=== PATIENT | female | born 1955 | race Hispanic/Latino ===

== ENCOUNTER → 2017-02-21 | Outpatient (CLI) | payer BC ==
--- NOTE | 2017-02-21 13:02 | Diagnostic Imaging Report ---
PROCEDURE:US GUIDED PARACENTESIS COMPARISON:None. INDICATIONS:Ascites FINDINGS: After informed consent was obtained, focused abdominal ultrasound identified a safe entry route into the free ascitic fluid in the right upper quadrant of the abdomen. The overlying skin was prepped and draped in sterile fashion. Lidocaine 1% was used for local anesthesia. Under ultrasound guidance, a centesis needle was advanced into the ascitic fluid, the needle was removed and the catheter attached to vacuum bottle. 6500 cc of straw-colored fluid were aspirated. The catheter was removed. There was <1 cc blood loss and no complications. Samples were sent to the laboratory for analysis. CONCLUSION: Uncomplicated ultrasound-guided paracentesis with removal of 6500 cc. Dictated by: Tristen Guzman M.D. on 02/21/2017 at 13:10 Electronically approved by: Tristen Guzman M.D. on 02/21/2017 at 13:10
[2017-02-21 13:46] LABS: BODY FLUID TYPE ASCITIES
[2017-02-21 13:47] LABS: BODY FLUID APPEARANCE SL.CLOUDY; BODY FLUID COLOR YELLOW
[2017-02-21 14:02] LABS: LYMPHOCYTES,BODY FLUID 73 %; MONO/MACROPHG,BODY FLUID 8 %; NEUTROPHILS,BODY FLUID 10 %; OTHER CELLS,BODY FLUID 9 %
[2017-02-21 15:42] LABS: RBC,BODY FLUID 97 cells/uL; WBC,BODY FLUID 54 cells/uL
== END ==
LOC: US 10:09
PROVIDERS: ATTEND Internal Medicine Gastroenterology
DX: R18.8 Other ascites (principal)
CPT/HCPCS: 36415; 49083; 82040; 82150; 82945; 83615; 83690; 83986; 84157; 84478; 87070; 87102; 87205; 87206; 88112; 88305; 89051; C1729

== ENCOUNTER → 2017-04-14 | Outpatient (CLI) | payer BC ==
[~2017-04-14] MED LIST: ALBUMIN HUMAN 200 ML IV ONE; SODIUM CHLORIDE 0.9% 250ML 250 ML ONE
[2017-04-14 08:24] LABS: INR 1.45; PROTHROMBIN TIME 16.6 seconds (11.9-14.5)
[2017-04-14 08:25] LABS: PARTIAL THROMBOPLASTIN TIME 36.2 seconds (23.8-35.5)
[2017-04-14 11:07] LABS: BODY FLUID APPEARANCE SL.CLOUDY; BODY FLUID COLOR YELLOW; BODY FLUID TYPE ABDOMINAL
[2017-04-14 11:51] LABS: RBC,BODY FLUID 34 cells/uL; WBC,BODY FLUID 67 cells/uL
--- NOTE | 2017-04-14 12:42 | Diagnostic Imaging Report ---
PROCEDURE:US GUIDED PARACENTESIS COMPARISON:None. INDICATIONS:Ascites FINDINGS: After informed consent was obtained, focused abdominal ultrasound identified a safe entry route into the free ascitic fluid in the right upper quadrant of the abdomen. The overlying skin was prepped and draped in sterile fashion. Lidocaine 1% was used for local anesthesia. Under ultrasound guidance, a 5 Hungarian [employer] needle was advanced into the ascitic fluid, the needle was removed and the catheter attached to vacuum bottle. Approximately 9,900 cc of ascitic fluid were aspirated. The catheter was removed. There was <1cc blood loss and no complications. The patient was administered albumin during and at the completion of the procedure. Samples were sent to the laboratory for analysis. CONCLUSION: Uncomplicated ultrasound-guided paracentesis with removal of 9,900 cc. Sandeep Beard D.O. Dictated by: Sandeep Beard D.O. on 04/14/2017 at 12:52 Electronically approved by: Sandeep Beard D.O. on 04/14/2017 at 12:52
[2017-04-14 17:12] LABS: LYMPHOCYTES,BODY FLUID 68 %; MONO/MACROPHG,BODY FLUID 9 %; NEUTROPHILS,BODY FLUID 23 %
== END ==
LOC: US 07:00
PROVIDERS: ATTEND Internal Medicine Gastroenterology
DX: R18.8 Other ascites (principal)
CPT/HCPCS: 36415; 49083; 82040; 82150; 82945; 83615; 83690; 83986; 84157; 84478; 85049; 85610; 85730; 86255; 87070; 87116; 87205; 87206; 88112; 88305; 89051; J7050

== ENCOUNTER → 2017-05-26 | Outpatient (CLI) | payer BC ==
[~2017-05-26] MED LIST changes: -SODIUM CHLORIDE 0.9% 250ML 250 ML ONE
[2017-05-26 13:19] LABS: INR 1.31; PROTHROMBIN TIME 15.3 seconds (11.9-14.5)
[2017-05-26 13:20] LABS: PARTIAL THROMBOPLASTIN TIME 30.7 seconds (23.8-35.5)
[2017-05-26 14:45] LABS: BODY FLUID APPEARANCE CLOUDY; BODY FLUID COLOR YELLOW; BODY FLUID TYPE PERITONEAL
--- NOTE | 2017-05-26 14:54 | Diagnostic Imaging Report ---
PROCEDURE:US GUIDED PARACENTESIS COMPARISON:None. INDICATIONS:Ascites FINDINGS: After informed consent was obtained, focused abdominal ultrasound identified a safe entry route into the free ascitic fluid in the right lower quadrant of the abdomen. The overlying skin was prepped and draped in sterile fashion. Lidocaine 1% was used for local anesthesia. Under ultrasound guidance, a 5 Welsh Yueh needle was advanced into the ascitic fluid, the needle was removed and the catheter attached to vacuum bottle. 9800 cc of straw-colored fluid were aspirated. The catheter was removed. There was minimal blood loss and no complications. Samples were sent to the laboratory for analysis. CONCLUSION: Uncomplicated ultrasound-guided paracentesis with removal of 9800 cc straw-colored fluid. Dictated by: Jerome Arnett M.D. on 05/26/2017 at 14:54 Electronically approved by: Jerome Arnett M.D. on 05/26/2017 at 14:54
[2017-05-26 15:01] LABS: RBC,BODY FLUID 133 cells/uL; WBC,BODY FLUID 48 cells/uL
[2017-05-26 15:22] LABS: LYMPHOCYTES,BODY FLUID 57 %; MONO/MACROPHG,BODY FLUID 24 %; NEUTROPHILS,BODY FLUID 19 %
== END ==
LOC: US 12:35
PROVIDERS: ATTEND Legal Medicine
DX: R18.8 Other ascites (principal)
CPT/HCPCS: 36415; 49083; 85049; 85610; 85730; 87070; 87205; 89051

== ENCOUNTER → 2017-06-12 | Outpatient (CLI) | payer BC ==
[~2017-06-12] MED LIST changes: +SODIUM CHLORIDE 0.9% 500ML 500 ML ONE
[2017-06-12 16:10] LABS: BODY FLUID APPEARANCE SL.CLOUDY; BODY FLUID COLOR YELLOW; BODY FLUID TYPE PERITONEAL
[2017-06-12 16:11] LABS: RBC,BODY FLUID 146 cells/uL; WBC,BODY FLUID 119 cells/uL
[2017-06-12 17:10] LABS: LYMPHOCYTES,BODY FLUID 49 %; MONO/MACROPHG,BODY FLUID 21 %; NEUTROPHILS,BODY FLUID 30 %
--- NOTE | 2017-06-18 09:26 | Diagnostic Imaging Report ---
PROCEDURE:US GUIDED PARACENTESIS COMPARISON:Paracentesis 05/26/2017. INDICATIONS:paracentesis for ascites FINDINGS: After informed consent was obtained, focused abdominal ultrasound identified a safe entry route into the free ascitic fluid in the right lower quadrant of the abdomen. The overlying skin was prepped and draped in sterile fashion. Lidocaine 1% was used for local anesthesia. Under ultrasound guidance, a centesis needle was advanced into the ascitic fluid, the needle was removed and the catheter attached to vacuum bottle. 10,150 cc of ascitic fluid were aspirated. The catheter was removed. There was <1 cc blood loss and no complications. Samples were sent to the laboratory for analysis. CONCLUSION: Uncomplicated ultrasound-guided paracentesis with removal of 10,150 cc. Dictated by: Tristen Guzman M.D. on 06/18/2017 at 9:27 Electronically approved by: Tristen Guzman M.D. on 06/18/2017 at 9:27
== END ==
LOC: US 12:42
PROVIDERS: ATTEND Legal Medicine
DX: R18.8 Other ascites (principal)
CPT/HCPCS: 36415; 49083; 87070; 87205; 89051; C1729; J7040

== ENCOUNTER → 2017-06-26 | Outpatient (CLI) | payer BC ==
[~2017-06-26] MED LIST changes: +SODIUM CHLORIDE 0.9% 250ML 250 ML ONE; -SODIUM CHLORIDE 0.9% 500ML 500 ML ONE
[2017-06-26 15:57] LABS: BODY FLUID COLOR YELLOW; BODY FLUID TYPE PERITONEAL
[2017-06-26 15:58] LABS: BODY FLUID APPEARANCE CLOUDY
[2017-06-26 16:00] LABS: RBC,BODY FLUID 26 cells/uL; WBC,BODY FLUID 26 cells/uL
[2017-06-26 16:23] LABS: LYMPHOCYTES,BODY FLUID 69 %; MONO/MACROPHG,BODY FLUID 22 %; NEUTROPHILS,BODY FLUID 9 %
--- NOTE | 2017-06-30 07:07 | Diagnostic Imaging Report ---
Date and Time: 06/26/2017 Procedure: Ultrasound-guided paracentesis pierce and shave press operator: Dr. Arnett Pre-operative diagnosis: Ascites Post-operative diagnosis: Ascites Conscious Sedation: None The patient's heart rate and pulse oximetry were continuously monitored by the interventional radiology nurse. Blood pressure was monitored at 5 minute intervals. Additional Medications: Lidocaine 1% for local anesthesia Fluoroscopy time: 0 Dose-area Product: 0 mGycm2. Frontal Air Kerma: 0 Contrast used: 0 Estimated blood loss: 20 cc Specimens: 11,200 cc ascitic fluid Implants: None Blood products administered: None Condition at completion of procedure: Stable Disposition: Discharged home DISCUSSION: Informed consent was obtained and documented in the medical record after discussion of risks and benefits. Patient was placed in the supine position on the sonographic table. Preliminary sonographic evaluation confirmed large volume ascites. A suitable percutaneous approach in the right mid abdomen was identified. The overlying skin was prepped and draped in the standard sterile fashion. 1% lidocaine was infiltrated into the skin and subcutaneous tissues for local anesthesia. Then under continuous sonographic guidance, a 5 [place] Yueh needle catheter was advanced into the peritoneal cavity. The catheter was advanced off the needle and connected to vacuum bottle with subsequent evacuation of 11,200 cc straw-colored fluid. The catheter was removed and a sterile dressing was applied. The patient tolerated the procedure well without immediate complication. Specimen was submitted for laboratory analysis as requested by the referring clinical team. FINDINGS: Large volume ascites IMPRESSION: Successful ultrasound-guided paracentesis with removal of 11,200 cc straw-colored fluid. Signed by: Dr. Jerome Arnett M.D. on 06/30/2017 7:04 AM
== END ==
LOC: US 12:18
PROVIDERS: ATTEND Internal Medicine Gastroenterology
DX: R18.8 Other ascites (principal)
CPT/HCPCS: 36415; 49083; 87070; 87205; 88112; 88305; 89051; C1729; J7050

== ENCOUNTER → 2017-07-11 | Outpatient (CLI) | payer BC ==
[~2017-07-11] MED LIST changes: +SODIUM CHLORIDE 0.9% 250ML 0 ML ONE; -SODIUM CHLORIDE 0.9% 250ML 250 ML ONE
[2017-07-11 09:43] LABS: BASOPHILS % 0.7 % (0.0-1.0); EOSINOPHILS # (AUTO) 0.2 (0.0-0.4); EOSINOPHILS % 2.5 % (0.0-6.0); HEMATOCRIT 32.8 % (34.2-44.1); HEMOGLOBIN 10.8 g/dL (12.0-16.0); LYMPHOCYTES % 16.6 % (18.0-39.1); MEAN CORPUSCULAR HEMOGLOBIN 31.7 pg (28-32); MEAN CORPUSCULAR HGB CONC 32.9 g/dL (31-35); MEAN CORPUSCULAR VOLUME 96.2 fL (81-99); MONOCYTES # (AUTO) 0.3 (0.2-0.8); MONOCYTES % 5.8 % (4.4-11.3); NEUTROPHILS # (AUTO) 4.4 (2.1-6.9); NEUTROPHILS % 74.1 % (38.7-80.0); PLATELET COUNT 335 x10e3/uL (140-360); RED BLOOD COUNT 3.41 x10e6/uL (3.6-5.1); RED CELL DISTRIBUTION WIDTH 14.1 % (11.7-14.4)
[2017-07-11 09:49] LABS: INR 1.16; PROTHROMBIN TIME 13.9 seconds (11.9-14.5)
[2017-07-11 09:50] LABS: PARTIAL THROMBOPLASTIN TIME 32.7 seconds (23.8-35.5)
[2017-07-11 13:17] LABS: BODY FLUID TYPE PERITONEAL
[2017-07-11 13:18] LABS: BODY FLUID APPEARANCE CLOUDY; BODY FLUID COLOR YELLOW; RBC,BODY FLUID 45 cells/uL; WBC,BODY FLUID 123 cells/uL
[2017-07-11 13:49] LABS: LYMPHOCYTES,BODY FLUID 67 %; MONO/MACROPHG,BODY FLUID 12 %; OTHER CELLS,BODY FLUID 15 %
[2017-07-11 13:59] LABS: NEUTROPHILS,BODY FLUID 6 %
--- NOTE | 2017-07-11 15:39 | Diagnostic Imaging Report ---
PROCEDURE:US GUIDED PARACENTESIS COMPARISON:Paracentesis 06/30/2017. INDICATIONS:Ascites FINDINGS:Informed consent was obtained and documented in the medical record after discussion of risks and benefits. The patient placed in the supine position on the sonographic table. Focused sonographic evaluation confirmed the large volume ascites. A suitable percutaneous approach of the right upper quadrant was identified. The overlying skin was prepped and draped in the usual sterile fashion. 1% lidocaine was infused into the subcutaneous tissues for local anesthesia. Under direct sonographic guidance, the 18 gauge needle was advanced into the peritoneal cavity. The catheter was attached to close vacuum suction drainage. 10.4 L were aspirated. Upon completion of the fluid evacuation, the needle was removed. No hematoma was visualized upon the completion of the examination. A sterile dressing was applied. The patient tolerated the procedure well. There were no immediate complications. The patient was transferred in stable unchanged condition to the postprocedure area for further monitoring. CONCLUSION:Successful ultrasound-guided paracentesis. Dictated by: Tristen Guzman M.D. on 07/11/2017 at 15:40 Electronically approved by: Tristen Guzman M.D. on 07/11/2017 at 15:40
== END ==
LOC: US 08:48
PROVIDERS: ATTEND Legal Medicine
DX: R18.8 Other ascites (principal)
CPT/HCPCS: 36415; 49083; 85025; 85610; 85730; 87070; 87205; 89051; J7050

== ENCOUNTER → 2017-07-25 | Outpatient (CLI) | payer BC ==
[~2017-07-25] MED LIST changes: +ALBUMIN 25% 12.5GM 200 ML IV ONE; -ALBUMIN HUMAN 200 ML IV ONE
--- NOTE | 2017-07-25 11:52 | Diagnostic Imaging Report ---
Ultrasound-guided paracentesis 07/25/2017 Pre-Procedure Diagnosis: Ascites Post-procedure Diagnosis:Ascites Utility Teller: Melanie Grewal Batch And Furnace Operator: None Sedation: None. 1% lidocaine local anesthesia. Estimate blood loss: <5 mL Blood administered: None Complications: None Implants/Grafts: None Specimen: 1200 mL ascites Procedure: Informed consent was obtained and the patient placed supine in the ultrasound suite. A time out was performed, followed by four-quadrant preliminary ultrasound of the abdomen. The right upper quadrant was prepped and draped in standard sterile fashion. Using real-time ultrasound guidance a 7-[place] one-step centesis needle was advanced into the peritoneal cavity. An image was stored in the electronic medical record. 7700 mL serous fluid was aspirated. At the end of the procedure the catheter was removed and a sterile dressing applied. The patient tolerated the procedure well. No complications. Findings: Large volume ascites. Impression: Successful ultrasound-guided paracentesis with removal of 7700 mL of ascites. Samples were submitted for evaluation if requested by the referring clinician. This report was generated with voice-recognition technology. Errors in regeneration operator can occur. Please interpret accordingly and contact a radiologist if there are any questions regarding the report. Signed by: Dr. Juan Manuel Grewal M.D. on 07/25/2017 11:49 AM
[2017-07-25 12:57] LABS: RBC,BODY FLUID 110 cells/uL; WBC,BODY FLUID 90 cells/uL
[2017-07-25 13:46] LABS: LYMPHOCYTES,BODY FLUID 64 %; MONO/MACROPHG,BODY FLUID 17 %; NEUTROPHILS,BODY FLUID 10 %; OTHER CELLS,BODY FLUID 9 %
[2017-07-25 14:06] LABS: BODY FLUID APPEARANCE SL.CLOUDY; BODY FLUID COLOR COLORLESS; BODY FLUID TYPE ASCITIES
== END ==
LOC: US 09:41
PROVIDERS: ATTEND Legal Medicine
DX: R18.8 Other ascites (principal)
CPT/HCPCS: 36415; 49083; 87070; 87205; 89051; J7050

== ENCOUNTER → 2017-08-11 | Outpatient (CLI) | payer BC ==
[~2017-08-11] MED LIST changes: -SODIUM CHLORIDE 0.9% 250ML 0 ML ONE; +SODIUM CHLORIDE 0.9% 250ML 250 ML ONE
--- NOTE | 2017-08-11 15:21 | Diagnostic Imaging Report ---
Ultrasound-guided paracentesis 08/11/2017 Pre-Procedure Diagnosis: Ascites Post-procedure Diagnosis:Ascites Supervisor Coin Machine: Melanie Grewal [facility] Receiving Clerk: None Sedation: None. 1% lidocaine local anesthesia. Estimate blood loss: <5 mL Blood administered: None Complications: None Implants/Grafts: None Specimen: 1200 mL ascites Procedure: Informed consent was obtained and the patient placed supine in the ultrasound suite. A time out was performed, followed by four-quadrant preliminary ultrasound of the abdomen. The right upper quadrant was prepped and draped in standard sterile fashion. Using real-time ultrasound guidance a 7-[place] Islander one-step centesis needle was advanced into the peritoneal cavity. An image was stored in the electronic medical record. 9400 mL serous fluid was aspirated. At the end of the procedure the catheter was removed and a sterile dressing applied. The patient tolerated the procedure well. No complications. Findings: Large volume ascites. Impression: Successful ultrasound-guided paracentesis with removal of 9400 mL of ascites. Samples were submitted for evaluation if requested by the referring clinician. This report was generated with voice-recognition technology. Errors in respiratory therapy technician can occur. Please interpret accordingly and contact a radiologist if there are any questions regarding the report. Signed by: Dr. Juan Manuel Grewal M.D. on 08/11/2017 3:17 PM
[2017-08-11 15:31] LABS: BODY FLUID APPEARANCE SL.CLOUDY; BODY FLUID COLOR YELLOW; BODY FLUID TYPE PERITONEAL
[2017-08-11 15:34] LABS: RBC,BODY FLUID 46 cells/uL; WBC,BODY FLUID 183 cells/uL
[2017-08-11 15:39] LABS: LYMPHOCYTES,BODY FLUID 43 %; MONO/MACROPHG,BODY FLUID 18 %; NEUTROPHILS,BODY FLUID 7 %; OTHER CELLS,BODY FLUID 32 %
== END ==
LOC: US 12:49
PROVIDERS: ATTEND Legal Medicine
DX: R18.8 Other ascites (principal)
CPT/HCPCS: 36415; 49083; 87070; 87205; 89051; J7050

== ENCOUNTER → 2017-08-25 | Outpatient (CLI) | payer BC ==
[~2017-08-25] MED LIST changes: -SODIUM CHLORIDE 0.9% 250ML 250 ML ONE; +SODIUM CHLORIDE 0.9% 500ML 500 ML ONE
[2017-08-25 12:03] LABS: INR 1.2; PARTIAL THROMBOPLASTIN TIME 32.2 seconds (23.8-35.5); PROTHROMBIN TIME 14.3 seconds (11.9-14.5)
--- NOTE | 2017-08-25 13:55 | Diagnostic Imaging Report ---
PROCEDURE:US GUIDED PARACENTESIS COMPARISON:None. INDICATIONS:Ascites FINDINGS:Large volume ascites is present. Informed consent was obtained. Patient was placed on the ultrasound suite table. Time out was performed. The right upper quadrant was prepped and draped in the usual standard fashion. Local anesthesia with 1% Xylocaine was obtained. A 5 Bulgarian sheathed Centeze needle was placed into the right upper quadrant. Approximately 8,100 cc of ascitic fluid was withdrawn. This was sent to the laboratory. Patient received albumin during the procedure. Patient tolerated the procedure well. CONCLUSION:Successful ultrasound-guided large volume paracentesis. Sandeep Beard D.O. Dictated by: Sandeep Beard D.O. on 08/25/2017 at 13:58 Electronically approved by: Sandeep Beard D.O. on 08/25/2017 at 13:58
[2017-08-25 13:58] LABS: BASOPHILS # (AUTO) 0.1 (0.0-0.1); BASOPHILS % 0.9 % (0.0-1.0); EOSINOPHILS # (AUTO) 0.1 (0.0-0.4); EOSINOPHILS % 2.6 % (0.0-6.0); HEMATOCRIT 28.7 % (34.2-44.1); HEMOGLOBIN 9.4 g/dL (12.0-16.0); LYMPHOCYTES # (AUTO) 1.2 (1.0-3.2); LYMPHOCYTES % 22.8 % (18.0-39.1); MEAN CORPUSCULAR HEMOGLOBIN 31.8 pg (28-32); MEAN CORPUSCULAR HGB CONC 32.8 g/dL (31-35); MONOCYTES # (AUTO) 0.5 (0.2-0.8); MONOCYTES % 9.2 % (4.4-11.3); NEUTROPHILS # (AUTO) 3.5 (2.1-6.9); NEUTROPHILS % 64.1 % (38.7-80.0); PLATELET COUNT 327 x10e3/uL (140-360); RED BLOOD COUNT 2.96 x10e6/uL (3.6-5.1); RED CELL DISTRIBUTION WIDTH 14.8 % (11.7-14.4)
[2017-08-25 14:02] LABS: BODY FLUID TYPE PERITONEAL
[2017-08-25 14:03] LABS: BODY FLUID APPEARANCE SL.CLOUDY; BODY FLUID COLOR YELLOW
[2017-08-25 14:08] LABS: RBC,BODY FLUID 866 cells/uL
[2017-08-25 14:09] LABS: WBC,BODY FLUID 68 cells/uL
[2017-08-25 18:16] LABS: LYMPHOCYTES,BODY FLUID 67 %; MONO/MACROPHG,BODY FLUID 12 %; NEUTROPHILS,BODY FLUID 9 %; OTHER CELLS,BODY FLUID 12 %
== END ==
LOC: US 10:39
PROVIDERS: ATTEND Legal Medicine
DX: R18.8 Other ascites (principal)
CPT/HCPCS: 36415; 49083; 85025; 85610; 85730; 87070; 87205; 89051; J7040

== ENCOUNTER → 2017-09-05 | Outpatient (CLI) | payer BC ==
[~2017-09-05] MED LIST changes: -SODIUM CHLORIDE 0.9% 500ML 500 ML ONE
[2017-09-05 10:18] LABS: BODY FLUID COLOR YELLOW; BODY FLUID TYPE ASCITIES
[2017-09-05 10:59] LABS: RBC,BODY FLUID 239 cells/uL; WBC,BODY FLUID 70 cells/uL
--- NOTE | 2017-09-05 12:09 | Diagnostic Imaging Report ---
PROCEDURE:US GUIDED PARACENTESIS COMPARISON:Prior paracentesis dated 08/25/2017 INDICATIONS:Ascites FINDINGS:Moderate amount of free abdominal fluid noted. Informed consent and time out was obtained. Right upper quadrant was prepped and draped in the usual standard fashion. Local anesthesia with 1% Xylocaine was obtained. A 5 [place] Centeze needle was placed into the fluid in the right upper quadrant below the liver. A total of 6,000 cc of fluid was withdrawn (amount specified by the referring physician not to exceed). Patient did receive albumin during the procedure. Fluid was sent to the laboratory for analysis. CONCLUSION:Successful ultrasound guided paracentesis. Sandeep Beard D.O. Dictated by: Sandeep Beard D.O. on 09/05/2017 at 12:14 Electronically approved by: Sandeep Beard D.O. on 09/05/2017 at 12:14
[2017-09-05 12:10] LABS: LYMPHOCYTES,BODY FLUID 73 %; MONO/MACROPHG,BODY FLUID 11 %; OTHER CELLS,BODY FLUID 12 %
[2017-09-05 12:11] LABS: NEUTROPHILS,BODY FLUID 4 %
[2017-09-05 12:29] LABS: BODY FLUID APPEARANCE SL.CLOUDY
== END ==
LOC: US 08:18
PROVIDERS: ATTEND Legal Medicine
DX: R18.8 Other ascites (principal)
CPT/HCPCS: 36415; 49083; 87070; 87205; 89051

== ENCOUNTER → 2017-09-12 | Outpatient (CLI) | payer BC ==
[2017-09-12 14:01] LABS: BODY FLUID APPEARANCE SL.CLOUDY; BODY FLUID COLOR YELLOW; BODY FLUID TYPE PERITONEAL; RBC,BODY FLUID 114 cells/uL; WBC,BODY FLUID 70 cells/uL
--- NOTE | 2017-09-12 14:07 | Diagnostic Imaging Report ---
PROCEDURE:US GUIDED PARACENTESIS COMPARISON:[facility], , [place] GUIDED PARACENTESIS, 09/05/2017, 9:27. INDICATIONS:ASCITES FINDINGS:Moderate amount of free abdominal fluid noted. Informed consent and time out was obtained. Right upper quadrant was prepped and draped in the usual standard fashion. Local anesthesia with 1% Xylocaine was utilized. A 5 Bulgarian Centeze needle was placed into the fluid in the right upper quadrant below the liver. A total of 6,000 cc of fluid was withdrawn (amount specified by the referring physician not to exceed). Patient did receive albumin during the procedure. Fluid was sent to the laboratory for analysis. CONCLUSION: Successful ultrasound guided paracentesis. Sandeep Beard D.O. Dictated by: Sandeep Beard D.O. on 09/12/2017 at 14:12 Electronically approved by: Sandeep Beard D.O. on 09/12/2017 at 14:12
[2017-09-12 15:28] LABS: LYMPHOCYTES,BODY FLUID 65 %; MONO/MACROPHG,BODY FLUID 29 %; NEUTROPHILS,BODY FLUID 6 %
== END ==
LOC: US 11:44
PROVIDERS: ATTEND Legal Medicine
DX: R18.8 Other ascites (principal)
CPT/HCPCS: 36415; 49083; 87070; 87205; 89051; C1729

== ENCOUNTER → 2017-09-19 | Outpatient (CLI) | payer BC ==
[~2017-09-19] MED LIST changes: -ALBUMIN 25% 12.5GM 200 ML IV ONE; +ALBUMIN IV ONE
--- NOTE | 2017-09-19 14:16 | Diagnostic Imaging Report ---
PROCEDURE:US GUIDED PARACENTESIS COMPARISON:Multiple, most recently 09/05/2017 INDICATIONS:ascites FINDINGS: Moderate amount of free abdominal fluid noted on ultrasound. Informed consent and time out was obtained. Right upper quadrant was prepped and draped in the usual standard fashion. Local anesthesia with 1% Xylocaine was obtained. A 5 Mont[place] Centeze needle was placed into the fluid in the right upper quadrant below the liver. A total of 5,000 cc of fluid was withdrawn (amount specified by the referring physician not to exceed). Patient did not receive albumin during the procedure. Fluid was sent to the laboratory for analysis. CONCLUSION: Successful ultrasound-guided paracentesis. Dictated by: Emilio Thibodeaux M.D. on 09/19/2017 at 14:20 Electronically approved by: Emilio Thibodeaux M.D. on 09/19/2017 at 14:20
== END ==
LOC: US 11:34
PROVIDERS: ATTEND Legal Medicine
DX: R18.8 Other ascites (principal)
CPT/HCPCS: 49083

== ENCOUNTER → 2017-09-25 | Outpatient (CLI) | payer BC ==
[2017-09-19 13:39] LABS: BASOPHILS # (AUTO) 0.1 (0.0-0.1); EOSINOPHILS # (AUTO) 0.1 (0.0-0.4); EOSINOPHILS % 1.9 % (0.0-6.0); HEMATOCRIT 28.6 % (34.2-44.1); HEMOGLOBIN 9.2 g/dL (12.0-16.0); LYMPHOCYTES # (AUTO) 0.9 (1.0-3.2); LYMPHOCYTES % 18.1 % (18.0-39.1); MEAN CORPUSCULAR HEMOGLOBIN 30.4 pg (28-32); MEAN CORPUSCULAR HGB CONC 32.2 g/dL (31-35); MEAN CORPUSCULAR VOLUME 94.4 fL (81-99); MONOCYTES # (AUTO) 0.4 (0.2-0.8); MONOCYTES % 8.4 % (4.4-11.3); NEUTROPHILS # (AUTO) 3.6 (2.1-6.9); NEUTROPHILS % 70.2 % (38.7-80.0); PLATELET COUNT 346 x10e3/uL (140-360); RED BLOOD COUNT 3.03 x10e6/uL (3.6-5.1); RED CELL DISTRIBUTION WIDTH 14.3 % (11.7-14.4)
[2017-09-19 13:49] LABS: INR 1.16; PROTHROMBIN TIME 13.9 seconds (11.9-14.5)
[2017-09-19 13:50] LABS: PARTIAL THROMBOPLASTIN TIME 32.3 seconds (23.8-35.5)
[2017-09-19 16:09] LABS: BODY FLUID APPEARANCE TURBID; BODY FLUID COLOR YELLOW; BODY FLUID TYPE PERITONEAL
[2017-09-19 17:46] LABS: RBC,BODY FLUID 1698 cells/uL; WBC,BODY FLUID 15 cells/uL
[2017-09-19 17:54] LABS: LYMPHOCYTES,BODY FLUID 70 %; MONO/MACROPHG,BODY FLUID 21 %; NEUTROPHILS,BODY FLUID 3 %; OTHER CELLS,BODY FLUID 6 %
[~2017-09-25] MED LIST changes: +ALBUMIN 25% 12.5GM 200 ML IV ONE; -ALBUMIN IV ONE
--- NOTE | 2017-09-25 14:43 | Diagnostic Imaging Report ---
PROCEDURE:US GUIDED PARACENTESIS COMPARISON:[facility], , [place] GUIDED PARACENTESIS, 09/19/2017, 12:53. INDICATIONS:ASCITES FINDINGS:The patient's right abdomen was prepped and draped in sterile fashion. After the procedure was explained and informed consent was obtained. Intravenous albumin was given throughout the procedure. Lidocaine 1% was used for local anesthesia. Preprocedure ultrasound images showed marked ascites. Using ultrasound guidance, a safe route obtained to the right peritoneal cavity, and a centesis needle was advanced. Approximately 9600 cc of yellowish fluid were obtained. One bottle was sent to the lab, others were discarded. Patient tolerated the procedure well without immediate complications. CONCLUSION: 1. Successful paracentesis with removal of 9600 cc of ascitic fluid. Etienne Ford M.D. Dictated by: Etienne Ford M.D. on 09/25/2017 at 14:48 Electronically approved by: Etienne Ford M.D. on 09/25/2017 at 14:48
[2017-09-25 14:45] LABS: BODY FLUID APPEARANCE CLOUDY; BODY FLUID COLOR YELLOW; BODY FLUID TYPE PERITONEAL
[2017-09-25 15:07] LABS: RBC,BODY FLUID 476 cells/uL; WBC,BODY FLUID 47 cells/uL
[2017-09-25 16:11] LABS: LYMPHOCYTES,BODY FLUID 68 %; MONO/MACROPHG,BODY FLUID 20 %; NEUTROPHILS,BODY FLUID 12 %
== END ==
LOC: US 11:25
PROVIDERS: ATTEND Legal Medicine
DX: R18.8 Other ascites (principal)
CPT/HCPCS: 36415; 49083; 85025; 85610; 85730; 87070; 87205; 89051

== ENCOUNTER → 2017-10-02 | Outpatient (CLI) | payer BC ==
--- NOTE | 2017-10-02 11:04 | Diagnostic Imaging Report ---
PROCEDURE:US GUIDED DIAGNOSTIC AND THERAPEUTIC PARACENTESIS COMPARISON:None. INDICATIONS:ASCITES FINDINGS: Informed consent was obtained. The patient's right abdomen was prepped and draped in sterile fashion. Intravenous albumin was given throughout the procedure. Lidocaine 1% was used for local anesthesia. Preprocedure ultrasound images showed large volume ascites. Using ultrasound guidance, a 5 Fr catheter was advanced into the right lower aspect of the peritoneal cavity. Approximately 8100 cc of yellowish fluid were obtained. The catheter was removed. Repeat ultrasound demonstrated substantial reduction in ascites. Dermabond and sterile dressing were applied. Samples were sent to the lab. Patient tolerated the procedure well without immediate complications. CONCLUSION: Ultrasound guided diagnostic and therapeutic paracentesis with removal of 8100 cc of serous fluid. Dictated by: VITALIY PIZANO M.D. on 10/02/2017 at 11:09 Electronically approved by: VITALIY PIZANO M.D. on 10/02/2017 at 11:09
[2017-10-02 12:02] LABS: BODY FLUID COLOR YELLOW; BODY FLUID TYPE ASICITIES
[2017-10-02 12:03] LABS: BODY FLUID APPEARANCE SL.CLOUDY; RBC,BODY FLUID 255 cells/uL; WBC,BODY FLUID 111 cells/uL
[2017-10-02 12:26] LABS: LYMPHOCYTES,BODY FLUID 61 %; MONO/MACROPHG,BODY FLUID 20 %; NEUTROPHILS,BODY FLUID 13 %; OTHER CELLS,BODY FLUID 6 %
== END ==
LOC: US 09:04
PROVIDERS: ATTEND Legal Medicine
DX: R18.8 Other ascites (principal)
CPT/HCPCS: 36415; 49083; 87070; 87205; 89051

== ENCOUNTER → 2017-10-09 | Outpatient (CLI) | payer BC ==
[2017-10-09 15:44] LABS: BODY FLUID APPEARANCE SL.CLOUDY; BODY FLUID COLOR YELLOW; BODY FLUID TYPE PERITONEAL
[2017-10-09 15:45] LABS: RBC,BODY FLUID 390 cells/uL; WBC,BODY FLUID 52 cells/uL
--- NOTE | 2017-10-09 15:46 | Diagnostic Imaging Report ---
PROCEDURE:US GUIDED PARACENTESIS COMPARISON:[facility], , US GUIDED PARACENTESIS, 10/02/2017, 9:56. INDICATIONS:Ascites FINDINGS:The patient's right side was prepped and draped in sterile fashion and after the procedure was explained and informed consent was obtained. Xylocaine 1% was used for local anesthesia. Using ultrasonic guidance, a centesis needle was advanced into the right peritoneal cavity. Approximately 7050 cc of clear yellowish colored fluid were drained. The patient tolerated the procedure well and there were no immediate post procedure complications. CONCLUSION:Successful ultrasound-guided paracentesis with removal of 7050 cc of ascitic fluid. Etienne Ford M.D. Dictated by: Etienne Ford M.D. on 10/09/2017 at 15:51 Electronically approved by: Etienne Ford M.D. on 10/09/2017 at 15:51
[2017-10-09 16:35] LABS: EOSINOPHILS,BODY FLUID 1 %; LYMPHOCYTES,BODY FLUID 56 %; MONO/MACROPHG,BODY FLUID 28 %; NEUTROPHILS,BODY FLUID 15 %
== END ==
LOC: US 13:27
PROVIDERS: ATTEND Legal Medicine
DX: R18.8 Other ascites (principal)
CPT/HCPCS: 36415; 49083; 87070; 87205; 89051

== ENCOUNTER → 2017-10-16 | Outpatient (CLI) | payer BC ==
[2017-10-16 13:27] LABS: INR 1.22; PROTHROMBIN TIME 14.5 seconds (11.9-14.5)
[2017-10-16 13:28] LABS: PARTIAL THROMBOPLASTIN TIME 30.8 seconds (23.8-35.5)
--- NOTE | 2017-10-16 14:57 | Diagnostic Imaging Report ---
Exam: Ultrasound-guided paracentesis dated 10/16/2017 Indication: Cirrhosis with ascites. Procedure: Preliminary survey of the abdomen shows large volume ascites. Utilizing ultrasound guidance after local anesthesia was obtained with 1% Xylocaine a 5 [place] Centeze catheter was placed into the ascitic fluid in the right mid abdomen. Approximately 6,600 cc of ascitic fluid was withdrawn and sent to the laboratory for analysis. No immediate complications. Patient did get albumin administration during the procedure. Impression: Successful large volume ultrasound-guided paracentesis. Signed by: Dr. Sandeep Beard DO on 10/16/2017 2:54 PM
[2017-10-16 21:01] LABS: BODY FLUID COLOR STRAW; BODY FLUID TYPE PERITONEAL
[2017-10-16 21:02] LABS: BODY FLUID APPEARANCE SL.CLOUDY
[2017-10-16 21:03] LABS: RBC,BODY FLUID 356 cells/uL; WBC,BODY FLUID 81 cells/uL
[2017-10-16 22:08] LABS: LYMPHOCYTES,BODY FLUID 42 %; MONO/MACROPHG,BODY FLUID 49 %; NEUTROPHILS,BODY FLUID 9 %
== END ==
LOC: US 12:52
PROVIDERS: ATTEND Legal Medicine
DX: R18.8 Other ascites (principal); K74.60 Unspecified cirrhosis of liver
CPT/HCPCS: 36415; 49083; 85049; 85610; 85730; 87070; 87205; 89051

== ENCOUNTER → 2017-10-23 | Outpatient (CLI) | payer BC ==
--- NOTE | 2017-10-23 14:50 | Diagnostic Imaging Report ---
PROCEDURE:US GUIDED PARACENTESIS COMPARISON:[facility], , [place] GUIDED PARACENTESIS, 10/16/2017, 13:35. INDICATIONS:Cirrhosis with ascites FINDINGS:Preliminary survey of the abdomen shows large volume ascites. Utilizing ultrasound guidance after local anesthesia was obtained with 1% Xylocaine a 5 Naur[place] Centeze sheathed needle was placed into the ascitic fluid in the right lateral midabdomen. Approximately 8,400 cc of ascitic fluid was withdrawn and sent to the laboratory for analysis. The patient did get albumin administration during the procedure. CONCLUSION:Successful large volume ultrasound guided paracentesis. Sandeep Beard D.O. Dictated by: Sandeep Beard D.O. on 10/23/2017 at 14:56 Electronically approved by: Sandeep Beard D.O. on 10/23/2017 at 14:56
[2017-10-23 16:21] LABS: BODY FLUID APPEARANCE CLOUDY; BODY FLUID COLOR YELLOW; BODY FLUID TYPE PERITONEAL
[2017-10-23 16:22] LABS: RBC,BODY FLUID 66 cells/uL; WBC,BODY FLUID 12 cells/uL
[2017-10-23 16:55] LABS: BASOPHILS,BODY FLUID 5 %; LYMPHOCYTES,BODY FLUID 49 %; MONO/MACROPHG,BODY FLUID 14 %
[2017-10-23 20:09] LABS: NEUTROPHILS,BODY FLUID 10 %; OTHER CELLS,BODY FLUID 22 %
== END ==
LOC: US 12:56
PROVIDERS: ATTEND Legal Medicine
DX: R18.8 Other ascites (principal); K74.60 Unspecified cirrhosis of liver
CPT/HCPCS: 36415; 49083; 87070; 87205; 88112; 88305; 89051

== ENCOUNTER → 2017-10-30 | Outpatient (CLI) | payer BC ==
[~2017-10-30] MED LIST changes: +LIDOCAINE HCL 1% LOCAL INJ 20 ML VIAL ONE
--- NOTE | 2017-10-30 15:24 | Diagnostic Imaging Report ---
PROCEDURE: Ultrasound-guided paracentesis. INDICATION: Cirrhosis with ascites. COMPARISON: Ultrasound-guided paracentesis 10/16/2017 FINDINGS: Preliminary survey of the abdomen shows large volume ascites. The patient's right abdomen was prepped and draped in sterile fashion and after the procedure was explained and informed consent was obtained. Local anesthesia was obtained with 1% Xylocaine. Using ultrasound guidance, a centesis catheter was placed into the ascitic fluid in the right lateral abdomen. Approximately 6450 cc of ascitic fluid was withdrawn and sent to the laboratory for analysis. No immediate postprocedure complications. Patient did get 50 g albumin administration during the procedure. IMPRESSION: 1. Successful ultrasound-guided paracentesis with removal of 6450 cc Signed by: Dr. Etienne Ford M.D. on 10/30/2017 3:20 PM
[2017-10-30 15:56] LABS: BODY FLUID APPEARANCE CLOUDY; BODY FLUID COLOR YELLOW; BODY FLUID TYPE PERITONEAL
[2017-10-30 16:05] LABS: RBC,BODY FLUID 196 cells/uL; WBC,BODY FLUID 18 cells/uL
[2017-10-30 16:23] LABS: LYMPHOCYTES,BODY FLUID 48 %; MONO/MACROPHG,BODY FLUID 26 %; NEUTROPHILS,BODY FLUID 5 %; OTHER CELLS,BODY FLUID 21 %
== END ==
LOC: RAD 13:41
PROVIDERS: ATTEND Legal Medicine
DX: R18.8 Other ascites (principal)
CPT/HCPCS: 36415; 49083; 87070; 87205; 89051; J2001

== ENCOUNTER → 2017-11-06 | Outpatient (CLI) | payer BC ==
[~2017-11-06] MED LIST changes: -LIDOCAINE HCL 1% LOCAL INJ 20 ML VIAL ONE; +SODIUM CHLORIDE 0.9% 250ML 250 ML ONE
[2017-11-06 15:29] LABS: BODY FLUID APPEARANCE TURBID; BODY FLUID COLOR YELLOW; BODY FLUID TYPE PERITONEAL
--- NOTE | 2017-11-06 15:48 | Diagnostic Imaging Report ---
PROCEDURE:US GUIDED DIAGNOSTIC AND THERAPEUTIC PARACENTESIS COMPARISON:Ultrasound guided paracentesis 10/23/2017 INDICATIONS:CIRRHOSIS, ASCITES FINDINGS: Preliminary survey of the abdomen shows large volume ascites. The patient was prepped and draped in sterile fashion. Utilizing ultrasound guidance after local anesthesia was obtained with 1% Xylocaine, a 5 [place] Centeze sheathed needle was placed into the ascitic fluid in the right lateral midabdomen. Approximately 7,200 cc of serous ascitic fluid was removed and sent to the laboratory for analysis. The catheter was removed and Dermabond was applied. Sterile bandage was placed. The patient received albumin administration during the procedure. CONCLUSION: Ultrasound guided diagnostic and therapeutic paracentesis as above. Dictated by: VITALIY PIZANO M.D. on 11/06/2017 at 15:29 Electronically approved by: VITALIY PIZANO M.D. on 11/06/2017 at 15:29
[2017-11-06 16:55] LABS: RBC,BODY FLUID 279 cells/uL; WBC,BODY FLUID 133 cells/uL
[2017-11-06 17:09] LABS: LYMPHOCYTES,BODY FLUID 49 %; MONO/MACROPHG,BODY FLUID 2 %; NEUTROPHILS,BODY FLUID 15 %; OTHER CELLS,BODY FLUID 34 %
== END ==
LOC: US 13:01
PROVIDERS: ATTEND Legal Medicine
DX: R18.8 Other ascites (principal); K74.60 Unspecified cirrhosis of liver
CPT/HCPCS: 36415; 49083; 87070; 87205; 89051; J7050; 88112

== ENCOUNTER → 2017-11-13 | Outpatient (CLI) | payer BC ==
[~2017-11-13] MED LIST changes: +DIPHENHYDRAMINE HCL 25 MG CAP ONE; -SODIUM CHLORIDE 0.9% 250ML 250 ML ONE
--- NOTE | 2017-11-13 15:51 | Diagnostic Imaging Report ---
Procedure: Ultrasound-guided diagnostic and therapeutic paracentesis lumber piler operator: Krista Boyce MD Pre-operative diagnosis: Ascites Post-operative diagnosis: Ascites Conscious Sedation: The patient's heart rate and pulse oximetry were continuously monitored by the IR nurse. Additional Medications: Lidocaine 1% for local anesthesia Estimated blood loss: Minimal Specimens: 5400 cc of serous ascites Implants: None TECHNIQUE/FINDINGS: Informed consent was obtained from the patient and documented in the medical record. The patient was placed in the supine position. Initial ultrasound demonstrated ascites. The right lower abdomen was prepped and draped in standard sterile fashion. 1% lidocaine was infiltrated into the skin and subcutaneous tissues for local anesthesia. Then under continuous sonographic guidance, a 5 Fr catheter was advanced into the peritoneal space. The catheter was connected to vacuum bottle with subsequent evacuation of 5400 cc of serous fluid. The catheter was removed. Dermabond and sterile dressing was applied. Sample was sent to the lab. The patient tolerated the procedure well. Patient received albumin infusion (4 bottles), intra procedurally. IMPRESSION: Ultrasound-guided paracentesis with removal of 5400 cc of serous fluid. Signed by: Dr. Krista Boyce MD on 11/13/2017 3:48 PM
[2017-11-13 15:52] LABS: INR 1.2; PROTHROMBIN TIME 14.3 seconds (11.9-14.5)
[2017-11-13 15:53] LABS: PARTIAL THROMBOPLASTIN TIME 31.8 seconds (23.8-35.5)
[2017-11-13 17:45] LABS: BODY FLUID APPEARANCE SL.CLOUDY; BODY FLUID COLOR YELLOW; BODY FLUID TYPE PERITONEAL; RBC,BODY FLUID 66 cells/uL; WBC,BODY FLUID 9 cells/uL
[2017-11-13 18:41] LABS: LYMPHOCYTES,BODY FLUID 63 %; MONO/MACROPHG,BODY FLUID 9 %; NEUTROPHILS,BODY FLUID 10 %; OTHER CELLS,BODY FLUID 18 %
== END ==
LOC: US 12:46
PROVIDERS: ATTEND Legal Medicine
DX: R18.8 Other ascites (principal)
CPT/HCPCS: 36415; 49083; 85610; 85730; 87070; 87205; 88112; 88305; 89051

== ENCOUNTER → 2017-11-20 | Outpatient (CLI) | payer BC ==
[2017-11-20 14:27] LABS: BASOPHILS # (AUTO) 0.1 (0.0-0.1); BASOPHILS % 0.9 % (0.0-1.0); EOSINOPHILS # (AUTO) 0.2 (0.0-0.4); EOSINOPHILS % 2.9 % (0.0-6.0); HEMOGLOBIN 8.8 g/dL (12.0-16.0); LYMPHOCYTES # (AUTO) 1.2 (1.0-3.2); LYMPHOCYTES % 18.7 % (18.0-39.1); MEAN CORPUSCULAR HEMOGLOBIN 28.8 pg (28-32); MEAN CORPUSCULAR HGB CONC 31.4 g/dL (31-35); MEAN CORPUSCULAR VOLUME 91.5 fL (81-99); MONOCYTES # (AUTO) 0.5 (0.2-0.8); MONOCYTES % 8.2 % (4.4-11.3); NEUTROPHILS # (AUTO) 4.5 (2.1-6.9); NEUTROPHILS % 68.8 % (38.7-80.0); PLATELET COUNT 395 x10e3/uL (140-360); RED BLOOD COUNT 3.06 x10e6/uL (3.6-5.1); RED CELL DISTRIBUTION WIDTH 15.5 % (11.7-14.4)
--- NOTE | 2017-11-20 15:20 | Diagnostic Imaging Report ---
PROCEDURE: US GUIDED PARACENTESIS Pre-operative diagnosis: Ascites Post-operative diagnosis: Ascites Conscious Sedation: None The patient's heart rate and pulse oximetry were continuously monitored by the IR nurse. Estimated blood loss: Less than 2 cc Specimens: 9600 cc of fluid that was sent to the laboratory. Implants: None TECHNIQUE/FINDINGS: Informed consent was obtained from the patient and documented in the medical record. The patient was placed in the supine position. Initial ultrasound demonstrated ascites. The right upper abdomen was prepped and draped in standard sterile fashion. 1% lidocaine was infiltrated into the skin and subcutaneous tissues for local anesthesia. Then under sonographic guidance, a 5 Fr Centeze sheathed catheter was advanced into the peritoneal space. The catheter was connected to vacuum bottle with subsequent evacuation of 9600 cc of fluid. The catheter was removed. A sterile dressing was applied. Sample was sent to the lab. The patient tolerated the procedure well. Patient received albumin infusion (50 grams), intra procedurally. IMPRESSION: Ultrasound-guided paracentesis with removal of 9600 cc of serous fluid. Sandeep Beard D.O. Dictated by: Sandeep Beard D.O. on 11/20/2017 at 15:27 Electronically approved by: Sandeep Beard D.O. on 11/20/2017 at 15:27
[2017-11-20 18:17] LABS: BODY FLUID APPEARANCE CLOUDY; BODY FLUID COLOR YELLOW; BODY FLUID TYPE PERITONEAL; RBC,BODY FLUID 229 cells/uL; WBC,BODY FLUID 16 cells/uL
[2017-11-20 18:32] LABS: LYMPHOCYTES,BODY FLUID 46 %; MONO/MACROPHG,BODY FLUID 17 %; NEUTROPHILS,BODY FLUID 6 %; OTHER CELLS,BODY FLUID 31 %
== END ==
LOC: US 13:36
PROVIDERS: ATTEND Legal Medicine
DX: R18.8 Other ascites (principal)
CPT/HCPCS: 36415; 49083; 85025; 87070; 87205; 88112; 88305; 89051

== ENCOUNTER → 2017-11-27 | Outpatient (CLI) | payer BC ==
[~2017-11-27] MED LIST changes: -DIPHENHYDRAMINE HCL 25 MG CAP ONE; +SODIUM CHLORIDE 0.9% 250ML 250 ML ONE
[2017-11-27 14:33] LABS: BODY FLUID APPEARANCE TURBID; BODY FLUID COLOR YELLOW; BODY FLUID TYPE PERITONEAL
--- NOTE | 2017-11-27 15:05 | Diagnostic Imaging Report ---
Procedure: Ultrasound-guided diagnostic and therapeutic paracentesis buzzsaw operator helper: Krista Boyce MD Pre-operative diagnosis: Ascites Post-operative diagnosis: Ascites Conscious Sedation: The patient's heart rate and pulse oximetry were continuously monitored by the IR nurse. Additional Medications: Lidocaine 1% for local anesthesia Estimated blood loss: Minimal Specimens: 8200 cc of serous ascites Implants: None TECHNIQUE/FINDINGS: Informed consent was obtained from the patient and documented in the medical record. The patient was placed in the supine position. Initial ultrasound demonstrated ascites. The right lower abdomen was prepped and draped in standard sterile fashion. 1% lidocaine was infiltrated into the skin and subcutaneous tissues for local anesthesia. Then under continuous sonographic guidance, a 7 Fr catheter was advanced into the peritoneal space. The catheter was connected to vacuum bottle with subsequent evacuation of 8200 cc of serous fluid. The catheter was removed. Dermabond and sterile dressing was applied. Sample was sent to the lab. The patient tolerated the procedure well. Patient received albumin infusion (4 bottles), intra procedurally. IMPRESSION: Ultrasound-guided paracentesis with removal of 8200 cc of serous fluid. Signed by: Dr. Krista Boyce MD on 11/27/2017 3:01 PM
[2017-11-27 15:07] LABS: RBC,BODY FLUID 440 cells/uL; WBC,BODY FLUID 110 cells/uL
[2017-11-27 15:46] LABS: LYMPHOCYTES,BODY FLUID 33 %; MONO/MACROPHG,BODY FLUID 59 %; NEUTROPHILS,BODY FLUID 8 %
== END ==
LOC: US 12:54
PROVIDERS: ATTEND Legal Medicine
DX: R18.8 Other ascites (principal)
CPT/HCPCS: 36415; 49083; 87070; 87205; 89051; J7050; 88112; 88305

== ENCOUNTER → 2017-12-04 | Outpatient (CLI) | payer BC ==
[~2017-12-04] MED LIST changes: -SODIUM CHLORIDE 0.9% 250ML 250 ML ONE
--- NOTE | 2017-12-04 15:07 | Diagnostic Imaging Report ---
PROCEDURE:US GUIDED PARACENTESIS COMPARISON:None. INDICATIONS:ASCITES Treater: Jerome Arnett M.D. Blood products administered: None Estimated blood loss: Minimal Implants/grafts: None Specimens: 7350 cc ascites fluid Complications: No immediate Condition at completion: Stable Disposition: Discharged home FINDINGS:Informed consent was obtained and documented in the medical record after discussion of risks and benefits. The patient was placed in the supine position on the sonographic table. The right abdomen was prepped and draped in the standard sterile fashion. After a suitable percutaneous approach to the peritoneal space was identified 1% lidocaine was infiltrated into the skin and subcutaneous tissues for local anesthesia. Then under continuous sonographic guidance a 5 Korean Yueh needle catheter was advanced into the peritoneal space. The needle was removed and the catheter connected to vacuum bottle with subsequent evacuation of 7350 cc cloudy yellow fluid. The catheter was removed and a sterile dressing was applied. Patient tolerated the procedure well without immediate complication. CONCLUSION: Successful ultrasound-guided paracentesis with removal of 7350 cc cloudy yellow fluid. Specimen was submitted for laboratory analysis as requested by the referring clinical team. Dictated by: Jerome Arnett M.D. on 12/04/2017 at 15:15 Electronically approved by: Jerome Arnett M.D. on 12/04/2017 at 15:15
[2017-12-04 15:11] LABS: BODY FLUID APPEARANCE CLOUDY; BODY FLUID COLOR STRAW; BODY FLUID TYPE PERITONEAL
[2017-12-04 17:42] LABS: RBC,BODY FLUID 183 cells/uL; WBC,BODY FLUID 8 cells/uL
[2017-12-04 17:44] LABS: LYMPHOCYTES,BODY FLUID 42 %; MONO/MACROPHG,BODY FLUID 22 %; NEUTROPHILS,BODY FLUID 9 %; OTHER CELLS,BODY FLUID 27 %
== END ==
LOC: US 13:23
PROVIDERS: ATTEND Legal Medicine
DX: R18.8 Other ascites (principal)
CPT/HCPCS: 36415; 49083; 87070; 87205; 88112; 89051; C1729

== ENCOUNTER → 2017-12-18 | Outpatient (CLI) | payer BC ==
[2017-12-18 15:16] LABS: BODY FLUID APPEARANCE TURBID; BODY FLUID COLOR STRAW; BODY FLUID TYPE PERITONEAL
--- NOTE | 2017-12-18 15:29 | Diagnostic Imaging Report ---
Procedure: Ultrasound-guided diagnostic and therapeutic paracentesis compo conveyor operator: Krista Boyce MD Pre-operative diagnosis: Ascites Post-operative diagnosis: Ascites Conscious Sedation: The patient's heart rate and pulse oximetry were continuously monitored by the IR nurse. Additional Medications: Lidocaine 1% for local anesthesia Estimated blood loss: Minimal Specimens: 6,750 cc of dark serous ascites Implants: None TECHNIQUE/FINDINGS: Informed consent was obtained from the patient and documented in the medical record. The patient was placed in the supine position. Initial ultrasound demonstrated ascites. The right lower abdomen was prepped and draped in standard sterile fashion. 1% lidocaine was infiltrated into the skin and subcutaneous tissues for local anesthesia. Then under continuous sonographic guidance, a 7 Fr catheter was advanced into the peritoneal space. The catheter was connected to vacuum bottle with subsequent evacuation of 6,750 cc of dark serous fluid. The catheter was removed. Dermabond and sterile dressing was applied. Sample was sent to the lab. The patient tolerated the procedure well. Patient received albumin infusion (4 bottles), intra procedurally. IMPRESSION: Ultrasound-guided diagnostic and therapeutic paracentesis with removal of 6,750 cc of dark serous fluid. Signed by: Dr. Krista Boyce MD on 12/18/2017 3:25 PM
[2017-12-18 16:55] LABS: RBC,BODY FLUID 585 cells/uL; WBC,BODY FLUID 1 cells/uL
[2017-12-18 17:43] LABS: LYMPHOCYTES,BODY FLUID 20 %; MONO/MACROPHG,BODY FLUID 31 %; NEUTROPHILS,BODY FLUID 18 %; OTHER CELLS,BODY FLUID 31 %
== END ==
LOC: US 13:48
PROVIDERS: ATTEND Legal Medicine
DX: R18.8 Other ascites (principal)
CPT/HCPCS: 36415; 49083; 87070; 87205; 88112; 88305; 89051

== ENCOUNTER → 2017-12-25 | Outpatient (CLI) | payer BC ==
--- NOTE | 2017-12-25 14:35 | Diagnostic Imaging Report ---
Procedure: Ultrasound-guided diagnostic and therapeutic paracentesis handle sander operator: Krista Boyce MD Pre-operative diagnosis: Ascites Post-operative diagnosis: Ascites Conscious Sedation: The patient's heart rate and pulse oximetry were continuously monitored by the IR nurse. Additional Medications: Lidocaine 1% for local anesthesia Estimated blood loss: Minimal Specimens: 8,100 cc of serous fluid Implants: None TECHNIQUE/FINDINGS: Informed consent was obtained from the patient and documented in the medical record. The patient was placed in the supine position. Initial ultrasound demonstrated ascites. The right lower abdomen was prepped and draped in standard sterile fashion. 1% lidocaine was infiltrated into the skin and subcutaneous tissues for local anesthesia. Then under continuous sonographic guidance, a 7 Fr catheter was advanced into the peritoneal space. The catheter was connected to vacuum bottle with subsequent evacuation of 8,100 cc of serous fluid. The catheter was removed. Dermabond and sterile dressing was applied. Sample was sent to the lab. The patient tolerated the procedure well. IMPRESSION: Ultrasound-guided diagnostic and therapeutic paracentesis with removal of 8,100 cc of serous fluid. Signed by: Dr. Krista Boyce MD on 12/25/2017 2:32 PM
[2017-12-25 15:44] LABS: BODY FLUID APPEARANCE CLOUDY; BODY FLUID COLOR YELLOW; BODY FLUID TYPE PERITONEAL
[2017-12-25 15:45] LABS: RBC,BODY FLUID 222 cells/uL; WBC,BODY FLUID 1 cells/uL
[2017-12-25 16:52] LABS: LYMPHOCYTES,BODY FLUID 32 %; MONO/MACROPHG,BODY FLUID 39 %; NEUTROPHILS,BODY FLUID 12 %; OTHER CELLS,BODY FLUID 17 %
== END ==
LOC: US 12:41
PROVIDERS: ATTEND Legal Medicine
DX: R18.8 Other ascites (principal)
CPT/HCPCS: 36415; 49083; 87070; 87205; 89051

== ENCOUNTER → 2018-01-01 | Outpatient (CLI) | payer BC ==
--- NOTE | 2018-01-01 15:05 | Diagnostic Imaging Report ---
Procedure: Ultrasound-guided diagnostic and therapeutic paracentesis mitering machine operator: Krista Boyce MD Pre-operative diagnosis: Ascites Post-operative diagnosis: Ascites Conscious Sedation: The patient's heart rate and pulse oximetry were continuously monitored by the IR nurse. Additional Medications: Lidocaine 1% for local anesthesia Estimated blood loss: Minimal Specimens: 6,000 cc of serous fluid Implants: None TECHNIQUE/FINDINGS: Informed consent was obtained from the patient and documented in the medical record. The patient was placed in the supine position. Initial ultrasound demonstrated ascites. The right lower abdomen was prepped and draped in standard sterile fashion. 1% lidocaine was infiltrated into the skin and subcutaneous tissues for local anesthesia. Then under continuous sonographic guidance, a 7 Fr catheter was advanced into the peritoneal space. The catheter was connected to vacuum bottle with subsequent evacuation of 6,000 cc of serous fluid. The catheter was removed. Dermabond and sterile dressing was applied. Sample was sent to the lab. The patient tolerated the procedure well. IMPRESSION: Ultrasound-guided diagnostic and therapeutic paracentesis with removal of 6,000 cc of serous fluid. Signed by: Dr. Krista Boyce MD on 01/01/2018 3:02 PM
[2018-01-01 15:48] LABS: BODY FLUID TYPE PERITONEAL
[2018-01-01 15:49] LABS: BODY FLUID APPEARANCE CLOUDY; BODY FLUID COLOR YELLOW
[2018-01-01 17:23] LABS: RBC,BODY FLUID 148 cells/uL; WBC,BODY FLUID 11 cells/uL
[2018-01-01 18:21] LABS: LYMPHOCYTES,BODY FLUID 16 %; MONO/MACROPHG,BODY FLUID 45 %; NEUTROPHILS,BODY FLUID 11 %; OTHER CELLS,BODY FLUID 28 %
== END ==
LOC: US 12:59
PROVIDERS: ATTEND Legal Medicine
DX: R18.8 Other ascites (principal)
CPT/HCPCS: 36415; 49083; 87070; 87205; 88112; 88305; 89051

== ENCOUNTER → 2018-01-08 | Outpatient (CLI) | payer BC ==
[2018-01-08 13:32] LABS: BASOPHILS # (AUTO) 0.1 (0.0-0.1); BASOPHILS % 1.2 % (0.0-1.0); EOSINOPHILS # (AUTO) 1.5 (0.0-0.4); EOSINOPHILS % 20.7 % (0.0-6.0); HEMATOCRIT 29.5 % (34.2-44.1); HEMOGLOBIN 9.4 g/dL (12.0-16.0); LYMPHOCYTES # (AUTO) 1.1 (1.0-3.2); LYMPHOCYTES % 15.3 % (18.0-39.1); MEAN CORPUSCULAR HEMOGLOBIN 29.8 pg (28-32); MEAN CORPUSCULAR HGB CONC 31.9 g/dL (31-35); MEAN CORPUSCULAR VOLUME 93.7 fL (81-99); MONOCYTES # (AUTO) 0.5 (0.2-0.8); MONOCYTES % 6.6 % (4.4-11.3); NEUTROPHILS % 55.6 % (38.7-80.0); PLATELET COUNT 387 x10e3/uL (140-360); RED BLOOD COUNT 3.15 x10e6/uL (3.6-5.1); RED CELL DISTRIBUTION WIDTH 16.7 % (11.7-14.4)
[2018-01-08 13:44] LABS: INR 0.98; PARTIAL THROMBOPLASTIN TIME 32.2 seconds (23.8-35.5); PROTHROMBIN TIME 13.9 seconds (11.9-14.5)
--- NOTE | 2018-01-08 14:42 | Diagnostic Imaging Report ---
Procedure: Ultrasound-guided diagnostic and therapeutic paracentesis shuttle operator: Krista Boyce MD Pre-operative diagnosis: Ascites Post-operative diagnosis: Ascites Conscious Sedation: The patient's heart rate and pulse oximetry were continuously monitored by the IR nurse. Additional Medications: Lidocaine 1% for local anesthesia Estimated blood loss: Minimal Specimens: 5,900 cc of serous fluid Implants: None TECHNIQUE/FINDINGS: Informed consent was obtained from the patient and documented in the medical record. The patient was placed in the supine position. Initial ultrasound demonstrated ascites. The right lower abdomen was prepped and draped in standard sterile fashion. 1% lidocaine was infiltrated into the skin and subcutaneous tissues for local anesthesia. Then under continuous sonographic guidance, a 7 Fr catheter was advanced into the peritoneal space. The catheter was connected to vacuum bottle with subsequent evacuation of 5,900 cc of serous fluid. The catheter was removed. Dermabond and sterile dressing was applied. Sample was sent to the lab. The patient tolerated the procedure well. IMPRESSION: Ultrasound-guided diagnostic and therapeutic paracentesis with removal of 5,900 cc of serous fluid. Signed by: Dr. Krista Boyce MD on 01/08/2018 2:38 PM
[2018-01-08 16:32] LABS: BODY FLUID COLOR YELLOW; BODY FLUID TYPE ACITES
[2018-01-08 16:47] LABS: WBC,BODY FLUID 45 cells/uL
[2018-01-08 16:48] LABS: RBC,BODY FLUID 708 cells/uL
[2018-01-08 18:30] LABS: LYMPHOCYTES,BODY FLUID 68 %; MONO/MACROPHG,BODY FLUID 23 %; NEUTROPHILS,BODY FLUID 9 %
[2018-01-08 18:31] LABS: BODY FLUID APPEARANCE SL.CLOUDY
== END ==
LOC: US 12:51
PROVIDERS: ATTEND Legal Medicine
DX: R18.8 Other ascites (principal)
CPT/HCPCS: 36415; 49083; 85025; 85610; 85730; 87070; 87205; 88112; 88305; 89051

== ENCOUNTER → 2018-01-15 | Outpatient (CLI) | payer BC ==
[2018-01-15 14:24] LABS: BODY FLUID APPEARANCE CLOUDY; BODY FLUID COLOR STRAW; BODY FLUID TYPE PERITONEAL
--- NOTE | 2018-01-15 14:55 | Diagnostic Imaging Report ---
Date and Time: 01/15/2018 Procedure: Ultrasound-guided paracentesis tugger operator: Dr. Arnett Pre-operative diagnosis: Ascites Post-operative diagnosis: Ascites Conscious Sedation: None The patient's heart rate and pulse oximetry were continuously monitored by the interventional radiology nurse. Blood pressure was monitored at 5 minute intervals. Additional Medications: Lidocaine 1% for local anesthesia Estimated blood loss: Minimal Blood products administered: None Specimens: 6000 cc straw-colored fluid Implants: None Condition at completion: Stable Disposition: Discharged home DISCUSSION: Informed consent was obtained and documented in the medical record after discussion of risks and benefits. The patient was placed in the supine position on the sonographic table. The right side of the abdomen was prepped and draped in the standard sterile fashion. A suitable percutaneous approach to the ascitic fluid was identified and 1% lidocaine was infiltrated into the skin and subcutaneous tissues for local anesthesia. Then under continuous sonographic guidance a 5 Slovenian Yueh needle catheter was advanced into the peritoneal space. The catheter was advanced off the needle and connected to vacuum bottle with evacuation of 6000 cc straw-colored fluid. Specimen was submitted for laboratory analysis as requested by the referring clinical team. The catheter was removed and a sterile dressing was applied. The patient tolerated the procedure well without immediate complication. FINDINGS: Large volume ascites IMPRESSION: Successful ultrasound-guided paracentesis with removal of 6000 cc straw-colored fluid. Signed by: Dr. Jerome Arnett M.D. on 01/15/2018 2:22 PM
[2018-01-15 16:16] LABS: RBC,BODY FLUID 697 cells/uL; WBC,BODY FLUID 47 cells/uL
[2018-01-15 16:22] LABS: LYMPHOCYTES,BODY FLUID 37 %; MONO/MACROPHG,BODY FLUID 22 %; NEUTROPHILS,BODY FLUID 7 %; OTHER CELLS,BODY FLUID 34 %
== END ==
LOC: US 12:55
PROVIDERS: ATTEND Legal Medicine
DX: R18.8 Other ascites (principal)
CPT/HCPCS: 36415; 49083; 87070; 87205; 88112; 88305; 89051

== ENCOUNTER → 2018-01-21 | Outpatient (CLI) | payer BC ==
--- NOTE | 2018-01-21 15:35 | Diagnostic Imaging Report ---
Date and Time: 01/21/2018 Procedure: Ultrasound-guided paracentesis fiber product cutting machine operator: Dr. Arnett Pre-operative diagnosis: Ascites Post-operative diagnosis: Ascites Conscious Sedation: None The patient's heart rate and pulse oximetry were continuously monitored by the interventional radiology nurse. Blood pressure was monitored at 5 minute intervals. Additional Medications: Lidocaine 1% for local anesthesia Estimated blood loss: Minimal Blood products administered: None Specimens: 6000 cc straw-colored fluid Implants: None Condition at completion: Stable Disposition: Discharged home DISCUSSION: Informed consent was obtained and documented in the medical record after discussion of risks and benefits. The patient was placed in the supine position on the sonographic table. The right side of the abdomen was prepped and draped in the standard sterile fashion. A suitable percutaneous approach to the ascitic fluid was identified and 1% lidocaine was infiltrated into the skin and subcutaneous tissues for local anesthesia. Then under continuous sonographic guidance a 5 Indonesian Yueh needle catheter was advanced into the peritoneal space. The catheter was advanced off the needle and connected to vacuum bottle with evacuation of 6000 cc straw-colored fluid. Specimen was submitted for laboratory analysis as requested by the referring clinical team. The catheter was removed and a sterile dressing was applied. The patient tolerated the procedure well without immediate complication. FINDINGS: Large volume ascites IMPRESSION: Successful ultrasound-guided paracentesis with removal of 6000 cc straw-colored fluid. Signed by: Dr. Jerome Arnett M.D. on 01/21/2018 3:32 PM
[2018-01-21 16:08] LABS: BODY FLUID APPEARANCE CLOUDY; BODY FLUID COLOR STRAW; BODY FLUID TYPE PERITONEAL
[2018-01-21 16:09] LABS: RBC,BODY FLUID 232 cells/uL; WBC,BODY FLUID 9 cells/uL
[2018-01-21 18:36] LABS: LYMPHOCYTES,BODY FLUID 50 %; MONO/MACROPHG,BODY FLUID 42 %; NEUTROPHILS,BODY FLUID 3 %; OTHER CELLS,BODY FLUID 5 %
== END ==
LOC: US 12:59
PROVIDERS: ATTEND Legal Medicine
DX: R18.8 Other ascites (principal)
CPT/HCPCS: 36415; 49083; 87070; 87205; 89051

== ENCOUNTER → 2018-01-29 | Outpatient (CLI) | payer BC ==
[2018-01-29 14:08] LABS: BASOPHILS # (AUTO) 0.1 (0.0-0.1); BASOPHILS % 0.8 % (0.0-1.0); EOSINOPHILS # (AUTO) 0.2 (0.0-0.4); EOSINOPHILS % 2.4 % (0.0-6.0); HEMATOCRIT 27.3 % (34.2-44.1); HEMOGLOBIN 8.5 g/dL (12.0-16.0); LYMPHOCYTES # (AUTO) 1.3 (1.0-3.2); LYMPHOCYTES % 20.9 % (18.0-39.1); MEAN CORPUSCULAR HEMOGLOBIN 29.1 pg (28-32); MEAN CORPUSCULAR HGB CONC 31.1 g/dL (31-35); MEAN CORPUSCULAR VOLUME 93.5 fL (81-99); MONOCYTES # (AUTO) 0.7 (0.2-0.8); MONOCYTES % 11.3 % (4.4-11.3); NEUTROPHILS % 64.3 % (38.7-80.0); PLATELET COUNT 379 x10e3/uL (140-360); RED BLOOD COUNT 2.92 x10e6/uL (3.6-5.1); RED CELL DISTRIBUTION WIDTH 15.4 % (11.7-14.4)
[2018-01-29 14:19] LABS: INR 1.02; PROTHROMBIN TIME 14.3 seconds (11.9-14.5)
[2018-01-29 14:20] LABS: PARTIAL THROMBOPLASTIN TIME 31.5 seconds (23.8-35.5)
--- NOTE | 2018-01-29 17:03 | Diagnostic Imaging Report ---
Procedure: Ultrasound-guided diagnostic and therapeutic paracentesis hydraulic hammer operator: Krista Boyce MD Pre-operative diagnosis: Ascites Post-operative diagnosis: Ascites Conscious Sedation: The patient's heart rate and pulse oximetry were continuously monitored by the IR nurse. Additional Medications: Lidocaine 1% for local anesthesia Estimated blood loss: Minimal Specimens: 6,000 cc of serous fluid Implants: None TECHNIQUE/FINDINGS: Informed consent was obtained from the patient and documented in the medical record. The patient was placed in the supine position. Initial ultrasound demonstrated ascites. The right lower abdomen was prepped and draped in standard sterile fashion. 1% lidocaine was infiltrated into the skin and subcutaneous tissues for local anesthesia. Then under continuous sonographic guidance, a 7 Fr catheter was advanced into the peritoneal space. The catheter was connected to vacuum bottle with subsequent evacuation of 6,000 cc of serous fluid. The catheter was removed. Dermabond and sterile dressing was applied. Sample was sent to the lab. The patient tolerated the procedure well. IMPRESSION: Ultrasound-guided diagnostic and therapeutic paracentesis with removal of 6,000 cc of serous fluid. Signed by: Dr. Krista Boyce MD on 01/29/2018 5:00 PM
[2018-01-29 17:40] LABS: BODY FLUID APPEARANCE CLOUDY; BODY FLUID COLOR STRAW; BODY FLUID TYPE PERITONEAL
[2018-01-29 17:41] LABS: RBC,BODY FLUID 797 cells/uL; WBC,BODY FLUID 41 cells/uL
[2018-01-29 18:12] LABS: LYMPHOCYTES,BODY FLUID 62 %; MONO/MACROPHG,BODY FLUID 27 %; NEUTROPHILS,BODY FLUID 4 %; OTHER CELLS,BODY FLUID 7 %
== END ==
LOC: US 13:02
PROVIDERS: ATTEND Legal Medicine
DX: R18.8 Other ascites (principal)
CPT/HCPCS: 36415; 49083; 85025; 85610; 85730; 87070; 87205; 89051

== ENCOUNTER → 2018-02-05 | Outpatient (CLI) | payer BC ==
--- NOTE | 2018-02-05 15:04 | Diagnostic Imaging Report ---
Date and Time: 02/05/2018 Procedure: Ultrasound-guided paracentesis press operator apprentice: Dr. Arnett Pre-operative diagnosis: Ascites Post-operative diagnosis: Ascites Conscious Sedation: None Additional Medications: Lidocaine 1% for local anesthesia Estimated blood loss: Minimal Blood proximal administered: None Specimens: 6000 cc of ascites Implants: None Condition at completion: Stable Disposition: Discharged DISCUSSION: Informed consent was obtained and documented in the medical record after discussion of risks and benefits. The patient was placed in the supine position on the sonographic table. The right lower quadrant of the abdomen was prepped and draped in the standard sterile fashion. 1% lidocaine was infiltrated into the skin and subcutaneous tissues for local anesthesia. Then under continuous sonographic guidance a 5 Bulgarian Yueh needle catheter was advanced into the peritoneal space and connected to vacuum bottle with subsequent evacuation of 6000 cc rust-colored fluid. The catheter was removed and a sterile dressing was applied. The patient tolerated the procedure well without immediate complication. FINDINGS: Large volume ascites. IMPRESSION: Successful ultrasound-guided paracentesis with evacuation of 6000 cc rust-colored fluid. Specimen was submitted for laboratory analysis as requested by the referring clinical team. Signed by: Dr. Jerome Arnett M.D. on 02/05/2018 3:01 PM
[2018-02-05 17:51] LABS: BODY FLUID APPEARANCE CLOUDY; BODY FLUID COLOR RED; BODY FLUID TYPE PERITONEAL
[2018-02-05 17:56] LABS: RBC,BODY FLUID 8525 cells/uL; WBC,BODY FLUID 110 cells/uL
[2018-02-05 18:25] LABS: EOSINOPHILS,BODY FLUID 1 %; LYMPHOCYTES,BODY FLUID 56 %; MONO/MACROPHG,BODY FLUID 37 %; NEUTROPHILS,BODY FLUID 5 %; OTHER CELLS,BODY FLUID 1 %
== END ==
LOC: US 13:12
PROVIDERS: ATTEND Legal Medicine
DX: R18.8 Other ascites (principal)
CPT/HCPCS: 36415; 49083; 87070; 87205; 89051

== ENCOUNTER → 2018-02-12 | Outpatient (CLI) | payer BC ==
--- NOTE | 2018-02-12 14:32 | Diagnostic Imaging Report ---
Date and Time: 02/12/2018 Procedure: Ultrasound-guided paracentesis power saw operator: Dr. Arnett Pre-operative diagnosis: Ascites Post-operative diagnosis: Ascites Conscious Sedation: None Additional Medications: Lidocaine 1% for local anesthesia Estimated blood loss: Minimal Blood products administered: None Specimens: 6000 cc of ascites Implants: None Condition at completion: Stable Disposition: Discharged home DISCUSSION: Informed consent was obtained and documented in the medical record after discussion of risks and benefits. The patient was placed in the supine position on the sonographic table. The right lower quadrant of the abdomen was prepped and draped in the standard sterile fashion. 1% lidocaine was infiltrated into the skin and subcutaneous tissues for local anesthesia. Then under continuous sonographic guidance a 5 Setswana Yueh needle catheter was advanced into the peritoneal space and connected to vacuum bottle with subsequent evacuation of 6000 cc lucas-colored fluid. The catheter was removed and a sterile dressing was applied. The patient tolerated the procedure well without immediate complication. FINDINGS: Large volume ascites. IMPRESSION: Successful ultrasound-guided paracentesis with evacuation of 6000 cc lucas-colored fluid. Specimen was submitted for laboratory analysis as requested by the referring clinical team. Signed by: Dr. Jerome Arnett M.D. on 02/12/2018 2:28 PM
[2018-02-12 17:07] LABS: BODY FLUID APPEARANCE SL.CLOUDY; BODY FLUID COLOR YELLOW; BODY FLUID TYPE PERITONEAL
[2018-02-12 17:08] LABS: RBC,BODY FLUID 4427 cells/uL; WBC,BODY FLUID 137 cells/uL
[2018-02-12 17:12] LABS: LYMPHOCYTES,BODY FLUID 45 %
[2018-02-12 17:13] LABS: MONO/MACROPHG,BODY FLUID 49 %; NEUTROPHILS,BODY FLUID 6 %
== END ==
LOC: US 12:54
PROVIDERS: ATTEND Legal Medicine
DX: R18.8 Other ascites (principal)
CPT/HCPCS: 36415; 49083; 87070; 87205; 89051

== ENCOUNTER → 2018-02-19 | Outpatient (CLI) | payer BC ==
[~2018-02-19] MED LIST changes: -ALBUMIN 25% 12.5GM 200 ML IV ONE; +ALBUMIN 25% 12.5GM 50 ML IV ONE
--- NOTE | 2018-02-19 15:33 | Diagnostic Imaging Report ---
Date and Time: 02/19/2018 Procedure: Ultrasound-guided paracentesis fiberglass dowel drawing operator: Dr. Arnett Pre-operative diagnosis: Ascites Post-operative diagnosis: Ascites Conscious Sedation: None Additional Medications: Lidocaine 1% for local anesthesia Estimated blood loss: Minimal Blood products administered: None Specimens: 7200 cc of ascites Implants: None Condition at completion: Stable Disposition: Discharged home DISCUSSION: Informed consent was obtained and documented in the medical record after discussion of risks and benefits. The patient was placed in the supine position on the sonographic table. The right lower quadrant of the abdomen was prepped and draped in the standard sterile fashion. 1% lidocaine was infiltrated into the skin and subcutaneous tissues for local anesthesia. Then under continuous sonographic guidance a 5 Greenlandic Yueh needle catheter was advanced into the peritoneal space and connected to vacuum bottle with subsequent evacuation of 7200 cc lucas-colored fluid. The catheter was removed and a sterile dressing was applied. The patient tolerated the procedure well without immediate complication. FINDINGS: Large volume ascites. IMPRESSION: Successful ultrasound-guided paracentesis with evacuation of 7200 cc lucas-colored fluid. Specimen was submitted for laboratory analysis as requested by the referring clinical team. Signed by: Dr. Jerome Arnett M.D. on 02/19/2018 3:29 PM
[2018-02-19 16:27] LABS: RBC,BODY FLUID 473 cells/uL; WBC,BODY FLUID 7 cells/uL
[2018-02-19 16:28] LABS: BODY FLUID APPEARANCE CLOUDY; BODY FLUID COLOR STRAW; BODY FLUID TYPE PERITONEAL
[2018-02-19 17:30] LABS: LYMPHOCYTES,BODY FLUID 52 %; MONO/MACROPHG,BODY FLUID 34 %; OTHER CELLS,BODY FLUID 14 %
== END ==
LOC: US 13:00
PROVIDERS: ATTEND Legal Medicine
DX: R18.8 Other ascites (principal)
CPT/HCPCS: 36415; 49083; 87070; 87205; 89051

== ENCOUNTER → 2018-03-05 | Outpatient (CLI) | payer BC ==
[2018-03-05 13:32] LABS: BASOPHILS % 0.4 % (0.0-1.0); EOSINOPHILS % 0.5 % (0.0-6.0); LYMPHOCYTES # (AUTO) 1.1 (1.0-3.2); LYMPHOCYTES % 14.5 % (18.0-39.1); MEAN CORPUSCULAR HEMOGLOBIN 28.7 pg (28-32); MEAN CORPUSCULAR HGB CONC 31.1 g/dL (31-35); MEAN CORPUSCULAR VOLUME 92.3 fL (81-99); MONOCYTES # (AUTO) 0.7 (0.2-0.8); MONOCYTES % 9.1 % (4.4-11.3); NEUTROPHILS # (AUTO) 5.5 (2.1-6.9); NEUTROPHILS % 74.8 % (38.7-80.0); PLATELET COUNT 629 x10e3/uL (140-360); RED BLOOD COUNT 2.09 x10e6/uL (3.6-5.1); RED CELL DISTRIBUTION WIDTH 15.8 % (11.7-14.4)
[2018-03-05 13:40] LABS: HEMATOCRIT 19.3 % (34.2-44.1)
[2018-03-05 13:47] LABS: INR 1.04; PARTIAL THROMBOPLASTIN TIME 32.3 seconds (23.8-35.5); PROTHROMBIN TIME 14.5 seconds (11.9-14.5)
== END ==
LOC: US 13:01
PROVIDERS: ATTEND Legal Medicine
DX: R18.8 Other ascites (principal)
CPT/HCPCS: 36415; 85025; 85610; 85730

== ENCOUNTER → 2018-03-27 | Outpatient (CLI) | payer BC ==
[~2018-03-27] MED LIST changes: +ALBUMIN 25% 12.5GM 200 ML IV ONE; -ALBUMIN 25% 12.5GM 50 ML IV ONE
[2018-03-27 14:46] LABS: BASOPHILS # (AUTO) 0.1 (0.0-0.1); BASOPHILS % 1.1 % (0.0-1.0); EOSINOPHILS # (AUTO) 0.1 (0.0-0.4); EOSINOPHILS % 1.8 % (0.0-6.0); HEMATOCRIT 27.3 % (34.2-44.1); HEMOGLOBIN 8.8 g/dL (12.0-16.0); LYMPHOCYTES % 17.7 % (18.0-39.1); MEAN CORPUSCULAR HGB CONC 32.2 g/dL (31-35); MEAN CORPUSCULAR VOLUME 90.1 fL (81-99); MONOCYTES # (AUTO) 0.4 (0.2-0.8); MONOCYTES % 7.4 % (4.4-11.3); NEUTROPHILS # (AUTO) 3.9 (2.1-6.9); NEUTROPHILS % 70.9 % (38.7-80.0); PLATELET COUNT 318 x10e3/uL (140-360); RED BLOOD COUNT 3.03 x10e6/uL (3.6-5.1); RED CELL DISTRIBUTION WIDTH 19.9 % (11.7-14.4)
[2018-03-27 14:59] LABS: INR 1.05; PROTHROMBIN TIME 14.6 seconds (11.9-14.5)
[2018-03-27 15:00] LABS: PARTIAL THROMBOPLASTIN TIME 32.3 seconds (23.8-35.5)
[2018-03-27 16:36] LABS: BODY FLUID APPEARANCE TURBID; BODY FLUID COLOR RED; BODY FLUID TYPE PERITONEAL
--- NOTE | 2018-03-27 17:39 | Diagnostic Imaging Report ---
Procedure: Ultrasound-guided diagnostic and therapeutic paracentesis spinning lathe operator hydraulic: Krista Boyce MD Pre-operative diagnosis: Ascites Post-operative diagnosis: Ascites Conscious Sedation: The patient's heart rate and pulse oximetry were continuously monitored by the IR nurse. Additional Medications: Lidocaine 1% for local anesthesia Estimated blood loss: Minimal Specimens: 6,000 cc of serous fluid Implants: None TECHNIQUE/FINDINGS: Informed consent was obtained from the patient and documented in the medical record. The patient was placed in the supine position. Initial ultrasound demonstrated ascites. The right lower abdomen was prepped and draped in standard sterile fashion. 1% lidocaine was infiltrated into the skin and subcutaneous tissues for local anesthesia. Then under continuous sonographic guidance, a 5 Fr catheter was advanced into the peritoneal space. The catheter was connected to vacuum bottle with subsequent evacuation of 6,000 cc of serous fluid. The catheter was removed. Dermabond and sterile dressing was applied. Sample was sent to the lab. The patient tolerated the procedure well. IMPRESSION: Ultrasound-guided diagnostic and therapeutic paracentesis with removal of 6,000 cc of serous fluid. Signed by: Dr. Krista Boyce MD on 03/27/2018 5:36 PM
[2018-03-27 18:05] LABS: LYMPHOCYTES,BODY FLUID 10 %; MONO/MACROPHG,BODY FLUID 70 %; NEUTROPHILS,BODY FLUID 2 %; OTHER CELLS,BODY FLUID 18 %
[2018-03-27 18:07] LABS: RBC,BODY FLUID 12078 cells/uL; WBC,BODY FLUID 99 cells/uL
== END ==
LOC: US 12:51
PROVIDERS: ATTEND Legal Medicine
DX: R18.8 Other ascites (principal)
CPT/HCPCS: 36415; 49083; 85025; 85610; 85730; 87070; 87205; 88112; 89051

== ENCOUNTER → 2018-04-02 | Outpatient (CLI) | payer BC ==
[~2018-04-02] MED LIST changes: -ALBUMIN 25% 12.5GM 200 ML IV ONE; +ALBUMIN 25% 12.5GM 50ML 200 ML IV ONE
--- NOTE | 2018-04-02 14:50 | Diagnostic Imaging Report ---
Procedure: Ultrasound-guided diagnostic and therapeutic paracentesis typesetting machine operator/tender: Krista Boyce MD Pre-operative diagnosis: Ascites Post-operative diagnosis: Ascites Conscious Sedation: The patient's heart rate and pulse oximetry were continuously monitored by the IR nurse. Additional Medications: Lidocaine 1% for local anesthesia Estimated blood loss: Minimal Specimens: 6,000 cc of serous fluid Implants: None TECHNIQUE/FINDINGS: Informed consent was obtained from the patient and documented in the medical record. The patient was placed in the supine position. Initial ultrasound demonstrated ascites. The right lower abdomen was prepped and draped in standard sterile fashion. 1% lidocaine was infiltrated into the skin and subcutaneous tissues for local anesthesia. Then under continuous sonographic guidance, a 5 Fr catheter was advanced into the peritoneal space. The catheter was connected to vacuum bottle with subsequent evacuation of 6,000 cc of serous fluid. The catheter was removed. Dermabond and sterile dressing was applied. Sample was sent to the lab. The patient tolerated the procedure well. IMPRESSION: Ultrasound-guided diagnostic and therapeutic paracentesis with removal of 6,000 cc of serous fluid. Signed by: Dr. Krista Boyce MD on 04/02/2018 2:46 PM
[2018-04-02 15:04] LABS: BODY FLUID APPEARANCE CLOUDY; BODY FLUID COLOR RED; BODY FLUID TYPE PERITONEAL
[2018-04-02 15:11] LABS: RBC,BODY FLUID 3257 cells/uL; WBC,BODY FLUID 30 cells/uL
[2018-04-02 16:57] LABS: LYMPHOCYTES,BODY FLUID 13 %; MONO/MACROPHG,BODY FLUID 26 %; OTHER CELLS,BODY FLUID 61 %
== END ==
LOC: US 12:50
PROVIDERS: ATTEND Legal Medicine
DX: R18.8 Other ascites (principal)
CPT/HCPCS: 36415; 49083; 87070; 87205; 88112; 88305; 89051

== ENCOUNTER → 2018-04-09 | Outpatient (CLI) | payer BC ==
[2018-04-09 15:04] LABS: BASOPHILS # (AUTO) 0.1 (0.0-0.1); EOSINOPHILS # (AUTO) 0.3 (0.0-0.4); EOSINOPHILS % 4.6 % (0.0-6.0); HEMOGLOBIN 8.9 g/dL (12.0-16.0); LYMPHOCYTES # (AUTO) 1.1 (1.0-3.2); LYMPHOCYTES % 18.6 % (18.0-39.1); MEAN CORPUSCULAR HEMOGLOBIN 29.5 pg (28-32); MEAN CORPUSCULAR HGB CONC 31.8 g/dL (31-35); MEAN CORPUSCULAR VOLUME 92.7 fL (81-99); MONOCYTES # (AUTO) 0.7 (0.2-0.8); MONOCYTES % 11.4 % (4.4-11.3); NEUTROPHILS # (AUTO) 3.7 (2.1-6.9); NEUTROPHILS % 63.9 % (38.7-80.0); PLATELET COUNT 297 x10e3/uL (140-360); RED BLOOD COUNT 3.02 x10e6/uL (3.6-5.1); RED CELL DISTRIBUTION WIDTH 19.7 % (11.7-14.4)
[2018-04-09 15:12] LABS: INR 1.09; PROTHROMBIN TIME 15.1 seconds (11.9-14.5)
[2018-04-09 15:13] LABS: PARTIAL THROMBOPLASTIN TIME 31.2 seconds (23.8-35.5)
[2018-04-09 15:16] LABS: CREATININE, SERUM 2.08 mg/dL (0.57-1.11)
--- NOTE | 2018-04-09 16:13 | Diagnostic Imaging Report ---
Date and Time: 04/09/2018 Procedure: Ultrasound-guided paracentesis heading and priming operator: Dr. Arnett Pre-operative diagnosis: Ascites Post-operative diagnosis: Ascites Conscious Sedation: None The patient's heart rate and pulse oximetry were continuously monitored by the interventional radiology nurse. Blood pressure was monitored at 5 minute intervals. Additional Medications: Lidocaine 1% for local anesthesia Estimated blood loss: Minimal Blood products administered: None Specimens: 6000 cc straw-colored fluid Implants: None Condition at completion: Stable Disposition: Discharged home DISCUSSION: Informed consent was obtained and documented in the medical record after discussion of risks and benefits. Preliminary sonographic evaluation confirmed moderate ascites. A suitable percutaneous approach in the right upper quadrant was identified and the overlying skin was prepped and draped in standard sterile fashion. 1% lidocaine was infiltrated into the skin and subcutaneous tissues for local anesthesia. Then under continuous sonographic guidance, a 5 Montserratian Yueh needle catheter was advanced into the peritoneal space. The catheter was advanced off the needle and connected to vacuum bottle with subsequent evacuation of 6000 cc straw-colored fluid. The catheter was removed and a sterile dressing was applied. The patient tolerated the procedure well without immediate complication. FINDINGS: Moderate ascites IMPRESSION: Successful ultrasound-guided paracentesis with evacuation of 6000 cc straw-colored fluid. Specimen was submitted for laboratory analysis as requested by the referring clinical team. Signed by: Dr. Jerome Arnett M.D. on 04/09/2018 4:09 PM
[2018-04-09 17:18] LABS: BODY FLUID APPEARANCE CLOUDY; BODY FLUID COLOR RED; BODY FLUID TYPE PERITONEAL; RBC,BODY FLUID 1192 cells/uL; WBC,BODY FLUID 9 cells/uL
[2018-04-09 18:28] LABS: LYMPHOCYTES,BODY FLUID 45 %; MONO/MACROPHG,BODY FLUID 38 %; NEUTROPHILS,BODY FLUID 3 %; OTHER CELLS,BODY FLUID 14 %
== END ==
LOC: US 14:34
PROVIDERS: ATTEND Legal Medicine
DX: R18.8 Other ascites (principal)
CPT/HCPCS: 36415; 49083; 82565; 84520; 85025; 85610; 85730; 87070; 87205; 89051

== ENCOUNTER → 2018-04-16 | Outpatient (CLI) | payer BC ==
[2018-04-16 13:57] LABS: INR 1.04; PROTHROMBIN TIME 14.5 seconds (11.9-14.5)
[2018-04-16 13:58] LABS: PARTIAL THROMBOPLASTIN TIME 30.8 seconds (23.8-35.5)
--- NOTE | 2018-04-16 15:49 | Diagnostic Imaging Report ---
Date and Time: 04/16/2018 Procedure: Ultrasound-guided paracentesis road roller operator: Dr. Arnett Pre-operative diagnosis: Ascites Post-operative diagnosis: Ascites Conscious Sedation: None The patient's heart rate and pulse oximetry were continuously monitored by the interventional radiology nurse. Blood pressure was monitored at 5 minute intervals. Additional Medications: Lidocaine 1% for local anesthesia Estimated blood loss: Minimal Blood products administered: None Specimens: 6000 cc straw-colored fluid Implants: None Condition at completion: Stable Disposition: Discharged home DISCUSSION: Informed consent was obtained and documented in the medical record after discussion of risks and benefits. Preliminary sonographic evaluation confirmed moderate ascites. A suitable percutaneous approach in the right upper quadrant was identified and the overlying skin was prepped and draped in standard sterile fashion. 1% lidocaine was infiltrated into the skin and subcutaneous tissues for local anesthesia. Then under continuous sonographic guidance, a 5 Gambian Yueh needle catheter was advanced into the peritoneal space. The catheter was advanced off the needle and connected to vacuum bottle with subsequent evacuation of 6000 cc straw-colored fluid. The catheter was removed and a sterile dressing was applied. The patient tolerated the procedure well without immediate complication. FINDINGS: Moderate ascites IMPRESSION: Successful ultrasound-guided paracentesis with evacuation of 6000 cc straw-colored fluid. Specimen was submitted for laboratory analysis as requested by the referring clinical team. Signed by: Dr. Jerome Arnett M.D. on 04/16/2018 3:46 PM
[2018-04-16 15:56] LABS: BODY FLUID APPEARANCE CLOUDY; BODY FLUID COLOR STRAW; BODY FLUID TYPE PERITONEAL
[2018-04-16 17:31] LABS: RBC,BODY FLUID 406 cells/uL; WBC,BODY FLUID 2 cells/uL
[2018-04-16 17:44] LABS: LYMPHOCYTES,BODY FLUID 12 %; MONO/MACROPHG,BODY FLUID 62 %; NEUTROPHILS,BODY FLUID 2 %; OTHER CELLS,BODY FLUID 24 %
== END ==
LOC: US 12:52
PROVIDERS: ATTEND Legal Medicine
DX: R18.8 Other ascites (principal)
CPT/HCPCS: 36415; 49083; 85049; 85610; 85730; 87070; 87205; 88112; 88305; 89051

== ENCOUNTER → 2018-04-23 | Outpatient (CLI) | payer BC ==
[2018-04-23 09:51] LABS: HEMATOCRIT 25.4 % (34.2-44.1); HEMOGLOBIN 8.1 g/dL (12.0-16.0); MEAN CORPUSCULAR HEMOGLOBIN 29.3 pg (28-32); MEAN CORPUSCULAR HGB CONC 31.9 g/dL (31-35); PLATELET COUNT 336 x10e3/uL (140-360); RED BLOOD COUNT 2.76 x10e6/uL (3.6-5.1); RED CELL DISTRIBUTION WIDTH 18.1 % (11.7-14.4)
[2018-04-23 10:05] LABS: INR 1.06; PROTHROMBIN TIME 14.8 seconds (11.9-14.5)
[2018-04-23 10:06] LABS: PARTIAL THROMBOPLASTIN TIME 28.4 seconds (23.8-35.5)
[2018-04-23 10:11] LABS: CREATININE, SERUM 1.92 mg/dL (0.57-1.11)
--- NOTE | 2018-04-23 11:17 | Diagnostic Imaging Report ---
Date and Time: 04/23/2018 Procedure: Ultrasound-guided paracentesis typewriter operator automatic: Dr. Arnett Pre-operative diagnosis: Ascites Post-operative diagnosis: Ascites Conscious Sedation: None The patient's heart rate and pulse oximetry were continuously monitored by the interventional radiology nurse. Blood pressure was monitored at 5 minute intervals. Additional Medications: Lidocaine 1% for local anesthesia Estimated blood loss: Minimal Blood products administered: None Specimens: 6000 cc straw-colored fluid Implants: None Condition at completion: Stable Disposition: Discharged home DISCUSSION: Informed consent was obtained and documented in the medical record after discussion of risks and benefits. Preliminary sonographic evaluation confirmed moderate ascites. A suitable percutaneous approach in the right upper quadrant was identified and the overlying skin was prepped and draped in standard sterile fashion. 1% lidocaine was infiltrated into the skin and subcutaneous tissues for local anesthesia. Then under continuous sonographic guidance, a 5 Brazilian Yueh needle catheter was advanced into the peritoneal space. The catheter was advanced off the needle and connected to vacuum bottle with subsequent evacuation of 6000 cc straw-colored fluid. The catheter was removed and a sterile dressing was applied. The patient tolerated the procedure well without immediate complication. FINDINGS: Moderate ascites IMPRESSION: Successful ultrasound-guided paracentesis with evacuation of 6000 cc straw-colored fluid. Specimen was submitted for laboratory analysis as requested by the referring clinical team. Signed by: Dr. Jerome Arnett M.D. on 04/23/2018 11:13 AM
[2018-04-23 11:57] LABS: BODY FLUID APPEARANCE SL.CLOUDY; BODY FLUID COLOR YELLOW; BODY FLUID TYPE PLEURAL
[2018-04-23 11:59] LABS: RBC,BODY FLUID 2450 cells/uL; WBC,BODY FLUID 99 cells/uL
== END ==
LOC: US 09:05
PROVIDERS: ATTEND Legal Medicine
DX: R18.8 Other ascites (principal)
CPT/HCPCS: 36415; 49083; 82565; 84520; 85007; 85027; 85610; 85730; 87070; 87205; 89051

== ENCOUNTER → 2018-04-30 | Outpatient (CLI) | payer BC ==
--- NOTE | 2018-04-30 14:39 | Diagnostic Imaging Report ---
Procedure: Ultrasound-guided diagnostic and therapeutic paracentesis offset machine operator: Krista Boyce MD Pre-operative diagnosis: Ascites Post-operative diagnosis: Ascites Conscious Sedation: The patient's heart rate and pulse oximetry were continuously monitored by the IR nurse. Additional Medications: Lidocaine 1% for local anesthesia Estimated blood loss: Minimal Specimens: 6,000 cc of serous fluid Implants: None TECHNIQUE/FINDINGS: Informed consent was obtained from the patient and documented in the medical record. The patient was placed in the supine position. Initial ultrasound demonstrated ascites. The right lower abdomen was prepped and draped in standard sterile fashion. 1% lidocaine was infiltrated into the skin and subcutaneous tissues for local anesthesia. Then under continuous sonographic guidance, a 5 Fr catheter was advanced into the peritoneal space. The catheter was connected to vacuum bottle with subsequent evacuation of 6,000 cc of serous fluid. The catheter was removed. Dermabond and sterile dressing was applied. Sample was sent to the lab. The patient tolerated the procedure well. IMPRESSION: Ultrasound-guided diagnostic and therapeutic paracentesis with removal of 6,000 cc of serous fluid. Signed by: Dr. Krista Boyce MD on 04/30/2018 2:35 PM
[2018-04-30 16:36] LABS: BODY FLUID APPEARANCE CLOUDY; BODY FLUID COLOR YELLOW; BODY FLUID TYPE PERITONEAL
[2018-04-30 16:37] LABS: RBC,BODY FLUID 179 cells/uL; WBC,BODY FLUID 22 cells/uL
[2018-04-30 18:19] LABS: LYMPHOCYTES,BODY FLUID 31 %; MONO/MACROPHG,BODY FLUID 52 %; NEUTROPHILS,BODY FLUID 4 %; OTHER CELLS,BODY FLUID 13 %
== END ==
LOC: US 12:48
PROVIDERS: ATTEND Legal Medicine
DX: R18.8 Other ascites (principal)
CPT/HCPCS: 36415; 49083; 87070; 87205; 89051

== ENCOUNTER → 2018-05-07 | Outpatient (CLI) | payer BC ==
--- NOTE | 2018-05-07 15:25 | Diagnostic Imaging Report ---
Date and Time: 05/07/2018 Procedure: Ultrasound-guided paracentesis Pre-operative diagnosis: Ascites Post-operative diagnosis: Ascites Conscious Sedation: None The patient's heart rate and pulse oximetry were continuously monitored by the interventional radiology nurse. Blood pressure was monitored at 5 minute intervals. Additional Medications: Lidocaine 1% for local anesthesia Estimated blood loss: Less than 2 cc Blood products administered: None Specimens: 6000 cc straw-colored fluid Implants: None Condition at completion: Stable Disposition: Discharged home DISCUSSION: Informed consent was obtained and documented in the medical record after discussion of risks and benefits. Preliminary sonographic evaluation confirmed moderate ascites. A suitable percutaneous approach in the right upper quadrant was identified and the overlying skin was prepped and draped in standard sterile fashion. 1% lidocaine was infiltrated into the skin and subcutaneous tissues for local anesthesia. Then under continuous sonographic guidance, a 5 Bhutanese [employer] needle catheter was advanced into the peritoneal space in the right upper quadrant. The catheter was advanced off the needle and connected to vacuum bottle with subsequent evacuation of 6000 cc straw-colored fluid. The catheter was removed and a sterile dressing was applied. The patient tolerated the procedure well without immediate complication. Patient did receive 50 g of albumin during the procedure. IMPRESSION: 1. Successful ultrasound-guided paracentesis. 2. Fluid submitted for laboratory analysis as requested by the referring clinical team. Signed by: Dr. Sandeep Beard DO on 05/07/2018 3:22 PM
[2018-05-07 16:53] LABS: BODY FLUID TYPE PERITONEAL
[2018-05-07 16:54] LABS: BODY FLUID APPEARANCE CLOUDY; BODY FLUID COLOR YELLOW; RBC,BODY FLUID 361 cells/uL; WBC,BODY FLUID 36 cells/uL
[2018-05-07 19:26] LABS: LYMPHOCYTES,BODY FLUID 24 %; MONO/MACROPHG,BODY FLUID 46 %; NEUTROPHILS,BODY FLUID 11 %
[2018-05-07 19:27] LABS: OTHER CELLS,BODY FLUID 19 %
== END ==
LOC: US 13:33
PROVIDERS: ATTEND Legal Medicine
DX: R18.8 Other ascites (principal)
CPT/HCPCS: 36415; 49083; 87070; 87205; 89051

== ENCOUNTER → 2018-05-14 | Outpatient (CLI) | payer BC ==
--- NOTE | 2018-05-14 15:02 | Diagnostic Imaging Report ---
Procedure: Ultrasound-guided diagnostic and therapeutic paracentesis pie crimping machine operator: Krista Boyce MD Pre-operative diagnosis: Ascites Post-operative diagnosis: Ascites Conscious Sedation: The patient's heart rate and pulse oximetry were continuously monitored by the IR nurse. Additional Medications: Lidocaine 1% for local anesthesia Estimated blood loss: Minimal Specimens: 6,000 cc of serous fluid Implants: None TECHNIQUE/FINDINGS: Informed consent was obtained from the patient and documented in the medical record. The patient was placed in the supine position. Initial ultrasound demonstrated ascites. The right lower abdomen was prepped and draped in standard sterile fashion. 1% lidocaine was infiltrated into the skin and subcutaneous tissues for local anesthesia. Then under continuous sonographic guidance, a 5 Fr catheter was advanced into the peritoneal space. The catheter was connected to vacuum bottle with subsequent evacuation of 6,000 cc of serous fluid. The catheter was removed. Dermabond and sterile dressing was applied. Sample was sent to the lab. The patient tolerated the procedure well. IMPRESSION: Ultrasound-guided diagnostic and therapeutic paracentesis with removal of 6,000 cc of serous fluid. Signed by: Dr. Krista Boyce MD on 05/14/2018 2:59 PM
[2018-05-14 16:22] LABS: BODY FLUID APPEARANCE SL.CLOUDY; BODY FLUID COLOR YELLOW; BODY FLUID TYPE ASCITIES; RBC,BODY FLUID 262 cells/uL; WBC,BODY FLUID 53 cells/uL
[2018-05-14 17:14] LABS: LYMPHOCYTES,BODY FLUID 17 %; MONO/MACROPHG,BODY FLUID 41 %; NEUTROPHILS,BODY FLUID 11 %; OTHER CELLS,BODY FLUID 31 %
== END ==
LOC: US 13:04
PROVIDERS: ATTEND Legal Medicine
DX: R18.8 Other ascites (principal)
CPT/HCPCS: 36415; 49083; 87070; 87205; 89051

== ENCOUNTER → 2018-05-21 | Outpatient (CLI) | payer BC ==
--- NOTE | 2018-05-21 14:58 | Diagnostic Imaging Report ---
Date and Time: 05/21/2018 Procedure: Ultrasound-guided paracentesis jig mill operator: Dr. Arnett Pre-operative diagnosis: Ascites Post-operative diagnosis: Ascites Conscious Sedation: None The patient's heart rate and pulse oximetry were continuously monitored by the interventional radiology nurse. Blood pressure was monitored at 5 minute intervals. Additional Medications: Lidocaine 1% for local anesthesia Estimated blood loss: Minimal Blood products administered: None Specimens: 6000 cc straw-colored fluid Implants: None Condition at completion: Stable Disposition: Discharged home Complications: No immediate DISCUSSION: Informed consent was obtained and documented in the medical record after discussion of risks and benefits. Preliminary sonographic evaluation confirmed moderate ascites. A suitable percutaneous approach in the right upper quadrant was identified and the overlying skin was prepped and draped in standard sterile fashion. 1% lidocaine was infiltrated into the skin and subcutaneous tissues for local anesthesia. Then under continuous sonographic guidance, a 5 Arabic Yueh needle catheter was advanced into the peritoneal space. The catheter was advanced off the needle and connected to vacuum bottle with subsequent evacuation of 6000 cc straw-colored fluid. The catheter was removed and a sterile dressing was applied. The patient tolerated the procedure well without immediate complication. FINDINGS: Moderate ascites IMPRESSION: Successful ultrasound-guided paracentesis with evacuation of 6000 cc straw-colored fluid. Specimen was submitted for laboratory analysis as requested by the referring clinical team. Signed by: Dr. Jerome Arnett M.D. on 05/21/2018 2:55 PM
[2018-05-21 15:20] LABS: BODY FLUID APPEARANCE CLOUDY; BODY FLUID COLOR YELLOW; BODY FLUID TYPE PERITONEAL
[2018-05-21 16:46] LABS: RBC,BODY FLUID 458 cells/uL; WBC,BODY FLUID 43 cells/uL
[2018-05-21 16:50] LABS: LYMPHOCYTES,BODY FLUID 35 %; MONO/MACROPHG,BODY FLUID 32 %; NEUTROPHILS,BODY FLUID 13 %; OTHER CELLS,BODY FLUID 20 %
== END ==
LOC: US 13:22
PROVIDERS: ATTEND Legal Medicine
DX: R18.8 Other ascites (principal)
CPT/HCPCS: 36415; 49083; 87070; 87205; 88112; 88305; 89051

== ENCOUNTER → 2018-05-28 | Outpatient (CLI) | payer BC ==
[2018-05-28 13:30] LABS: BASOPHILS # (AUTO) 0.1 (0.0-0.1); BASOPHILS % 0.9 % (0.0-1.0); EOSINOPHILS # (AUTO) 0.4 (0.0-0.4); EOSINOPHILS % 7.9 % (0.0-6.0); HEMATOCRIT 24.4 % (34.2-44.1); HEMOGLOBIN 7.3 g/dL (12.0-16.0); LYMPHOCYTES # (AUTO) 0.7 (1.0-3.2); LYMPHOCYTES % 13.7 % (18.0-39.1); MEAN CORPUSCULAR HEMOGLOBIN 28.1 pg (28-32); MEAN CORPUSCULAR HGB CONC 29.9 g/dL (31-35); MEAN CORPUSCULAR VOLUME 93.8 fL (81-99); MONOCYTES # (AUTO) 0.4 (0.2-0.8); MONOCYTES % 8.3 % (4.4-11.3); NEUTROPHILS # (AUTO) 3.7 (2.1-6.9); NEUTROPHILS % 68.6 % (38.7-80.0); PLATELET COUNT 328 x10e3/uL (140-360); RED CELL DISTRIBUTION WIDTH 15.9 % (11.7-14.4)
[2018-05-28 13:44] LABS: INR 1.02; PARTIAL THROMBOPLASTIN TIME 28.8 seconds (23.8-35.5); PROTHROMBIN TIME 13.9 seconds (11.9-14.5)
[2018-05-28 13:50] LABS: CREATININE, SERUM 2.22 mg/dL (0.57-1.11)
[2018-05-28 14:36] LABS: BODY FLUID APPEARANCE CLOUDY; BODY FLUID COLOR STRAW; BODY FLUID TYPE PERITONEAL
--- NOTE | 2018-05-28 14:46 | Diagnostic Imaging Report ---
Procedure: Ultrasound-guided paracentesis dated 05/28/2018 at 1:37 PM Pre-operative diagnosis: Ascites Post-operative diagnosis: Ascites Conscious Sedation: None The patient's heart rate and pulse oximetry were continuously monitored by the interventional radiology nurse. Blood pressure was monitored at 5 minute intervals. Additional Medications: Lidocaine 1% for local anesthesia Estimated blood loss: Less than 2 cc Blood products administered: Patient did receive 50 grams of albumin during the procedure. Specimens: 6000 cc straw-colored fluid Implants: None Condition at completion: Stable Disposition: Discharged home Complications: No immediate DISCUSSION: Informed consent was obtained and documented in the medical record after discussion of risks and benefits. Preliminary sonographic evaluation confirmed moderate ascites. A suitable percutaneous approach in the lateral aspect of the right upper quadrant was identified and the overlying skin was prepped and draped in full barrier sterile fashion. 1% lidocaine was infiltrated into the skin and subcutaneous tissues for local anesthesia. Then under sonographic guidance, a 5 Slovenian Yueh needle catheter was advanced into the peritoneal space. The catheter was advanced off the needle and connected to vacuum bottle with subsequent evacuation of 6000 cc straw-colored fluid. The catheter was removed, tissue adhesive and a sterile dressing was applied. The patient tolerated the procedure well without immediate complication. Specimen was sent to the laboratory for analysis. IMPRESSION: Successful ultrasound-guided paracentesis with evacuation of 6,000 cc straw-colored fluid. Signed by: Dr. Sandeep Beard DO on 05/28/2018 2:43 PM
[2018-05-28 15:30] LABS: RBC,BODY FLUID 364 cells/uL; WBC,BODY FLUID 18 cells/uL
[2018-05-28 15:41] LABS: LYMPHOCYTES,BODY FLUID 43 %; MONO/MACROPHG,BODY FLUID 31 %; NEUTROPHILS,BODY FLUID 7 %; OTHER CELLS,BODY FLUID 19 %
== END ==
LOC: US 12:59
PROVIDERS: ATTEND Legal Medicine
DX: R18.8 Other ascites (principal)
CPT/HCPCS: 36415; 49083; 82565; 84520; 85025; 85610; 85730; 87070; 87205; 89051

== ENCOUNTER → 2018-06-04 | Outpatient (CLI) | payer BC ==
[2018-06-04 15:01] LABS: BODY FLUID APPEARANCE CLOUDY; BODY FLUID COLOR STRAW; BODY FLUID TYPE PERITONEAL
--- NOTE | 2018-06-04 15:40 | Diagnostic Imaging Report ---
Procedure: Ultrasound-guided paracentesis dated 06/04/2018 at 2:07 PM Pre-operative diagnosis: Ascites Post-operative diagnosis: Ascites Conscious Sedation: None The patient's heart rate and pulse oximetry were continuously monitored by the interventional radiology nurse. Blood pressure was monitored at 5 minute intervals. Additional Medications: Lidocaine 1% for local anesthesia Estimated blood loss: Less than 2 cc Blood products administered: Patient did receive 50 grams of albumin during the procedure. Specimens: 6,000 cc straw-colored fluid Implants: None Condition at completion: Stable Disposition: Discharged home Complications: No immediate DISCUSSION: Informed consent was obtained and documented in the medical record after discussion of risks and benefits. Preliminary sonographic evaluation confirmed moderate ascites. A suitable percutaneous approach in the lateral aspect of the right upper quadrant was identified and the overlying skin was prepped and draped in full barrier sterile fashion. 1% lidocaine was infiltrated into the skin and subcutaneous tissues for local anesthesia. Then under sonographic guidance, a 5 Urdu Yueh needle catheter was advanced into the peritoneal space. The catheter was advanced off the needle and connected to vacuum bottle with subsequent evacuation of 6000 cc straw-colored fluid. The catheter was removed, tissue adhesive and a sterile dressing was applied. The patient tolerated the procedure well without immediate complication. Specimen was sent to the laboratory for analysis. IMPRESSION: Successful ultrasound-guided paracentesis with evacuation of 6,000 cc straw-colored fluid. Signed by: Dr. Sandeep Beard DO on 06/04/2018 3:37 PM
[2018-06-04 16:27] LABS: RBC,BODY FLUID 161 cells/uL; WBC,BODY FLUID 14 cells/uL
[2018-06-04 16:49] LABS: LYMPHOCYTES,BODY FLUID 16 %; MONO/MACROPHG,BODY FLUID 27 %; NEUTROPHILS,BODY FLUID 8 %; OTHER CELLS,BODY FLUID 49 %
== END ==
LOC: US 12:46
PROVIDERS: ATTEND Legal Medicine
DX: R18.8 Other ascites (principal)
CPT/HCPCS: 36415; 49083; 87070; 87205; 88112; 89051; C1729; 88305

== ENCOUNTER → 2018-06-11 | Outpatient (CLI) | payer BC ==
--- NOTE | 2018-06-11 14:13 | Diagnostic Imaging Report ---
Procedure: Ultrasound-guided paracentesis dated 06/11/2018 at 1:58 PM Pre-operative diagnosis: Ascites Post-operative diagnosis: Ascites Conscious Sedation: None The patient's heart rate and pulse oximetry were continuously monitored by the interventional radiology nurse. Blood pressure was monitored at 5 minute intervals. Additional Medications: Lidocaine 1% for local anesthesia Estimated blood loss: Less than 2 cc Blood products administered: Patient did receive 50 grams of albumin during the procedure. Specimens: 6,000 cc straw-colored fluid Implants: None Condition at completion: Stable Disposition: Discharged home Complications: No immediate DISCUSSION: Informed consent was obtained and documented in the medical record after discussion of risks and benefits. Preliminary sonographic evaluation confirmed moderate ascites. Image was scored to the medical record. A suitable percutaneous approach in the lateral aspect of the right upper quadrant was identified and the overlying skin was prepped and draped in full barrier sterile fashion. 1% lidocaine was infiltrated into the skin and subcutaneous tissues for local anesthesia. Then under sonographic guidance, a 5 Norwegian Yueh needle-catheter was advanced into the peritoneal space. The catheter was advanced off the needle and connected to vacuum bottle with subsequent evacuation of 6000 cc straw-colored fluid. The catheter was removed, tissue adhesive and a sterile dressing was applied. The patient tolerated the procedure well without immediate complication. Specimen was sent to the laboratory for analysis. IMPRESSION: Successful ultrasound-guided paracentesis with evacuation of 6,000 cc straw-colored fluid. Signed by: Dr. Sandeep Beard DO on 06/11/2018 2:09 PM
[2018-06-11 15:31] LABS: BODY FLUID APPEARANCE SL.CLOUDY; BODY FLUID COLOR YELLOW; BODY FLUID TYPE PERICARDIAL
[2018-06-11 15:40] LABS: RBC,BODY FLUID 501 cells/uL; WBC,BODY FLUID 36 cells/uL
[2018-06-11 16:48] LABS: LYMPHOCYTES,BODY FLUID 39 %; MONO/MACROPHG,BODY FLUID 28 %; NEUTROPHILS,BODY FLUID 11 %; OTHER CELLS,BODY FLUID 22 %
== END ==
LOC: US 12:53
PROVIDERS: ATTEND Legal Medicine
DX: R18.8 Other ascites (principal)
CPT/HCPCS: 36415; 49083; 87070; 87205; 89051

== ENCOUNTER → 2018-06-18 | Outpatient (CLI) | payer BC ==
--- NOTE | 2018-06-18 15:29 | Diagnostic Imaging Report ---
Procedure: Ultrasound-guided diagnostic and therapeutic paracentesis remote computer terminal operator: Krista Boyce MD Pre-operative diagnosis: Large volume ascites. Post-operative diagnosis: Large volume ascites. Conscious Sedation: The patient's heart rate and pulse oximetry were continuously monitored by the IR nurse. Additional Medications: Lidocaine 1% for local anesthesia Estimated blood loss: Minimal Specimens: 6,000 cc of serous fluid Implants: None TECHNIQUE/FINDINGS: Informed consent was obtained from the patient and documented in the medical record. The patient was placed in the supine position. Initial ultrasound demonstrated large volume ascites. The right lower abdomen was prepped and draped in standard sterile fashion. 1% lidocaine was infiltrated into the skin and subcutaneous tissues for local anesthesia. Then under continuous sonographic guidance, a 5 Fr catheter was advanced into the peritoneal space. The catheter was connected to vacuum bottle with subsequent evacuation of 6,000 cc of serous fluid. The catheter was removed. Dermabond and sterile dressing was applied. Sample was sent to the lab. The patient tolerated the procedure well. IMPRESSION: Ultrasound-guided diagnostic and therapeutic paracentesis with removal of 6,000 cc of serous fluid. Signed by: Dr. Krista Boyce MD on 06/18/2018 3:26 PM
[2018-06-18 16:48] LABS: BODY FLUID APPEARANCE SL.CLOUDY; BODY FLUID COLOR YELLOW; BODY FLUID TYPE PERITONEAL
[2018-06-18 16:52] LABS: RBC,BODY FLUID 117 cells/uL; WBC,BODY FLUID 15 cells/uL
[2018-06-18 17:11] LABS: LYMPHOCYTES,BODY FLUID 17 %; MONO/MACROPHG,BODY FLUID 34 %; NEUTROPHILS,BODY FLUID 15 %; OTHER CELLS,BODY FLUID 34 %
== END ==
LOC: US 13:07
PROVIDERS: ATTEND Legal Medicine
DX: R18.8 Other ascites (principal)
CPT/HCPCS: 36415; 49083; 87070; 87205; 89051

== ENCOUNTER → 2018-06-25 | Outpatient (CLI) | payer BC ==
--- NOTE | 2018-06-25 14:42 | Diagnostic Imaging Report ---
Procedure: Ultrasound-guided diagnostic and therapeutic paracentesis longwall headgate operator: Krista Boyce MD Pre-operative diagnosis: Large volume ascites. Post-operative diagnosis: Moderate to large volume ascites. Conscious Sedation: The patient's heart rate and pulse oximetry were continuously monitored by the IR nurse. Additional Medications: Lidocaine 1% for local anesthesia Estimated blood loss: Minimal Specimens: 6,000 cc of serous fluid Implants: None TECHNIQUE/FINDINGS: Informed consent was obtained from the patient and documented in the medical record. The patient was placed in the supine position. Initial ultrasound demonstrated large volume ascites. The right lower abdomen was prepped and draped in standard sterile fashion. 1% lidocaine was infiltrated into the skin and subcutaneous tissues for local anesthesia. Then under continuous sonographic guidance, a 5 Fr catheter was advanced into the peritoneal space. The catheter was connected to vacuum bottle with subsequent evacuation of 6,000 cc of serous fluid. The catheter was removed. Dermabond and sterile dressing was applied. Sample was sent to the lab. The patient tolerated the procedure well. IMPRESSION: Ultrasound-guided diagnostic and therapeutic paracentesis with removal of 6,000 cc of serous fluid. Signed by: Dr. Krista Boyce MD on 06/25/2018 2:39 PM
[2018-06-25 14:57] LABS: BODY FLUID APPEARANCE CLOUDY; BODY FLUID COLOR STRAW; BODY FLUID TYPE PERITONEAL
[2018-06-25 16:36] LABS: RBC,BODY FLUID 412 cells/uL; WBC,BODY FLUID 30 cells/uL
[2018-06-25 16:53] LABS: LYMPHOCYTES,BODY FLUID 29 %; MONO/MACROPHG,BODY FLUID 19 %; NEUTROPHILS,BODY FLUID 8 %; OTHER CELLS,BODY FLUID 44 %
== END ==
LOC: US 13:05
PROVIDERS: ATTEND Legal Medicine
DX: R18.8 Other ascites (principal)
CPT/HCPCS: 36415; 49083; 87070; 87205; 88112; 88305; 89051; C1729

== ENCOUNTER 2018-07-02 15:04 | Inpatient (IN) | payer BC ==
[~2018-07-02] VITALS: Ht 165.1 cm; Wt 87.1 kg
--- OUTSIDE RECORDS SUMMARY | 2018-07-02 15:07 | XMS REPORT ---
Author Author [facility] Address Unknown Phone Unavailable Care Team Providers Care Filter Bed Placer Name Role Phone LEON KEMP Unavailable Unavailable JOE TIWARI Unavailable Unavailable Problems This patient has no known problems. Allergies, Adverse Reactions, Alerts This patient has no known allergies or adverse reactions. Medications This patient has no known medications. Results Test Description Test Time Test Comments Text Results Atomic Results Result Comments US GUIDED PARACENTESIS 2018-06-25 14:39:00 [place] [address] Patient Name: JOHNNY BOGGS MR #: [id number] : 1955 Age/Sex: 62/F Req #: [id number] [facility] Physician: Ordered by: LEON KEMP MD Report #: [id number] Location: Room/Bed: Procedure: [id number] US/US GUIDED PARACENTESIS Exam Date: Exam Time: REPORT STATUS: Signed Procedure: Ultrasound-guided diagnostic and therapeutic paracentesis chip crusher operator: Vitaliy Pizano MD Pre-operative diagnosis: Large volume ascites. Post-operative diagnosis: Moderate to large volume ascites. Conscious Sedation: The patient's heart rate and pulse oximetry were continuously monitored by the IR nurse. Additional Medications: Lidocaine 1% for local anesthesia Estimated blood loss: Minimal Specimens: 6,000 cc of serous fluid Implants: None TECHNIQUE/FINDINGS: Informed consent was obtained from the patient and documented in the medical record. The patient was placed in the supine position. Initial ultrasound demonstrated large volume ascites. The right lower abdomen was prepped and draped in standard sterile fashion. 1% lidocaine was infiltrated into the skin and subcutaneous tissues for local anesthesia. Then under continuous sonographic guidance, a 5 Fr catheter was advanced into the peritoneal space. The catheter was connected to vacuum bottle with subsequent evacuation of 6,000 cc of serous fluid. The catheter was removed. Dermabond and sterile dressing was applied. Sample was sent to the lab. The patient tolerated the procedure well. IMPRESSION: Ultrasound-guided diagnostic and therapeutic paracentesis with removal of 6,000 cc of serous fluid. Signed by: Dr. Vitaliy Pizano MD on 06/25/2018 2:39 PM Dictated By: VITALIY PIZANO MD 143 Transcribed By: LEONEL on 06/25/18 143 COPY TO: LEON KEMP M.D. US GUIDED PARACENTESIS 2018-06-18 15:22:00 [place] [address] Patient Name: JOHNNY BOGGS MR #: [id number] : 1955 Age/Sex: 62/F Req #: [id number] [facility] Physician: Ordered by: LEON KEMP MD Report #: [id number] Location: Room/Bed: Procedure: [id number] US/US GUIDED PARACENTESIS Exam Date: 06/18/18 Exam Time: 1346 REPORT STATUS: Signed Procedure: Ultrasound-guided diagnostic and therapeutic paracentesis chip crusher operator: Vitaliy Pizano MD Pre-operative diagnosis: Large volume ascites. Post-operative diagnosis: Large volume ascites. Conscious Sedation: The patient's heart rate and pulse oximetry were continuously monitored by the IR nurse. Additional Medications: Lidocaine 1% for local anesthesia Estimated blood loss: Minimal Specimens: 6,000 cc of serous fluid Implants: None TECHNIQUE/FINDINGS: Informed consent was obtained from the patient and documented in the medical record. The patient was placed in the supine position. Initial ultrasound demonstrated large volume ascites. The right lower abdomen was prepped and draped in standard sterile fashion. 1% lidocaine was infiltrated into the skin and subcutaneous tissues for local anesthesia. Then under continuous sonographic guidance, a 5 Fr catheter was advanced into the peritoneal space. The catheter was connected to vacuum bottle with subsequent evacuation of 6,000 cc of serous fluid. The catheter was removed. Dermabond and sterile dressing was applied. Sample was sent to the lab. The patient tolerated the procedure well. IMPRESSION: Ultrasound-guided diagnostic and therapeutic paracentesis with removal of 6,000 cc of serous fluid. Signed by: Dr. Vitaliy Pizano MD on 06/18/2018 3:26 PM Dictated By: VITALIY PIZANO MD 1526 Transcribed By: LEONEL on 06/18/18 1526 COPY TO: LEON KEMP M.D. US GUIDED PARACENTESIS 2018-06-11 14:07:00 [place] [address] Patient Name: JOHNNY BOGGS MR #: [id number] : 1955 Age/Sex: 62/F Req #: [id number] Adm Physician: Ordered by: LEON KEMP MD Report #: [id number] Location: Room/Bed: Procedure: [id number] US/US GUIDED PARACENTESIS Exam Date: Exam Time: REPORT STATUS: Signed Procedure: Ultrasound-guided paracentesis dated 06/11/2018 at 1:58 PM Pre-operative diagnosis: Ascites Post-operative diagnosis: Ascites Conscious Sedation: None The patient's heart rate and pulse oximetry were continuously monitored by the interventional radiology nurse. Blood pressure was monitored at 5 minute intervals. Additional Medications: Lidocaine 1% for local anesthesia Estimated blood loss: Less than 2 cc Blood products administered: Patient did receive 50 grams of albumin during the procedure. Specimens: 6,000 cc straw-colored fluid Implants: None Condition at completion: Stable Disposition: Discharged home Complications: No immediate DISCUSSION: Informed consent was obtained and documented in the medical record after discussion of risks and benefits. Preliminary sonographic evaluation confirmed moderate ascites. Image was scored to the medical record. A suitable percutaneous approach in the lateral aspect of the right upper quadrant was identified and the overlying skin was prepped and draped in full barrier sterile fashion. 1% lidocaine was infiltrated into the skin and subcutaneous tissues for local anesthesia. Then under sonographic guidance, a 5 Singaporean Yueh needle-catheter was advanced into the peritoneal space. The catheter was advanced off the needle and connected to vacuum bottle with subsequent evacuation of 6000 cc straw-colored fluid. The catheter was removed, tissue adhesive and a sterile dressing was applied. The patient tolerated the procedure well without immediate complication. Specimen was sent to the laboratory for analysis. IMPRESSION: Successful ultrasound-guided paracentesis with evacuation of 6,000 cc straw-colored fluid. Signed by: Dr. Sandeep Beard DO on 06/11/2018 2:09 PM Dictated By: SANDEEP BEARD DO 1409 Transcribed By: LEONEL on 06/11/18 1409 COPY TO: LEON SUAREZ M.D. US GUIDED PARACENTESIS 2018-06-04 15:33:00 [place] [address] Patient Name: JOHNNY BOGGS MR #: [id number] : 1955 Age/Sex: 62/F Req #: [id number] Adm Physician: Ordered by: LEON KEMP MD Report #: [id number] Location: Room/Bed: Procedure: [id number] US/US GUIDED PARACENTESIS Exam Date: 06/04/18 Exam Time: 1328 REPORT STATUS: Signed Procedure: Ultrasound-guided paracentesis dated at 2:07 PM Pre-operative diagnosis: Ascites Post-operative diagnosis: Ascites Conscious Sedation: None The patient's heart rate and pulse oximetry were continuously monitored by the interventional radiology nurse. Blood pressure was monitored at 5 minute intervals. Additional Medications: Lidocaine 1% for local anesthesia Estimated blood loss: Less than 2 cc Blood products administered: Patient did receive 50 grams of albumin during the procedure. Specimens: 6,000 cc straw-colored fluid Implants: None Condition at completion: Stable Disposition: Discharged home Complications: No immediate DISCUSSION: Informed consent was obtained and documented in the medical record after discussion of risks and benefits. Preliminary sonographic evaluation confirmed moderate ascites. A suitable percutaneous approach in the lateral aspect of the right upper quadrant was identified and the overlying skin was prepped and draped in full barrier ster ile fashion. 1% lidocaine was infiltrated into the skin and subcutaneous tissues for local anesthesia. Then under sonographic guidance, a 5 [place]an Yueh needle catheter was advanced into the peritoneal space. The catheter was advanced off the needle and connected to vacuum bottle with subsequent evacuation of 6000 cc straw-colored fluid. The catheter was removed, tissue adhesive and a sterile dressing was applied. The patient tolerated the procedure well without immediate complication. Specimen was sent to the laboratory for analysis. IMPRESSION: Successful ultrasound-guided paracentesis with evacuation of 6,000 cc straw-colored fluid. Signed by: Dr. Sandeep Beard DO on 06/04/2018 3:37 PM Dictated By: SANDEEP BEARD DO 1537 Transcribed By: LEONEL on 06/04/18 1532 COPY TO: LEON KEMP M.D. US GUIDED PARACENTESIS 2018-05-28 14:37:00 [place] [address] Patient Name: JOHNNY BOGGS MR #: [id number] : 1955 Age/Sex: 62/F Req #: [id number] Adm Physician: Ordered by: LEON KEMP MD Report #: [id number] Location: Room/Bed: Procedure: [id number] US/US GUIDED PARACENTESIS Exam Date: Exam Time: REPORT STATUS: Signed Procedure: Ultrasound-guided paracentesis dated 05/28/2018 at 1:37 PM Pre-operative diagnosis: Ascites Post-operative diagnosis: Ascites Conscious Sedation: None The patient's heart rate and pulse oximetry were continuously monitored by the interventional radiology nurse. Blood pressure was monitored at 5 minute intervals. Additional Medications: Lidocaine 1% for local anesthesia Estimated blood loss: Less than 2 cc Blood products administered: Patient did receive 50 grams of albumin during the procedure. Specimens: 6000 cc straw-colored fluid Implants: None Condition at completion: Stable Disposition: Discharged home Complications: No immediate DISCUSSION: Informed consent was obtained and documented in the medical record after discussion of risks and benefits. Preliminary sonographic evaluation confirmed moderate ascites. A suitable percutaneous approach in the lateral aspect of the right upper quadrant was identified and the overlying skin was prepped and draped in full barrier sterile fashion. 1% lidocaine was infiltrated into the skin and subcutaneous tissues for local anesthesia. Then under sonographic guidance, a 5 Singaporean Yueh needle catheter was advanced into the peritoneal space. The catheter was advanced off the needle and connected to vacuum bottle with subsequent evacuation of 6000 cc straw-colored fluid. The catheter was removed, tissue adhesive and a sterile dressing was applied. The patient tolerated the procedure well without immediate complication. Specimen was sent to the laboratory for analysis. IMPRESSION: Successful ultrasound-guided paracentesis with evacuation of 6,000 cc straw-colored fluid. Signed by: Dr. Sandeep Beard DO on 05/28/2018 2:43 PM Dictated By: SANDEEP BEARD DO 1444 Transcribed By: LEONEL on 05/28/18 1446 COPY TO: LEON KEMP M.D. US GUIDED PARACENTESIS 2018-05-21 14:54:00 [place] [address] Patient Name: JOHNNY BOGGS MR #: [id number] : 1955 Age/Sex: 62/F Req #: [id number] Adm Physician: Ordered by: LENO KEMP MD Report #: [id number] Location: Room/Bed: Procedure: [id number] US/US GUIDED PARACENTESIS Exam Date: Exam Time: REPORT STATUS: Signed Date and Time: 05/21/2018 Procedure: Ultrasound-guided pa racentesis chip crusher operator: Dr. Solis Pre-operative diagnosis: Ascites Post-operative diagnosis: Ascites Conscious Sedation: None The patient's heart rate and pulse oximetry were continuously monitored by the interventional radiology nurse. Blood pressure was monitored at 5 minute intervals. Additional Medications: Lidocaine 1% for local anesthesia Estimated blood loss: Minimal Blood products administered: None Specimens: 6000 cc straw-colored fluid Implants: None Condition at completion: Stable Disposition: Discharged home Complications: No immediate DISCUSSION: Informed consent was obtained and documented in the medical record after discussion of risks and benefits. Preliminary sonographic evaluation confirmed moderate ascites. A suitable percutaneous approach in the right upper quadrant was identified and the overlying skin was prepped and draped in standard sterile fashion. 1% lidocaine was infiltrated into the skin and subcutaneous tissues for local anesthesia. Then under continuous sonographic guidance, a 5 [place]an Yueh needle catheter was advanced into the peritoneal space. The catheter was advanced off the needle and connected to vacuum bottle with subsequent evacuation of 6000 cc straw-colored fluid. The catheter was removed and a sterile dressing was applied. The patient tolerated the procedure well without immediate complication. FINDINGS: Moderate ascites IMPRESSION: Successful ultrasound-guided paracentesis with evacuation of 6000 cc straw-colored fluid. Specimen was submitted for laboratory analysis as requested by the referring clinical team. Signed by: Dr. Gisel Solis M.D. on 05/21/2018 2:55 PM Dictated By: GISEL SOLIS MD [id number] Transcribed By: LEONEL on 05/21/18 0320 COPY TO: LEON KEMP M.D. US GUIDED PARACENTESIS 2018-05-14 14:54:00 [place] [address] Patient Name: JOHNNY BOGGS MR #: [id number] : 1955 Age/Sex: 62/F Req #: [id number] Adm Physician: Ordered by: LEON KEMP MD Report #: [id number] Location: Room/Bed: Procedure: [id number] US/US GUIDED PARACENTESIS Exam Date: 05/14/18 Exam Time: 1347 REPORT STATUS: Signed Procedure: Ultrasound-guided diagnostic and therapeutic paracentesis chip crusher operator: Vitaliy Pizano MD Pre-operative diagnosis: Ascites Post-operative diagnosis: Ascites Conscious Sedation: The patient's heart rate and pulse oximetry were continuously monitored by the IR nurse. Additional Medications: Lidocaine 1% for local anesthesia Estimated blood loss: Minimal Specimens: 6,000 cc of serous fluid Implants: None TECHNIQUE/FINDINGS: Informed consent was obtained from the patient and documented in the medical record. The patient was placed in the supine position. Initial ultrasound demonstrated ascites. The right lower abdomen was prepped and draped in standard sterile fashion. 1% lidocaine was infiltrated into the skin and subcutaneous tissues for local anesthesia. Then under continuous sonographic guidance, a 5 Fr catheter was advanced into the peritoneal space. The catheter was connected to vacuum bottle with subsequent evacuation of 6,000 cc of serous fluid. The catheter was removed. Dermabond and sterile dressing was applied. Sample was sent to the lab. The patient tolerated the procedure well. IMPRESSION: Ultrasound-guided diagnostic and therapeutic paracentesis with removal of 6,000 cc of serous fluid. Signed by: Dr. Vitaliy Pizano MD on 05/14/2018 2:59 PM Dictated By: VITALIY PIZANO MD 5099 Transcribed By: LEONEL on 05/14/18 9967 COPY TO: LEON KEMP M.D. US GUIDED PARACENTESIS 2018-05-07 15:17:00 [place] [address] Patient Name: JOHNNY BOGGS MR #: [id number] : 1955 Age/Sex: 62/F Req #: [id number] Adm Physician: Ordered by: LEON KEMP MD Report #: [id number] Location: Room/Bed: Procedure: [id number] US/US GUIDED PARACENTESIS Exam Date: 05/07/18 Exam Time: 1439 REPORT STATUS: Signed Date and Time: 05/07/2018 Procedure: Ultrasound- guided paracentesis Pre-operative diagnosis: Ascites Post-operative diagnosis: Ascites Conscious Sedation: None The patient's heart rate and pulse oximetry were continuously monitored by the interventional radiology nurse. Blood pressure was monitored at 5 minute intervals. Additional Medications: Lidocaine 1% for local anesthesia Estimated blood loss: Less than 2 cc Blood products administered: None Specimens: 6000 cc straw- colored fluid Implants: None Condition at completion: Stable Disposition: Discharged home DISCUSSION: Informed consent was obtained and documented in the medical record after discussion of risks and benefits. Preliminary sonographic evaluation confirmed moderate ascites. A suitable percutaneous approach in the right upper quadrant was identified and the overlying skin was prepped and draped in standard sterile fashion. 1% lidocaine was infiltrated into the skin and subcutaneous tissues for local anesthesia. Then under continuous sonographic guidance, a 5 [place] needle catheter was advanced into the peritoneal space in the right upper quadrant. The catheter was advanced off the needle and connected to vacuum bottle with subsequent evacuation of 6000 cc straw-colored fluid. The catheter was removed and a sterile dressing was applied. The patient tolerated the procedure well without immediate complication. Patient did receive 50 g of albumin during the procedure. IMPRESSION: 1. Successful ultrasound- guided paracentesis. 2. Fluid submitted for laboratory analysis as requested by the referring clinical team. Signed by: Dr. Sandeep Beard DO on 05/07/2018 3:22 PM Dictated By: SANDEEP BEARD DO 1522 Transcribed By: LEONEL on 05/07/18 1522 COPY TO: LEON KEMP M.D. US GUIDED PARACENTESIS 2018-04-30 14:35:00 [place] [address] Patient Name: JOHNNY BOGGS MR #: [id number] : 1955 Age/Sex: 62/F Req #: [id number] Adm Physician: Ordered by: LEON KEMP MD Report #: [id number] Location: US Room/Bed: Procedure: [id number] US/US GUIDED PARACENTESIS Exam Date: 04/30/18 Exam Time: 1331 REPORT STATUS: Signed Procedure: Ultrasound-guided diagnostic and therapeutic paracentesis chip crusher operator: Vitaliy Pizano MD Pre-operative diagnosis: Ascites Post-operative diagnosis: Ascites Conscious Sedation: The patient's heart rate and pulse oximetry were continuously monitored by the IR nurse. Additional Medications: Lidocaine 1% for local anesthesia Estimated blood loss: Minimal Specimens: 6,000 cc of serous fluid Implants: None TECHNIQUE/FINDINGS: Informed consent was obtained from the patient and documented in the medical record. The patient was placed in the supine position. Initial ultrasound demonstrated ascites. The right lower abdomen was prepped and draped in standard sterile fashion. 1% lidocaine was infiltrated into the skin and subcutaneous tissues for local anesthesia. Then under continuous sonographic guidance, a 5 Fr catheter was advanced into the peritoneal space. The catheter was connected to vacuum bottle with subsequent evacuation of 6,000 cc of serous fluid. The catheter was removed. Dermabond and sterile dressing was applied. Sample was sent to the lab. The patient tolerated the procedure well. IMPRESSION: Ultrasound-guided diagnostic and therapeutic paracentesis with removal of 6,000 cc of serous fluid. Signed by: Dr. Vtialiy Pizano MD on 04/30/2018 2:35 PM Dictated By: VITALIY PIZANO MD 1433 Transcribed By: LEONEL on 04/30/18 1439 COPY TO: LEON KEMP M.D. US GUIDED PARACENTESIS 2018-04-23 11:13:00 [place] [address] Patient Name: JOHNNY BOGGS MR #: [id number] : 1955 Age/Sex: 62/F [facility] #: [id number] [facility] Physician: Ordered by: LEON KEMP MD Report #: [id number] Location: Room/Bed: Procedure: US/US GUIDED PARACENTESIS Exam Date: Exam Time: REPORT STATUS: Signed Date and Time: 04/23/2018 Procedure: Ultrasound-guided pa racentesis chip crusher operator: Dr. Solis Pre-operative diagnosis: Ascites Post-operative diagnosis: Ascites Conscious Sedation: None The patient's heart rate and pulse oximetry were continuously monitored by the interventional radiology nurse. Blood pressure was monitored at 5 minute intervals. Additional Medications: Lidocaine 1% for local anesthesia Estimated blood loss: Minimal Blood products administered: None Specimens: 6000 cc straw-colored fluid Implants: None Condition at completion: Stable Disposition: Discharged home DISCUSSION: Informed consent was obtained and documented in the medical record after discussion of risks and benefits. Preliminary sonographic evaluation confirmed moderate ascites. A suitable percutaneous approach in the right upper quadrant was identified and the overlying skin was prepped and draped in standard sterile fashion. 1% lidocaine was infiltrated into the skin and subcutaneous tissues for local ane sthesia. Then under continuous sonographic guidance, a 5 Singaporean Yueh needle catheter was advanced into the peritoneal space. The catheter was advanced off the needle and connected to vacuum bottle with subsequent evacuation of 6000 cc straw-colored fluid. The catheter was removed and a sterile dressing was applied. The patient tolerated the procedure well without immediate complication. FINDINGS: Moderate ascites IMPRESSION: Successful ultrasound-guided paracentesis with evacuation of 6000 cc straw- colored fluid. Specimen was submitted for laboratory analysis as requested by the referring clinical team. Signed by: Dr. Gisel Solis M.D. on 04/23/2018 11:13 AM Dictated By: GISEL SOLIS MD 1113 Transcribed By: LEONEL on 04/23/18 1113 COPY TO: LEON KEMP M.D. US GUIDED PARACENTESIS 2018-04-16 15:46:00 [place] [address] Patient Name: JOHNNY BOGGS MR #: [id number] : 1955 Age/Sex: 62/F Req #: [id number] [facility] Physician: Ordered by: LEON KEMP MD Report #: [id number] Location: Room/Bed: Procedure: [id number] US/US GUIDED PARACENTESIS Exam Date: 04/16/18 Exam Time: 1342 REPORT STATUS: Signed Date and Time: 04/16/2018 Procedure: Ultrasound- guided paracentesis chip crusher operator: Dr. Solis Pre-operative diagnosis: Ascites Post-operative diagnosis: Ascites Conscious Sedation: None The patient's heart rate and pulse oximetry were continuously monitored by the interventional radiology nurse. Blood pressure was monitored at 5 minute intervals. Additional Medications: Lidocaine 1% for local anesthesia Estimated blood loss: Minimal Blood products administered: None Specimens: 6000 cc straw-colored fluid Implants: None Condition at completion: Stable Disposition: Discharged home DISCUSSION: Informed consent was obtained and documented in the medical record after discussion of risks and benefits. Preliminary sonographic evaluation confirmed moderate ascites. A suitable percutaneous approach in the right upper quadrant was identified and the overlying skin was prepped and draped in standard sterile fashion. 1% lidocaine was infiltrated into the skin and subcutaneous tissues f or local anesthesia. Then under continuous sonographic guidance, a 5 [place] needle catheter was advanced into the peritoneal space. The catheter was advanced off the needle and connected to vacuum bottle with subsequent evacuation of 6000 cc straw-colored fluid. The catheter was removed and a sterile dressing was applied. The patient tolerated the procedure well without immediate complication. FINDINGS: Moderate ascites IMPRESSION: Successful ultrasound-guided paracentesis with evacuation of 6000 cc straw-colored fluid. Specimen was submitted for laboratory analysis as requested by the referring clinical team. Signed by: Dr. Gisel Slois M.D. on 04/16/2018 3:46 PM Dictated By: GISEL SOLIS MD 1546 Transcribed By: LEONEL on 04/16/18 154 COPY TO: LEON KEMP M.D. US GUIDED PARACENTESIS 2018-04-09 16:09:00 [place] [address] Patient Name: JOHNNY BOGGS MR #: [id number] : 1955 Age/Sex: 62/F Req #: [id number] Adm Physician: Ordered by: LEON KEMP MD Report #: [id number] Location: Room/Bed: Procedure: [id number] US/US GUIDED PARACENTESIS Exam Date: 04/09/18 Exam Time: 1513 REPORT STATUS: Signed Date and Time: 04/09/2018 Procedure: Ultrasound- guided paracentesis chip crusher operator: Dr. Solis Pre-operative diagnosis: Ascites Post-operative diagnosis: Ascites Conscious Sedation: None The patient's heart rate and pulse oximetry were continuously monitored by the interventional radiology nurse. Blood pressure was monitored at 5 minute intervals. Additional Medications: Lidocaine 1% for local anesthesia Estimated blood loss: Minimal Blood products administered: None Specimens: 6000 cc straw-colored fluid Implants: None Condition at completion: Stable Disposition: Discharged home DISCUSSION: Informed consent was obtained and documented in the medical record after discussion of risks and benefits. Preliminary sonographic evaluation confirmed moderate ascites. A suitable percutaneous approach in the right upper quadrant was identified and the overlying skin was prepped and draped in standard sterile fashion. 1% lidocaine was infiltrated into the skin and subcutaneous tissues for local anesthesia. Then under continuous sonographic guidance, a 5 Singaporean Yueh needle catheter was advanced into the peritoneal space. The catheter was advanced off the needle and connected to vacuum bottle with subsequent evacuation of 6000 cc straw-colored fluid. The catheter was removed and a sterile dressing was applied. The patient tolerated the procedure well without immediate complication. FINDINGS: Moderate ascites IMPRESSION: Successful ultrasound-guided paracentesis with evacuation of 6000 cc straw-colored fluid. Specimen was submitted for laboratory analysis as requested by the referring clinical team. Signed by: Dr. Gisel Solis M.D. on 04/09/2018 4:09 PM Dictated By: GISEL SOLIS MD 1605 Transcribed By: LEONEL on 04/09/18 1608 COPY TO: LEON KEMP M.D. US GUIDED PARACENTESIS 2018-04-02 14:46:00 [place] [address] Patient Name: JOHNNY BOGGS MR #: [id number] : 1955 Age/Sex: 62/F Req #: [id number] Adm Physician: Ordered by: LEON KEMP M.D. Report #: [id number] Location: Room/Bed: Procedure: [id number] US/US GUIDED PARACENTESIS Exam Date: 04/02/18 Exam Time: 1319 REPORT STATUS: Signed Procedure: Ultrasound-guided diagnostic and therapeutic paracentesis chip crusher operator: Vitaliy Pizano MD Pre-operative diagnosis: Ascites Post-operative diagnosis: Ascites Conscious Sedation: The patient's heart rate and pulse oximetry were continuously monitored by the IR nurse. Additional Medications: Lidocaine 1% for local anesthesia Estimated blood loss: Minimal Specimens: 6,000 cc of serous fluid Implants: None TECHNIQUE/FINDINGS: Informed consent was obtained from the patient and documented in the medical record. The patient was placed in the supine position. Initial ultrasound demonstrated ascites. The right lower abdomen was prepped and draped in standard sterile fashion. 1% lidocaine was infiltrated into the skin and subcutaneous tissues for local anesthesia. Then under continuous sonographic guidance, a 5 Fr catheter was advanced into the peritoneal space. The catheter was connected to vacuum bottle with subsequent evacuation of 6,000 cc of serous fluid. The catheter was removed. Dermabond and sterile dressing was applied. Sample was sent to the lab. The patient tolerated the procedure well. IMPRESSION: Ultrasound-guided diagnostic and therapeutic paracentesis with removal of 6,000 cc of serous fluid. Signed by: Dr. Vitaliy Pizano MD on 04/02/2018 2:46 PM Dictated By: VITALIY PIZANO MD 1446 Transcribed B y: LEONEL on 04/02/181445 COPY TO: LEON KEMP M.D. US GUIDED PARACENTESIS 2018-03-27 17:36:00 [place] [address] Patient Name: JOHNNY BOGGS MR #: [id number] : 1955 Age/Sex: 62/F Req #: [id number] Adm Physician: Ordered by: LEON KEMP ND Report #: [id number] Location: Room/Bed: Procedure: [id number] US/US GUIDED PARACENTESIS Exam Date: Exam Time: REPORT STATUS: Signed Procedure: Ultrasound-guided diagnostic and therapeutic paracentesis chip crusher operator: Vitaliy Pizano MD Pre-operative diagnosis: Ascites Post-operative diagnosis: Ascites Conscious Sedation: The patient's heart rate and pulse oximetry were continuously monitored by the IR nurse. Additional Medications: Lidocaine 1% for local anesthesia Estimated blood loss: Minimal Specimens: 6,000 cc of serous fluid Implants: None TECHNI QUE/FINDINGS: Informed consent was obtained from the patient and documented in the medical record. The patient was placed in the supine position. Initial ultrasound demonstrated ascites. The right lower abdomen was prepped and draped in standard sterile fashion. 1% lidocaine was infiltrated into the skin and subcutaneous tissues for local anesthesia. Then under continuous sonographic guidance, a 5 Fr catheter was advanced into the peritoneal space. The catheter was connected to vacuum bottle with subsequent evacuation of 6,000 cc of serous fluid. The catheter was removed. Dermabond and sterile dressing was applied. Sample was sent to the lab. The patient tolerated the procedure well. IMPRESSION: Ultrasound-guided diagnostic and therapeutic paracentesis with removal of 6,000 cc of serous fluid. Signed by: Dr. Vitaliy Pizano MD on 03/27/2018 5:36 PM Dictated By: VITALIY PIZANO MD 35 Transcribed By: LEONEL on 03/27/181735 COPY TO: LEON KEMP ND US GUIDED PARACENTESIS 2018-02-19 15:29:00 [place] [address] Patient Name: JOHNNY BOGGS MR #: [id number] : 1955 Age/Sex: 62/F Req #: [id number] [facility] Physician: Ordered by: LEON KEMP ND Report #: [id number] Location: Room/Bed: Procedure: [id number] US/US GUIDED PARACENTESIS Exam Date: 02/19/18 Exam Time: 1328 REPORT STATUS: Signed Date and Time: 02/19/2018 Procedure: Ultrasound- guided paracentesis chip crusher operator: Dr. Solis Pre-operative diagnosis: Ascites Post-operative diagnosis: Ascites Conscious Sedation: None Additional Medications: Lidocaine 1% for local anesthesia Estimated blood loss: Minimal Blood products administered: None Specimens: 7200 cc of ascites Implants: None Condition at completion: Stable Disposition: Discharged home DISCUSSION: Informed consent was obtained and documented in the medical record after discussion of risks and benefits. The patient was placed in the supine position on the sonographic table. The right lower quadrant of the abdomen was prepped and draped in the standard sterile fashion. 1% lidocaine was infiltrated into the skin and subcutaneous tissues for local anesthesia. Then under continuous sonographic guidance a 5 Singaporean Yueh needle catheter was advanced into the peritoneal space and connected to vacuum bottle with subsequent evacuation of 7200 cc lucas-colored fluid. The catheter was removed and a sterile dressing was applied. The patient tolerated the procedure well without immediate complication. FINDINGS: Large volume ascites. IMPRESSION: Successful ultrasound-guided paracentesis with evacuation of 7200 cc lucas-colored fluid. Specimen was submitted for laboratory analysis as requested by the referring clinical team. Signed by: Dr. Gisel Solis M.D. on 02/19/2018 3:29 PM Dictated By: GISEL SOLIS MD 1529 Transcribed By: LEONEL on 02/19/18 1529 COPY TO: LEON KEMP ND US GUIDED PARACENTESIS 2018-02-12 14:28:00 [place] [address] Patient Name: JOHNNY BOGGS MR #: [id number] : 1955 Age/Sex: 62/F Req #: [id number] [facility] Physician: Ordered by: LEON KEMP ND Report #: [id number] Location: Room/Bed: Procedure: [id number] US/US GUIDED PARACENTESIS Exam Date: 02/12/18 Exam Time: 1317 REPORT STATUS: Signed Date and Time: 02/12/2018 Procedure: Ultrasound- guided paracentesis chip crusher operator: Dr. Solis Pre-operative diagnosis: Ascites Post-operative diagnosis: Ascites Conscious Sedation: None Additional Medications: Lidocaine 1% for local anesthesia Estimated blood loss: Minimal Blood products administered: None Specimens: 6000 cc of ascites Implants: None Condition at completion: Stable Disposition: Discharged home DISCUSSION: Informed consent was obtained and documented in the medical record after discussion of risks and benefits. The patient was placed in the supine position on the sonographic table. The right lower quadrant of the abdomen was prepped and draped in the standard sterile fashion. 1% lidocaine was infiltrated into the skin and subcutaneous tissues for local anesthesia. Then under continuous sonographic guidance a 5 Singaporean Yueh needle catheter was advanced into the peritoneal space and connected to vacuum bottle with subsequent evacuation of 6000 cc lucas-colored fluid. The catheter was removed and a sterile dressing was applied. The patient tolerated the procedure well without immediate complication. FINDINGS: Large volume ascites. IMPRESSION: Successful ultrasound-guided paracentesis with evacuation of 6000 cc lucas-colored fluid. Specimen was submitted for laboratory analysis as requested by the referring clinical team. Signed by: Dr. Gisel Solis M.D. on 02/12/2018 2:28 PM Dictated By: GISEL SOLIS MD Transcribed By: LEONEL on 02/12/181427 COPY TO: LEON KEMP ND US GUIDED PARACENTESIS 2018-02-05 14:58:00 [place] [address] Patient Name: JOHNNY BOGGS MR #: [id number] : 1955 Age/Sex: 62/F Req #: [id number] Adm Physician: Ordered by: LEON KEMP ND Report #: [id number] Location: Room/Bed: Procedure: [id number] US/US GUIDED PARACENTESIS Exam Date: 02/05/18 Exam Time: 1346 REPORT STATUS: Signed Date and Time: 02/05/2018 Procedure: Ultrasound- guided paracentesis chip crusher operator: Dr. Solis Pre-operative diagnosis: Ascites Post-operative diagnosis: Ascites Conscious Sedation: None Additional Medications: Lidocaine 1% for local anesthesia Estimated blood loss: Minimal Blood proximal administered: None Specimens: 6000 cc of ascites Implants: None Condition at completion: Stable Disposition: Discharged DISCUSSION: Informed consent was obtained and documented in the medical record after discussion of risks and benefits. The patient was placed in the supine position on the sonographic table. The right lower quadrant of the abdomen was prepped and draped in the standard sterile fashion. 1% lidocaine was infiltrated into the skin and subcutaneous tissues for local anesthesia. Then under continuous sonographic guidance a 5 Singaporean Yueh needle catheter was advanced into the peritoneal space and connected to vacuum bottle with subsequent evacuation of 6000 cc rust-colored fluid. The catheter was removed and a sterile dressing was applied. The patient tolerated the procedure well without immediate complication. FINDINGS: Large volume ascites. IMPRESSION: Successful ultrasound-guided paracentesis with evacuation of 6000 cc rust-colored fluid. Specimen was submitted for laboratory analysis as requested by the referring clinical team. Signed by: Dr. Gisel Solis M.D. on 02/05/2018 3:01 PM Dictated By: GISEL SOLIS MD 1501 Transcribed By: LEONEL on 02/05/18 1501 COPY TO: LEON SUAREZ ND US GUIDED PARACENTESIS 2018-01-29 16:59:00 [place] [address] Patient Name: JOHNNY BOGGS MR #: [id number] : 1955 Age/Sex: 62/F Req #: [id number] Adm Physician: Ordered by: LEON KEMP ND Report #: [id number] Location: Room/Bed: Procedure: [id number] US/US GUIDED PARACENTESIS Exam Date: Exam Time: REPORT STATUS: Signed Procedure: Ultrasound-guided diagnostic and therapeutic paracentesis chip crusher operator: Vitaliy Pizano MD Pre-operative diagnosis: Ascites Post-operative diagnosis: Ascites Conscious Sedation: The patient's heart rate and pulse oximetry were continuously monitored by the IR nurse. Additional Medications: Lidocaine 1% for local anesthesia Estimated blood loss: Minimal Specimens: 6,000 cc of serous fluid Implants: None TECHNI QUE/FINDINGS: Informed consent was obtained from the patient and documented in the medical record. The patient was placed in the supine position. Initial ultrasound demonstrated ascites. The right lower abdomen was prepped and draped in standard sterile fashion. 1% lidocaine was infiltrated into the skin and subcutaneous tissues for local anesthesia. Then under continuous sonographic guidance, a 7 Fr catheter was advanced into the peritoneal space. The catheter was connected to vacuum bottle with subsequent evacuation of 6,000 cc of serous fluid. The catheter was removed. Dermabond and sterile dressing was applied. Sample was sent to the lab. The patient tolerated the procedure well. IMPRESSION: Ultrasound-guided diagnostic and therapeutic paracentesis with removal of 6,000 cc of serous fluid. Signed by: Dr. Vitaliy Pizano MD on 01/29/2018 5:00 PM Dictated By: VITALIY PIZANO MD 99 Transcribed By: LEONEL on 01/29/181699 COPY TO: LEON KEMP ND US GUIDED PARACENTESIS 2018-01-21 15:31:00 [place] [address] Patient Name: JOHNNY BOGGS MR #: [id number] : 1955 Age/Sex: 62/F Req #: [id number] Adm Physician: Ordered by: LEON KEMP ND Report #: [id number] Location: Room/Bed: Procedure: [id number] US/US GUIDED PARACENTESIS Exam Date: 01/21/18 Exam Time: 1432 REPORT STATUS: Signed Date and Time: 01/21/2018 Procedure: Ultrasound- guided paracentesis chip crusher operator: Dr. Solis Pre-operative diagnosis: Ascites Post-operative diagnosis: Ascites Conscious Sedation: None The patient's heart rate and pulse oximetry were continuously monitored by the interventional radiology nurse. Blood pressure was monitored at 5 minute intervals. Additional Medications: Lidocaine 1% for local anesthesia Estimated blood loss: Minimal Blood products administered: None Specimens: 6000 cc straw-colored fluid Implants: None Condition at completion: Stable Disposition: Discharged home DISCUSSION: Informed consent was obtained and documented in the medical record after discussion of risks and benefits. The patient was placed in the supine position on the sonographic table. The right side of the abdomen was prepped and draped in the standard sterile fashion. A suitable percutaneous approach to the ascitic fluid was identified and 1% lidocaine was infiltrated into the skin and subcutaneous tissues for local anesthesia. Then under continuous sonographic guidance a 5 Singaporean Yueh needle catheter was advanced into the peritoneal space. The catheter was advanced off the needle and connected to vacuum bottle with evacuation of 6000 cc straw-colored fluid. Specimen was submitted for laboratory analysis as requested by the referring clinical team. The catheter was removed and a sterile dressing was applied. The patient tolerated the procedure well without immediate complication. FINDINGS: Large volume ascites IMPRESSION: Successful ultrasound-guided paracentesis with removal of 6000 cc straw-colored fluid. Signed by: Dr. Gisel Solis M.D. on 01/21/2018 3:32 PM Dictated By: GISEL SOLIS MD 31 Transcribed By: LEONEL on 01/21/181531 COPY TO: LEON KEMP ND US GUIDED PARACENTESIS 2018-01-15 14:20:00 [place] [address] Patient Name: JOHNNY BOGGS MR #: [id number] : 1955 Age/Sex: 62/F Req #: [id number] Adm Physician: Ordered by: LEON KEMP ND Report #: [id number] Location: Room/Bed: Procedure: [id number] US/US GUIDED PARACENTESIS Exam Date: Exam Time: REPORT STATUS: Signed Date and Time: 01/15/2018 Procedure: Ultrasound-guided p aracentesis chip crusher operator: Dr. Solis Pre-operative diagnosis: Ascites Post-operative diagnosis: Ascites Conscious Sedation: None The patient's heart rate and pulse oximetry were continuously monitored by the interventional radiology nurse. Blood pressure was monitored at 5 minute intervals. Additional Medications: Lidocaine 1% for local anesthesia Estimated blood loss: Minimal Blood products administered: None Specimens: 6000 cc straw-colored fluid Implants: None Condition at completion: Stable Disposition: Discharged home DISCUSSION: Informed consent was obtained and documented in the medical record after discussion of risks and benefits. The patient was placed in the supine position on the sonographic table. The right side of the abdomen was prepped and draped in the standard sterile fashion. A suitable percutaneous approach to the ascitic fluid was identified and 1% lidocaine was infiltrated into the skin and subcutaneous tissues for local anesthesia. Then under continuous sonographic guidance a 5 Singaporean Five9eh needle catheter was advanced into the peritoneal space. The catheter was advanced off the needle and connected to vacuum bottle with evacuation of 6000 cc straw-colored fluid. Specimen was submitted for laboratory analysis as requested by the referring clinical team. The catheter was removed and a sterile dressing was applied. The patient tolerated the procedure well without immediate complication. FINDINGS: Large volume ascites IMPRESSION: Successful ultrasound-guided paracentesis with removal of 6000 cc straw-colored fluid. Signed by: Dr. Gisel Solis M.D. on 01/15/2018 2:22 PM Dictated By: GISEL SOLIS MD 142 Transcribed By: LEONEL on 01/15/18 1422 COPY TO: LEON KEMP ND US GUIDED PARACENTESIS 2018-01-08 14:38:00 [place] [address] Patient Name: JOHNNY BOGGS MR #: [id number] : 1955 Age/Sex: 62/F Req #: [id number] Adm Physician: Ordered by: LEON KEMP ND Report #: [id number] Location: Room/Bed: Procedure: [id number] US/US GUIDED PARACENTESIS Exam Date: 01/08/18 Exam Time: 1316 REPORT STATUS: Signed Procedure: Ultrasound-guided diagnostic and therapeutic paracentesis chip crusher operator: Vitaliy Pizano MD Pre-operative diagnosis: Ascites Post-operative diagnosis: Ascites Conscious Sedation: The patient's heart rate and pulse oximetry were continuously monitored by the IR nurse. Additional Medications: Lidocaine 1% for local anesthesia Estimated blood loss: Minimal Specimens: 5,900 cc of serous fluid Implants: None TECHNIQUE/FINDINGS: Informed consent was obtained from the patient and documented in the medical record. The patient was placed in the supine position. Initial ultrasound demonstrated ascites. The right lower abdomen was prepped and draped in standard sterile fashion. 1% lidocaine was infiltrated into the skin and subcutaneous tissues for local anesthesia. Then under continuous sonographic guidance, a 7 Fr catheter was advanced into the peritoneal space. The catheter was connected to vacuum bottle with subsequent evacuation of 5,900 cc of serous fluid. The catheter was removed. Dermabond and sterile dressing was applied. Sample was sent to the lab. The patient tolerated the procedure well. IMPRESSION: Ultrasound-guided diagnostic and therapeutic paracentesis with removal of 5,900 cc of serous fluid. Signed by: Dr. Vitaliy Pizano MD on 01/08/2018 2:38 PM Dictated By: VITALIY PIZANO MD 1438 Transcribed By: LEONEL on 01/08/18 1438 COPY TO: LEON KEMP ND US GUIDED PARACENTESIS 2018-01-01 15:01:00 [place] [address] Patient Name: JOHNNY BOGGS MR #: [id number] : 1955 Age/Sex: 62/F Req #: [id number] Adm Physician: Ordered by: LEON KEMP ND Report #: [id number] Location: Room/Bed: Procedure: [id number] US/US GUIDED PARACENTESIS Exam Date: 01/01/18 Exam Time: 1341 REPORT STATUS: Signed Procedure: Ultrasound-guided diagnostic and therapeutic paracentesis chip crusher operator: Vitaliy Pizano MD Pre-operative diagnosis: Ascites Post-operative diagnosis: Ascites Conscious Sedation: The patient's heart rate and pulse oximetry were continuously monitored by the IR nurse. Additional Medications: Lidocaine 1% for local anesthesia Estimated blood loss: Minimal Specimens: 6,000 cc of serous fluid Implants: None TECHNIQUE/FINDINGS: Informed consent was obtained from the patient and documented in the medical record. The patient was placed in the supine position. Initial ultrasound demonstrated ascites. The right lower abdomen was prepped and draped in standard sterile fashion. 1% lidocaine was infiltrated into the skin and subcutaneous tissues for local anesthesia. Then under continuous sonographic guidance, a 7 Fr catheter was advanced into the peritoneal space. The catheter was connected to vacuum bottle with subsequent evacuation of 6,000 cc of serous fluid. The catheter was removed. Dermabond and sterile dressing was applied. Sample was sent to the lab. The patient tolerated the procedure well. IMPRESSION: Ultrasound-guided diagnostic and therapeutic paracentesis with removal of 6,000 cc of serous fluid. Signed by: Dr. Vitaliy Pizano MD on 01/01/2018 3:02 PM Dictated By: VITALIY PIZANO MD 1502 Transcribed By: LEONEL on 01/01/18 1502 COPY TO: LEON KEMP ND US GUIDED PARACENTESIS 2017-12-25 14:30:00 [place] [address] Patient Name: JOHNNY BOGGS MR #: [id number] : 1955 Age/Sex: 62/F Req #: [id number] [facility] Physician: Ordered by: LEON KEMP ND Report #: [id number] Location: Room/Bed: Procedure: [id number] US/US GUIDED PARACENTESIS Exam Date: 12/25/17 Exam Time: 1310 REPORT STATUS: Signed Procedure: Ultrasound-guided diagnostic and therapeutic paracentesis chip crusher operator: Vitaliy Pizano MD Pre-operative diagnosis: Ascites Post-operative diagnosis: Ascites Conscious Sedation: The patient's heart rate and pulse oximetry were continuously monitored by the IR nurse. Additional Medications: Lidocaine 1% for local anesthesia Estimated blood loss: Minimal Specimens: 8,100 cc of serous fluid Implants: None TECHNIQUE/FINDINGS: Informed consent was obtained from the patient and documented in the medical record. The patient was placed in the supine position. Initial ultrasound demonstrated ascites. The right lower abdomen was prepped and draped in standard sterile fashion. 1% lidocaine was infiltrated into the skin and subcutaneous tissues for local anesthesia. Then under continuous sonographic guidance, a 7 Fr catheter was advanced into the peritoneal space. The catheter was connected to vacuum bottle with subsequent evacuation of 8,100 cc of serous fluid. The catheter was removed. Dermabond and sterile dressing was applied. Sample was sent to the lab. The patient tolerated the procedure well. IMPRESSION: Ultrasound-guided diagnostic and therapeutic paracentesis with removal of 8,100 cc of serous fluid. Signed by: Dr. Vitaliy Pizano MD on 12/25/2017 2:32 PM Dictated By: VITALIY PIZANO MD 1432 Transcribed B y: LEONEL on 12/25/17 143 COPY TO: LEON KEMP ND US GUIDED PARACENTESIS 2017-12-18 15:24:00 [place] [address] Patient Name: JOHNNY BOGGS MR #: [id number] : 1955 Age/Sex: 62/F Re #: [id number] [facility] Physician: Ordered by: LEON KEMP ND Report #: [id number] Location: Room/Bed: Procedure: [id number] US/US GUIDED PARACENTESIS Exam Date: 12/18/17 Exam Time: 1406 REPORT STATUS: Signed Procedure: Ultrasound-guided diagnostic and therapeutic paracentesis chip crusher operator: Vitaliy Pizano MD Pre-operative diagnosis: Ascites Post-operative diagnosis: Ascites Conscious Sedation: The patient's heart rate and pulse oximetry were continuously monitored by the IR nurse. Additional Medications: Lidocaine 1% for local anesthesia Estimated blood loss: Minimal Specimens: 6,750 cc of dark serous ascites Implants: None TECHNIQUE/FINDINGS: Informed consent was obtained from the patient and documented in the medical record. The patient was placed in the supine position. Initial ultrasound demonstrated ascites. The right lower abdomen was prepped and draped in standard sterile fashion. 1% lidocaine was infiltrated into the skin and subcutaneous tissues for local anesthesia. Then under continuous sonographic guidance, a 7 Fr catheter was advanced into the peritoneal space. The catheter was connected to vacuum bottle with subsequent evacuation of 6,750 cc of dark serous fluid. The catheter was removed. Dermabond and sterile dressing was applied. Sample was sent to the lab. The patient tolerated the procedure well. Patient received albumin infusion (4 bottles), intra procedurally. IMPRESSION: Ultrasound-guided diagnostic and therapeutic paracentesis with removal of 6,750 cc of dark serous fluid. Signed by: Dr. Vitaliy Pizano MD on 12/18/2017 3:25 PM Dictated By: VITALIY PIZANO MD 5677 Transcribed By: LEONEL on 12/18/17 1525 COPY TO: LEON KEMP ND US GUIDED PARACENTESIS 2017-12-11 14:20:00 [place] [address] Patient Name: JOHNNY BOGGS MR #: [id number] : 1955 Age/Sex: 62/F Req #: [id number] Adm Physician: Ordered by: LEON KEMP ND Report #: [id number] Location: Room/Bed: Procedure: [id number] US/US GUIDED PARACENTESIS Exam Date: Exam Time: REPORT STATUS: Signed Procedure: Ultrasound-guided diagnostic and therapeutic paracentesis chip crusher operator: Vitaliy Pizano MD Pre-operative diagnosis: Ascites Post- operative diagnosis: Ascites Conscious Sedation: The patient's heart rate and pulse oximetry were continuously monitored by the IR nurse. Additional Medications: Lidocaine 1% for local anesthesia Estimated blood loss: Minimal Specimens: 7000 cc of serous ascites Implants: None TECHNIQUE/FINDINGS: Informed consent was obtained from the patient and documented in the medical record. The patient was placed in the supine position. Initial ultrasound demonstrated ascites. The right lower abdomen was prepped and draped in standard sterile fashion. 1% lidocaine was infiltrated into the skin and subcutaneous tissues for local anesthesia. Then under continuous sonographic guidance, a 7 Fr catheter was advanced into the peritoneal space. The catheter was connected to vacuum bottle with subsequent evacuation of 7000 cc of serous fluid. The catheter was removed. Dermabond and sterile dressing was applied. Sample was sent to the lab. The patient tolerated the procedure well. Patient received albumin infusion (4 bottles), intra procedurally. IMPRESSION: Ultrasound-guided paracentesis with removal of 7000 cc of serous fluid. Signed by: Dr. Vitaliy Pizano MD on 12/11/2017 2:25 PM Dictated By: VITALIY PIZANO MD 24 Transcribed By: LEONEL on 12/11/171424 COPY TO: LEON KEMP ND US GUIDED PARACENTESIS 2017-12-04 15:15:00 [place] [address] Patient Name: JOHNNY BOGGS MR #: [id number] : 1955 Age/Sex: 62/F Req #: [id number] Adm Physician: Ordered by: LEON KEMP ND Report #: [id number] Location: Room/Bed: Procedure: [id number] US/US GUIDED PARACENTESIS Exam Date: Exam Time: REPORT STATUS: Signed PROCEDURE: US GUIDED PARACENTESIS COMPARISON: None. INDICATIONS: ASCITES Per Diem Registered Nurse: Gisel Solis M.D. Blood products administered: None Estimated blood loss: Minimal Implants/grafts: None Specimens: 7350 cc ascites fluid Complications: No immediate Condition at completion: Stable Disposition: Discharged home FINDINGS: Informed consent was obtained and documented in the medical record after discussion of risks and benefits. The patient was placed in the supine position on the sonographic table. The right abdomen was prepped and draped in the standard sterile fashion. After a suitable percutaneous approach to the peritoneal space was identified 1% lidocaine was infiltrated into the skin and subcutaneous tissues for local anesthesia. Then under continuous sonographic guidance a 5 Singaporean Yueh needle catheter was advanced into the peritoneal space. The needle was removed and the catheter connected to vacuum bottle with subsequent evacuation of 7350 cc cloudy yellow fluid. The catheter was removed and a sterile dressing was applied. Patient tolerated the procedure well without immediate complication. CONCLUSION: Successful ultrasound-guided paracentesis with removal of 7350 cc cloudy yellow fluid. Specimen was submitted for laboratory analysis as requested by the referring clinical team. Dictated by: Gisel Solis M.D. on 12/04/2017 at 15:15 Electronically approved by: Gisel Solis M.D. on 12/04/2017 at 15:15 Dictated By: GISEL SOLIS MD 14 Transcribed By: SOHAIL on 12/04/171514 COPY TO: LEON KEMP ND US GUIDED PARACENTESIS 2017-11-27 15:00:00 [place] [address] Patient Name: JOHNNY BOGGS MR #: [id number] : 1955 Age/Sex: 62/F Req #: [id number] Adm Physician: Ordered by: LEON KEMP ND Report #: [id number] Location: Room/Bed: Procedure: US/US GUIDED PARACENTESIS Exam Date: Exam Time: REPORT STATUS: Signed Procedure: Ultrasound-guided diagnostic and therapeutic paracentesis chip crusher operator: Vitaliy Pizano MD Pre-operative diagnosis: Ascites Post- operative diagnosis: Ascites Conscious Sedation: The patient's heart rate and pulse oximetry were continuously monitored by the IR nurse. Additional Medications: Lidocaine 1% for local anesthesia Estimated blood loss: Minimal Specimens: 8200 cc of serous ascites Implants: None TECHNIQUE/FINDINGS: Informed consent was obtained from the patient and documented in the medical record. The patient was placed in the supine position. Initial ultrasound demonstrated ascites. The right lower abdomen was prepped and draped in standard sterile fashion. 1% lidocaine was infiltrated into the skin and subcutaneous tissues for local anesthesia. Then under continuous sonographic guidance, a 7 Fr catheter was advanced into the peritoneal space. The catheter was connected to vacuum bottle with subsequent evacuation of 8200 cc of serous fluid. The catheter was removed. Dermabond and sterile dressing was applied. Sample was sent to the lab. The patient tolerated the procedure well. Patient received albumin infusion (4 bottles), intra procedurally. IMPRESSION: Ultrasound-guided paracentesis with removal of 8200 cc of serous fluid. Signed by: Dr. Vitaliy Pizano MD on 11/27/2017 3:01 PM Dictated By: VITALIY PIZANO MD 1501 Transcribed By: LEONEL on 11/27/17 1501 COPY TO: LEON KEMP ND US GUIDED PARACENTESIS 2017-11-20 15:27:00 [place] [address] Patient Name: JOHNNY BOGGS MR #: [id number] : 1955 Age/Sex: 62/F Req #: [id number] Adm Physician: Ordered by: LEON KEMP ND Report #: [id number] Location: Room/Bed: Procedure: US/US GUIDED PARACENTESIS Exam Date: Exam Time: REPORT STATUS: Signed PROCEDURE: US GUIDED PARACENTESIS Pre-operative diagnosis: Ascites Post-operative diagnosis: Ascites Conscious Sedation: None The patient's heart rate and pulse oximetry were continuously monitored by the IR nurse. Estimated blood loss: Less than 2 cc Specimens: 9600 cc of fluid that was sent to the laboratory. Implants: None TECHNIQUE/FINDINGS: Informed consent was obtained from the patient and documented in the medical record. The patient was placed in the supine position. Initial ultrasound demonstrated ascites. The right upper abdomen was prepped and draped in standard sterile fashion. 1% lidocaine was infiltrated into the skin and subcutaneous tissues for local anesthesia. Then under sonographic guidance, a 5 Fr Centeze sheathed catheter was advanced into the peritoneal space. The catheter was connected to vacuum bottle with subsequent evacuation of 9600 cc of fluid. The catheter was removed. A sterile dressing was applied. Sample was sent to the lab. The patient tolerated the procedure well. Patient received albumin infusion (50 grams), intra procedurally. IMPRESSION: Ultrasound-guided paracentesis with removal of 9600 cc of serous fluid. Sandeep Beard D.O. Dictated by: Sandeep Beard D.O. on 11/20/2017 at 15:27 Electronically approved by: Sandeep Beard D.O. on 11/20/2017 at 15:27 Dictated By: SANDEEP BEARD DO 1527 Transcribed By: SOHAIL on 11/20/17 1527 COPY TO: LEON KEMP ND US GUIDED PARACENTESIS 2017-11-13 15:46:00 [place] [address] Patient Name: JOHNNY BOGGS MR #: [id number] : 1955 Age/Sex: 62/F Req #: [id number] [facility] Physician: Ordered by: LEON KEMP ND Report #: [id number] Location: Room/Bed: Procedure: US/US GUIDED PARACENTESIS Exam Date: Exam Time: REPORT STATUS: Signed Procedure: Ultrasound-guided diagnostic and therapeutic paracentesis chip crusher operator: Vitaliy Pizano MD Pre-operative diagnosis: Ascites Post- operative diagnosis: Ascites Conscious Sedation: The patient's heart rate and pulse oximetry were continuously monitored by the IR nurse. Additional Medications: Lidocaine 1% for local anesthesia Estimated blood loss: Minimal Specimens: 5400 cc of serous ascites Implants: None TECHNIQUE/FINDINGS: Informed consent was obtained from the patient and documented in the medical record. The patient was placed in the supine position. Initial ultrasound demonstrated ascites. The right lower abdomen was prepped and draped in standard sterile fashion. 1% lidocaine was infiltrated into the skin and subcutaneous tissues for local anesthesia. Then under continuous sonographic guidance, a 5 Fr catheter was advanced into the peritoneal space. The catheter was connected to vacuum bottle with subsequent evacuation of 5400 cc of serous fluid. The catheter was removed. Dermabond and sterile dressing was applied. Sample was sent to the lab. The patient tolerated the procedure well. Patient received albumin infusion (4 bottles), intra procedurally. IMPRESSION: Ultrasound-guided paracentesis with removal of 5400 cc of serous fluid. Signed by: Dr. Vitaliy Pizano MD on 11/13/2017 3:48 PM Dictated By: VITALIY PIZANO MD 1548 Transcribed By: LEONEL on 11/13/171547 COPY TO: LEON KEMP ND US GUIDED PARACENTESIS 2017-11-06 15:29:00 [place] [address] Patient Name: JOHNNY BOGGS MR #: [id number] : 1955 Age/Sex: 62/F Req #: [id number] Adm Physician: Ordered by: LEON KEMP ND Report #: [id number] Location: US Room/Bed: Procedure: US/US GUIDED PARACENTESIS Exam Date: Exam Time: REPORT STATUS: Signed PROCEDURE: US GUIDED DIAGNOSTIC AND THERAPEUTIC PARACENTESIS COMPARISON: Ultrasound guided paracentesis 10/23/2017 INDICATIONS: CIRRHOSIS, ASCITES FINDINGS: Preliminary survey of the abdomen shows large volume ascites. The patient was prepped and draped in sterile fashion. Utilizing ultrasound guidance after local anesthesia was obtained with 1% Xylocaine, a 5 Singaporean Centeze sheathed needle was placed into the ascitic fluid in the right lateral midabdomen. Approximately 7,200 cc of serous ascitic fluid was removed and sent to the laboratory for analysis. The catheter was removed and Dermabond was applied. Sterile bandage was placed. The patient received albumin administration during the procedure. CONCLUSION: Ultrasound guided diagnostic and therapeutic paracentesis as above. Dictated by: VITALIY PIZANO M.D. on 11/06/2017 at 15:29 Electronically approved by: VITALIY PIZANO M.D. on 11/06/2017 at 15:29 Dictated By: VITALIY PIZANO MD 1529 Transcribed By: SOHAIL on 11/06/17 1529 COPY TO: LEON SUAREZ ND US GUIDED PARACENTESIS 2017-10-30 15:14:00 [place] [address] Patient Name: JOHNNY BOGGS MR #: [id number] : 1955 Age/Sex: 62/F Req #: [id number] Adm Physician: Ordered by: LEON KEMP ND Report #: [id number] Location: [facility] Room/Bed: Procedure: US/US GUIDED PARACENTESIS Exam Date: Exam Time: REPORT STATUS: Signed PROCEDURE: Ultrasound-guided paracentesis. INDICATION: Cirrhosis with ascites. COMPARISON: Ultrasound-guided paracentesis 10/16/2017 FINDINGS: Preliminary survey of the abdomen shows large volume ascites. The patient's right abdomen was prepped and draped in sterile fashion and after the procedure was explained and informed consent was obtained. Local anesthesia was obtained with 1% Xylocaine. Using ultrasound guidance, a centesis catheter was placed into the ascitic fluid in the right lateral abdomen. Approximately 6450 cc of ascitic fluid was withdrawn and sent to the laboratory for analysis. No immediate postprocedure complications. Patient did get 50 g albumin administration during the procedure. IMPRESSION: 1. Successful ultrasound-guided paracentesis with removal of 6450 cc Signed by: Dr. Etienne Ford M.D. on 10/30/2017 3:20 PM Dictated By: ETIENNE FORD MD 1520 Transcribed By: LEONEL on 10/30/17 1520 COPY TO: LEON SUAREZ ND US GUIDED PARACENTESIS 2017-10-23 14:56:00 [place] [address] Patient Name: JOHNNY BOGGS MR #: [id number] : 1955 Age/Sex: 62/F Req #: [id number] [facility] Physician: Ordered by: LEON KMEP ND Report #: [id number] Location: Room/Bed: Procedure: US/US GUIDED PARACENTESIS Exam Date: Exam Time: REPORT STATUS: Signed PROCEDURE: US GUIDED PARACENTESIS COMPARISON: [facility], , US GUIDED PARACENTESIS, 10/16/2017, 13:35. INDICATIONS: Cirrhosis with ascites FINDINGS: Preliminary survey of the abdomen shows large volume ascites. Utilizing ultrasound guidance after local anesthesia was obtained with 1% Xylocaine a 5 Singaporean Centeze sheathed needle was placed into the ascitic fluid in the right lateral midabdomen. Approximately 8,400 cc of ascitic fluid was withdrawn and sent to the laboratory for analysis. The patient did get albumin administration during the procedure. CONCLUSION: Successful large volume ultrasound guided paracentesis. Sandeep Beard D.O. Dictated by: Sandeep Beard D.O. on 10/23/2017 at 14:56 Electronically approved by: Sandeep Beard D.O. on 10/23/2017 at 14:56 Dictated By: SANDEEP BEARD DO 145 Transcribed By: SOHAIL on 10/23/17 1456 COPY TO: LEON KEMP ND US GUIDED PARACENTESIS 2017-10-16 14:50:00 [place] [address] Patient Name: JOHNNY BOGGS MR #: [id number] : 1955 Age/Sex: 62/F Req #: [id number] Adm Physician: Ordered by: LEON KEMP ND Report #: [id number] Location: US Room/Bed: Procedure: [id number] US/US GUIDED PARACENTESIS Exam Date: Exam Time: REPORT STATUS: Signed Exam: Ultrasound-guided paracentesis dated 10/16/2017 Indication: Cirrhosis with ascites. Procedure: Preliminary survey of the abdomen shows large volume ascites. Utilizing ultrasound guidance after local anesthesia was obtained with 1% Xylocaine a 5 Singaporean Centeze catheter was placed into the ascitic fluid in the right mid abdomen. Approximately 6,600 cc of ascitic fluid was withdrawn and sent to the laboratory for analysis. No immediate complications. Patient did get albumin administration during the procedure. Impression: Successful large volume ultrasound-guided paracentesis. Signed by: Dr. Sandeep Beard DO on 10/16/2017 2:54 PM Dictated By: SANDEEP BEARD DO 0166 Transcribed By: LEONEL on 10/16/17 2826 COPY TO: LEON KEMP ND US GUIDED PARACENTESIS 2017-10-09 15:51:00 [place] [address] Patient Name: JOHNNY BOGGS MR #: [id number] : 1955 Age/Sex: 62/F Req #: [id number] Adm Physician: Ordered by: LEON KEMP ND Report #: [id number] Location: Room/Bed: Procedure: US/US GUIDED PARACENTESIS Exam Date: 10/09/17 Exam Time: 1418 REPORT STATUS: Signed PROCEDURE: US GUIDED PARACENTESIS COMPARISON: [facility], , US GUIDED PARACENTESIS, 10/02/2017, 9:56. INDICATIONS: Ascites FINDINGS: The patient's right side was prepped and draped in sterile fashion and after the procedure was explained and informed consent was obtained. Xylocaine 1% was used for local anesthesia. Using ultrasonic guidance, a centesis needle was advanced into the right peritoneal cavity. Approximately 7050 cc of clear yellowish colored fluid were drained. The patient tolerated the procedure well and there were no immediate post procedure complications. CONCLUSION: Successful ultrasound-guided paracentesis with removal of 7050 cc of ascitic fluid. Etienne Ford M.D. Dictated by: Etienne Ford M.D. on 10/09/2017 at 15:51 Electronically approved by: Etienne Ford M.D. on 10/09/2017 at 15:51 Dictated By: ETIENNE FORD MD 50 Transcribed By: SOHAIL on 10/09/171550 COPY TO: LEON KEMP ND US GUIDED PARACENTESIS 2017-10-02 11:09:00 [place] [address] Patient Name: JOHNNY BOGGS MR #: [id number] : 1955 Age/Sex: 61/F Req #: [id number] Adm Physician: Ordered by: LEON KEMP ND Report #: [id number] Location: Room/Bed: Procedure: US/US GUIDED PARACENTESIS Exam Date: Exam Time: REPORT STATUS: Signed PROCEDURE: US GUIDED DIAGNOSTIC AND THERAPEUTIC PARACENTESIS COMPARISON: None. INDICATIONS: ASCITES FINDINGS: Informed consent was obtained. The patient's right abdomen was prepped and draped in sterile fashion. Intravenous albumin was given throughout the procedure. Lidocaine 1% was used for local anesthesia. Preprocedure ultrasound images showed large volume ascites. Using ultrasound guidance, a 5 Fr catheter was advanced into the right lower aspect of the peritoneal cavity. Approximately 8100 cc of yellowish fluid were obtained. The catheter was removed. Repeat ultrasound demonstrated substantial reduction in ascites. Dermabond and sterile dressing were applied. Samples were sent to the lab. Patient tolerated the procedure well without immediate complications. CONCLUSION: Ultrasound guided diagnostic and therapeutic paracentesis with removal of 8100 cc of serous fluid. Dictated by: VITALIY PIZANO M.D. on 10/02/2017 at 11:09 Electronically approved by: VITALIY PIZANO M.D. on 10/02/2017 at 11:09 Dictated By: VITALIY PIZANO MD 110 Transcribed By: SOHAIL on 10/02/171108 COPY TO: LEON KEMP ND US GUIDED PARACENTESIS 2017-09-25 14:48:00 [place] [address] Patient Name: JOHNNY BOGGS MR #: [id number] : 1955 Age/Sex: 61/F Req #: [id number] Adm Physician: Ordered by: LEON KEMP ND Report #: [id number] Location: Room/Bed: Procedure: [id number] US/US GUIDED PARACENTESIS Exam Date: Exam Time: REPORT STATUS: Signed PROCEDURE: US GUIDED PARACENTESIS COMPARISON: [facility], , US GUIDED PARACENTESIS, 09/19/2017, 12:53. INDICATIONS: ASCITES FINDINGS: The patient's right abdomen was prepped and draped in sterile fashion. After the procedure was explained and informed consent was obtained. Intravenous albumin was given throughout the procedure. Lidocaine 1% was used for local anesthesia. Preprocedure ultrasound images showed marked ascites. Using ultrasound guidance, a safe route obtained to the right peritoneal cavity, and a centesis needle was advanced. Approximately 9600 cc of yellowish fluid were obtained. One bottle was sent to the lab, others were discarded. Patient tolerated the procedure well without immediate complications. CONCLUSION: 1. Successful paracentesis with removal of 9600 cc of ascitic fluid. Etienne Ford M.D. Dictated by: Etienne Ford M.D. on 09/25/2017 at 14:48 Electronically approved by: Etienne Ford M.D. on 09/25/2017 at 14:48 Dictated By: ETIENNE FORD MD 47 Transcribed By: SOHAIL on 09/25/171447 COPY TO: LEON KEMP ND US GUIDED PARACENTESIS 2017-09-19 14:20:00 [place] [address] Patient Name: JOHNNY BOGGS MR #: [id number] : 1955 Age/Sex: 61/F Req #: [id number] Adm Physician: Ordered by: LEON KEMP ND Report #: [id number] Location: Room/Bed: Procedure: [id number] US/US GUIDED PARACENTESIS Exam Date: Exam Time: REPORT STATUS: Signed PROCEDURE: US GUIDED PARACENTESIS COMPARISON: Multiple, most recently 09/05/2017 INDICATIONS: ascites FINDINGS: Moderate amount of free abdominal fluid noted on ultrasound. Informed consent and time out was obtained. Right upper quadrant was prepped and draped in the usual standard fashion. Local anesthesia with 1% Xylocaine was obtained. A 5 Singaporean Centeze needle was placed into the fluid in the right upper quadrant below the liver. A total of 5,000 cc of fluid was withdrawn (amount specified by the referring physician not to exceed). Patient did not receive albumin during the procedure. Fluid was sent to the laboratory for analysis. CONCLUSION: Successful ultrasound-guided paracentesis. Dictated by: Shraddha Thibodeaux M.D. on 09/19/2017 at 14:20 Electronically approved by: Shraddha Thibodeaux M.D. on 09/19/2017 at 14:20 Dictated By: SHRADDHA THIBODEAUX MD 1420 Transcribed By: SOHAIL on 09/19/17 1420 COPY TO: LEON KEMP ND US GUIDED PARACENTESIS 2017-09-12 14:12:00 [place] [address] Patient Name: JOHNNY BOGGS MR #: [id number] : 1955 Age/Sex: 61/F Req #: [id number] Adm Physician: Ordered by: LEON KEMP ND Report #: [id number] Location: Room/Bed: Procedure: [id number] US/US GUIDED PARACENTESIS Exam Date: 09/12/17 Exam Time: 1159 REPORT STATUS: Signed PROCEDURE: US GUIDED PARACENTESIS COMPARISON: [facility], , US GUIDED PARACENTESIS, 09/05/2017, 9:27. INDICATIONS: ASCITES FINDINGS: Moderate amount of free abdominal fluid noted. Informed consent and time out was obtained. Right upper quadrant was prepped and draped in the usual standard fashion. Local anesthesia with 1% Xylocaine was utilized. A 5 Singaporean Centeze needle was placed into the fluid in the right upper quadrant below the liver. A total of 6,000 cc of fluid was withdrawn (amount specified by the referring physician not to exceed). Patient did receive albumin during the procedure. Fluid was sent to the laboratory for analysis. CONCLUSION: Successful ultrasound guided paracentesis. Sandeep Beard D.O. Dictated by: Sandeep Beard D.O. on 09/12/2017 at 14:12 Electronically approved by: Sandeep Beard D.O. on 09/12/2017 at 14:12 Dictated By: SANDEEP BEARD DO 141 Transcribed By: SOHAIL on 09/12/17 141 COPY TO: LEON KEMP ND US GUIDED PARACENTESIS 2017-09-05 12:14:00 [place] [address] Patient Name: JOHNNY BOGGS MR #: [id number] : 1955 Age/Sex: 61/F Req #: [id number] Adm Physician: Ordered by: LEON KEMP ND Report #: [id number] Location: Room/Bed: Procedure: [id number] US/US GUIDED PARACENTESIS Exam Date: 09/05/17 Exam Time: 926 REPORT STATUS: Signed PROCEDURE: US GUIDED PARACENTESIS COMPARISON: Prior paracentesis dated 08/25/2017 INDICATIONS: Ascites FINDINGS: Moderate amount of free abdominal fluid noted. Informed consent and time out was obtained. Right upper quadrant was prepped and draped in the usual standard fashion. Local anesthesia with 1% Xylocaine was obtained. A 5 Singaporean Centeze needle was placed into the fluid in the right upper quadrant below the liver. A total of 6,000 cc of fluid was withdrawn (amount specified by the referring physician not to exceed). Patient did receive albumin during the procedure. Fluid was sent to the laboratory for analysis. CONCLUSION: Successful ultrasound guided paracentesis. Sandeep Beard D.O. Dictated by: Sandeep Beard D.O. on 09/05/2017 at 12:14 El ectronically approved by: Sandeep Beard D.O. on 09/05/2017 at 12:14 Dictated By: SANDEEP BEARD DO 1214 Transcribed By: SOHAIL on 09/05/17 1214 COPY TO: LEON KEMP ND US GUIDED PARACENTESIS 2017-08-25 13:58:00 [place] [address] Patient Name: JOHNNY BOGGS MR #: [id number] : 1955 Age/Sex: 61/F Req #: [id number] Adm Physician: Ordered by: LEON KEMP ND Report #: [id number] Location: Room/Bed: Procedure: [id number] US/US GUIDED PARACENTESIS Exam Date: Exam Time: REPORT STATUS: Signed PROCEDURE: US GUIDED PARACENTESIS COMPARISON: None. INDICATIONS: Ascites FINDINGS: Large volume ascites is present. Informed consent was obtained. Patient was placed on the ultrasound suite table. Time out was performed. The right upper quadrant was prepped and draped in the usual standard fashion. Local anesthesia with 1% Xylocaine was obtained. A 5 Singaporean sheathed Centeze needle was placed into t he right upper quadrant. Approximately 8,100 cc of ascitic fluid was withdrawn. This was sent to the laboratory. Patient received albumin during the procedure. Patient tolerated the procedure well. CONCLUSION: Successful ultrasound-guided large volume paracentesis. Sandeep Beard D.O. Dictated by: Sandeep Beard D.O. on 08/25/2017 at 13:58 Electronically approved by: Sandeep Beard D.O. on 08/25/2017 at 13:58 Dictated By: SANDEEP BEARD DO 1358 Transcribed By: SOHAIL on 08/25/17 1358 COPY TO: LEON KEMP ND US GUIDED PARACENTESIS 2017-08-11 15:17:00 [place] [address] Patient Name: JOHNNY BOGGS MR #: [id number] : 1955 Age/Sex: 61/F Req #: [id number] [facility] Physician: Ordered by: LEON KEMP ND Report #: [id number] Location: Room/Bed: Procedure: US/US GUIDED PARACENTESIS Exam Date: Exam Time: REPORT STATUS: Signed Ultrasound-guided paracentesis 08/11/2017 Pre-Procedure Diagnosis: Ascites Post-procedure Diagnosis:Ascites Per Diem Registered Nurse: Melanie Grewal Field Marketing Representative: None Sedation: None. 1% lidocaine local anesthesia. Estimate blood loss: <5 mL Blood administered: None Complications: None Implants/Grafts: None Specimen: 1200 mL ascites Procedure: Informed consent was obtained and the patient placed supine in the ultrasound suite. A time out was performed, followed by four-quadrant preliminary ultrasound of the abdomen. The right upper quadrant was prepped and draped in standard sterile fashion. Using real-time ultrasound guidance a 7-Singaporean one-step centesis needle was advanced into the peritoneal cavity. An image was stored in the electronic medical record. 9400 mL serous fluid was aspirated. At the end of the procedure the catheter was removed and a sterile dressing applied. The patient tolerated the procedure well. No complications. Findings: Large volume ascites. Impression: Successful ultrasound-guided paracentesis with removal of 9400 mL of ascites. Samples were submitted for evaluation if requested by the referring clinician. This report was generated with voice-recognition technology. Errors in cleaner can occur. Please interpret accordingly and contact a radiologist if there are any questions regarding the report. Signed by: Dr. Laurita Grewal M.D. on 08/11/2017 3:17 PM Dictated By: LAURITA GREWAL MD 16 Transcribed By: LEONEL on 08/11/171516 COPY TO: LEON KEMP ND US GUIDED PARACENTESIS [place] [address] Patient Name: JOHNNY BOGGS MR #: [id number] : 1955 Age/Sex: 61/F Req #: [id number] [facility] Physician: Ordered by: LEON KEMP ND Report #: [id number] Location: Room/Bed: Procedure: [id number] US/US GUIDED PARACENTESIS Exam Date: Exam Time: REPORT STATUS: Signed Ultrasound-guided paracentesis 07/25/2017 Pre-Procedure Diagnosis: Ascites Post-procedure Diagnosis:Ascites Per Diem Registered Nurse: Melanie Grewal Field Marketing Representative: None Sedation: None. 1% lidocaine local anesthesia. Estimate blood loss: <5 mL Blood administered: None Complications: None Implants/Grafts: None Specimen: 1200 mL ascites Procedure: Informed consent was obtained and the patient placed supine in the ultrasound suite. A time out was performed, followed by four-quadrant preliminary ultrasound of the abdomen. The right upper quadrant was prepped and draped in standard sterile fashion. Using real-time ultrasound guidance a 7-Singaporean one-step centesis needle was advanced into the peritoneal cavity. An image was stored in the electronic medical record. 7700 mL serous fluid was aspirated. At the end of the procedure the catheter was removed and a sterile dressing applied. The patient tolerated the procedure well. No complications. Findings: Large volume ascites. Impression: Successful ultrasound-guided paracentesis with removal of 7700 mL of ascites. Samples were submitted for evaluation if requested by the referring clinician. This report was generated with voice-recognition technology. Errors in cleaner can occur. Please interpret accordingly and contact a radiologist if there are any questions regarding the report. Signed by: Dr. Laurita Grewal M.D. on 07/25/2017 11:49 AM Dictated By: LAURITA GREWAL MD 1149 Transcribed By: LEONEL on 07/25/17 1149 COPY TO: LEON KEMP ND US GUIDED PARACENTESIS [place] [address] Patient Name: JOHNNY BOGGS MR #: [id number] : 1955 Age/Sex: 61/F Req #: [id number] Adm Physician: Ordered by: LEON KEMP ND Report #: [id number] Location: Room/Bed: Procedure: US/US GUIDED PARACENTESIS Exam Date: Exam Time: REPORT STATUS: Signed PROCEDURE: US GUIDED PARACENTESIS COMPARISON: Paracentesis 06/30/2017. INDICATIONS: Ascites FINDINGS: Informed consent was obtained and documented in the medical record after discussion of risks and benefits. The patient placed in the supine position on the sonographic table. Focused sonographic evaluation confirmed the large volume ascites. A suitable percutaneous approach of the right upper quadrant was identified. The overlying skin was prepped and draped in the usual sterile fashion. 1% lidocaine was infused into the subcutaneous tissues for local anesthesia. Under direct sonographic guidance, the 18 gauge needle was advanced into the peritoneal cavity. The catheter was attached to close vacuum suction drainage. 10.4 L were aspirated. Upon completion of the fluid evacuati on, the needle was removed. No hematoma was visualized upon the completion of the examination. A sterile dressing was applied. The patient tolerated the procedure well. There were no immediate complications. The patient was transferred in stable unchanged condition to the postprocedure area for further monitoring. CONCLUSION: Successful ultrasound-guided paracentesis. Dictated by: Anne Marie Fritz M.D. on 07/11/2017 at 15:40 Electronically approved by: Anne Marie Fritz M.D. 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 Solis Pre-operative diagnosis: Ascites Post-operative diagnosis: Ascites Conscious Sedation: None The patient's heart rate and pulse oximetry were continuously monitored by the interventional radiology nurse. Blood pressure was monitored at 5 minute intervals. Additional Medications: Lidocaine 1% for local anesthesia Fluoroscopy time: 0 Dose-area Product: 0 mGycm2. Frontal Air Kerma: 0 Contrast used: 0 Estimated blood loss: 20 cc Specimens: 11,200 cc ascitic fluid Implants: None Blood products administered: None Condition at completion of procedure: Stable Disposition: Discharged home DISCUSSION: Informed consent was obtained and documented in the medical record after discussion of risks and benefits. Patient was placed in the supine position on the sonographic table. Preliminary sonographic evaluation confirmed large volume ascites. A suitable percutaneous approach in the right mid abdomen was identified. The overlying skin was prepped and draped in the standard sterile fashion. 1% lidocaine was infiltrated into the skin and subcutaneous tissues for local anesthesia. Then under continuous sonographic guidance, a 5 Singaporean Yueh needle catheter was advanced into the peritoneal cavity. The catheter was advanced off the needle and connected to vacuum bottle with subsequent evacuation of 11,200 cc straw-colored fluid. The catheter was removed and a sterile dressing was applied. The patient tolerated the procedure well without immediate complication. Specimen was submitted for laboratory analysis as requested by the referring clinical team. FINDINGS: Large volume ascites IMPRESSION: Successful ultrasound-guided paracentesis with removal of 11,200 cc straw-colored fluid. Signed by: Dr. Gisel Solis M.D. on 06/30/2017 7:04 AM Dictated By: GISEL SOLIS MD 3 Transcribed By: LEONEL on 06/30/17703 COPY TO: JOE TIWARI MD US GUIDED PARACENTESIS [place] [address] Patient Name: JOHNNY BOGGS MR #: [id number] : 1955 Age/Sex: 61/F Req #: [id number] [facility] Physician: Ordered by: LEON KEMP ND Report #: [id number] Location: Room/Bed: Procedure: [id number] US/US GUIDED PARACENTESIS Exam Date: 06/12/17 Exam Time: 1353 REPORT STATUS: Signed PROCEDURE: US GUIDED PARACENTESIS COMPARISON: Paracentesis 05/26/2017. INDICATIONS: paracentesis for ascites FINDINGS: After informed consent was obtained, focused abdominal ultrasound identified a safe entry route into the free ascitic fluid in the right lower quadrant of the abdomen. The overlying skin was prepped and draped in sterile fashion. Lidocaine 1% was used for local anesthesia. Under ultrasound guidance, a centesis needle was advanced into the ascitic fluid, the needle was removed and the catheter attached to vacuum bottle. 10,150 cc of ascitic fluid were aspirated. The catheter was removed. There was <1 cc blood loss and no complications. Samples were sent to the laboratory for analysis. CONCLUSION: Uncomplicated ultrasound-guided paracentesis with removal of 10,150 cc. Dictated by: Anne Marie Fritz M.D. on 06/18/2017 at 9:27 Electronically approved by: Anne Marie Fritz M.D. on 06/18/2017 at 9:27 Dictated By: ANNE MARIE FRITZ MD 6 Transcribed By: SOHAIL on 06/18/17926 COPY TO: LEON KEMP ND US GUIDED PARACENTESIS [place] [address] Patient Name: JOHNNY BOGGS MR #: [id number] : 1955 Age/Sex: 61/F Req #: [id number] Adm Physician: Ordered by: LEON KEMP ND Report #: [id number] Location: Room/Bed: Procedure: US/US GUIDED PARACENTESIS Exam Date: Exam Time: REPORT STATUS: Signed PROCEDURE: US GUIDED PARACENTESIS COMPARISON: None. INDICATIONS: Ascites FINDINGS: After informed consent was obtained, focused abdominal ultrasound identified a safe entry route into the free ascitic fluid in the right lower quadrant of the abdomen. The overlying skin was prepped and draped in sterile fashion. Lidocaine 1% was used for local anesthesia. Under ultrasound guidance, a 5 Singaporean Yueh needle was advanced into the ascitic fluid, the needle was removed and the catheter attached to vacuum bottle. 9800 cc of straw-colored fluid were aspirated. The catheter was removed. There was minimal blood loss and no complications. Samples were sent to the laboratory for analysis. CONCLUSION: Uncomplicated ultrasound-guided paracentesis with removal of 9800 cc straw- colored fluid. Dictated by: Gisel Solis M.D. on 05/26/2017 at 14:54 Electronically approved by: Gisel Solis M.D. on 05/26/2017 at 14:54 Dictated By: GISEL SOLIS MD 1197 Transcribed By: SOHAIL on 05/26/17 8235 COPY TO: LEON SUAREZ ND US GUIDED PARACENTESIS [place] [address] Patient Name: JOHNNY BOGGS MR #: [id number] : 1955 Age/Sex: 61/F Req #: [id number] [facility] Physician: Ordered by: JOE TIWARI MD Report #: [id number] Location: Room/Bed: Procedure: [id number] US/US GUIDED PARACENTESIS Exam Date: 04/14/17 Exam Time: 0900 REPORT STATUS: Signed PROCEDURE: US GUIDED PARACENTESIS COMPARISON: None. INDICATIONS: Ascites FINDINGS: After informed consent was obtained, focused abdominal ultrasound identified a safe entry route into the free ascitic fluid in the right upper quadrant of the abdomen. The overlying skin was prepped and draped in sterile fashion. Lidocaine 1% was used for local anesthesia. Under ultrasound guidance, a 5 Singaporean HealthLokesis needle was advanced into the ascitic fluid, the needle was removed and the catheter attached to vacuum bottle. Approximately 9,900 cc of ascitic fluid were aspirated. The catheter was removed. There was <1cc blood loss and no complications. The patient was administered albumin during and at the completion of the procedure. Samples were sent to the laboratory for analysis. CONCLUSION: Uncomplicated ultrasound-guided paracentesis with removal of 9,900 cc. Sandeep Beard D.O. Dictated by: Sandeep Beard D.O. on 04/14/2017 at 12:52 Electronically approved by: Sandeep Beard D.O. on 04/14/2017 at 12:52 Dictated By: SANDEEP BEARD DO 125 Transcribed By: SOHAIL on 04/14/17 1252 COPY TO: JOE TIWARI MD US GUIDED PARACENTESIS [place] [address] Patient Name: JOHNNY BOGGS MR #: [id number] : 1955 Age/Sex: 61/F Req #: [id number] Adm Physician: Ordered by: JOE TIWARI MD Report #: [id number] Location: Room/Bed: Procedure: [id number] US/US GUIDED PARACENTESIS Exam Date: Exam Time: REPORT STATUS: Signed PROCEDURE: US GUIDED PARACENTESIS COMPARISON: None. INDICATIONS: Ascites FINDINGS: After informed consent was obtained, focused abdominal ultrasound identified a safe entry route into the free ascitic fluid in the right upper quadrant of the abdomen. The overlying skin was prepped and draped in sterile fashion. Lidocaine 1% was used for local anesthesia. Under ultrasound guidance, a centesis needle was advanced into the ascitic fluid, the needle was removed and the catheter attached to vacuum bottle. 6500 cc of straw-colored fluid were aspirated. The catheter was removed. There was <1 cc blood loss and no complications. Samples were sent to the laboratory for analysis. CONCLUSION: Uncomplicated ultrasound-guided paracentesis with removal of 6500 cc. Dictated by: Anne Marie Fritz M.D. on 02/21/2017 at 13:10 Electronically approved by: Anne Marie Fritz M.D. on 02/21/2017 at 13:10 Dictated By: ANNE MARIE FRITZ MD 1310 Transcribed By: SOHAIL on 02/21/17 1310 COPY TO: JOE TIWARI MD
[2018-07-02 16:10] LABS: BASOPHILS % 0.4 % (0.0-1.0); EOSINOPHILS # (AUTO) 0.1 (0.0-0.4); LYMPHOCYTES # (AUTO) 0.8 (1.0-3.2); LYMPHOCYTES % 11.1 % (18.0-39.1); MEAN CORPUSCULAR HEMOGLOBIN 30.7 pg (28-32); MEAN CORPUSCULAR HGB CONC 31.5 g/dL (31-35); MEAN CORPUSCULAR VOLUME 97.5 fL (81-99); MONOCYTES # (AUTO) 0.5 (0.2-0.8); MONOCYTES % 7.5 % (4.4-11.3); NEUTROPHILS # (AUTO) 5.4 (2.1-6.9); NEUTROPHILS % 79.4 % (38.7-80.0); PLATELET COUNT 492 x10e3/uL (140-360); RED BLOOD COUNT 2.02 x10e6/uL (3.6-5.1); RED CELL DISTRIBUTION WIDTH 17.4 % (11.7-14.4)
--- NOTE | 2018-07-02 16:10 | NUR ---
ASSISTED DR. GRANADO AT BEDSIDE WITH RECTAL EXAM. NEGATIVE FOR BLOOD
[2018-07-02 16:13] LABS: HEMATOCRIT 19.7 % (34.2-44.1); HEMOGLOBIN 6.2 g/dL (12.0-16.0)
[2018-07-02 16:21] LABS: INR 1.08; PROTHROMBIN TIME 14.5 seconds (11.9-14.5)
[2018-07-02 16:31] LABS: ALBUMIN 2.9 g/dL (3.5-5.0); ALBUMIN/GLOBULIN RATIO 0.9 (0.8-2.0); CALCIUM 8.5 mg/dL (8.4-10.2); CREATININE, SERUM 2.23 mg/dL (0.57-1.11)
[2018-07-02 16:38] LABS: CREATINE KINASE MB 1.4 ng/mL (0-5.0)
[2018-07-02] MEDS ORDERED: SODIUM CHLORIDE 0.9% 250ML 250 ML IV ONE (17:00)
--- NOTE | 2018-07-02 17:09 | NUR ---
ADDITIONAL TXM DONE
--- NOTE | 2018-07-02 17:15 | NUR ---
NOTIFIED BLOOD BANK THAT DR. GRANADO WANTS TO GIVE 1 UNIT, REPEAT H/H BLOOD BANK HAS ORDERED BLOOD FROM [facility] AND THEY STILL NEED TO DO ANTIBODY TESTING.
--- NOTE | 2018-07-02 17:30 | Diagnostic Imaging Report ---
EXAMINATION: CHEST SINGLE (PORTABLE) INDICATION: Shortness of breath, massive ascites. COMPARISON: None FINDINGS: TUBES and LINES: None. LUNGS: Low lung volumes which limits sensitivity and specificity for findings. Mild patchy bibasilar opacities, likely atelectasis. No evidence of pulmonary edema. PLEURA: No pleural effusion or pneumothorax. HEART AND MEDIASTINUM: The cardiomediastinal silhouette is unremarkable. There are atherosclerotic calcifications within the aorta. BONES AND SOFT TISSUES: No acute osseous abnormality. UPPER ABDOMEN: No free air under the diaphragm. IMPRESSION: No acute radiographic abnormality. No evidence of pulmonary edema. Signed by: Dr. Krista Boyce MD on 07/02/2018 5:26 PM
--- NOTE | 2018-07-02 17:50 | NUR ---
BLOOD CONSENT FORM SIGNED
[2018-07-02 18:22] LABS: FERRITIN 50.88 ng/mL (4.63-204.00)
--- NOTE | 2018-07-02 18:30 | NUR ---
DR. GRANADO SPEAKING WITH PATIENT. SHE IS AWARE SHE WILL BE GETTING 1 UNIT OF BLOOD AND HER BLOOD WORK WILL BE REDRAWN AGAIN IN THE MORNING. ALSO SHE WILL BE GETTING HER PARACENTESIS APPROX 8AM
[2018-07-02 18:37] LABS: FOLATE 8.6 ng/mL (7.0-15.4)
--- OUTSIDE RECORDS SUMMARY | 2018-07-02 18:44 | XMS REPORT | Clinical Summary ---
Author Author [facility] Organization [facility] Address Unknown Phone Unavailable Care Team Providers Care Plastic Panel Installer Name Role Phone Breezy Cabrera DO PCP Allergies No Known Allergies Medications End Date Status Medication Sig Dispensed Refills Start Date Active metoprolol tartrate Take 50 mg by 0 (LOPRESSOR) 50 mg tablet mouth 2 (two) times a day. Active fenofibrate (LOFIBRA) 160 Take 160 mg 0 MG tablet by mouth every morning. Active riFAXimin (XIFAXAN) 550 Take 550 mg 0 mg tablet by mouth 2 (two) times a day. Active aspirin (ECOTRIN) 81 MG Take 81 mg by 0 enteric coated tablet mouth every morning. Active ferrous sulfate 325 (65 Take 325 mg 0 FE) MG tablet by mouth daily. Active soft lens rinse,store Apply 1 drop 0 solution (SALINE to eye daily SENSITIVE EYES) drops as needed (for Dry Eyes). 10/28/2018 Active amLODIPine (NORVASC) 5 mg Take 1 tablet 60 tablet 5 tablet (5 mg total) 9 by mouth 2 (two) times a day for 180 days. 10/28/2018 Active furosemide (LASIX) 40 mg Take 1 tablet 30 tablet 5 tablet (40 mg total) 9 by mouth every morning for 180 days. 11/01/2018 Active levothyroxine (SYNTHROID, Take 1 tablet 30 tablet 5 LEVOXYL) 175 mcg tablet (175 mcg 9 total) by mouth every morning for 180 days. Active liothyronine (CYTOMEL) 5 Take 5 mcg by 0 MCG tablet mouth daily. Active spironolactone Take 50 mg by 0 (ALDACTONE) 50 MG tablet mouth daily. 12/05/2017 Discontinued amLODIPine (NORVASC) 5 mg Take 5 mg by 0 tablet mouth daily. 08/23/2017 Discontinued furosemide (LASIX) 40 mg Take 40 mg by 0 tablet mouth daily. 05/01/2018 Discontinued liothyronine (CYTOMEL) 5 Take 5 mcg by 0 MCG tablet mouth every morning. 05/05/2018 Discontinued levothyroxine (SYNTHROID, Take 175 mcg 0 LEVOXYL) 175 mcg tablet by mouth every morning. 08/23/2017 Discontinued spironolactone Take 50 mg by 0 (ALDACTONE) 50 MG tablet mouth daily. 03/05/2018 Discontinued amLODIPine (NORVASC) 5 mg Take 1 tablet 3 tablet by mouth 2 8 (two) times a day. 03/05/2018 Discontinued furosemide (LASIX) 40 mg Take 1 tablet 1 tablet by mouth 9 every morning. 03/05/2018 Discontinued fenofibrate micronized Take 1 3 (LOFIBRA) 134 MG capsule capsule by 8 mouth daily. 05/01/2018 Discontinued amLODIPine (NORVASC) 5 mg Take 5 mg by 0 tablet mouth 2 (two) times a day. 05/01/2018 Discontinued furosemide (LASIX) 40 mg Take 40 mg by 0 tablet mouth every morning. 05/01/2018 Discontinued spironolactone Take 50 mg by 0 (ALDACTONE) 50 MG tablet mouth every morning. 04/19/2018 lactulose 20 gram/30 mL Take 30 mL 2000 mL 0 solution (20 g total) 9 by mouth 3 (three) times a day for 30 days. 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/2017 Ascites 06/26/2017 Abdominal pain 05/01/2017 Resolved Problems Problem Noted Date Resolved Date Preop cardiovascular exam 07/21/2017 02/26/2018 Overview: Added automatically from request for surgery [id number] Encounters Care Team Description Date Type Specialty Megan Wolf MA Treadmill Stress MVO2 06/05/2018 Telephone Cardiology Jason Flores MD Coronary artery disease involving [place] coronary artery of [place] heart without angina pectoris (Primary Dx) 06/05/2018 Orders Only Cardiology Alejandro Pickard MD Chronic combined systolic and diastolic congestive heart failure (HCC) 05/27/2018 Hospital Transplant Encounter Vandana Kim MD Chronic combined systolic and diastolic congestive heart failure (HCC); Pre-transplant evaluation for heart transplant 05/27/2018 Hospital Transplant Encounter Gertrude Grewal RN Chronic combined systolic and diastolic congestive heart failure (HCC) (Primary Dx); Pre-transplant evaluation for heart transplant 05/26/2018 Orders Only Transplant Dae Palomino RN MRB Outcome/Cardiac 05/21/2018 Documentation Transplant Gertrude Grewal RN MRB presentation 05/19/2018 Documentation Transplant Dae Palomino RN Update of heart status 05/06/2018 Telephone Transplant System, Provider Not In, Emeka Bansal MD Anemia, unspecified type (Primary Dx); Hepatic cirrhosis, unspecified hepatic cirrhosis type, unspecified whether ascites present (HCC); Primary biliary cirrhosis (HCC); Chronic kidney disease, stage IV (severe) (HCC) 05/05/2018 Lab Lab Beth Castillo 4 week f/u 05/05/2018 Telephone Transplant Gertrude Grewal RN 05/05/2018 Orders Only Transplant Gertrude Grewal RN 05/01/2018 Orders Only Transplant Andrea Boone MD 04/29/2018 Office Visit Cardiovascular Alejandro Pickard MD Coronary artery disease, angina presence unspecified, unspecified vessel or lesion type, unspecified whether [place] or transplanted heart (Primary Dx); Coronary artery disease involving [place] coronary artery of [place] heart without angina pectoris; Screening for ischemic heart disease; 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); Abdominal pain, unspecified abdominal location 04/29/2018 Hospital Transplant Encounter Alejandro Pickard MD Coronary artery disease involving [place] coronary artery of [place] heart without angina pectoris; Screening for ischemic heart disease 04/29/2018 Hospital Transplant Encounter Barak Diana RN Coronary artery disease involving [place] coronary artery of [place] heart without angina pectoris (Primary Dx); Screening for ischemic heart disease 04/28/2018 Transcribe Transplant Orders Barak Diana RN Encounter for pre-transplant evaluation for heart transplant (Primary Dx) 04/06/2018 Transcribe Transplant Orders Suma Mckay RN 04/06/2018 Documentation Transplant Dae Palomino RN MRB Outcome/Cardiac 04/03/2018 Documentation Transplant Dae Palomino RN MRB Outcome/Cardiac 03/27/2018 Documentation Transplant Moira Fang RN 03/25/2018 Telephone General Internal Medicine Vandana Kim MD Cv right heart cath [[id number] (CPT)] 03/17/2018 Surgery Procedural Cardiology Beth Jackson RN Referral - Heart Txp (inpatient) 03/13/2018 Telephone Transplant Dae Palomino RN MRB Outcome/Cardiac 03/12/2018 Documentation Transplant Dae Palomino RN MELD updated to 25, labs due 03/18/18 03/11/2018 Documentation Transplant Christin Steel MD Giveon, Ron, MD Neason, Chau L., MD Cirrhosis of liver with ascites, unspecified hepatic cirrhosis type (HCC) (Primary Dx); Severe anemia 03/05/2018 [facility] General Internal Medicine - Encounter 03/20/2018 Jaden Kemp MD Primary biliary cirrhosis (HCC) 02/26/2018 Hospital Radiology Encounter Jaden Kemp MD Other ascites 02/26/2018 Hospital Radiology Encounter Jaden Kemp MD 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) (Primary Dx); Awaiting transplantation of liver; Other ascites 02/26/2018 Hospital Transplant Encounter Jaden Kepm MD 02/26/2018 Hospital Procedural Cardiology Encounter Jaden Kemp MD Primary biliary cholangitis (HCC); Awaiting liver transplant 02/26/2018 Hospital Transplant Encounter Dae Palomino RN Other ascites (Primary Dx) 02/26/2018 Orders Only Transplant Dae Palomino RN Other ascites (Primary Dx) 02/26/2018 Orders Only Transplant Mary Wolf MA Appointment Questions 01/30/2018 Telephone Transplant Dae Palomino RN Patient referred to Nephrology 01/30/2018 Telephone Transplant Dae Palomino RN Primary biliary cholangitis (HCC) (Primary Dx); Awaiting liver transplant 01/19/2018 Orders Only Transplant Karen Acevedo RN Primary biliary cirrhosis (HCC) (Primary Dx) 01/14/2018 Transcribe Transplant Orders Karen Acevedo RN Listed for OLT 01/14/2018 Telephone Transplant Karen Acevedo RN Listed for OLT in [facility], MELD=15, recert due 04/16/18 01/14/2018 Documentation Transplant Karen Acevedo RN Ascites of liver (Primary Dx) 01/12/2018 Transcribe Transplant Orders Cindy Jj MA Lab order 01/09/2018 Telephone Transplant Jon Cortez TXP LISTING FINANCIALLY APPROVED 01/06/2018 Telephone Transplant Cindy Jj MA TIPS Procedure 12/31/2017 Telephone Transplant Christa Thompson MD Pre-transplant evaluation for liver transplant (Primary Dx) 12/05/2017 Office Visit Cardiology Maryajne Madrigal RN Labs Only 12/04/2017 Telephone Cardiology Mina Cote MA 11/24/2017 Orders Only Cardiology System, Provider Not In, Emeka Bansal MD Cirrhosis of liver without ascites, unspecified hepatic cirrhosis type (Primary Dx); Primary biliary cholangitis; Chronic kidney disease, stage IV (severe) 09/22/2017 Lab Lab Radha Lopez RN Liver MRB Outcome 09/17/2017 Telephone Transplant Radha Lopez RN Liver MRB Outcome - Discussion 09/12/2017 Documentation Transplant Alcon Will MD Cv right and left heart lv gram [[id number] (CPT)] 08/20/2017 Surgery Procedural Cardiology Chidi Starks MD Nguyen, Leanne, MD Preop cardiovascular exam; Other ascites 08/19/2017 [facility] General Internal Medicine - Encounter 08/23/2017 Radha Lopez RN Update 08/13/2017 Telephone Transplant Christa Thompson MD Coronary artery disease involving [place] coronary artery of [place] heart without angina pectoris (Primary Dx) 08/08/2017 Office Visit Cardiology Radha Lopez RN Liver MRB Outcome 08/04/2017 Telephone Transplant Radha Lopez RN Nephrology & Endo Consult 08/04/2017 Telephone Transplant Radha Lopez RN Liver MRB Outcome - Deferred 08/04/2017 Documentation Transplant Guido Ramon Liver MRB Presentation 07/29/2017 Documentation Transplant Alejandro Pickard MD Biliary liver cirrhosis; Pre-transplant evaluation for liver transplant; Screening for ischemic heart disease 07/22/2017 Hospital Radiology Encounter Alejandro Pickard MD Jon Cortez 07/22/2017 Hospital Transplant Encounter Alejandro Pickard MD 07/22/2017 Hospital Transplant Encounter Alejandro Pickard MD Biliary cirrhosis 07/22/2017 Hospital Radiology Encounter Frances Carreno MA Order Change 07/22/2017 Telephone Transplant Alejandro Pickard MD Biliary liver cirrhosis; Pre-transplant evaluation for liver transplant; Screening for ischemic heart disease 07/21/2017 Hospital Radiology Encounter Alejandro Pickard MD Biliary liver cirrhosis; Pre-transplant evaluation for liver transplant; Screening for ischemic heart disease 07/21/2017 Hospital Procedural Cardiology Encounter Alejandro Pickard MD Biliary liver cirrhosis; Pre-transplant evaluation for liver transplant; Screening for ischemic heart disease 07/21/2017 Hospital Transplant Encounter Alejandro Pickard MD 07/21/2017 Hospital Transplant Encounter Alejandro Pickard MD 07/21/2017 Hospital Transplant Encounter Alejandro Pickard MD Biliary liver cirrhosis; Pre-transplant evaluation for liver transplant; Screening for ischemic heart disease 07/21/2017 Hospital Radiology Encounter Alejandro Pickard MD Biliary liver cirrhosis; Pre-transplant evaluation for liver transplant; Screening for ischemic heart disease 07/21/2017 Hospital Radiology Encounter Alejandro Pickard MD Biliary liver cirrhosis; Pre-transplant evaluation for liver transplant; Screening for ischemic heart disease 07/21/2017 Hospital Radiology Encounter Alejandro Pickard MD Biliary liver cirrhosis; Pre-transplant evaluation for liver transplant; Screening for ischemic heart disease 07/21/2017 Hospital Pulmonology Encounter Alejandro Pickard MD Biliary liver cirrhosis; Pre-transplant evaluation for liver transplant; Screening for ischemic heart disease 07/21/2017 Hospital Transplant Encounter Samuel Araiza MA Prior Auth for MRI 07/21/2017 Telephone Transplant Mina Cote MA Preop cardiovascular exam (Primary Dx); Other ascites 07/21/2017 Orders Only Cardiology Guido Ramon Biliary cirrhosis (Primary Dx) 07/10/2017 Transcribe Transplant Orders Guido Ramon Biliary liver cirrhosis (Primary Dx); Pre-transplant evaluation for liver transplant; Screening for ischemic heart disease 07/10/2017 Transcribe Transplant Orders Jason Price MD 07/09/2017 Lab Lab Jon Cortez TXP LIVER EVAL FINANCIALLY APPROVED 07/02/2017 Telephone Transplant after 07/01/2017 Immunizations Name Dates Previously Given Next Due FLUCELVAX QUAD PF (0.5mL 03/20/2018, 05/07/2017 syringe) Pneumococcal 03/06/2018 Polysaccharide Social History Date Tobacco Use Types Packs/Day Years Used Current Every Day Smoker Cigarettes 0.25 Smokeless Tobacco: Never Used Comments: smoking since age 18 Alcohol Use Drinks/Week oz/Week Comments No Sex Assigned at Date Recorded Not on file Industry Job Start Date Occupation Not on file Not on file Not on file Travel End Travel History Travel Start No recent travel history available. Last Filed Vital Signs Time Taken Vital Sign Reading 05/27/2018 10:31 AM CDT Blood Pressure 157/72 05/27/2018 10:31 AM CDT Pulse 81 05/27/2018 10:31 AM CDT Temperature 35.9 C (96.7 F) 05/27/2018 10:31 AM CDT Respiratory Rate 18 05/27/2018 10:31 AM CDT Oxygen Saturation 98% - Inhaled Oxygen - Concentration 05/27/2018 10:31 AM CDT Weight 96 kg (211 lb 11.2 oz) 05/27/2018 10:31 AM CDT Height 167.6 cm (5' 6") 05/27/2018 10:31 AM CDT Body Mass Index 34.17 Plan of Treatment Care Team Description Date Type Specialty Brad Rabago MD [address] [facility] [address] [place] [address] [id number] 08/26/2018 Appointment Transplant Brad Rabago MD [address] [facility] [address] [place] [id number] 08/26/2018 Appointment Transplant Health Maintenance Due Date Last Done Comments COLON CANCER SCREENING 10/05/2005 SHINGLES VACCINES (#1) 10/05/2005 INFLUENZA VACCINE 10/01/2018 03/20/2018, 05/07/2017 BREAST CANCER SCREENING 07/23/2019 07/22/2017 CERVICAL CANCER SCREENING 07/21/2020 07/21/2017 Procedures Comments Procedure Name Priority Date/Time Associated Diagnosis ESTIMATED GFR Routine 05/27/2018 10:45 AM CDT URIC ACID LEVEL Routine 05/27/2018 Chronic combined systolic 10:45 AM CDT and diastolic congestive heart failure (HCC) MAGNESIUM LEVEL Routine 05/27/2018 Chronic combined systolic 10:45 AM CDT and diastolic congestive heart failure (HCC) NICOTINE AND COTININE, Routine 05/27/2018 Pre-transplant evaluation SERUM 10:45 AM CDT for heart transplant B NATRIURETIC PEPTIDE Routine 05/27/2018 Chronic combined systolic 10:45 AM CDT and diastolic congestive heart failure (HCC) COMPREHENSIVE METABOLIC Routine 05/27/2018 Chronic combined systolic PANEL 10:45 AM CDT and diastolic congestive heart failure (HCC) HC COMPLETE BLD COUNT Routine 05/27/2018 Chronic combined systolic W/AUTO DIFF 10:45 AM CDT and diastolic congestive heart failure (HCC) ECG 12-LEAD Routine 05/27/2018 Chronic combined systolic 10:39 AM CDT and diastolic congestive heart failure (HCC) RETICULOCYTE COUNT Routine 05/05/2018 Anemia, unspecified type 4:20 PM SALESPERSON FURS Hepatic cirrhosis, unspecified hepatic cirrhosis type, unspecified whether ascites present (HCC) Primary biliary cirrhosis (HCC) Chronic kidney disease, stage IV (severe) (HCC) FERRITIN LEVEL Routine 05/05/2018 Anemia, unspecified type 4:20 PM SALESPERSON FURS Hepatic cirrhosis, unspecified hepatic cirrhosis type, unspecified whether ascites present (HCC) Primary biliary cirrhosis (HCC) Chronic kidney disease, stage IV (severe) (HCC) TOTAL IRON BINDING Routine 05/05/2018 Anemia, unspecified type CAPACITY 4:20 PM SALESPERSON FURS Hepatic cirrhosis, unspecified hepatic cirrhosis type, unspecified whether ascites present (HCC) Primary biliary cirrhosis (HCC) Chronic kidney disease, stage IV (severe) (HCC) MANUAL DIFFERENTIAL Routine 04/29/2018 10:32 AM SALESPERSON FURS ESTIMATED GFR Routine 04/29/2018 10:32 AM SALESPERSON FURS NICOTINE AND COTININE, Routine 04/29/2018 Coronary artery disease SERUM 10:32 AM SALESPERSON FURS involving [place] coronary artery of [place] heart without angina pectoris Screening for ischemic heart disease PROTHROMBIN TIME WITH INR Routine 04/29/2018 Coronary artery disease 10:32 AM SALESPERSON FURS involving [place] coronary artery of [place] heart without angina pectoris Screening for ischemic heart disease LIPID PANEL Routine 04/29/2018 Coronary artery disease 10:32 AM SALESPERSON FURS involving [place] coronary artery of [place] heart without angina pectoris Screening for ischemic heart disease B NATRIURETIC PEPTIDE Routine 04/29/2018 Coronary artery disease 10:32 AM SALESPERSON FURS involving [place] coronary artery of [place] heart without angina pectoris Screening for ischemic heart disease COMPREHENSIVE METABOLIC Routine 04/29/2018 Coronary artery disease PANEL 10:32 AM SALESPERSON FURS involving [place] coronary artery of [place] heart without angina pectoris Screening for ischemic heart disease CBC WITH PLATELET AND Routine 04/29/2018 Coronary artery disease DIFFERENTIAL 10:32 AM SALESPERSON FURS involving [place] coronary artery of [place] heart without angina pectoris Screening for ischemic heart disease ECG 12-LEAD Routine 04/29/2018 Coronary artery disease 10:05 AM SALESPERSON FURS involving [place] coronary artery of [place] heart without angina pectoris Screening for ischemic heart disease POC GLUCOSE Routine 03/20/2018 8:48 AM SALESPERSON FURS MANUAL DIFFERENTIAL Routine 03/20/2018 4:02 AM SALESPERSON FURS ESTIMATED GFR Routine 03/20/2018 4:02 AM SALESPERSON FURS PROTHROMBIN TIME WITH INR Routine 03/20/2018 4:02 AM SALESPERSON FURS COMPREHENSIVE METABOLIC Routine 03/20/2018 PANEL 4:02 AM SALESPERSON FURS CBC WITH PLATELET AND Routine 03/20/2018 DIFFERENTIAL 4:02 AM SALESPERSON FURS POC GLUCOSE Routine 03/19/2018 6:37 PM SALESPERSON FURS XR ABDOMEN 1 VW PORTABLE Routine 03/19/2018 3:42 PM SALESPERSON FURS POC GLUCOSE Routine 03/19/2018 12:12 PM SALESPERSON FURS POC GLUCOSE Routine 03/19/2018 7:49 AM SALESPERSON FURS PROTHROMBIN TIME WITH INR Routine 03/19/2018 5:30 AM SALESPERSON FURS HC COMPLETE BLD COUNT Routine 03/19/2018 W/AUTO DIFF 5:30 AM SALESPERSON FURS ESTIMATED GFR Routine 03/19/2018 4:00 AM SALESPERSON FURS COMPREHENSIVE METABOLIC Routine 03/19/2018 PANEL 4:00 AM SALESPERSON FURS POC GLUCOSE Routine 03/18/2018 9:18 PM SALESPERSON FURS POC GLUCOSE Routine 03/18/2018 6:09 PM SALESPERSON FURS POC GLUCOSE Routine 03/18/2018 12:30 PM SALESPERSON FURS POC GLUCOSE Routine 03/18/2018 8:15 AM SALESPERSON FURS ESTIMATED GFR Routine 03/18/2018 5:15 AM SALESPERSON FURS PHOSPHORUS LEVEL Routine 03/18/2018 5:15 AM SALESPERSON FURS MAGNESIUM LEVEL Routine 03/18/2018 5:15 AM SALESPERSON FURS LDH Routine 03/18/2018 5:15 AM SALESPERSON FURS FIBRINOGEN Routine 03/18/2018 5:15 AM SALESPERSON FURS PROTHROMBIN TIME WITH INR Routine 03/18/2018 5:15 AM SALESPERSON FURS HEPATIC FUNCTION PANEL Routine 03/18/2018 5:15 AM SALESPERSON FURS CBC WITH PLATELET AND Routine 03/18/2018 DIFFERENTIAL 5:15 AM SALESPERSON FURS BASIC METABOLIC PANEL Routine 03/18/2018 5:15 AM SALESPERSON FURS POC GLUCOSE Routine 03/17/2018 9:57 PM SALESPERSON FURS POC GLUCOSE Routine 03/17/2018 4:11 PM SALESPERSON FURS POTASSIUM LEVEL STAT 03/17/2018 2:30 PM SALESPERSON FURS HC COMPLETE BLD COUNT STAT 03/17/2018 W/AUTO DIFF 2:30 PM SALESPERSON FURS CV RIGHT HEART CATH Routine 03/17/2018 1:[address] CHEST WO CONTRAST Routine 03/17/2018 1:36 PM SALESPERSON FURS POC GLUCOSE Routine 03/17/2018 12:06 PM SALESPERSON FURS POC GLUCOSE Routine 03/17/2018 11:55 AM SALESPERSON FURS POC GLUCOSE Routine 03/17/2018 11:53 AM SALESPERSON FURS POC GLUCOSE Routine 03/17/2018 7:32 AM SALESPERSON FURS CBC WITH PLATELET AND Routine 03/17/2018 DIFFERENTIAL 12:29 AM SALESPERSON FURS PROTHROMBIN TIME WITH INR Routine 03/17/2018 12:28 AM SALESPERSON FURS ESTIMATED GFR Routine 03/17/2018 12:00 AM SALESPERSON FURS PHOSPHORUS LEVEL Routine 03/17/2018 12:00 AM SALESPERSON FURS MAGNESIUM LEVEL Routine 03/17/2018 12:00 AM SALESPERSON FURS LDH Routine 03/17/2018 12:00 AM SALESPERSON FURS HEPATIC FUNCTION PANEL Routine 03/17/2018 12:00 AM SALESPERSON FURS BASIC METABOLIC PANEL Routine 03/17/2018 12:00 AM SALESPERSON FURS POC GLUCOSE Routine 03/16/2018 8:51 PM SALESPERSON FURS POC GLUCOSE Routine 03/16/2018 5:20 PM SALESPERSON FURS US ABDOMINAL PARACENTESIS Routine 03/16/2018 IMAGING 1:20 PM SALESPERSON FURS CELL COUNT AND Routine 03/16/2018 DIFFERENTIAL, BODY FLUID 1:05 PM SALESPERSON FURS GRAM STAIN Routine 03/16/2018 1:05 PM SALESPERSON FURS ANAEROBIC CULTURE Routine 03/16/2018 1:05 PM SALESPERSON FURS AEROBIC CULTURE Routine 03/16/2018 1:05 PM SALESPERSON FURS POC GLUCOSE Routine 03/16/2018 11:41 AM SALESPERSON FURS POC GLUCOSE Routine 03/16/2018 7:41 AM SALESPERSON FURS XR CHEST 1 VW PORTABLE Routine 03/16/2018 7:02 AM SALESPERSON FURS ESTIMATED GFR Routine 03/16/2018 3:57 AM SALESPERSON FURS LDH Routine 03/16/2018 3:57 AM SALESPERSON FURS PHOSPHORUS LEVEL Routine 03/16/2018 3:57 AM SALESPERSON FURS MAGNESIUM LEVEL Routine 03/16/2018 3:57 AM SALESPERSON FURS HEPATIC FUNCTION PANEL Routine 03/16/2018 3:57 AM SALESPERSON FURS BASIC METABOLIC PANEL Routine 03/16/2018 3:57 AM SALESPERSON FURS POC GLUCOSE Routine 03/16/2018 3:45 AM SALESPERSON FURS FIBRINOGEN Routine 03/16/2018 3:30 AM SALESPERSON FURS PROTHROMBIN TIME WITH INR Routine 03/16/2018 3:30 AM SALESPERSON FURS CBC WITH PLATELET AND Routine 03/16/2018 DIFFERENTIAL 3:30 AM SALESPERSON FURS POC GLUCOSE Routine 03/16/2018 1:14 AM SALESPERSON FURS POC GLUCOSE Routine 03/15/2018 8:44 PM SALESPERSON FURS POC GLUCOSE Routine 03/15/2018 4:19 PM SALESPERSON FURS PV PHYSIOLOGIC ARTERIAL Routine 03/15/2018 LOWER EXTREMITY COMPLETE 3:15 PM SALESPERSON FURS POC GLUCOSE Routine 03/15/2018 11:51 AM SALESPERSON FURS POC GLUCOSE Routine 03/15/2018 7:43 AM SALESPERSON FURS XR CHEST 1 VW PORTABLE Routine 03/15/2018 6:02 AM SALESPERSON FURS ESTIMATED GFR Routine 03/15/2018 3:10 AM SALESPERSON FURS HC COMPLETE BLD COUNT Routine 03/15/2018 W/AUTO DIFF 3:10 AM SALESPERSON FURS PHOSPHORUS LEVEL Routine 03/15/2018 3:10 AM SALESPERSON FURS MAGNESIUM LEVEL Routine 03/15/2018 3:10 AM SALESPERSON FURS LDH Routine 03/15/2018 3:10 AM SALESPERSON FURS IONIZED CALCIUM Routine 03/15/2018 3:10 AM SALESPERSON FURS FIBRINOGEN Routine 03/15/2018 3:10 AM SALESPERSON FURS PARTIAL THROMBOPLASTIN Routine 03/15/2018 TIME (PTT) 3:10 AM SALESPERSON FURS HEPATIC FUNCTION PANEL Routine 03/15/2018 3:10 AM SALESPERSON FURS PROTHROMBIN TIME WITH INR Routine 03/15/2018 3:10 AM SALESPERSON FURS BASIC METABOLIC PANEL Routine 03/15/2018 3:10 AM SALESPERSON FURS POC GLUCOSE Routine 03/14/2018 8:52 PM SALESPERSON FURS POC GLUCOSE Routine 03/14/2018 5:50 PM SALESPERSON FURS POC GLUCOSE Routine 03/14/2018 11:51 AM SALESPERSON FURS POC GLUCOSE Routine 03/14/2018 8:12 AM SALESPERSON FURS XR CHEST 1 VW PORTABLE Routine 03/14/2018 6:28 AM SALESPERSON FURS TOXOPLASMA GONDII Routine 03/14/2018 ANTIBODY, IGG 3:42 AM SALESPERSON FURS SYPHILIS TREPONEMAL IGG Routine 03/14/2018 3:42 AM SALESPERSON FURS HEPATITIS ACUTE PANEL Routine 03/14/2018 3:42 AM SALESPERSON FURS PREALBUMIN LEVEL Routine 03/14/2018 3:42 AM SALESPERSON FURS MAURY-ROBERTS VIRUS Routine 03/14/2018 ANTIBODY TEST 3:42 AM SALESPERSON FURS ESTIMATED GFR Routine 03/14/2018 3:33 AM SALESPERSON FURS PHOSPHORUS LEVEL Routine 03/14/2018 3:33 AM SALESPERSON FURS MAGNESIUM LEVEL Routine 03/14/2018 3:33 AM SALESPERSON FURS HEPATIC FUNCTION PANEL Routine 03/14/2018 3:33 AM SALESPERSON FURS BASIC METABOLIC PANEL Routine 03/14/2018 3:33 AM SALESPERSON FURS T4, FREE Routine 03/14/2018 3:33 AM SALESPERSON FURS T4 Routine 03/14/2018 3:33 AM SALESPERSON FURS T3 Routine 03/14/2018 3:33 AM SALESPERSON FURS THYROID STIMULATING Routine 03/14/2018 HORMONE 3:33 AM SALESPERSON FURS LIPID PANEL Routine 03/14/2018 3:33 AM SALESPERSON FURS LDH Routine 03/14/2018 3:33 AM SALESPERSON FURS URIC ACID LEVEL Routine 03/14/2018 3:33 AM SALESPERSON FURS SINGLE ANTIGEN BEADS Routine 03/14/2018 3:20 AM SALESPERSON FURS MANUAL DIFFERENTIAL Routine 03/14/2018 3:20 AM SALESPERSON FURS PARTIAL THROMBOPLASTIN Routine 03/14/2018 TIME (PTT) 3:20 AM SALESPERSON FURS PROTHROMBIN TIME WITH INR Routine 03/14/2018 3:20 AM SALESPERSON FURS FIBRINOGEN Routine 03/14/2018 3:20 AM SALESPERSON FURS CBC WITH PLATELET AND Routine 03/14/2018 DIFFERENTIAL 3:20 AM SALESPERSON FURS TOXOPLASMA IGM AB Routine 03/14/2018 3:20 AM SALESPERSON FURS HEMOGLOBIN A1C Routine 03/14/2018 3:20 AM SALESPERSON FURS MAURY ROBERTS VIRUS (EBV) Routine 03/14/2018 BY PCR 3:20 AM SALESPERSON FURS POC GLUCOSE Routine 03/14/2018 12:36 AM SALESPERSON FURS FERRITIN LEVEL Routine 03/14/2018 12:00 AM SALESPERSON FURS POC GLUCOSE Routine 03/13/2018 8:52 PM SALESPERSON FURS URINALYSIS SCREEN AND Routine 03/13/2018 MICROSCOPY, WITH REFLEX 5:30 PM SALESPERSON FURS TO CULTURE CREATININE LEVEL, URINE, Routine 03/13/2018 RANDOM 5:30 PM SALESPERSON FURS PROTEIN, URINE, RANDOM Routine 03/13/2018 5:30 PM SALESPERSON FURS GRAM STAIN Routine 03/13/2018 5:30 PM SALESPERSON FURS URINE CULTURE Routine 03/13/2018 5:30 PM SALESPERSON FURS US RENAL Routine 03/13/2018 5:[address] HEAD WO CONTRAST Routine 03/13/2018 4:22 PM SALESPERSON FURS POC GLUCOSE Routine 03/13/2018 3:35 PM SALESPERSON FURS ESTIMATED GFR Routine 03/13/2018 3:30 PM SALESPERSON FURS CREATININE CLEARANCE, Routine 03/13/2018 URINE, 24 HOUR 3:30 PM SALESPERSON FURS POC GLUCOSE Routine 03/13/2018 11:06 AM SALESPERSON FURS TRANSFUSE RED BLOOD CELLS Routine 03/13/2018 9:57 AM SALESPERSON FURS POC GLUCOSE Routine 03/13/2018 7:30 AM SALESPERSON FURS PREPARE RBC Routine 03/13/2018 5:00 AM SALESPERSON FURS ANTIBODY IDENTIFICATION Routine 03/13/2018 5:00 AM SALESPERSON FURS TYPE AND SCREEN Routine 03/13/2018 5:00 AM SALESPERSON FURS ESTIMATED GFR Routine 03/13/2018 2:55 AM SALESPERSON FURS LDH Routine 03/13/2018 2:55 AM SALESPERSON FURS PHOSPHORUS LEVEL Routine 03/13/2018 2:55 AM SALESPERSON FURS MAGNESIUM LEVEL Routine 03/13/2018 2:55 AM SALESPERSON FURS HEPATIC FUNCTION PANEL Routine 03/13/2018 2:55 AM SALESPERSON FURS BASIC METABOLIC PANEL Routine 03/13/2018 2:55 AM SALESPERSON FURS SMEAR REVIEW Routine 03/13/2018 2:30 AM SALESPERSON FURS FIBRINOGEN Routine 03/13/2018 2:30 AM SALESPERSON FURS PARTIAL THROMBOPLASTIN Routine 03/13/2018 TIME (PTT) 2:30 AM SALESPERSON FURS PROTHROMBIN TIME WITH INR Routine 03/13/2018 2:30 AM SALESPERSON FURS HC COMPLETE BLD COUNT Routine 03/13/2018 W/AUTO DIFF 2:30 AM SALESPERSON FURS POC GLUCOSE Routine 03/12/2018 9:01 PM SALESPERSON FURS XR CHEST 1 VW PORTABLE STAT 03/12/2018 8:11 PM SALESPERSON FURS HEMODIALYSIS CATHETER Routine 03/12/2018 Cirrhosis of liver with PLACEMENT 4:51 PM SALESPERSON FURS ascites, unspecified hepatic cirrhosis type (HCC) POC GLUCOSE Routine 03/12/2018 11:45 AM SALESPERSON FURS POC GLUCOSE Routine 03/12/2018 9:57 AM SALESPERSON FURS POC GLUCOSE Routine 03/12/2018 8:09 AM SALESPERSON FURS XR CHEST 1 VW PORTABLE Routine 03/12/2018 7:07 AM SALESPERSON FURS POC GLUCOSE Routine 03/12/2018 4:46 AM SALESPERSON FURS ESTIMATED GFR Routine 03/12/2018 2:19 AM SALESPERSON FURS PHOSPHORUS LEVEL Routine 03/12/2018 2:19 AM SALESPERSON FURS MAGNESIUM LEVEL Routine 03/12/2018 2:19 AM SALESPERSON FURS LDH Routine 03/12/2018 2:19 AM SALESPERSON FURS LACTIC ACID LEVEL Routine 03/12/2018 2:19 AM SALESPERSON FURS IONIZED CALCIUM Routine 03/12/2018 2:19 AM SALESPERSON FURS HEPATIC FUNCTION PANEL Routine 03/12/2018 2:19 AM SALESPERSON FURS BASIC METABOLIC PANEL Routine 03/12/2018 2:19 AM SALESPERSON FURS FIBRINOGEN Routine 03/12/2018 2:15 AM SALESPERSON FURS PROTHROMBIN TIME WITH INR Routine 03/12/2018 2:15 AM SALESPERSON FURS HC COMPLETE BLD COUNT Routine 03/12/2018 W/AUTO DIFF 2:15 AM SALESPERSON FURS POC GLUCOSE Routine 03/12/2018 12:36 AM SALESPERSON FURS POC GLUCOSE Routine 03/11/2018 8:54 PM SALESPERSON FURS POC GLUCOSE Routine 03/11/2018 4:15 PM SALESPERSON FURS PROTHROMBIN TIME WITH INR STAT 03/11/2018 3:45 PM SALESPERSON FURS HC COMPLETE BLD COUNT STAT 03/11/2018 W/AUTO DIFF 3:45 PM SALESPERSON FURS XR ABDOMEN 1 VW PORTABLE Routine 03/11/2018 2:10 PM SALESPERSON FURS ESTIMATED GFR STAT 03/11/2018 1:48 PM SALESPERSON FURS IONIZED CALCIUM STAT 03/11/2018 1:48 PM SALESPERSON FURS LACTIC ACID LEVEL STAT 03/11/2018 1:48 PM SALESPERSON FURS PHOSPHORUS LEVEL STAT 03/11/2018 1:48 PM SALESPERSON FURS MAGNESIUM LEVEL STAT 03/11/2018 1:48 PM SALESPERSON FURS LDH STAT 03/11/2018 1:48 PM SALESPERSON FURS HEPATIC FUNCTION PANEL STAT 03/11/2018 1:48 PM SALESPERSON FURS BASIC METABOLIC PANEL STAT 03/11/2018 1:48 PM SALESPERSON FURS POC GLUCOSE Routine 03/11/2018 1:03 PM SALESPERSON FURS XR CHEST 1 VW PORTABLE STAT 03/11/2018 11:22 AM SALESPERSON FURS PROTHROMBIN TIME WITH INR Routine 03/11/2018 4:57 AM SALESPERSON FURS HC COMPLETE BLD COUNT Routine 03/11/2018 W/AUTO DIFF 4:57 AM SALESPERSON FURS ESTIMATED GFR Routine 03/11/2018 4:33 AM SALESPERSON FURS HEPATIC FUNCTION PANEL Routine 03/11/2018 4:33 AM SALESPERSON FURS MAGNESIUM LEVEL Routine 03/11/2018 4:33 AM SALESPERSON FURS BASIC METABOLIC PANEL Routine 03/11/2018 4:33 AM SALESPERSON FURS XR ABDOMEN 1 VW PORTABLE Routine 03/10/2018 8:00 PM SALESPERSON FURS ESTIMATED GFR Routine 03/10/2018 5:00 AM SALESPERSON FURS NICOTINE AND METABOLITES, Routine 03/10/2018 SERUM 5:00 AM SALESPERSON FURS HEPATIC FUNCTION PANEL Routine 03/10/2018 5:00 AM SALESPERSON FURS PROTHROMBIN TIME WITH INR Routine 03/10/2018 5:00 AM SALESPERSON FURS MAGNESIUM LEVEL Routine 03/10/2018 5:00 AM SALESPERSON FURS HC COMPLETE BLD COUNT Routine 03/10/2018 W/AUTO DIFF 5:00 AM SALESPERSON FURS BASIC METABOLIC PANEL Routine 03/10/2018 5:00 AM SALESPERSON FURS US ABDOMINAL PARACENTESIS Routine 03/09/2018 IMAGING 11:19 AM SALESPERSON FURS GRAM STAIN Routine 03/09/2018 10:49 AM SALESPERSON FURS ANAEROBIC CULTURE Routine 03/09/2018 10:49 AM SALESPERSON FURS AEROBIC CULTURE Routine 03/09/2018 10:49 AM SALESPERSON FURS LDH, MISC FLUID Routine 03/09/2018 10:48 AM SALESPERSON FURS PROTEIN, MISC FLUID Routine 03/09/2018 10:48 AM SALESPERSON FURS CELL COUNT AND Routine 03/09/2018 DIFFERENTIAL, BODY FLUID 10:48 AM SALESPERSON FURS ESTIMATED GFR Timed 03/09/2018 5:40 AM SALESPERSON FURS PROTHROMBIN TIME WITH INR Timed 03/09/2018 5:40 AM SALESPERSON FURS HEPATIC FUNCTION PANEL Timed 03/09/2018 5:40 AM SALESPERSON FURS HC COMPLETE BLD COUNT Timed 03/09/2018 W/AUTO DIFF 5:40 AM SALESPERSON FURS BASIC METABOLIC PANEL Timed 03/09/2018 5:40 AM SALESPERSON FURS HEMOGLOBIN & HEMATOCRIT Timed 03/08/2018 8:55 PM SALESPERSON FURS HEMOGLOBIN & HEMATOCRIT Timed 03/08/2018 1:21 PM SALESPERSON FURS PHOSPHORUS LEVEL Routine 03/08/2018 5:08 AM SALESPERSON FURS ESTIMATED GFR Routine 03/08/2018 5:08 AM SALESPERSON FURS PROTHROMBIN TIME WITH INR Routine 03/08/2018 5:08 AM SALESPERSON FURS HEPATIC FUNCTION PANEL Routine 03/08/2018 5:08 AM SALESPERSON FURS HC COMPLETE BLD COUNT Routine 03/08/2018 W/AUTO DIFF 5:08 AM SALESPERSON FURS BASIC METABOLIC PANEL Routine 03/08/2018 5:08 AM SALESPERSON FURS PARTIAL THROMBOPLASTIN Routine 03/08/2018 TIME (PTT) 5:08 AM SALESPERSON FURS MAGNESIUM LEVEL Routine 03/08/2018 5:08 AM SALESPERSON FURS HEMOGLOBIN & HEMATOCRIT Timed 03/07/2018 12:43 PM SALESPERSON FURS ESTIMATED GFR Routine 03/07/2018 5:40 AM SALESPERSON FURS PROTHROMBIN TIME WITH INR Routine 03/07/2018 5:40 AM SALESPERSON FURS HEPATIC FUNCTION PANEL Routine 03/07/2018 5:40 AM SALESPERSON FURS HC COMPLETE BLD COUNT Routine 03/07/2018 W/AUTO DIFF 5:40 AM SALESPERSON FURS BASIC METABOLIC PANEL Routine 03/07/2018 5:40 AM SALESPERSON FURS PARTIAL THROMBOPLASTIN Routine 03/07/2018 TIME (PTT) 5:40 AM SALESPERSON FURS MAGNESIUM LEVEL Routine 03/07/2018 5:40 AM SALESPERSON FURS US ABDOMINAL PARACENTESIS Routine 03/06/2018 IMAGING 4:14 PM SALESPERSON FURS CELL COUNT AND Routine 03/06/2018 DIFFERENTIAL, BODY FLUID 3:37 PM SALESPERSON FURS GRAM STAIN Routine 03/06/2018 3:37 PM SALESPERSON FURS ANAEROBIC CULTURE Routine 03/06/2018 3:37 PM SALESPERSON FURS AEROBIC CULTURE Routine 03/06/2018 3:[address] ABDOMEN PELVIS WO STAT 03/06/2018 CONTRAST 2:36 PM SALESPERSON FURS ESTIMATED GFR Routine 03/06/2018 9:42 AM SALESPERSON FURS PARTIAL THROMBOPLASTIN Routine 03/06/2018 TIME (PTT) 9:42 AM SALESPERSON FURS PROTHROMBIN TIME WITH INR Routine 03/06/2018 9:42 AM SALESPERSON FURS MAGNESIUM LEVEL Routine 03/06/2018 9:42 AM SALESPERSON FURS HC COMPLETE BLD COUNT Routine 03/06/2018 W/AUTO DIFF 9:42 AM SALESPERSON FURS BASIC METABOLIC PANEL Routine 03/06/2018 9:42 AM SALESPERSON FURS HEPATIC FUNCTION PANEL Routine 03/06/2018 9:42 AM SALESPERSON FURS TRANSFUSE RED BLOOD CELLS STAT 03/06/2018 8:55 AM SALESPERSON FURS TRANSFUSE RED BLOOD CELLS STAT 03/06/2018 8:08 AM SALESPERSON FURS FOLATE LEVEL Routine 03/05/2018 8:20 PM SALESPERSON FURS VITAMIN B12 LEVEL Routine 03/05/2018 8:20 PM SALESPERSON FURS RETICULOCYTE COUNT Routine 03/05/2018 8:20 PM SALESPERSON FURS FERRITIN LEVEL Routine 03/05/2018 8:20 PM SALESPERSON FURS TOTAL IRON BINDING Routine 03/05/2018 CAPACITY 8:20 PM SALESPERSON FURS PREPARE RBC Timed 03/05/2018 4:55 PM SALESPERSON FURS ANTIBODY IDENTIFICATION Routine 03/05/2018 4:55 PM SALESPERSON FURS SMEAR REVIEW STAT 03/05/2018 4:55 PM SALESPERSON FURS ESTIMATED GFR STAT 03/05/2018 4:55 PM SALESPERSON FURS CREATINE KINASE, TOTAL STAT 03/05/2018 (CPK) 4:55 PM SALESPERSON FURS B NATRIURETIC PEPTIDE STAT 03/05/2018 4:55 PM SALESPERSON FURS TROPONIN STAT 03/05/2018 4:55 PM SALESPERSON FURS PHOSPHORUS LEVEL STAT 03/05/2018 4:55 PM SALESPERSON FURS MAGNESIUM LEVEL STAT 03/05/2018 4:55 PM SALESPERSON FURS HEPATIC FUNCTION PANEL STAT 03/05/2018 4:55 PM SALESPERSON FURS BASIC METABOLIC PANEL STAT 03/05/2018 4:55 PM SALESPERSON FURS TYPE AND SCREEN Routine 03/05/2018 4:55 PM SALESPERSON FURS PARTIAL THROMBOPLASTIN STAT 03/05/2018 TIME (PTT) 4:55 PM SALESPERSON FURS PROTHROMBIN TIME WITH INR STAT 03/05/2018 4:55 PM SALESPERSON FURS HC COMPLETE BLD COUNT STAT 03/05/2018 W/AUTO DIFF 4:55 PM SALESPERSON FURS CA CRITICAL CARE, E/M Routine 03/05/2018 30-74 MINUTES 4:45 PM SALESPERSON FURS ECG 12-LEAD STAT 03/05/2018 3:18 PM SALESPERSON FURS MRI ABDOMEN WO CONTRAST Routine 02/26/2018 Primary biliary cirrhosis 6:15 PM SALESPERSON FURS (HCC) US ABDOMINAL PARACENTESIS Routine 02/26/2018 Other ascites IMAGING 3:51 PM SALESPERSON FURS ALBUMIN, MISC FLUID Routine 02/26/2018 3:13 PM SALESPERSON FURS CELL COUNT AND Routine 02/26/2018 DIFFERENTIAL, BODY FLUID 3:13 PM SALESPERSON FURS AEROBIC CULTURE Routine 02/26/2018 3:13 PM SALESPERSON FURS GRAM STAIN Routine 02/26/2018 3:13 PM SALESPERSON FURS ANAEROBIC CULTURE Routine 02/26/2018 3:13 PM SALESPERSON FURS ECHOCARDIOGRAM 2D Routine 02/26/2018 COMPLETE W MMODE SPECTRAL 2:00 PM SALESPERSON FURS COLOR DOPPLER ([id number]) ESTIMATED GFR Routine 02/26/2018 11:48 AM SALESPERSON FURS VITAMIN K LEVEL, SERUM Routine 02/26/2018 Primary biliary 11:48 AM SALESPERSON FURS cholangitis (HCC) Awaiting liver transplant VITAMIN E LEVEL, PLASMA Routine 02/26/2018 Primary biliary OR SERUM 11:48 AM SALESPERSON FURS cholangitis (HCC) Awaiting liver transplant VITAMIN A LEVEL, PLASMA Routine 02/26/2018 Primary biliary OR SERUM 11:48 AM SALESPERSON FURS cholangitis (HCC) Awaiting liver transplant PHOSPHORUS LEVEL Routine 02/26/2018 Primary biliary 11:48 AM SALESPERSON FURS cholangitis (HCC) Awaiting liver transplant MAGNESIUM LEVEL Routine 02/26/2018 Primary biliary 11:48 AM SALESPERSON FURS cholangitis (HCC) Awaiting liver transplant ALPHA FETOPROTEIN Routine 02/26/2018 Primary biliary 11:48 AM SALESPERSON FURS cholangitis (HCC) Awaiting liver transplant HC COMPLETE BLD COUNT Routine 02/26/2018 Primary biliary W/AUTO DIFF 11:48 AM SALESPERSON FURS cholangitis (HCC) Awaiting liver transplant PARTIAL THROMBOPLASTIN Routine 02/26/2018 Primary biliary TIME (PTT) 11:48 AM SALESPERSON FURS cholangitis (HCC) Awaiting liver transplant PROTHROMBIN TIME WITH INR Routine 02/26/2018 Primary biliary 11:48 AM SALESPERSON FURS cholangitis (HCC) Awaiting liver transplant HEPATIC FUNCTION PANEL Routine 02/26/2018 Primary biliary 11:48 AM SALESPERSON FURS cholangitis (HCC) Awaiting liver transplant BASIC METABOLIC PANEL Routine 02/26/2018 Primary biliary 11:48 AM SALESPERSON FURS cholangitis (HCC) Awaiting liver transplant NM MYOCARDIAL PERFUSION Routine 12/19/2017 Pre-transplant evaluation STRESS REST 1 DAY 2:42 PM CDT for liver transplant CV STRESS TEST NUCLEAR Routine 12/19/2017 Pre-transplant evaluation CARDIO 2:42 PM CDT for liver transplant URIC ACID LEVEL Routine 12/05/2017 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) MAGNESIUM LEVEL Routine 12/05/2017 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) COMPREHENSIVE METABOLIC Routine 12/05/2017 Hepatic cirrhosis due to PANEL 2:24 PM CDT primary biliary cholangitis (HCC) B NATRIURETIC PEPTIDE Routine 12/05/2017 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) CBC WITH PLATELET AND Routine 12/05/2017 Hepatic cirrhosis due to DIFFERENTIAL 2:24 PM CDT primary biliary cholangitis (HCC) TRANSFUSE RED BLOOD CELLS Routine 11/05/2017 5:50 PM CDT TRANSFUSE RED BLOOD CELLS Routine 11/05/2017 5:50 PM CDT ZZESTIMATED GFR Routine 09/22/2017 1:01 PM CDT URIC ACID LEVEL Routine 09/22/2017 Cirrhosis of liver 1:01 PM CDT without ascites, unspecified hepatic cirrhosis type Primary biliary cholangitis Chronic kidney disease, stage IV (severe) PHOSPHORUS LEVEL Routine 09/22/2017 Cirrhosis of liver 1:01 PM CDT without ascites, unspecified hepatic cirrhosis type Primary biliary cholangitis Chronic kidney disease, stage IV (severe) MAGNESIUM LEVEL Routine 09/22/2017 Cirrhosis of liver 1:01 PM CDT without ascites, unspecified hepatic cirrhosis type Primary biliary cholangitis Chronic kidney disease, stage IV (severe) BASIC METABOLIC PANEL Routine 09/22/2017 Cirrhosis of liver 1:01 PM CDT without ascites, unspecified hepatic cirrhosis type Primary biliary cholangitis Chronic kidney disease, stage IV (severe) ZZESTIMATED GFR Routine 08/23/2017 4:00 AM CDT PROTHROMBIN TIME WITH INR Routine 08/23/2017 4:00 AM CDT COMPREHENSIVE METABOLIC Routine 08/23/2017 PANEL 4:00 AM CDT CBC WITH PLATELET AND Routine 08/23/2017 DIFFERENTIAL 4:00 AM CDT US ABDOMINAL PARACENTESIS Routine 08/22/2017 IMAGING 10:40 AM CDT CELL COUNT AND Routine 08/22/2017 DIFFERENTIAL, BODY FLUID 10:21 AM CDT GRAM STAIN Routine 08/22/2017 10:21 AM CDT ANAEROBIC CULTURE Routine 08/22/2017 10:21 AM CDT AEROBIC CULTURE Routine 08/22/2017 10:21 AM CDT PROTHROMBIN TIME WITH INR Routine 08/22/2017 8:38 AM CDT HC COMPLETE BLD COUNT Routine 08/22/2017 W/AUTO DIFF 8:38 AM CDT ZZESTIMATED GFR Routine 08/22/2017 4:00 AM CDT COMPREHENSIVE METABOLIC Routine 08/22/2017 PANEL 4:00 AM CDT URIC ACID LEVEL Routine 08/22/2017 4:00 AM CDT MAGNESIUM LEVEL Routine 08/22/2017 4:00 AM CDT ZZESTIMATED GFR Routine 08/21/2017 7:13 AM CDT PROTHROMBIN TIME WITH INR Routine 08/21/2017 7:13 AM CDT COMPREHENSIVE METABOLIC Routine 08/21/2017 PANEL 7:13 AM CDT HC COMPLETE BLD COUNT Routine 08/21/2017 W/AUTO DIFF 7:13 AM CDT URIC ACID LEVEL Routine 08/21/2017 7:13 AM CDT MAGNESIUM LEVEL Routine 08/21/2017 7:13 AM CDT CV RIGHT HEART LEFT HEART Routine 08/20/2017 Preop cardiovascular exam CATH W LV GRAM 4:05 PM CDT Other ascites ZZESTIMATED GFR Routine 08/20/2017 4:35 AM CDT URIC ACID LEVEL Routine 08/20/2017 4:35 AM CDT MAGNESIUM LEVEL Routine 08/20/2017 4:35 AM CDT PROTHROMBIN TIME WITH INR Routine 08/20/2017 4:35 AM CDT HC COMPLETE BLD COUNT Routine 08/20/2017 W/AUTO DIFF 4:35 AM CDT COMPREHENSIVE METABOLIC Routine 08/20/2017 PANEL 4:35 AM CDT PARATHYROID HORMONE Routine 08/19/2017 4:44 PM CDT ZZESTIMATED GFR Routine 08/19/2017 4:44 PM CDT HEPATIC FUNCTION PANEL Routine 08/19/2017 4:44 PM CDT PHOSPHORUS LEVEL Routine 08/19/2017 4:44 PM CDT MAGNESIUM LEVEL Routine 08/19/2017 4:44 PM CDT BASIC METABOLIC PANEL Routine 08/19/2017 4:44 PM CDT PARTIAL THROMBOPLASTIN Routine 08/19/2017 TIME (PTT) 4:44 PM CDT PROTHROMBIN TIME WITH INR Routine 08/19/2017 4:44 PM CDT HC COMPLETE BLD COUNT Routine 08/19/2017 W/AUTO DIFF 4:44 PM CDT MAMMO DIAGNOSTIC W CAD Routine 07/22/2017 Biliary liver cirrhosis BILATERAL 1:53 PM CDT Pre-transplant evaluation for liver transplant Screening for ischemic heart disease MRI CHOLANGIOGRAM WO Routine 07/22/2017 Biliary cirrhosis CONTRAST 9:11 AM CDT US CAROTID DUPLEX Routine 07/21/2017 Biliary liver cirrhosis BILATERAL 3:41 PM CDT Pre-transplant evaluation for liver transplant Screening for ischemic heart disease SPIROMETRY PRE AND POST Routine 07/21/2017 Biliary liver cirrhosis WITH BRONCHILATOR, 3:00 PM CDT Pre-transplant evaluation DIFFUSION, LUNG VOLUMES for liver transplant Screening for ischemic heart disease XR CHEST 2 VW Routine 07/21/2017 Biliary liver cirrhosis 2:12 PM CDT Pre-transplant evaluation for liver transplant Screening for ischemic heart disease XR PANOREX Routine 07/21/2017 Biliary liver cirrhosis 2:11 PM CDT Pre-transplant evaluation for liver transplant Screening for ischemic heart disease BONE DENSITY PERIPHERAL Routine 07/21/2017 Biliary liver cirrhosis 2:11 PM CDT Pre-transplant evaluation for liver transplant Screening for ischemic heart disease BONE DENSITY Routine 07/21/2017 Biliary liver cirrhosis 2:10 PM CDT Pre-transplant evaluation for liver transplant Screening for ischemic heart disease DIANE TITER Routine 07/21/2017 12:11 PM CDT C1Q CLASS 1 & 2 ANTIBODY Routine 07/21/2017 12:11 PM CDT HLA AUTOLOGOUS CROSSMATCH Routine 07/21/2017 12:11 PM CDT SINGLE ANTIGEN BEADS Routine 07/21/2017 12:11 PM CDT LOW RESOLUTION FULL Routine 07/21/2017 TYPING BY SSO 12:11 PM CDT ZZESTIMATED GFR Routine 07/21/2017 12:11 PM CDT ZINC LEVEL, SERUM Routine 07/21/2017 Biliary liver cirrhosis 12:11 PM CDT Pre-transplant evaluation for liver transplant Screening for ischemic heart disease PREALBUMIN LEVEL Routine 07/21/2017 Biliary liver cirrhosis 12:11 PM CDT Pre-transplant evaluation for liver transplant Screening for ischemic heart disease C-REACTIVE PROTEIN Routine 07/21/2017 Biliary liver cirrhosis 12:11 PM CDT Pre-transplant evaluation for liver transplant Screening for ischemic heart disease TB T-SPOT Routine 07/21/2017 Biliary liver cirrhosis 12:11 PM CDT Pre-transplant evaluation for liver transplant Screening for ischemic heart disease FIBRINOGEN Routine 07/21/2017 Biliary liver cirrhosis 12:11 PM CDT Pre-transplant evaluation for liver transplant Screening for ischemic heart disease CERULOPLASMIN LEVEL Routine 07/21/2017 Biliary liver cirrhosis 12:11 PM CDT Pre-transplant evaluation for liver transplant Screening for ischemic heart disease ALPHA-1 ANTITRYPSIN LEVEL Routine 07/21/2017 Biliary liver cirrhosis 12:11 PM CDT Pre-transplant evaluation for liver transplant Screening for ischemic heart disease CANCER ANTIGEN 19-9 Routine 07/21/2017 Biliary liver cirrhosis 12:11 PM CDT Pre-transplant evaluation for liver transplant Screening for ischemic heart disease CARCINOEMBRYONIC ANTIGEN Routine 07/21/2017 Biliary liver cirrhosis (CEA) 12:11 PM CDT Pre-transplant evaluation for liver transplant Screening for ischemic heart disease ALPHA FETOPROTEIN Routine 07/21/2017 Biliary liver cirrhosis 12:11 PM CDT Pre-transplant evaluation for liver transplant Screening for ischemic heart disease ALCOHOL LEVEL, BLOOD Routine 07/21/2017 Biliary liver cirrhosis 12:11 PM CDT Pre-transplant evaluation for liver transplant Screening for ischemic heart disease DRUG COLBY 9, SER/ERROL, SCRN Routine 07/21/2017 Biliary liver cirrhosis W/RFLX TO CONF 12:11 PM CDT Pre-transplant evaluation for liver transplant Screening for ischemic heart disease ABORH - TRANSPLANT Routine 07/21/2017 Biliary liver cirrhosis 12:11 PM CDT Pre-transplant evaluation for liver transplant Screening for ischemic heart disease PARTIAL THROMBOPLASTIN Routine 07/21/2017 Biliary liver cirrhosis TIME (PTT) 12:11 PM CDT Pre-transplant evaluation for liver transplant Screening for ischemic heart disease PROTHROMBIN TIME WITH INR Routine 07/21/2017 Biliary liver cirrhosis 12:11 PM CDT Pre-transplant evaluation for liver transplant Screening for ischemic heart disease HC COMPLETE BLD COUNT Routine 07/21/2017 Biliary liver cirrhosis W/AUTO DIFF 12:11 PM CDT Pre-transplant evaluation for liver transplant Screening for ischemic heart disease ANTI SMOOTH MUSCLE AB Routine 07/21/2017 Biliary liver cirrhosis SCREEN 12:11 PM CDT Pre-transplant evaluation for liver transplant Screening for ischemic heart disease ANTI MITOCHONDRIA SCREEN Routine 07/21/2017 Biliary liver cirrhosis 12:11 PM CDT Pre-transplant evaluation for liver transplant Screening for ischemic heart disease SYPHILIS TREPONEMAL IGG Routine 07/21/2017 Biliary liver cirrhosis 12:11 PM CDT Pre-transplant evaluation for liver transplant Screening for ischemic heart disease HIV AG/AB COMBINATION Routine 07/21/2017 Biliary liver cirrhosis 12:11 PM CDT Pre-transplant evaluation for liver transplant Screening for ischemic heart disease HEPATITIS C ANTIBODY Routine 07/21/2017 Biliary liver cirrhosis 12:11 PM CDT Pre-transplant evaluation for liver transplant Screening for ischemic heart disease HEPATITIS B CORE ANTIBODY Routine 07/21/2017 Biliary liver cirrhosis TOTAL 12:11 PM CDT Pre-transplant evaluation for liver transplant Screening for ischemic heart disease HEPATITIS B SURFACE Routine 07/21/2017 Biliary liver cirrhosis ANTIBODY 12:11 PM CDT Pre-transplant evaluation for liver transplant Screening for ischemic heart disease HEPATITIS B SURFACE Routine 07/21/2017 Biliary liver cirrhosis ANTIGEN 12:11 PM CDT Pre-transplant evaluation for liver transplant Screening for ischemic heart disease HEPATITIS A ANTIBODY IGM Routine 07/21/2017 Biliary liver cirrhosis 12:11 PM CDT Pre-transplant evaluation for liver transplant Screening for ischemic heart disease HEPATITIS A ANTIBODY Routine 07/21/2017 Biliary liver cirrhosis TOTAL 12:11 PM CDT Pre-transplant evaluation for liver transplant Screening for ischemic heart disease HEMOGLOBIN A1C Routine 07/21/2017 Biliary liver cirrhosis 12:11 PM CDT Pre-transplant evaluation for liver transplant Screening for ischemic heart disease CYTOMEGALOVIRUS AB, IGM Routine 07/21/2017 Biliary liver cirrhosis 12:11 PM CDT Pre-transplant evaluation for liver transplant Screening for ischemic heart disease CYTOMEGALOVIRUS AB, IGG Routine 07/21/2017 Biliary liver cirrhosis 12:11 PM CDT Pre-transplant evaluation for liver transplant Screening for ischemic heart disease DIANE Routine 07/21/2017 Biliary liver cirrhosis 12:11 PM CDT Pre-transplant evaluation for liver transplant Screening for ischemic heart disease THYROID STIMULATING Routine 07/21/2017 Biliary liver cirrhosis HORMONE 12:11 PM CDT Pre-transplant evaluation for liver transplant Screening for ischemic heart disease VITAMIN D 25 HYDROXY Routine 07/21/2017 Biliary liver cirrhosis LEVEL 12:11 PM CDT Pre-transplant evaluation for liver transplant Screening for ischemic heart disease PHOSPHORUS LEVEL Routine 07/21/2017 Biliary liver cirrhosis 12:11 PM CDT Pre-transplant evaluation for liver transplant Screening for ischemic heart disease MAGNESIUM LEVEL Routine 07/21/2017 Biliary liver cirrhosis 12:11 PM CDT Pre-transplant evaluation for liver transplant Screening for ischemic heart disease FERRITIN LEVEL Routine 07/21/2017 Biliary liver cirrhosis 12:11 PM CDT Pre-transplant evaluation for liver transplant Screening for ischemic heart disease TOTAL IRON BINDING Routine 07/21/2017 Biliary liver cirrhosis CAPACITY 12:11 PM CDT Pre-transplant evaluation for liver transplant Screening for ischemic heart disease GGT Routine 07/21/2017 Biliary liver cirrhosis 12:11 PM CDT Pre-transplant evaluation for liver transplant Screening for ischemic heart disease HEPATIC FUNCTION PANEL Routine 07/21/2017 Biliary liver cirrhosis 12:11 PM CDT Pre-transplant evaluation for liver transplant Screening for ischemic heart disease BASIC METABOLIC PANEL Routine 07/21/2017 Biliary liver cirrhosis 12:11 PM CDT Pre-transplant evaluation for liver transplant Screening for ischemic heart disease ECG 12-LEAD Routine 07/21/2017 Biliary liver cirrhosis 10:07 AM CDT Pre-transplant evaluation for liver transplant Screening for ischemic heart disease after 07/01/2017 Results * Nicotine and cotinine, serum (05/27/2018 10:45 AM CDT) Only the most recent of 2 results within the time period is included. Nicotine <2.0 0.0 - 1.9 ng/mL [facility] Cotinine 24.7 (H) 0.0 - 1.9 ng/mL [facility] Comment: HOSPITAL This test was developed and its performance characteristics determined by the Department of Pathology and Genomic Medicine, [facility]. Serum nicotine and metabolite cotinine are tested by HPLC tandem mass spectrometry. It has not been cleared or approved by FDA. The laboratory is regulated under CLIA as qualified to perform high-complexity testing. This test is used for clinical purposes. It should not be regarded as investigational or for research. Specimen Blood Performing Organization Address City/[facility] Phone Number [facility] [place] [address] [facility] MEDICINE [address] * Estimated GFR (05/27/2018 10:45 AM CDT) Only the most recent of 21 results within the time period is included. Estimated GFR 25 (A) mL/min/1.73 m2 [facility] Comment: HOSPITAL CatergoryUnitsInte rpretation G1 >=90 Normal or high G2 60-89Mildly decreased [id number] Mildly to moderately decreased [id number] Moderately to severely decreased G4 15-29Severely decreased G5 <15Kidney failure The eGFR was calculated using the Chronic Kidney Disease Epidemiology Collaboration (CKD-EPI) equation. Interpretation is based on recommendations of the National Kidney Foundation-Kidney Disease Outcomes Quality Initiative (NKF-KDOQI) published in 2014. Specimen Plasma specimen Performing Organization Address City/[facility]/Zipcode Phone Number [facility] [place] [address] PATHOLOGY AND GENOMIC MEDICINE [address] * CBC with platelet and differential (05/27/2018 10:45 AM CDT) Only the most recent of 28 results within the time period is included. WBC 6.45 4.50 - 11.00 k/uL [facility] RBC 2.82 (L) 4.20 - 5.50 m/uL [facility] HGB 7.8 (L) 12.0 - 16.0 g/dL [facility] HCT 26.5 (L) 37.0 - 47.0 % [facility] MCV 94.0 82.0 - 100.0 fL [facility] MCH 27.7 27.0 - 34.0 pg [facility] MCHC 29.4 (L) 31.0 - 37.0 g/dL [facility] RDW - SD 53.8 37.0 - 55.0 fL [facility] MPV 10.0 8.8 - 13.2 fL [facility] Platelet count 407 (H) 150 - 400 k/uL [facility] Nucleated RBC 0.00 /100 WBC [facility] Neutrophils 64.1 39.0 - 69.0 % [facility] Lymphocytes 17.5 (L) 25.0 - 45.0 % [facility] Monocytes 9.1 0.0 - 10.0 % [facility] Eosinophils 7.1 (H) 0.0 - 5.0 % [facility] Basophils 1.6 (H) 0.0 - 1.0 % [facility] Immature granulocytes 0.6Comment: "Immature 0.0 - 1.0 % [facility] granulocytes" (promyelocytes, HOSPITAL myelocytes, metamyelocytes) Specimen Blood Performing Organization Address City/[facility] [place] [address] PATHOLOGY AND GENOMIC MEDICINE [address] * Uric acid level (05/27/2018 10:45 AM CDT) Only the most recent of 7 results within the time period is included. Uric acid 11.9 (H) 2.4 - 5.7 mg/dL [facility] Specimen Plasma specimen Performing Organization Address City/[facility] [place] [address] PATHOLOGY AND GENOMIC MEDICINE [address] * B natriuretic peptide (05/27/2018 10:45 AM CDT) Only the most recent of 4 results within the time period is included. BNP 154 (H) 0 - 100 pg/mL [facility] Specimen Blood Performing Organization Address City/[facility]ode Phone Number [facility] [place] [address] PATHOLOGY AND GENOMIC MEDICINE [place] [id number] [facility] * Magnesium level (05/27/2018 10:45 AM CDT) Only the most recent of 23 results within the time period is included. Magnesium 2.5 (H) 1.6 - 2.4 mg/dL [facility] Specimen Plasma specimen Performing Organization Address [facility] Phone Number [facility] DEPARTMENT OF [address] [place] [address] PATHOLOGY AND GENOMIC MEDICINE [address] * Comprehensive metabolic panel (05/27/2018 10:45 AM CDT) Only the most recent of 9 results within the time period is included. Sodium 136 135 - 148 mEq/L [facility] Potassium 4.5 3.5 - 5.0 mEq/L [facility] Chloride 102 98 - 112 mEq/L [facility] CO2 19 (L) 24 - 31 mEq/L [facility] Anion gap 15@ANIO 7 - 15 mEq/L [facility] BUN 50 (H) 8 - 23 mg/dL [facility] Creatinine 2.09 (H) 0.50 - 0.90 mg/dL [facility] Glucose 103 (H) 65 - 99 mg/dL [facility] Calcium 9.0 8.8 - 10.2 mg/dL [facility] Protein 6.7 6.3 - 8.3 g/dL [facility] Comment: HOSPITAL 4.6-7.0 g/dL 1 week 4.4-7.6 g/dL 7 months-1year 5.1-7.3 g/dL 1-2 years5.6-7 .5 g/dL >3 years6.0-8 .0 g/dL 18-150 6.3-8.3 g/dL Albumin 3.2 (L) 3.5 - 5.0 g/dL [facility] A/G ratio 0.9 0.7 - 3.8 [facility] Alkaline phosphatase 91 35 - 104 U/L [facility] AST 52 (H) 10 - 35 U/L [facility] ALT 19 5 - 50 U/L [facility] Total bilirubin 0.5 0.0 - 1.2 mg/dL [facility] Specimen Plasma specimen Performing Organization Address City/[facility]/Zipcode Phone Number [facility] DEPARTMENT OF [address] [place] [address] PATHOLOGY AND GENOMIC MEDICINE [address] * Total iron binding capacity (05/05/2018 4:20 PM SALESPERSON FURS) Only the most recent of 3 results within the time period is included. Iron level 42 37 - 145 ug/dL [facility] Iron binding capacity 362 200 - 400 ug/dL [facility] % Saturation 11.6 (L) 15.0 - 38.0 % [facility] Specimen Plasma specimen Performing Organization Address [facility] Phone Number [facility] [place] [address] PATHOLOGY AND GENOMIC MEDICINE [address] * Reticulocyte count (05/05/2018 4:20 PM SALESPERSON FURS) Only the most recent of 2 results within the time period is included. Retic %, auto 2.7 (H) 0.5 - 2.1 % [facility] Retic absolute, auto 0.0692 0.0210 - 0.1155 m/uL [facility] Specimen Blood Performing Organization Address [facility] Phone Number [facility] [place] [address] PATHOLOGY AND GENOMIC MEDICINE [address] * Ferritin level (05/05/2018 4:20 PM SALESPERSON FURS) Only the most recent of 4 results within the time period is included. Ferritin level 25 13 - 150 ng/mL [facility] Specimen Plasma specimen Performing Organization Address [facility] Phone Number [facility] [place] [address] PATHOLOGY AND GENOMIC MEDICINE [address] * Manual differential (04/29/2018 10:32 AM SALESPERSON FURS) Only the most recent of 3 results within the time period is included. Manual differential PERFORMED [facility] Neutrophils 77.0 (H) 39.0 - 69.0 % [facility] Lymphocytes 17.0 (L) 25.0 - 45.0 % [facility] Monocytes 4.0 0.0 - 10.0 % [facility] Eosinophils 2.0 0.0 - 5.0 % [facility] Basophils 0.0 0.0 - 1.0 % [facility] Metamyelocytes 0 % [facility] Promyelocytes 0 % [facility] Platelet slide review Denice adequate [facility] Anisocytosis Moderate [facility] Ovalocytes Moderate [facility] Giant platelets Occasional [facility] Performing Organization Address City/State/Zipcode Phone Number [facility] DEPARTMENT OF [address] [place] [address] PATHOLOGY AND GENOMIC MEDICINE [address] * Prothrombin time with INR (04/29/2018 10:32 AM SALESPERSON FURS) Only the most recent of 25 results within the time period is included. Prothrombin time 14.7 (H) 11.5 - 14.5 sec [facility] INR 1.2 [facility] Comment: HOSPITAL The International Normalized Ratio (INR) is a therapeutic monitoring tool for patients who are stable on oral anticoagulant therapy. An INR of 2.0-3.0 is suggested for deep vein thrombosis/pulmonary embolism. Specimen Blood Performing Organization Address City/State/Zipcode Phone Number [facility] DEPARTMENT OF [address] [place] [address] PATHOLOGY AND GENOMIC MEDICINE [address] * Lipid panel (04/29/2018 10:32 AM SALESPERSON FURS) Only the most recent of 2 results within the time period is included. Cholesterol 92 <200 mg/dL [facility] Triglycerides 70 <150 mg/dL [facility] HDL cholesterol 24 (L) >40 mg/dL [facility] LDL cholesterol 44Comment: Result obtained by <100 mg/dL [facility] direct LDL measurement [facility] Lipid panel SeeBelow [facility] interpretation Comment: HOSPITAL Total Cholesterol (mg/dL) <200 Desirable 200-239Borderline -high >=240High Triglycerides (mg/dL) <150 Normal 150-199Borderline -high 200-499High >=500Very high HDL Cholesterol (mg/dL) <40Low (male) <40Low (female) LDL Cholesterol (mg/dL) <100 Optimal 100-129Near or above optimal 130-159Borderline -high 160-189High >=190Very high Risk Catergories that modify LDL goals. Risk Catergories LDL goal (mg/dL) CHD and CHD risk equivalent<100 (10-year risk >20%) Multiple (2+) risk factors <130 (10-year risk=<20%) 0-1 risk factors <160 (<10-year risk) Defining levels of lipids in metabolic syndrome Triglycerides >=150 mg/dL HDL Cholesterol Men <40 mg/dL Women <40 mg/dL Non-HDL cholesterol is a second target for therapy in persons with high triglycerides (>=200 mg/dL) Specimen Plasma specimen Performing Organization Address City/State/Zipcode Phone Number [facility] [place] [address] PATHOLOGY AND GENOMIC MEDIC[facility] [place] [address] H[facility]PITAL * POC glucose (03/20/2018 8:48 AM SALESPERSON FURS) Only the most recent of 42 results within the time period is included. POC glucose 96 65 - 99 mg/dL [facility] Comment: [facility] Notified RN Meter ID: [id number] Cripple Worker: Maverick Hawthorne Performing Organization Address [facility] Centercode Phone Number [facility] DEPARTMENT OF [address] [place] [address] PATHOLOGY AND GENOMIC MEDICINE [place] [address] HOSPITAL * XR Abdomen 1 Vw Portable (03/19/2018 3:42 PM SALESPERSON FURS) Only the most recent of 3 results within the time period is included. Narrative Performed At EXAMINATION:XR ABDOMEN 1 VW PORTABLE [facility] CLINICAL HISTORY:Nauseavomiting COMPARISON:03/11/2018 IMPRESSION: Status post cholecystectomy. Nonobstructive bowel gas pattern. No evidence of pneumoperitoneum. Punctate renal calculus projecting over the left renal shadow, lower pole. [facility]-[id number] Procedure Note Interface, Radiology Results Incoming - 03/19/2018 5:11 PM SALESPERSON FURS EXAMINATION: XR ABDOMEN 1 VW PORTABLE CLINICAL HISTORY: Nausea vomiting COMPARISON: 03/11/2018 IMPRESSION: Status post cholecystectomy. Nonobstructive bowel gas pattern. No evidence of pneumoperitoneum. Punctate renal calculus projecting over the left renal shadow, lower pole. [facility]-[id number] Performing Organization Address [facility]/Zipcode Phone Number [facility] [address] [place] [address] * Fibrinogen (03/18/2018 5:15 AM SALESPERSON FURS) Only the most recent of 7 results within the time period is included. Fibrinogen 242 200 - 450 mg/dL [facility] Specimen Blood Performing Organization Address City/[facility]ercode Phone Number [facility] DEPARTMENT OF [address] [place] [address] PATHOLOGY AND GENOMIC MEDICINE [address] * Phosphorus level (03/18/2018 5:15 AM SALESPERSON FURS) Only the most recent of 14 results within the time period is included. Phosphorus 1.8 (L) 2.4 - 4.5 mg/dL [facility] Specimen Plasma specimen Performing Organization Address City/[facility]ode Phone Number [facility] [place] [address] PATHOLOGY AND GENOMIC MEDICINE [address] * LDH (03/18/2018 5:15 AM SALESPERSON FURS) Only the most recent of 8 results within the time period is included. LDH 141 87 - 225 U/L [facility] Specimen Plasma specimen Performing Organization Address City/[facility] Phone Number [facility] [place] [address] PATHOLOGY AND GENOMIC MEDICINE [address] * Hepatic function panel (03/18/2018 5:15 AM SALESPERSON FURS) Only the most recent of 18 results within the time period is included. Albumin 4.3 3.5 - 5.0 g/dL [facility] Total bilirubin 0.6 0.0 - 1.2 mg/dL [facility] Bilirubin direct 0.3 0.0 - 0.3 mg/dL [facility] Alkaline phosphatase 61 35 - 104 U/L [facility] Protein 6.2 (L) 6.3 - 8.3 g/dL [facility] Comment: HOSPITAL Call 4.6-7.0 g/dL 1 week 4.4-7.6 g/dL 7 months-1year 5.1-7.3 g/dL 1-2 years5.6-7 .5 g/dL >3 years6.0-8 .0 g/dL 18-150 6.3-8.3 g/dL ALT 9 5 - 50 U/L [facility] AST 26 10 - 35 U/L [facility] Specimen Plasma specimen Performing Organization Address City/[facility]ode Phone Number [facility] [place] [address] [facility] MEDICINE [address] * Basic metabolic panel (03/18/2018 5:15 AM SALESPERSON FURS) Only the most recent of 19 results within the time period is included. Sodium 137 135 - 148 mEq/L [facility] Potassium 3.8 3.5 - 5.0 mEq/L [facility] Chloride 101 98 - 112 mEq/L [facility] CO2 20 (L) 24 - 31 mEq/L [facility] Anion gap 16@ANIO (H) 7 - 15 mEq/L [facility] BUN 44 (H) 8 - 23 mg/dL [facility] Creatinine 1.87 (H) 0.50 - 0.90 mg/dL [facility] Glucose 100 (H) 65 - 99 mg/dL [facility] Calcium 9.2 8.8 - 10.2 mg/dL [facility] Specimen Plasma specimen Performing Organization Address [facility] Centercome Phone Number [facility] [place] [address] 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 Performing Organization Address City/[facility]/Zipcode Phone Number [facility] [address] [place] [address] * CT Chest Wo Contrast (03/17/2018 1:36 PM SALESPERSON FURS) Narrative Performed At EXAMINATION: [facility] CT CHEST WO CONTRAST CLINICAL HISTORY: OHT Evaluation TECHNIQUE: Multiple axial images of the chest were obtained without intravenous contrast. The lack of intravenous contrast reduces the sensitivity of detecting solid organ disease and evaluating vasculature. Sagittal and coronal computerized reformatted images were also obtained.Automatic exposure control and iterative reconstruction techniques used to reduce dose. COMPARISON: None. IMPRESSION: Mild scarring/atelectasis in the lung bases. No suspicious focal pulmonary nodules are present. No significant lymphadenopathy, pleural or pericardial effusions are present There is a small hernia Diffuse calcified atherosclerotic vascular disease throughout the arterial structures. Diffuse cirrhotic changes throughout the liver. Portal hypertension with splenomegaly and moderate ascites [id number] Procedure Note Interface, Radiology Results Incoming - 03/17/2018 2:22 PM SALESPERSON FURS EXAMINATION: CT CHEST WO CONTRAST CLINICAL HISTORY: OHT Evaluation TECHNIQUE: Multiple axial images of the chest were obtained without intravenous contrast. The lack of intravenous contrast reduces the sensitivity of detecting solid organ disease and evaluating vasculature. Sagittal and coronal computerized reformatted images were also obtained.Automatic exposure control and iterative reconstruction techniques used to reduce dose. COMPARISON: None. IMPRESSION: Mild scarring/atelectasis in the lung bases. No suspicious focal pulmonary nodules are present. No significant lymphadenopathy, pleural or pericardial effusions are present There is a small hernia Diffuse calcified atherosclerotic vascular disease throughout the arterial structures. Diffuse cirrhotic changes throughout the liver. Portal hypertension with splenomegaly and moderate ascites [id number] Performing Organization Address City/State/Zipcode Phone Number [facility] [address] [place] [address] * US Abdominal Paracentesis Imaging (03/16/2018 1:20 PM SALESPERSON FURS) Only the most recent of 5 results within the time period is included. Narrative Performed At [facility]ED[facility]: [facility] Ultrasound-guided paracentesis Performing Radiologist: Chelle Chopra PA-C Assistants: None Pre Procedure Diagnosis: ASCITES Post Procedure Diagnosis: ASCITES Indication: Ascites Complications: No immediate post procedure complications. IMPRESSION: 1.Technically successful ultrasound-guided diagnostic/therapeutic paracentesis. 2.There is a large simple ascites. 3.Moderate residual ascites is seen on postprocedure ultrasound. PLAN: The patient will be monitored in the recovery area for approximately 30 minutes to evaluate vital signs and blood pressure. PROCEDURE SUMMARY: Access of the peritoneal space using ultrasound guidance PROCEDURE DETAILS: Pre-procedure: Comparison studies: None Written and informed consent for the procedure and monitored conscious sedation was obtained from the patient. Prophylactic antibiotics: None Preparation: The right lower quadrant of the abdomen was prepared and draped using all elements of maximal sterile barrier technique including sterile gloves, sterile gown, catheter, mask, large sterile sheet, sterile ultrasound probe cover, hand hygiene and cutaneous antisepsis using chlorhexidine. Anesthesia/Sedation: Level of anesthesia: None (Lidocaine only) Medications used: 1% lidocaine Duration of anesthesia/sedation: N/A Access: Local anesthesia was administered. The right lower quadrantwas evaluated with preprocedure ultrasound. Real-time ultrasound was used to visualize needle entry into the peritoneal space. Access technique: 5 [place] Yueh Needle Paracentesis: Fluid Color: Serosanguineous Volume Removed: 5000 mL Fluid Analysis: The fluid was sent for laboratory tests ordered by the primary team Closure: The One-step catheter was removed and hemostasis was achieved with manual compression. A sterile dressing was applied. Additional details: Estimated blood loss: Less than 10 cc [facility]-[id number] Procedure Note [facility], Radiology Results Incoming - 03/16/2018 2:54 PM SALESPERSON FURS PROCEDURE: Ultrasound-guided paracentesis Performing Radiologist: Chelle Chopra PA-C Assistants: None Pre Procedure Diagnosis: ASCITES Post Procedure Diagnosis: ASCITES Indication: Ascites Complications: No immediate post procedure complications. IMPRESSION: 1. Technically successful ultrasound-guided diagnostic/therapeutic paracentesis. 2. There is a large simple ascites. 3. Moderate residual ascites is seen on postprocedure ultrasound. PLAN: The patient will be monitored in the recovery area for approximately 30 minutes to evaluate vital signs and blood pressure. PROCEDURE SUMMARY: Access of the peritoneal space using ultrasound guidance PROCEDURE DETAILS: Pre-procedure: Comparison studies: None Written and informed consent for the procedure and monitored conscious sedation was obtained from the patient. Prophylactic antibiotics: None Preparation: The right lower quadrant of the abdomen was prepared and draped using all elements of maximal sterile barrier technique including sterile gloves, sterile gown, catheter, mask, large sterile sheet, sterile ultrasound probe cover, hand hygiene and cutaneous antisepsis using chlorhexidine. Anesthesia/Sedation: Level of anesthesia: None (Lidocaine only) Medications used: 1% lidocaine Duration of anesthesia/sedation: N/A Access: Local anesthesia was administered. The right lower quadrant was evaluated with preprocedure ultrasound. Real-time ultrasound was used to visualize needle entry into the peritoneal space. Access technique: 5 [place] Yueh Needle Paracentesis: Fluid Color: Serosanguineous Volume Removed: 5000 mL Fluid Analysis: The fluid was sent for laboratory tests ordered by the primary team Closure: The One-step catheter was removed and hemostasis was achieved with manual compression. A sterile dressing was applied. Additional details: Estimated blood loss: Less than 10 cc [facility]-[id number] Performing Organization Address City/State/Zipcode Phone Number [facility] [address] [place] [address] * Aerobic culture (03/16/2018 1:05 PM SALESPERSON FURS) Only the most recent of 5 results within the time period is included. Aerobic culture isolate No growth after 3 days. [facility]USE[facility] Comment: HOSPITAL Specimen Information Specimen Source: Peritoneal fluid Specimen Site: Abdomen, right Specimen Peritoneal fluid - Abdomen, right Performing Organization Address City/[facility]/[place] [facility] Phone Number [facility] [place] [address] PATHOLOGY AND GENOMIC MEDICINE [address] * Gram stain (03/16/2018 1:05 PM SALESPERSON FURS) Only the most recent of 6 results within the time period is included. Gram stain isolate No WBC's or organisms seen. JOSE CHURCH Comment: HOSPITAL Specimen Information Specimen Source: Peritoneal fluid Specimen Site: Abdomen, right Specimen Peritoneal fluid - Abdomen, right Performing Organization Address [facility] Phone Number [facility] [place] [address] PATHOLOGY AND GENOMIC MEDICINE [address] * Anaerobic culture (03/16/2018 1:05 PM SALESPERSON FURS) Only the most recent of 5 results within the time period is included. Anaerobic culture isolate No anaerobic organisms [facility] isolated. HOSPITAL Comment: Specimen Information Specimen Source: Peritoneal fluid Specimen Site: Abdomen, right Specimen Peritoneal fluid - Abdomen, right Performing Organization Address [facility] Phone Number [facility] [place] [address] PATHOLOGY AND GENOMIC MEDICINE [address] * Cell count and differential, body fluid (03/16/2018 1:05 PM SALESPERSON FURS) Only the most recent of 5 results within the time period is included. [facility] Paracent[facility] Color, fluid Red [facility] Appearance, fluid Hazy [facility] RBC, fluid 73,000 /CMM [facility] Nucleated cells, fluid 281 /CMM [facility] Fluid mononuclear cell See Diff [facility] Neutrophils, fluid 6 % [facility] Lymphocytes, fluid 45 % [facility] Macrophages, fluid 49 % [facility] Specimen Fluid Performing Organization Address City/[facility] Phone Number [facility] [place] [address] PATHOLOGY AND GENOMIC MEDICINE [address] * XR Chest 1 Vw Portable (03/16/2018 7:02 AM SALESPERSON FURS) Only the most recent of 6 results within the time period is included. Narrative Performed At EXAMINATION:XR CHEST 1 VW PORTABLE [facility] CLINICAL HISTORY:Ventilator Patient COMPARISON:Yesterday IMPRESSION: Central line unchanged. Better inspiratory depth with better aeration in the lungs, otherwise stable. [facility]-[id number] Procedure Note Hm Interface, Radiology Results Incoming - 03/16/2018 7:13 AM SALESPERSON FURS EXAMINATION: XR CHEST 1 VW PORTABLE CLINICAL HISTORY: Ventilator Patient COMPARISON: Yesterday IMPRESSION: Central line unchanged. Better inspiratory depth with better aeration in the lungs, otherwise stable. [facility]-[id number] Performing Organization Address City/State/Zipcode Phone Number [facility] [address] [place] [address] * Pv physiologic arterial lower extremity complete w neda (03/15/2018 3:15 PM SALESPERSON FURS) Narrative Performed At [facility] Physiologic Arterial Leg Report [address], [place] [address] Pat.Name:[facility]ETH [facility]STERSON [facility].ID:[id number] .Date: 03/15/2018 Refer.MD:BROOKE VALDIVIA MD Exam Time: 2:05:00 PMStudy Type:Physiologic Leg Height:66inWeight:196lb BSA: 1.98 m2 DOBAge:1955,62Y Sex: FEMALESonogrphr: Dallas Montez, DEYANIRAS, JAYDEN Pat. Stat.:Inpatient Room:[place] [address] TapeVol: SB, CPT - 4: 20489 Echo Event ID:[id number] Order ID:[id number] Reason for Study:orthotopic heart transplant evaluation. History of CAD, cirrhosis, hypertension, Hyperlipidemia. Procedures:Ankle/brachial pressures, Non-imaging continuous wave Doppler, PPG waveform tracing, Segmental pressures Race:C SUMMARY: PULSES: RIGHT LEFT Common Femoral + + Popliteal+ + Dorsalis Pedis+ + Posterior Tibial+ + DOPPLER SIGNALS /ANALOG WAVEFORMS: DOPPLER SIGNALS ARTERY RIGHT LEFT Common Femoral Normal Normal Superficial Femoral Normal Normal PoplitealNormal Normal Posterior Tibial Normal Normal Dorsalis Pedis Normal Normal SEGMENTAL PRESSURE(mmHg): RIGHT LEFT Brachial 140 147 High ThighUnable to obtain Unable to obtain Low Anizx003 197 Calf [id number] Ankle DP 166 173 Ankle [id number] Great Toe 5582 ANKLE/BRACHIAL INDEX: RIGHTLEFT Dorsalis Pedis1.131.18 Posterior Tibial1.16 1.16 TOE/BRACHIAL INDEX: RIGHT LEFT 0.370.56 PRELIMINARY FINDINGS: 1. PPG waveform tracing demonstrates reduced pulsatility in the right great toe. 2. Right toe/brachial index fall into the moderate-severe category. 3. Left to brachial index fall into the mild category. 4. Ankle/brachial indices fall into the normal category. PHYSICIAN INTERPRETATION: Bilateral lower extremity arterial exam demonstrates reduced pulsatility in the right great toe byPPG waveform tracing . Right toe/brachial index fall into the moderate-severe category. Left to toe/brachial index fall into the mild category. Ankle/brachial indices fall into the normal category. Signed 03/16/2018 06:28 AM Tristian Mcdermott MD, RPVI Procedure Note Interface, Radiology Results In - 03/16/2018 6:28 AM [facility] Physiologic Arterial Leg Report [id number]Name: BETH MASTERSON Isha.ID: [id number] .Date: 03/15/2018 Refer.MD: BROOKE VALDIVIA MD Exam Time: 2:05:00 PM Study Type:Physiologic Leg Height: 66in Weight: 196lb BSA: 1.98 m2 Age: 8 1955,62Y Sex: FEMALE Sonogrphr: SHAYNA Perez RCS Pat. Stat.:Inpatient Room: [place] [address] Tape Vol: SB, CPT - 4: 73833 Echo Event ID:[id number] Order ID: [id number] Reason for Study:orthotopic heart transplant evaluation. History of CAD, cirrhosis, hypertension, Hyperlipidemia. Procedures:Ankle/brachial pressures, Non-imaging continuous wave Doppler, PPG waveform tracing, Segmental pressures Race: C SUMMARY: PULSES: RIGHT LEFT Common Femoral + + Popliteal + + Dorsalis Pedis + + Posterior Tibial + + DOPPLER SIGNALS / ANALOG WAVEFORMS: DOPPLER SIGNALS ARTERY RIGHT LEFT Common Femoral Normal Normal Superficial Femoral Normal Normal Popliteal Normal Normal Posterior Tibial Normal Normal Dorsalis Pedis Normal Normal SEGMENTAL PRESSURE (mmHg): RIGHT LEFT Brachial 140 147 High Thigh Unable to obtain Unable to obtain Low Thigh 197 197 Calf 168 170 Ankle DP 166 173 Ankle PT 157 171 Great Toe 55 82 ANKLE/BRACHIAL INDEX: RIGHT LEFT Dorsalis Pedis 1.13 1.18 Posterior Tibial 1.16 1.16 TOE/BRACHIAL INDEX: RIGHT LEFT 0.37 0.56 PRELIMINARY FINDINGS: 1. PPG waveform tracing demonstrates reduced pulsatility in the right great toe. 2. Right toe/brachial index fall into the moderate-severe category. 3. Left to brachial index fall into the mild category. 4. Ankle/brachial indices fall into the normal category. PHYSICIAN INTERPRETATION: Bilateral lower extremity arterial exam demonstrates reduced pulsatility in the right great toe by PPG waveform tracing . Right toe/brachial index fall into the moderate-severe category. Left to toe/brachial index fall into the mild category. Ankle/brachial indices fall into the normal category. Signed 03/16/2018 06:28 AM Tristian Mcdermott MD, RPVI Performing Organization Address [facility]/Zipcode Phone Number [facility] [address] [place] [id number] * Partial thromboplastin time, activated (03/15/2018 3:10 AM SALESPERSON FURS) Only the most recent of 10 results within the time period is included. PTT 43.0 (H) 23.0 - 36.0 sec JOSE CHURCH Comment: HOSPITAL PTT therapeutic range for unfractionated heparin is 61.0-112.0 seconds which corresponds to Anti-Xa 0.3-0.7 U/ml. Specimen Blood Performing Organization Address [facility]/Zipcode Phone Number [facility] DEPARTMENT OF [address] [place] [address] PATHOLOGY AND GENOMIC MEDICINE JOSE KRAUSEIST [address] [place] [address] HOSPITAL * Ionized calcium (03/15/2018 3:10 AM SALESPERSON FURS) Only the most recent of 3 results within the time period is included. pH 7.39 [facility] Ionized calcium 1.16 1.11 - 1.32 mmol/L [facility] Specimen Plasma specimen Performing Organization Address City/[facility] Phone Number [facility] [place] [address] * Syphilis treponemal IgG (03/14/2018 3:42 AM SALESPERSON FURS) Only the most recent of 2 results within the time period is included. Syphilis treponemal IgG Non-reactiveComment: Non-reactive [facility] Non-reactive: No serological HOSPITAL evidence of Syphilis infection Specimen Serum Performing Organization Address [facility] Phone Number [facility] [place] [address] [address] * Maury-Roberts virus antibody test (03/14/2018 3:42 AM SALESPERSON FURS) EBV Ab to viral capsid Negative Negative [facility] Ag, IgG [facility] EBV Ab to viral capsid Negative Negative [facility] Ag, IgM HOSPITAL EBV Ab to nuclear Ag, IgG Positive (A) Negative [facility] EBV Ab to early (D) Ag, Negative Negative [facility] IgG HOSPITAL Maury-Roberts virus SEE COMMENT [facility] antibody interpretation Comment: HOSPITAL Footnote--------- EBV nuclear antibodies develop 6-8 weeks after primary infection.However EBV viral capsid IgG antibodies are tested negative in this case. Clinical correlation is recommended. Specimen Serum Performing Organization Address [facility] Phone Number [facility] [place] [address] PATH[address] * Hepatitis acute panel (03/14/2018 3:42 AM SALESPERSON FURS) Hepatitis A IgM Non-reactive Non-reactive [facility] Hepatitis B core IgM Non-reactive Non-reactive [facility] Hepatitis B surface Ag Non-reactive Non-reactive [facility] Hepatitis C Ab Non-reactive Non-reactive [facility] Specimen Serum Performing Organization Address City/[facility] Phone Number [facility] [place] [address] [facility] [address] * Toxoplasma gondii antibody, IgG (03/14/2018 3:42 AM SALESPERSON FURS) Toxoplasma gondii Ab, IgG <3 0 - 9 IU/mL [facility] Comment: HOSPITAL Equal or less than 9 IU/mL Negative; No previous T. gonii infection Specimen Serum Performing Organization Address City/[facility] Phone Number [facility] [place] [address] * Prealbumin level (03/14/2018 3:42 AM SALESPERSON FURS) Only the most recent of 2 results within the time period is included. Prealbumin 7 (L) 16 - 32 mg/dL [facility] Specimen Serum Performing Organization Address [facility] Phone Number [facility] [place] [address] * T3 (03/14/2018 3:33 AM SALESPERSON FURS) T3 33 (L) 80 - 200 ng/dL [facility] Specimen Plasma specimen Performing Organization Address [facility] Phone Number [facility] [address] * Thyroid stimulating hormone (03/14/2018 3:33 AM SALESPERSON FURS) Only the most recent of 2 results within the time period is included. TSH 4.74 (H) 0.27 - 4.20 uIU/mL [facility] Specimen Plasma specimen Performing Organization Address City/[facility] Phone Number [facility] [place] [address] PATHOLOGY [address] * T4, free (03/14/2018 3:33 AM SALESPERSON FURS) T4, free 1.1 0.9 - 1.7 ng/dL [facility] Specimen Plasma specimen Performing Organization Address City/[facility] Phone Number [facility] [place] [address] PATHOLOGY AND GENOMIC MEDICINE [address] * T4 (03/14/2018 3:33 AM SALESPERSON FURS) T4 3.7 (L) 4.5 - 11.7 ug/dL [facility] Specimen Plasma specimen Performing Organization Address City/[facility]ode Phone Number [facility] [place] [address] PATHOLOGY AND GENOMIC MEDICINE [address] * Single antigen beads (03/14/2018 3:20 AM SALESPERSON FURS) Only the most recent of 2 results within the time period is included. [facility] DEPARTMENT OF PATHOLOGY AND GENOMIC MEDICINE Single antigen beads See link below for PDF Lab [facility] DEPARTMENT OF Report PATHOLOGY AND GENOMIC MEDICINE Performing Organization Address City/[facility]ode Phone Number [facility] [place] [address] PATHOLOGY AND GENOMIC MEDICINE * Maury Roberts Virus (EBV) by PCR (03/14/2018 3:20 AM SALESPERSON FURS) Maury Roberts virus, PCR Not-Detected Not-Detected copies/mL [facility] Maury Roberts virus, PCR See link below for PDF Lab [facility] ReportComment: Case Number: HOSPITAL [id number] Performing Organization Address City/[facility]ode Phone Number [facility] [place] [address] PATHOLOGY AND GENOMIC MEDICINE [address] * Toxoplasma IgM Ab (03/14/2018 3:20 AM SALESPERSON FURS) Toxoplasma IgM Negative Negative [facility] Specimen Blood Performing Organization Address City[facility] Phone Number [facility] [place] [address] PATHOLOGY AND GENOMIC MEDICINE [address] * Hemoglobin A1c (03/14/2018 3:20 AM SALESPERSON FURS) Only the most recent of 2 results within the time period is included. Hemoglobin A1C 4.9 4.0 - 5.6 % [facility] Comment: HOSPITAL HbA1c cutoffs for diagnosing diabetes: 4.0% - 5.6%=normal 5.7% - 6.4%=increased risk for diabetes (prediabetes) >=6.5%=diabetes Goals for glycemic control (ADA 2016) < 7.0%Target for non adults with diabetes. More or less stringent targets may be appropriate for individual patients. <7.5% Target for Children and adolescents with type 1 diabetes. Specimen Blood Performing Organization Address City/State/Zipcode Phone Number [facility] DEPARTMENT OF [address] [place] [address] PATHOLOGY AND GENOMIC MEDICINE [address] * Urinalysis screen and microscopy, with reflex to culture (03/13/2018 5:30 PM SALESPERSON FURS) Specimen site Random void [facility] Color, UA Yellow [facility] Appearance, UA Clear [facility] Specific gravity, UA 1.016 1.001 - 1.035 [facility] pH, UA 5.0 5.0 - 8.5 [facility] Protein, UA Negative Negative [facility] Glucose, UA Negative Negative [facility] Ketones, UA Negative Negative [facility] Bilirubin, UA Negative Negative [facility] Blood, UA Moderate (A) Negative [facility] Nitrite, UA Negative Negative [facility] Urobilinogen, UA <2.0 <2.0 [facility] Leukocyte esterase, UA Trace (A) Negative [facility] Epithelial cells, UA 2 /HPF [facility] WBC, UA 3 0 - 4 /HPF [facility] RBC, UA 12 (H) 0 - 5 /HPF [facility] Bacteria, UA Few None seen [facility] Yeast, UA None seen [facility] Yeast with pseudohyphae, None seen [facility] Hyaline casts, UA 3 /LPF [facility] Specimen Urine Performing Organization Address City/[facility]/Zipcode Phone Number [facility] DEPARTMENT OF [address] [place] [address] PATHOLOGY AND GENOMIC MEDICINE [address] * Protein, urine, random (03/13/2018 5:30 PM SALESPERSON FURS) Protein, urine random 17 mg/dL [facility] Specimen Urine Performing Organization Address City/[facility]/Zipcode Phone Number [facility] DE[facility] [address] [address] PATHOLOGY AND GENOMIC MEDICINE [place] [phone] HOSPITAL * Creatinine level, urine, random (03/13/2018 5:30 PM SALESPERSON FURS) Creatinine, urine, random Footnote mg/dL [facility] Specimen Urine Performing Organization Address City/State/Zipcode Phone Number [facility] DEPARTMENT OF [address] [place] [address] PATHOLOGY AND GENOMIC MEDICINE [address] * Urine culture (03/13/2018 5:30 PM SALESPERSON FURS) Urine culture isolate No growth after 24 hours [facility] Comment: HOSPITAL Specimen Information Specimen Source: Urine Specimen Site: Random void Specimen Urine - Random void Performing Organization Address City/[facility]/Zipcode Phone Number [facility] DEPARTMENT OF [address] [place] [address] PATHOLOGY AND GENOMIC MEDICINE [address] * US Renal (03/13/2018 5:10 PM SALESPERSON FURS) Narrative Performed At EXAMINATION:US RENAL [facility] CLINICAL HISTORY:OHT Eval COMPARISON:None. FINDINGS: The right kidney cwtruyes20.6 x 5.4 x 4.5 cm, parenchymal thickness 1.3 cm The left kidney fufxalju75.4 x 4.3 x 4.1 cm, parenchymal thickness 1.2 cm The kidneys are normal in size and borderline to mildly increased in echogenicity. A 7 mm right renal cortical cyst is noted. There is no evidence of renal mass, calculi, or hydronephrosis. The urinary bladder is not well seen, decompressed by Juárez catheter, and the patient has a large volume of ascites. IMPRESSION: Mildly echogenic unobstructed kidneys suggesting medical renal disease. [id number] Procedure Note Interface, Radiology Results Incoming - 03/13/2018 6:39 PM SALESPERSON FURS EXAMINATION: US RENAL CLINICAL HISTORY: OHT Eval COMPARISON: None. FINDINGS: The right kidney measures 11.6 x 5.4 x 4.5 cm, parenchymal thickness 1.3 cm The left kidney measures 10.4 x 4.3 x 4.1 cm, parenchymal thickness 1.2 cm The kidneys are normal in size and borderline to mildly increased in echogenicity. A 7 mm right renal cortical cyst is noted. There is no evidence of renal mass, calculi, or hydronephrosis. The urinary bladder is not well seen, decompressed by Juárez catheter, and the patient has a large volume of ascites. IMPRESSION: Mildly echogenic unobstructed kidneys suggesting medical renal disease. [id number] Performing Organization Address City/State/Zipcode Phone Number [facility] [address] [place] [address] * CT Head Wo Contrast (03/13/2018 4:22 PM SALESPERSON FURS) Narrative Performed At EXAMINATION: CT [facility]INICAL H[facility]ORY: OHT Evaluation COMPARISON:None TECHNIQUE: Noncontrast enhanced images of the brain were obtained from the skull base to the vertex. Both soft tissue and bone reconstruction algorithms were performed.CT imaging was performed with iterative reconstruction technique and/or automated exposure control to reduce radiation dose. FINDINGS: The brain parenchyma has no acute lesion. The dhaliwal-white matter differentiation is preserved. No evidence of acute intra or extra-axial hemorrhage, mass, mass effect or acute territorial infarction. There is no acute hydrocephalus. Basal cisterns are patent. There are scattered calcifications in the skull base vessels. There are mild lucencies in the white matter from chronic small vessel changes. No acute intracranial trauma identified. No acute soft tissue hematoma or laceration. Paranasal sinuses shows no acute air-fluid levels. Mastoid air cells are clear.No skull fractures or aggressive bony lesions. IMPRESSION: There are involutional changes as detailed above with no acute intracranial abnormality. [id number] Procedure Note Interface, Radiology Results Incoming - 03/13/2018 4:45 PM SALESPERSON FURS EXAMINATION: CT HEAD WO CONTRAST CLINICAL HISTORY: OHT Evaluation COMPARISON: None TECHNIQUE: Noncontrast enhanced images of the brain were obtained from the skull base to the vertex. Both soft tissue and bone reconstruction algorithms were performed. CT imaging was performed with iterative reconstruction technique and/or automated exposure control to reduce radiation dose. FINDINGS: The brain parenchyma has no acute lesion. The dhaliwal-white matter differentiation is preserved. No evidence of acute intra or extra-axial hemorrhage, mass, mass effect or acute territorial infarction. There is no acute hydrocephalus. Basal cisterns are patent. There are scattered calcifications in the skull base vessels. There are mild lucencies in the white matter from chronic small vessel changes. No acute intracranial trauma identified. No acute soft tissue hematoma or laceration. Paranasal sinuses shows no acute air-fluid levels. Mastoid air cells are clear. No skull fractures or aggressive bony lesions. IMPRESSION: There are involutional changes as detailed above with no acute intracranial abnormality. [id number] Performing Organization Address [facility]/Zipcode Phone Number [facility] [address] [place] [address] * Creatinine clearance, urine, 24 hour (03/13/2018 3:30 PM SALESPERSON FURS) Collection start date, SEE COMMENTComment: [facility] urine Footnote--------- HOSPITAL Collection start time, SEE COMMENTComment: [facility] urine Footnote--------- HOSPITAL Collection stop date, SEE COMMENTComment: [facility] urine Footnote--------- HOSPITAL Collection stop time, SEE COMMENTComment: [facility] urine Footnote--------- HOSPITAL Hours of collection SEE COMMENTComment: [facility] Footnote--------- HOSPITAL Total volume, urine SEE COMMENTComment: mL [facility] Footnote--------- HOSPITAL Creatinine 2.07 (H) 0.50 - 0.90 mg/dL [facility] Urine creatinine Footnote mg/dL [facility] clearance concentration Comment: HOSPITAL URINE CREAT CLEARANCE WAS CANCELLED, TEST WAS NOT NEEDED VIA WILL ODOM\\DSIC03/14/19 1905:12LSB Urine creatinine SEE COMMENTComment: mg/vol [facility] clearance excretion Footnote--------- HOSPITAL Creat clearance, urine 24 SEE COMMENT mL/min [facility] hr calc Comment: HOSPITAL CREATININE CLEARANCE REFERENCE RANGE: MALES 85 - 125 ML/MIN/1.73 SQ.METER FEMALES 75 - 115 ML/MIN/1.73 SQ.METER Footnote--------- Specimen Urine Performing Organization Address [facility]/Zipcode Phone Number [facility] [address] [place] [address] PATHOLOGY AND GENOMIC MEDICINE [address] * Antibody identification (03/13/2018 5:00 AM SALESPERSON FURS) Only the most recent of 2 results within the time period is included. Antibody ID POS, Anti-[place] [facility] Performing Organization Address City/[facility]ode Phone Number [facility] DEPARTMENT OF [address] [place] [address] [facility] MEDICINE [address] * Prepare RBC, 1 Units (03/13/2018 5:00 AM SALESPERSON FURS) Only the most recent of 2 results within the time period is included. Product name Red Cells AS1 Leukored Irrad [facility] Unit number [id number] [facility] Product code [id number] [facility] Dispense status Transfused [facility] Blood expiration date [id number] [facility] Blood type code 5100 [facility] Blood type O POSITIVE [facility] Performing Organization Address [facility] Phone Number [facility] DEPARTMENT OF [address] [place] [address] PATHOLOGY [address] * Type and screen (03/13/2018 5:00 AM SALESPERSON FURS) Only the most recent of 2 results within the time period is included. ABO grouping O [facility] Rh type POS [facility] Antibody screen (gel) POS [facility] Specimen Blood Performing Organization Address [facility] Phone Number [facility] DEPARTMENT OF [address] [place] [address] [facility]ICINE [address] * Smear review (03/13/2018 2:30 AM SALESPERSON FURS) Only the most recent of 2 results within the time period is included. Platelet slide review Denice adequate [facility] Enlarged platelets Moderate (A) [facility] Performing Organization Address City/[facility]ode Phone Number [facility] DEPARTMENT OF [address] [place] [address] PATHOLOGY AND GENOMIC MEDICINE [address] * HEMODIALYSIS CATHETER PLACEMENT (03/12/2018 4:51 PM SALESPERSON FURS) Narrative Performed At Preet Bustos MD 03/12/20184:56 PM Hemodialysis catheter placement Date/Time: 03/12/2018 4:55 PM Performed by: Preet Bustos MD Authorized by: Allan Medrano MD Consent: Consent obtained:Written Consent given by:Patient Risks discussed:Arterial puncture, incorrect placement, infection, bleeding and pneumothorax Alternatives discussed:No treatment and delayed treatment [place] protocol: Procedure explained and questions answered to patient or proxy's satisfaction: yes Relevant documents present and verified: yes Test results available and properly labeled: yes Imaging studies available: yes Site/side marked: yes Immediately prior to procedure, a time out was called: yes Patient identity confirmed:Arm band Pre-procedure details: Indication:Vascular access for HD Hand hygiene: Hand hygiene performed prior to insertion Sterile barrier technique: All elements of maximal sterile technique followed Skin preparation:2% chlorhexidine Skin preparation agent: Skin preparation agent completely dried prior to procedure Sedation: Sedation Type:Narcotic Narcotic(s) used::Fentanyl Anesthesia (see MAR for exact dosages): Anesthesia method:Local infiltration Local anesthetic:Lidocaine 1% w/o epi Procedure details: Procedure supplies:Trialysis Catheter Site Laterality:Right Post-procedure details: Post-procedure:Line sutured and dressing applied Patient tolerance of procedure:Tolerated well, no immediate complications * Lactic acid level (03/12/2018 2:19 AM SALESPERSON FURS) Only the most recent of 2 results within the time period is included. Lactic acid 0.7 0.5 - 2.2 mmol/L [facility] Specimen Plasma specimen Performing Organization Address [facility] Phone Number [facility] DEPARTMENT OF [address] [place] [address] PATHOLOGY AND GENOMIC MEDICINE [address] * Nicotine and metabolites, serum (03/10/2018 5:00 AM SALESPERSON FURS) Nicotine <2.0 0.0 - 2.0 ng/mL [facility] Cotinine <2.0 0.0 - 2.0 ng/mL [facility] 8-PW-waaolino <5.0 0.0 - 5.0 ng/mL [facility] Comment: HOSPITAL This test was developed and its performance characteristics determined by the Department of Pathology and Genomic Medicine, [facility]. Serum nicotine and its metabolites cotinine and 5-PR-pbslvawf are tested by HPLC tandem mass spectrometry. It has not been cleared or approved by FDA. The laboratory is regulated under CLIA as qualified to perform high-complexity testing. This test is used for clinical purposes. It should not be regarded as investigational or for research. Specimen Blood Performing Organization Address [facility] Phone Number [facility] DEPARTMENT OF [address] [place] [address] PATHOLOGY AND GENOMIC MEDICINE [address] * Protein, misc fluid (03/09/2018 10:48 AM SALESPERSON FURS) Fluid type Ascitic [facility] Protein, fluid 2.8 g/dL [facility] Comment: HOSPITAL Analysis performed on Bear 8000 analyzer. This is not an approved methodology for this specimen type;accuracy and clinical significance uncertain. Specimen Fluid Narrative Performed At ascites fluid [facility] DEPARTMENT OF ?Specimen to be drawn in Interventional Radiology area. PATHOLOGY AND GENOMIC MEDICINE Performing Organization Address City/State/Zipcode Phone Number [facility] [place] [address] PATHOLOGY AND GENOMIC MEDICINE [address] * LDH, misc fluid (03/09/2018 10:48 AM SALESPERSON FURS) Fluid type [facility] LDH, fluid 97 U/L [facility] Comment: HOSPITAL Analysis performed on Bear 8000 analyzer. This is not an approved methodology for this specimen type;accuracy and clinical significance uncertain. Specimen Fluid Narrative Performed At ascites [facility] DEPARTMENT OF ?Specimen to be drawn in Interventional Radiology area. PATHOLOGY AND GENOMIC MEDICINE Performing Organization Address City/[facility]/Zipcode Phone Number [facility] [place] [address] PATHOLOGY AND GENOMIC MEDICINE [address] * Hemoglobin & hematocrit (03/08/2018 8:55 PM SALESPERSON FURS) Only the most recent of 3 results within the time period is included. HGB 8.6 (L) 12.0 - 16.0 g/dL [facility] HCT 27.1 (L) 37.0 - 47.0 % [facility] Specimen Blood Performing Organization Address City/State/Zipcode Phone Number [facility] [place] [address] PATHOLOGY AND GENOMIC MEDICINE [address] * CT Abdomen Pelvis Wo Contrast (03/06/2018 2:36 PM SALESPERSON FURS) Narrative Performed At EXAMINATION:CT ABDOMEN PELVIS WO CONTRAST [facility] CLINICAL HISTORY:abd distentioncirrhosisabd hemorrhage TECHNIQUE:Multiple axial images of the abdomen and pelvis were obtained without intravenous administration of iodinated contrast. Sagittal and coronal computerized reformatted images were also obtained. The lack of intravenous contrast reduces the sensitivity of detecting solid organ disease. CT scans are performed using radiation dose reduction techniques. Technical factors are evaluated and adjusted to ensure appropriate moderation of exposure. Automated dose management technology is applied to adjust radiation exposure while achieving a diagnostic quality image COMPARISON:May 06, 2017 FINDINGS: Abdomen: There are large bilateral pleural effusions. There is a large amount of ascites throughout the abdomen. The liver is shrunken with irregular cirrhotic appearing border and surgical clips are noted from cholecystectomy. The spleen is not significantly enlarged. The pancreas is grossly normal. The adrenal glands are not increased.The kidneys demonstrated no stones or obstruction.In the anterior cortex of the mid right kidney there is a 8 mm slightly dense lesion compatible with a likely hemorrhagic cyst. These findings are similar to the preceding exam. Abdominal aorta was atherosclerotic with no definite aneurysm. Pelvis: There is ascites throughout the pelvis.No pelvic mass is identified. There is no evidence of intra-abdominal hemorrhage. IMPRESSION: Cirrhotic liver with diffuse tense abdominal ascites Right renal hemorrhagic cyst [facility]-[id number] Procedure Note [facility], Radiology Results Incoming - 03/06/2018 3:02 PM SALESPERSON FURS EXAMINATION: CT ABDOMEN PELVIS WO CONTRAST CLINICAL HISTORY: abd distention cirrhosis abd hemorrhage TECHNIQUE: Multiple axial images of the abdomen and pelvis were obtained without intravenous administration of iodinated contrast. Sagittal and coronal computerized reformatted images were also obtained. The lack of intravenous contrast reduces the sensitivity of detecting solid organ disease. CT scans are performed using radiation dose reduction techniques. Technical factors are evaluated and adjusted to ensure appropriate moderation of exposure. Automated dose management technology is applied to adjust radiation exposure while achieving a diagnostic quality image COMPARISON: May 06, 2017 FINDINGS: Abdomen: There are large bilateral pleural effusions. There is a large amount of ascites throughout the abdomen. The liver is shrunken with irregular cirrhotic appearing border and surgical clips are noted from cholecystectomy. The spleen is not significantly enlarged. The pancreas is grossly normal. The adrenal glands are not increased. The kidneys demonstrated no stones or obstruction. In the anterior cortex of the mid right kidney there is a 8 mm slightly dense lesion compatible with a likely hemorrhagic cyst. These findings are similar to the preceding exam. Abdominal aorta was atherosclerotic with no definite aneurysm. Pelvis: There is ascites throughout the pelvis. No pelvic mass is identified. There is no evidence of intra-abdominal hemorrhage. IMPRESSION: Cirrhotic liver with diffuse tense abdominal ascites Right renal hemorrhagic cyst [facility]-[id number] Performing Organization Address [facility]/[place] [address] * Transfuse RBC (03/06/2018 8:55 AM SALESPERSON FURS) Only the most recent of 5 results within the time period is included. * Folate level (03/05/2018 8:20 PM SALESPERSON FURS) Folate 10.3 4.8 - 24.2 ng/mL [facility] Specimen Serum Performing Organization Address [facility] Centercode Phone Number [facility] [place] [address] PATHOLOGY AND GENOMIC MEDICINE [address] * Vitamin B12 level (03/05/2018 8:20 PM SALESPERSON FURS) Vitamin B12 >1600 (H) 211 - 946 pg/mL [facility] Comment: HOSPITAL Significant overlap exists between normal and deficiency states. However, most patients with deficiencies will have Serum B12 <200 pg/mL. Specimen Serum Performing Organization Address [facility] [place] [address] PATHOLOGY AND GENOMIC MEDICINE [address] * Troponin (03/05/2018 4:55 PM SALESPERSON FURS) Troponin <0.30 0.00 - 0.30 ng/mL [facility] Comment: HOSPITAL 0.30 - 1.49 ng/mlMay indicate increased risk of acute coronary syndrome. >=1.5 ng/ml Consistent with acute myocardial infarction. The diagnostic value of a single normal or non-diagnostic result is questionable.Serial samples at 2-6 hour intervals are required to rule out acute myocardial injury. Specimen Plasma specimen Performing Organization Address [facility]/Zipcode Phone Number [facility] [place] [address] PATHOLOGY AND GENOMIC MEDICINE [address] * Creatine kinase, total (CPK) (03/05/2018 4:55 PM SALESPERSON FURS) Creatine kinase 97 26 - 192 U/L [facility] Specimen Plasma specimen Performing Organization Address City/[facility]/Zipcode Phone Number [facility] DEPARTMENT OF [address] [place] [address] PATHOLOGY AND GENOMIC MEDICINE [facility] [address] [place] [address] HOSPITAL * CRITICAL CARE (03/05/2018 4:45 PM SALESPERSON FURS) Narrative Performed At Christin Steel MD 03/05/20187:24 PM Critical Care Performed by: Christin Steel MD Authorized by: Christin Steel MD Critical care provider statement: Critical care time (minutes):35 Critical care was necessary to treat or prevent imminent or life-threatening deterioration of the following conditions: severe anemia needing emergent transfusion. Critical care was time spent personally by me on the following activities:Blood draw for specimens, ordering and performing treatments and interventions, ordering and review of laboratory studies, development of treatment plan with patient or surrogate, discussions with consultants, ordering and review of radiographic studies, pulse oximetry, discussions with primary provider, evaluation of patient's response to treatment, re-evaluation of patient's condition, review of old charts and examination of patient * ECG 12 lead (03/05/2018 3:18 PM SALESPERSON FURS) Only the most recent of 2 results within the time period is included. Ventricular rate 83 [facility] Atrial rate 83 [facility] CA interval 168 [facility] QRSD interval 76 [facility] QT interval 382 [facility] QTC interval 448 [facility] P axis 1 34 [facility] QRS axis 1 5 [facility] T wave axis 23 [facility] EKG impression Normal sinus rhythm-Inferior [facility] MUSE infarct , age undetermined-Anterior infarct (cited on or before 21-JUL-2017)-Abnormal ECG-In automated comparison with ECG of 21-JUL-2017 10:07,-Vent. rate has increased BY27 BPM-Inferior infarct is now present-Questionable change in initial forces of Anterior leads- Narrative Performed At Performing Organization Address City/[facility]/Zipcode Phone Number [facility] M[facility] [address] [place] [address] * MRI Abdomen Wo Contrast (02/26/2018 6:15 PM SALESPERSON FURS) Narrative Performed At [facility] EXAMINATION:MRI ABDOMEN WO CONTRAST CLINICAL HISTORY:K74.3 Primary biliary cirrhosis, PBC TECHNIQUE: Multiplanar multisequence MR images of the abdomen were obtained without contrast.3-D MRCP reconstruction images at the acquisition scanner under concurrent supervision archived and interpreted. COMPARISON:MRCP 07/22/2017 IMPRESSION: Evaluation of solid abdominal organs limited without IV contrast. 1.Motion artifact degrades image quality and decreases sensitivity of exam. 2.The nodular T2 hyperintense area of concern in hepatic segment 6 described in the prior study is less discrete and appreciable on this exam, series 13 images 20 and 21, and no definite underlying nodule is identified. 3.The punctate T2 signal hyperintensity focus in the posterior subcapsular margin of segment 7, series 13 image 18, is likewise less discrete and pronounced on this exam. No definite suspicious hepatic lesion is detected on this significantly motion limited noncontrast exam. Liver is cirrhotic. 4.MRCP images demonstrate status post cholecystectomy. Common bile duct 7.5 mm within normal range post cholecystectomy. No bile duct dilation, filling defect or other abnormality identified on motion limited study. No pancreatic duct dilation identified. 5.Pancreas grossly unremarkable without contrast. Spleen mildly enlarged similar to prior. Adrenal glands, abdominal aorta grossly unremarkable. 6.Multifocal renal cortical scarring, left more than right, and subcentimeter left renal cysts. 7.Moderate to large ascites. No definite lymphadenopathy detected. 8.Visualized bones show no suspicious lesion. Colonic diverticulosis. SUMMARY: Significantly motion limited study. Cirrhosis and portal hypertension without definite HCC. The lesions described previously are less concerning on this exam. MRCP demonstrates nothing unusual postcholecystectomy. [facility]-[id number] Procedure Note Interface, Radiology Results Incoming - 02/26/2018 7:02 PM SALESPERSON FURS EXAMINATION: MRI ABDOMEN WO CONTRAST CLINICAL HISTORY: K74.3 Primary biliary cirrhosis, PBC TECHNIQUE: Multiplanar multisequence MR images of the abdomen were obtained without contrast. 3-D MRCP reconstruction images at the acquisition scanner under concurrent supervision archived and interpreted. COMPARISON: MRCP 07/22/2017 IMPRESSION: Evaluation of solid abdominal organs limited without IV contrast. 1. Motion artifact degrades image quality and decreases sensitivity of exam. 2. The nodular T2 hyperintense area of concern in hepatic segment 6 described in the prior study is less discrete and appreciable on this exam, series 13 images 20 and 21, and no definite underlying nodule is identified. 3. The punctate T2 signal hyperintensity focus in the posterior subcapsular margin of segment 7, series 13 image 18, is likewise less discrete and pronounced on this exam. No definite suspicious hepatic lesion is detected on this significantly motion limited noncontrast exam. Liver is cirrhotic. 4. MRCP images demonstrate status post cholecystectomy. Common bile duct 7.5 mm within normal range post cholecystectomy. No bile duct dilation, filling defect or other abnormality identified on motion limited study. No pancreatic duct dilation identified. 5. Pancreas grossly unremarkable without contrast. Spleen mildly enlarged similar to prior. Adrenal glands, abdominal aorta grossly unremarkable. 6. Multifocal renal cortical scarring, left more than right, and subcentimeter left renal cysts. 7. Moderate to large ascites. No definite lymphadenopathy detected. 8. Visualized bones show no suspicious lesion. Colonic diverticulosis. SUMMARY: Significantly motion limited study. Cirrhosis and portal hypertension without definite HCC. The lesions described previously are less concerning on this exam. MRCP demonstrates nothing unusual postcholecystectomy. [facility]-[id number] Performing Organization Address [facility] Cent[facility]ode Phone Number [facility] [address] [place] [address] * Albumin, misc fluid (02/26/2018 3:13 PM SALESPERSON FURS) Fluid type Peritoneal [facility] Albumin, fluid 0.9 g/dL [facility] Comment: HOSPITAL Analysis performed on Bear 8000 analyzer. This is not an approved methodology for this specimen type;accuracy and clinical significance uncertain. Specimen Fluid Performing Organization Address [facility] Phone Number [facility] DEPARTMENT OF [address] [place] [address] PATHOLOGY AND GENOMIC MEDICINE [address] * Echocardiogram complete w contrast and 3D if needed (02/26/2018 2:00 PM SALESPERSON FURS) Narrative Performed At [facility] Echocardiography Report [address]Name:BETH MASTERSON [facility] Centerdoreen.ID:[id number] .Date: 02/26/2018Refer.MD:JADEN KEMP MD Exam Time: 11:24:00 AM Study Type:Routine Echo Height:66inWeight:193lb BSA: 1.97 m2 DOBAge:1955,62Y Sex: FEMALEBP:141/75 HR:102 bpm Sonogrphr: Ingridsusana Liebermannathan, RDCS, RVT Pat. Stat.:OutpatientRoom:[facility] 26 Study Status:Final Echo Event ID:[id number] Order ID:[id number] Reason for Study:PBC History / Clinical:Cirrhosis Procedures:2D Echo, Colorflow Doppler, Strain Race: SUMMARY: LV EF is hyperdynamic. Estimated EF is >70%. Pleural effusion is present. Echoes within the pleural space suggest the presence of a mass or fibrino-adhesive material FINDINGS: LV: LV size is normal. Average Global longitudinal strain is normal.Concentric left ventricular remodeling. LV EF is hyperdynamic.Overall wall motion is hyperdynamic. EstimatedEF is >70%. Normal GLS at -17% RV: RV size is normal. RV systolic function is normal. LA: LA volume is mild to moderately enlarged. RA: RA size is normal. AO: Aortic root diameter is normal. SANTI: No pericardial effusion. PLE:Pleural effusion is present. Echoes within the pleural space suggestthe presence of a mass or fibrino-adhesive material Other:Perihpeatic ascites is present Insufficient TR jet to estimatePA systolic pressure. AV: No structural AV abnormalities noted. MV: No structural MV abnormalities noted. PV: Pulmonic valve not well seen. TV: Tricuspid valve not well seen. [place]: Unable to assess diastolic function. MEASUREMENTS: 2D Parasternal Long Maxwell LVOT 1.9 cmLA Ds3.7 cm LVIDd2.9 cmIndex1.5 cm/m Ao An1.6 cm LVIDs1.3 cmAo Rtd 3.1 cm Index1.6 cm/m LV%fs 55 % LV Mass 72.3 g(87-129) IVSd 1 cmLVM Index 36.7 g/m2 LVPWd0.9 cmRWT0.6 LA Sng Plane LA Area 24 cm2(8.8-23.4) LA Vol78.9 ml Index40.1 ml/m LA LngAx 5.9 cm DOPPLER LVOT Stroke Vol LVOT 2 cmLVOT CO6 l/min LVOT TVI19.5 cmLVOT CI3.1 l/m/m2 LVOT Tm319 mipiSC08 bpm LVOT SV 61.1 ml Signed 02/26/2018 03:21 PM John Madrigal MD Procedure Note Interface, Radiology Results In - 02/26/2018 3:22 PM [facility] Echocardiography Report [address] [place] [address] Pat.Name: BETH MASTERSON Pat.ID: [id number] .Date: 02/26/2018 Refer.MD: JADEN KEMP MD Exam Time: 11:24:00 AM Study Type:Routine Echo Height: 66in Weight: 193lb BSA: 1.97 m2 Age: 8 1955,62Y Sex: FEMALE BP: 141/75 HR: 102 bpm Sonogrphr: Ingrid Cao RDCS, RVT Pat. Stat.:Outpatient Room: [facility] 26 Study Status:Final Echo Event ID:[id number] Order ID: [id number] Reason for Study:PBC History / Clinical:Cirrhosis Procedures:2D Echo, Colorflow Doppler, Strain Race: SUMMARY: LV EF is hyperdynamic. Estimated EF is >70%. Pleural effusion is present. Echoes within the pleural space suggest the presence of a mass or fibrino-adhesive material FINDINGS: LV: LV size is normal. Average Global longitudinal strain is normal. Concentric left ventricular remodeling. LV EF is hyperdynamic. Overall wall motion is hyperdynamic. Estimated EF is >70%. Normal GLS at -17% RV: RV size is normal. RV systolic function is normal. LA: LA volume is mild to moderately enlarged. RA: RA size is normal. AO: Aortic root diameter is normal. SANTI: No pericardial effusion. PLE: Pleural effusion is present. Echoes within the pleural space suggest the presence of a mass or fibrino-adhesive material Other: Perihpeatic ascites is present Insufficient TR jet to estimate PA systolic pressure. AV: No structural AV abnormalities noted. MV: No structural MV abnormalities noted. PV: Pulmonic valve not well seen. TV: Tricuspid valve not well seen. [place]: Unable to assess diastolic function. MEASUREMENTS: 2D Parasternal Long Maxwell LVOT 1.9 cm LA Ds 3.7 cm LVIDd 2.9 cm Index 1.5 cm/m Ao An 1.6 cm LVIDs 1.3 cm Ao Rtd 3.1 cm Index 1.6 cm/m LV%fs 55 % LV Mass 72.3 g (87-129) IVSd 1 cm LVM Index 36.7 g/m2 LVPWd 0.9 cm RWT 0.6 LA Sng Plane LA Area 24 cm2 (8.8-23.4) LA Vol 78.9 ml Index 40.1 ml/m LA LngAx 5.9 cm DOPPLER LVOT Stroke Vol LVOT 2 cm LVOT CO 6 l/min LVOT TVI 19.5 cm LVOT CI 3.1 l/m/m2 LVOT Tm 319 msec HR 99 bpm LVOT SV 61.1 ml Signed 02/26/2018 03:21 PM John Madrigal MD Performing Organization Address City/[facility]/Zipcode Phone Number [facility] [address] [place] [address] * Vitamin A level, plasma or serum (02/26/2018 11:48 AM SALESPERSON FURS) Vitamin A (retinol) 0.31 0.30 - 1.20 mg/L [facility] Retinyl palmitate <0.02 0.00 - 0.10 mg/L [facility] Vitamin A interpretation Normal [facility] Comment: Test developed and characteristics determined by [employer]. See Compliance Statement B: [employer]/ Performed by [employer], [address] [place] [id number] www.[employer], Randy Hutchison MD - Lab. Director Specimen Plasma specimen Performing Organization Address [facility] Phone Number [facility] [address] [place] [address] [facility] [address] [place] [address] * Alpha fetoprotein (02/26/2018 11:48 AM SALESPERSON FURS) Only the most recent of 2 results within the time period is included. Alpha fetoprotein 3.7 0.0 - 8.3 ng/mL [facility] Comment: [facility]OSP[facility] The Bear 8000 AFP immunoassay was used. Results obtained with different assay methods or kits should not be used interchangeably and may be different. Specimen Serum Performing Organization Address [facility] Phone Number [facility] DEPARTMENT OF [address] [place] [phone] PATHOLOGY AND GENOMIC MEDICINE [facility] [address] [place] [address] * Vitamin K level, serum (02/26/2018 11:48 AM SALESPERSON FURS) Vitamin K 1.01 0.22 - 4.88 nmol/L [facility] Comment: INTERPRETIVE INFORMATION: Vitamin K1, Serum Vitamin K concentration is reported as nanomoles per liter (nmol/L). To convert concentration to nanograms per milliliter (ng/mL), multiply the result by 0.45. See Compliance Statement B: [employer]/CS Performed by [employer], [address] [place] [address] www.[employer], Randy Hutchison MD - Lab. Director Specimen Serum Performing Organization Address [facility] Phone Number [facility] [address] [place] [address] [facility] [address] [place] [address] * Vitamin E level, plasma or serum (02/26/2018 11:48 AM SALESPERSON FURS) Alpha-tocopherol mg/L 8.5 5.5 - 18.0 mg/L [facility] Comment: Test developed and characteristics determined by [employer]. See Compliance Statement B: [employer]/CS Gamma-tocopherol mg/L 3.0 0.0 - 6.0 mg/L [facility] Comment: Performed by [employer], [address] [place] [address] www.[employer], Randy Hutchison MD - Lab. Director Specimen Plasma specimen Performing Organization Address [facility] Phone Number [facility] [address] [place] [address] [facility] [address] [place] [address] * Cv stress test (12/19/2017 2:42 PM CDT) Resting HR 86 [facility] Resting BP 133 H MUSE Peak MET Achieved 1.0 [facility] Protocol Name Vijay H MUSE Time in Exercise Phase 00:01:00 [facility] Max Systolic BP 149 [facility] Max Diastolic BP 68 [facility] Max Heart Rate 99 [facility] Max Predicted Heart Rate 158 [facility] Target HR Formula (220 - Age)*85% [facility] Test Indication PRE-TRANSPLANT EVALUATION [facility] Arrhy During Ex [facility] ECG Interp Before EX [facility] ECG Interp During Ex [facility] Ex Summary Comment H MUSE Overall HR Response to [facility] Exercise Overall BP Response To [facility] Exercise Reason for Termination TEST COMPLETED [facility] Stress Test Impression Waveform interpreted in report [facility] M[facility] associated with image study. No interpretation is provided as part of this Stress ECG report.--Electronically Signed By Yoselyn ISIDRO, Tamika ([id number]), international editorial producer Mary Kinney ([id number]) on 12/22/2017 10:04:30 AM Performing Organization Address City/State/Zipcode Phone Number [facility] [address] [place] [address] * Nm myocardial perfusion (12/19/2017 2:42 PM CDT) Narrative Performed At [facility] Nuclear Cardiology Laboratory [address] [facility], [address] [place] [address] Fax: Myocardial Perfusion Imaging Report Pat.Name:BETH MASTERSON RPat.ID:[id number] St.Date: 12/19/2017Refer.MD:CHRISTA THOMPSON MD Exam Time: 1:01:00 PM Study Type:Myocardial Perfusion Imaging Height:66inBSA: 1.97 m2 DOBAge:1955,62YSex: FEMALE Nuclear Tech:NANO Soto, [facility] Nuclear Event ID:[id number] Order ID:[id number] Reason for Study:Chest pain, unspecified*, Shortness of breath Procedures:Single Day Stress / Rest Clinical Symptoms:Regadenoson SUMMARY: BASELINE ECGNormal Sinus Rhythm, anteroseptal Q waves STRESS TEST RESULTS Maximal Predicted HR158 beats/minute 85% Maximal Predicted HR 134 beats/minute Stress Test Duration1 minutes 00 seconds Resting Heart Rate86 beats/minute Maximal Heart Rate99 beats/minute Resting Blood Leqokvno970/63 mmHg Maximal Blood Sputseoa825/68 mmHg % Maximal Heart Rate Achieved 62% Symptoms During TestFlushing, Dizziness, Lightheadedness Reason for Stopping TestAs per regadenoson protocol Maximal ST-segment shiftNone Stress-Induced Arrhythmias None Ischemic electrocardiographic changes (ST-segment depression) did not occur at peak regadenoson stress. STRESS TEST INTERPRETATION Normal maximal regadenoson stress test. SCINTIGRAPHIC RESULTS Perfusion Defect Size (% LV) 15% Total 0% Gxdvjexj81% Scar Left Ventricular Perfusion Results There is a moderate sized, severe apical, apical-septal and mid anteroseptal perfusion defect during stress which remains unchanged with rest imaging. Gated SPECT Results The post stress left ventricular ejection fraction is 61% with akinesis of all hypoperfused segments.Left ventricular end-diastolic volume is 88 ml; end-systolic volume is34 ml.The left ventricle is of normal size at stress and rest.The right ventricle is of normal size with normal wall motion. Conclusion Abnormal regadenoson Tc-99m tetrofosmin myocardial perfusion study compatible with scar in the mid to distal left anterior descending coronary artery vascular territory. The LVEF is normal. Comments The study results indicate a intermediate (1%-2%) annual risk for a cardiac or non-fatal myocardial infarction. Study Quality/Artifacts The study quality is good. Comparison to Previous Study None available. Signed 12/19/2017 04:05 PM Tamika Topete MD Procedure Note Interface, Radiology Results In - 12/19/2017 4:06 PM CDT Nuclear Cardiology Laboratory [address] [place] [address], [address] [place] [address] Myocardial Perfusion Imaging Report Pat.Name: BETH MASTERSON Pat.ID: [id number] .Date: 12/19/2017 Refer.MD: CHRISTA THOMPSON MD Exam Time: 1:01:00 PM Study Type:Myocardial Perfusion Imaging Height: 66in BSA: 1.97 m2 Age: 8 1955,62Y Sex: FEMALE Nuclear Tech:NANO Soto, [facility](CT) Nuclear Event ID:[id number] Order ID: [id number] Reason for Study:Chest pain, unspecified*, Shortness of breath Procedures:Single Day Stress / Rest Clinical Symptoms:Regadenoson SUMMARY: BASELINE ECG Normal Sinus Rhythm, anteroseptal Q waves STRESS TEST RESULTS Maximal Predicted HR 158 beats/minute 85% Maximal Predicted HR 134 beats/minute Stress Test Duration 1 minutes 00 seconds Resting Heart Rate 86 beats/minute Maximal Heart Rate 99 beats/minute Resting Blood Pressure 133/63 mmHg Maximal Blood Pressure 149/68 mmHg % Maximal Heart Rate Achieved 62% Symptoms During Test Flushing, Dizziness, Lightheadedness Reason for Stopping Test As per regadenoson protocol Maximal ST-segment shift None Stress-Induced Arrhythmias None Ischemic electrocardiographic changes (ST-segment depression) did not occur at peak regadenoson stress. STRESS TEST INTERPRETATION Normal maximal regadenoson stress test. SCINTIGRAPHIC RESULTS Perfusion Defect Size (% LV) 15% Total 0% Ischemia 15% Scar Left Ventricular Perfusion Results There is a moderate sized, severe apical, apical-septal and mid anteroseptal perfusion defect during stress which remains unchanged with rest imaging. Gated SPECT Results The post stress left ventricular ejection fraction is 61% with akinesis of all hypoperfused segments. Left ventricular end-diastolic volume is 88 ml; end-systolic volume is 34 ml. The left ventricle is of normal size at stress and rest. The right ventricle is of normal size with normal wall motion. Conclusion Abnormal regadenoson Tc-99m tetrofosmin myocardial perfusion study compatible with scar in the mid to distal left anterior descending coronary artery vascular territory. The LVEF is normal. Comments The study results indicate a intermediate (1%-2%) annual risk for a cardiac or non-fatal myocardial infarction. Study Quality/Artifacts The study quality is good. Comparison to Previous Study None available. Signed 12/19/2017 04:05 PM Tamika Topete MD Performing Organization Address City/State/Zipcode Phone Number [facility] [address] [place] [address] * Estimated GFR (09/22/2017 1:01 PM CDT) Only the most recent of 7 results within the time period is included. GFR Non Af Amer 29 (A) mL/min/1.73 m2 [facility] DEPARTMENT OF PATHOLOGY AND GENOMIC MEDICINE GFR Af Amer 35 (A) mL/min/1.73 m2 [facility] DEPARTMENT OF Comment: PATHOLOGY AND Chronic kidney disease: <60 GENOMIC MEDICINE mL/min/1.73m2 Kidney failure: <15 mL/min/1.73m2 The estimated GFR is calculated from the IDMS-traceable Modification of Diet in Renal Disease Equation. The accuracy of the calculation is poor when the creatinine is normal. Calculated values >90 mL/min/1.73m2 are not reported. This equation has not been validated in children (<18 years), women, the elderly (>70 years), or ethnic groups other than Caucasians and Americans. 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 Pulmonary hypertension is absent. Wedge pressure is normal. Cardiac output is normal. 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 Performing Organization Address [facility] Cent[facility] Phone Number [facility] [address] [place] [address] * Parathyroid hormone (08/19/2017 4:44 PM CDT) PTH 101 (H) 15 - 65 pg/mL [facility] DEPARTMENT OF PATHOLOGY AND GENOMIC MEDICINE Performing Organization Address [facility] Phone Number [facility] DEPARTMENT [address] [address] PATHOLOGY AND [employer] MEDICINE * Mammo Diagnostic w Cad Bilateral (07/22/2017 1:53 PM CDT) Narrative Performed At EXAMINATION:MAMMO DIAGNOSTIC W CAD BILATERAL [facility] INDICATION:Dense breast parenchyma. Inconclusive mammogram. Possible renal transplant. COMPARISON:None. FINDINGS: The breasts are heterogeneously dense which, may obscure small masses.There is no suspicious mass, distortion, asymmetry, or suspicious microcalcifications.Some scattered benign-appearing dystrophic calcification again noted. No suspicious cluster calcification or mass noted. IMPRESSION:Benign findings. RECOMMENDATION: Recommend annual follow-up if there is no interval change in the physical examination. BI-RADS 2: BENIGN. [id number] Performing Organization Address [facility]/Zipcode Phone Number [facility] [address] [place] [address] * MRI Cholangiogram wo contrast (07/22/2017 9:11 AM CDT) Narrative Performed At [facility] EXAM: MRI CHOLANGIOGRAM WO CONTRAST INDICATION: K74.5 Biliary cirrhosisunspecified, liver eval COMPARISON: CT abdomen pelvis without IV contrast dated 05/06/2017. TECHNIQUE: Without administration of iodinated contrast intravenously, multiplanar, multisequence images of the abdomen were obtained. Heavily T2-weighted coronal/oblique images of the biliary tract were obtained. 3-D volumetric reconstructions of the biliary tract were obtained. FINDINGS: Limited chest: Small hiatal hernia. Minimal cardiomegaly. No definite pericardial effusion. No adenopathy in visualized portions of the chest. Visualized lung bases are clear. Abdomen: Large ascites. Nodular, cirrhotic liver. No significant hepatic signal change on in phase imaging. Full evaluation of the liver for underlying mass is limited by lack of intravenous contrast and by patient respiratory motion artifact. Subtle 2.0 cm maximal diameter T1 hypointensity, T2 signal hyperintensity, and probable restricted diffusion within the posterior aspect of the inferior right lobe liver, segment 6 (series 8, slice 15, series 9, slice 18, and series 16, slice 53), which is incompletely evaluated on noncontrast examination. Recommend further evaluation with contrast-enhanced CT versus MR liver protocol. Additional 1.0 cm diameter T1 hypointense, T2 hyperintense, non-diffusion restricting focus posterior aspect of the upper right lobe of liver, segment 7 (series 16, slice 39, series 9, slice 15, and series 8, slice 12). Attention at follow-up. Status post cholecystectomy. Susceptibility artifact from cholecystectomy clips adjacent to gallbladder fossa. No intrahepatic biliary dilatation. Common bile duct measures up to 6 cm in diameter at the yesica hepatis, which is within normal limits. Pancreas demonstrates normal intrinsic T1 signal hyperintensity. Pancreatic duct is normal appearance and caliber. Multiple punctate foci of susceptibility artifact scattered throughout the spleen, compatible with Gamna-Paden nodules. Spleen is also mildly enlarged, 14.3 cm maximal coronal diameter. Bilateral adrenals are normal. 9 mm diameter T1 isointense to hyperintense, T2 hypointense structure along the anterolateral aspect of the right kidney midpole (series 16, slice 92) incompletely evaluated on this noncontrast examination but statistically likely to be a hemorrhagic or proteinaceous cyst. 2 subcentimeter simple cyst left kidney midpole. Attention on follow-up. Moderate nonspecific perinephric fat stranding bilaterally. Stomach is normal. Duodenum is normal. Remainder of visualized small bowel is normal. Visualized large bowel is normal. Limited pelvis: Unremarkable. Vascular: Full evaluation of vascular structures limited by lack of intravenous contrast. Multiple findings suggestive of portal hypertension, including: Ascites, dilatation of the main portal vein to a maximal diameter 2.0 cm, recanalization of the umbilical vein, and moderate splenomegaly. No definite abdominal, pelvic, or inguinal adenopathy. Musculoskeletal: Normal bone marrow signal. No suspicious osseous or soft tissue structure. IMPRESSION: 1. Nodular cirrhotic liver with stigmata of portal hypertension, including: Splenomegaly, with Gamna-Paden nodules, enlarged main portal vein, recanalization of the periumbilical vein, and large volume ascites. 2. Full evaluation of the liver parenchyma for mass is limited by lack of intravenous contrast. Nevertheless, there is a subtle 2.0 cm maximal diameter T2 signal hyperintensity focus with probable associated restricted diffusion within the posterior inferior right lobe liver, segment 6. Additional 1.0 cm diameter T2 hyperintense non diffusion restricting focus within the posterior aspect of the upper right lobe liver, which has less suspicious signal characteristics.Recommend further evaluation of this structure with contrast-enhanced CT versus MRI liver protocol. 3. Status post cholecystectomy. [id number] Procedure Note Interface, Radiology Results Incoming - 07/22/2017 11:16 AM CDT EXAM: MRI CHOLANGIOGRAM WO CONTRAST INDICATION: K74.5 Biliary cirrhosis unspecified, liver eval COMPARISON: CT abdomen pelvis without IV contrast dated 05/06/2017. TECHNIQUE: Without administration of iodinated contrast intravenously, multiplanar, multisequence images of the abdomen were obtained. Heavily T2-weighted coronal/oblique images of the biliary tract were obtained. 3-D volumetric reconstructions of the biliary tract were obtained. FINDINGS: Limited chest: Small hiatal hernia. Minimal cardiomegaly. No definite pericardial effusion. No adenopathy in visualized portions of the chest. Visualized lung bases are clear. Abdomen: Large ascites. Nodular, cirrhotic liver. No significant hepatic signal change on in phase imaging. Full evaluation of the liver for underlying mass is limited by lack of intravenous contrast and by patient respiratory motion artifact. Subtle 2.0 cm maximal diameter T1 hypointensity, T2 signal hyperintensity, and probable restricted diffusion within the posterior aspect of the inferior right lobe liver, segment 6 (series 8, slice 15, series 9, slice 18, and series 16, slice 53), which is incompletely evaluated on noncontrast examination. Recommend further evaluation with contrast-enhanced CT versus MR liver protocol. Additional 1.0 cm diameter T1 hypointense, T2 hyperintense, non-diffusion restricting focus posterior aspect of the upper right lobe of liver, segment 7 (series 16, slice 39, series 9, slice 15, and series 8, slice 12). Attention at follow-up. Status post cholecystectomy. Susceptibility artifact from cholecystectomy clips adjacent to gallbladder fossa. No intrahepatic biliary dilatation. Common bile duct measures up to 6 cm in diameter at the yesica hepatis, which is within normal limits. Pancreas demonstrates normal intrinsic T1 signal hyperintensity. Pancreatic duct is normal appearance and caliber. Multiple punctate foci of susceptibility artifact scattered throughout the spleen, compatible with Gamna-Paden nodules. Spleen is also mildly enlarged, 14.3 cm maximal coronal diameter. Bilateral adrenals are normal. 9 mm diameter T1 isointense to hyperintense, T2 hypointense structure along the anterolateral aspect of the right kidney midpole (series 16, slice 92) incompletely evaluated on this noncontrast examination but statistically likely to be a hemorrhagic or proteinaceous cyst. 2 subcentimeter simple cyst left kidney midpole. Attention on follow-up. Moderate nonspecific perinephric fat stranding bilaterally. Stomach is normal. Duodenum is normal. Remainder of visualized small bowel is normal. Visualized large bowel is normal. Limited pelvis: Unremarkable. Vascular: Full evaluation of vascular structures limited by lack of intravenous contrast. Multiple findings suggestive of portal hypertension, including: Ascites, dilatation of the main portal vein to a maximal diameter 2.0 cm, recanalization of the umbilical vein, and moderate splenomegaly. No definite abdominal, pelvic, or inguinal adenopathy. Musculoskeletal: Normal bone marrow signal. No suspicious osseous or soft tissue structure. IMPRESSION: 1. Nodular cirrhotic liver with stigmata of portal hypertension, including: Splenomegaly, with Gamna-Paden nodules, enlarged main portal vein, recanalization of the periumbilical vein, and large volume ascites. 2. Full evaluation of the liver parenchyma for mass is limited by lack of intravenous contrast. Nevertheless, there is a subtle 2.0 cm maximal diameter T2 signal hyperintensity focus with probable associated restricted diffusion within the posterior inferior right lobe liver, segment 6. Additional 1.0 cm diameter T2 hyperintense non diffusion restricting focus within the posterior aspect of the upper right lobe liver, which has less suspicious signal characteristics. Recommend further evaluation of this structure with contrast-enhanced CT versus MRI liver protocol. 3. Status post cholecystectomy. [id number] Performing Organization Address City/State/Zipcode Phone Number [facility] [address] [place] [phone] * PV carotid duplex (07/21/2017 3:41 PM CDT) Narrative Performed At [facility] Carotid Artery Duplex Report [address], [place] [id number] For quality inspector purposes, the categorization of the degree of the stenosis of this exam is based on criteria described in the IAC carotid stenosis grading white paper( www.intersocietal.org/Vascular) and Josh Colin, Fab Muñoz, et al. Carotid artery stenosis: dhaliwal-scale and Doppler US diagnosis--Society of Radiologists in Ultrasound Consensus Conference. Radiology. 2003 Nov; 229(2):340-6. Pat.Name:BETH MASTERSON [facility].ID:[id number] .Date: 07/21/2017 Refer.MD:Denis PICKARD MD Exam Time: 2:23:00 PMStudy Type:Carotid DOBAge:1955,61YSex: FEMALE Sonogrphr: Rosendo Bangura RN, RVTPat. Stat.:Outpatient TapeVol: DP, CPT - 4: [id number] Echo Event ID:[id number] Order ID:[id number] Reason for Study:Cirrhosis of the liver.Pre-op CV exam as part of a liver transplant evaluation. Procedures:Colorflow, Grayscale/2D, Pulsed wave Doppler Race: SUMMARY: PHYSICAL ASSESSMENT BloodPulsesCarotid Pressure Carotid TemporalBruit Right 116/54 ++0 Left 120/59 ++0 CAROTID ARTERY SCAN RIGHT:There is hard plaque in the common carotid artery.There is hard plaque in the bulb, internal and external carotid arteries.No colorflow disturbance is noted. LEFT: There is hard plaque in the common carotid artery.There is hard plaque in the bulb, internal and external carotid arteries.No colorflow disturbance is noted. PRELIMINARY FINDINGS 1.Non-stenotic plaque in the common carotid artery, bilaterally. 2.<50% stenosis in the bulb, internal and external carotid artery, bilaterally. PHYSICIAN INTERPRETATION 1.Bilateral carotid artery examination demonstrates plaque in the bulbs and internal carotid arteries without hemodynamically significant stenosis. (<50%) Carotid Findings:RightLeft Verteb.Flw AntegradeAntegrade Subclavian TriphasicTriphasic MEASUREMENTS: DOPPLER Left CCA Dist CCA Dist PSV48.1 cm/sCCA Dist EDV12.9 cm/s Left CCA Mid CCA Mid PSV 50.4 cm/sCCA Mid EDV 13.5 cm/s Left CCA Prox CCA Prox PSV56.3 cm/sCCA Prox EDV12.9 cm/s Left ICA Dist ICA Dist PSV71.5 cm/Maribel Dist EDV22.3 cm/s Left ICA Mid ICA Mid PSV 69.2 cm/Maribel Mid EDV 17.6 cm/s Left ICA Prox ICA Prox PSV58 cm/Maribel Prox EDV14.1 cm/s Left ECA Prox ECA Prox PSV42.8 cm/sECA Prox EDV9.38 cm/s Left SCA Prox SCA Prox PSV69.8 cm/s Left Vertebral Vertebral PSV 49.8 cm/sVertebral EDV 15.8 cm/s Right CCA Dist CCA Dist PSV44.6 cm/sCCA Dist EDV12.9 cm/s Right CCA Mid CCA Mid PSV 48.7 cm/sCCA Mid EDV 11.7 cm/s Right CCA Prox CCA Prox PSV52.2 cm/sCCA Prox EDV15.2 cm/s Right ICA Dist ICA Dist PSV47.5 cm/Maribel Dist EDV10.8 cm/s Right ICA Mid ICA Mid PSV 59.8 cm/Maribel Mid EDV 16.4 cm/s Right ICA Prox ICA Prox PSV48.1 cm/Maribel Prox EDV14.1 cm/s Right ECA Prox ECA Prox PSV39.3 cm/sECA Prox EDV5.86 cm/s Right SCA Prox SCA Prox PSV 106 cm/s Right Vertebral Vertebral PSV 46.9 cm/sVertebral EDV 14.1 cm/s Right ICA/CCA Ratio ICA/CCA PSV0.988 Left ICA/CCA Ratio ICA/CCA PSV 1.15 Signed 07/21/2017 04:06 PM Toribio Garza MD Procedure Note Interface, Radiology Results In - 07/21/2017 4:07 PM CDT [facility] Carotid Artery Duplex Report [address] [place] [address] For quality inspector purposes, the categorization of the degree of the stenosis of this exam is based on criteria described in the IAC carotid stenosis grading white paper( www.intersocietal.org/Vascular) and Josh Colin, Fab Muñoz, et al. Carotid artery stenosis: dhaliwal-scale and Doppler US diagnosis--Society of Radiologists in Ultrasound Consensus Conference. Radiology. 2003 Nov; 229(2):340-6. Pat.Name: BETH MASTERSON Pat.ID: [id number] .Date: 07/21/2017 Refer.MD: Denis PICKARD MD Exam Time: 2:23:00 PM Study Type:Carotid Age: 8 1955,61Y Sex: FEMALE Sonogrphr: Rosendo Bangura RN, RVT Pat. Stat.:Outpatient Tape Vol: DP, CPT - 4: 91467 Echo Event ID:[id number] Order ID: [id number] Reason for Study:Cirrhosis of the liver. Pre-op CV exam as part of a liver transplant evaluation. Procedures:Colorflow, Grayscale/2D, Pulsed wave Doppler Race: SUMMARY: PHYSICAL ASSESSMENT Blood Pulses Carotid Pressure Carotid Temporal Bruit Right 116/54 + + 0 Left 120/59 + + 0 CAROTID ARTERY SCAN RIGHT: There is hard plaque in the common carotid artery. There is hard plaque in the bulb, internal and external carotid arteries. No colorflow disturbance is noted. LEFT: There is hard plaque in the common carotid artery. There is hard plaque in the bulb, internal and external carotid arteries. No colorflow disturbance is noted. PRELIMINARY FINDINGS 1. Non-stenotic plaque in the common carotid artery, bilaterally. 2. <50% stenosis in the bulb, internal and external carotid artery, bilaterally. PHYSICIAN INTERPRETATION 1. Bilateral carotid artery examination demonstrates plaque in the bulbs and internal carotid arteries without hemodynamically significant stenosis. (<50%) Carotid Findings: Right Left Verteb.Flw Antegrade Antegrade Subclavian Triphasic Triphasic MEASUREMENTS: DOPPLER Left CCA Dist CCA Dist PSV 48.1 cm/s CCA Dist EDV 12.9 cm/s Left CCA Mid CCA Mid PSV 50.4 cm/s CCA Mid EDV 13.5 cm/s Left CCA Prox CCA Prox PSV 56.3 cm/s CCA Prox EDV 12.9 cm/s Left ICA Dist ICA Dist PSV 71.5 cm/s ICA Dist EDV 22.3 cm/s Left ICA Mid ICA Mid PSV 69.2 cm/s ICA Mid EDV 17.6 cm/s Left ICA Prox ICA Prox PSV 58 cm/s ICA Prox EDV 14.1 cm/s Left ECA Prox ECA Prox PSV 42.8 cm/s ECA Prox EDV 9.38 cm/s Left SCA Prox SCA Prox PSV 69.8 cm/s Left Vertebral Vertebral PSV 49.8 cm/s Vertebral EDV 15.8 cm/s Right CCA Dist CCA Dist PSV 44.6 cm/s CCA Dist EDV 12.9 cm/s Right CCA Mid CCA Mid PSV 48.7 cm/s CCA Mid EDV 11.7 cm/s Right CCA Prox CCA Prox PSV 52.2 cm/s CCA Prox EDV 15.2 cm/s Right ICA Dist ICA Dist PSV 47.5 cm/s ICA Dist EDV 10.8 cm/s Right ICA Mid ICA Mid PSV 59.8 cm/s ICA Mid EDV 16.4 cm/s Right ICA Prox ICA Prox PSV 48.1 cm/s ICA Prox EDV 14.1 cm/s Right ECA Prox ECA Prox PSV 39.3 cm/s ECA Prox EDV 5.86 cm/s Right SCA Prox SCA Prox PSV 106 cm/s Right Vertebral Vertebral PSV 46.9 cm/s Vertebral EDV 14.1 cm/s Right ICA/CCA Ratio ICA/CCA PSV 0.988 Left ICA/CCA Ratio ICA/CCA PSV 1.15 Signed 07/21/2017 04:06 PM Toribio Garza MD Performing Organization Address City/State/Zipcode Phone Number [facility] [address] [place] [address] * Spirometry pre & post w/ bronchodilator, diffusion, lung volumes (07/21/2017 3:00 PM CDT) FEV1 Pre 1.97 1.31 - 2.23 L [facility] FEV1/FVC % Pre 83.89 69.33 - 87.96 % [facility] FVC Pre 2.35 1.77 - 2.85 L [facility] PEF Pre 3.28 3.16 - 6.23 L/s [facility] FEF 25-75% Pre 2.26 0.86 - 2.89 L/s [facility] DLCO Pre 12.60 11.75 - 24.75 [facility] ml/(min*mmHg) DL/VA Pre 3.17 3.48 - 6.11 [facility] ml/(min*mmHg*L) VA SB Pre 3.97 2.65 - 4.85 L [facility] DLCOc Pre 14.10 ml/(min*mmHg) [facility] KCOc SB Pre 3.55 3.48 - 6.11 [facility] ml/(min*mmHg*L) Hb Pre 10.40 g(Hb)/dL [facility] FEV1 Predicted 1.77 [facility] FEV1 LLN 1.31 [facility] FEV1 % Pre of Predicted 111.3 % [facility] FVC Predicted 2.31 [facility] FVC LLN 1.77 [facility] FVC % Pre of Predicted 101.9 % [facility] FEV1/FVC % Predicted 79 [facility] FEV1/FVC % LLN 69 [facility] FEV1/FVC % Pre of 106.7 % [facility] Predicted FEF 25-75% Predicted 1.88 [facility] FEF 25-75% LLN 0.86 [facility] FEF 25-75% % Pre of 120.4 % [facility] Predicted PEF Predicted 4.69 [facility] PEF LLN 3.16 [facility] PEF % Pre of Predicted 70.0 % [facility] VC Predicted 2.31 [facility] VC LLN 1.77 [facility] FRCpl % Predicted 2.25 [facility] FRCpl % LLN 1.42 [facility] RV Predicted 1.55 [facility] RV LLN 0.97 [facility] RV % TLC Predicted 40 [facility] RV % TLC LLN 30 [facility] TLC Predicted 3.60 [facility] TLC LLN 2.61 [facility] Raw Predicted 3.06 [facility] Raw LLN 3.06 [facility] R0.5IN Predicted 3.06 [facility] R0.5IN LLN 3.06 [facility] DLCO Predicted 18.25 [facility] DLCO LLN 11.75 [facility] DLCO % Pre of Predicted 69.1 % [facility] DL/VA Predicted 4.80 [facility] DL/VA LLN 3.48 [facility] DL/VA % Pre of Predicted 66.2 % [facility] KCOc SB Predicted 4.80 [facility] KCOc SB LLN 3.48 [facility] KCOc SB % Pre of 74.0 % [facility] Predicted VA SB Predicted 3.75 [facility] VA SB LLN 2.65 [facility] VA SB % Pre of Predicted 105.9 % [facility] MIP Predicted 55.51 [facility] MIP LLN 24.88 [facility] MEP Predicted 69.52 [facility] MEP LLN 25.12 [facility] MVV Predicted 60 [facility] MVV LLN 51 [facility] Performing Organization Address City/State/Zipcode Phone Number [facility] [address] [place] [address] * XR Chest 2 Vw (07/21/2017 2:12 PM CDT) Narrative Performed At EXAMINATION:XR CHEST 2 VW [facility] CLINICAL HISTORY:K74.5 Biliary cirrhosisunspecified, Z01.818 Encounter for other preprocedural examination, Liver transplant evaluation COMPARISON:None. IMPRESSION: The lungs are clear Heart is nonenlarged Degenerative changes are present throughout the bony structures without evidence of a suspicious focal lesion. Diffuse calcified atherosclerotic vascular disease throughout the arterial structures. [id number] Procedure Note Interface, Radiology Results Incoming - 07/21/2017 3:25 PM CDT EXAMINATION: XR CHEST 2 VW CLINICAL HISTORY: K74.5 Biliary cirrhosis unspecified, Z01.818 Encounter for other preprocedural examination, Liver transplant evaluation COMPARISON: None. IMPRESSION: The lungs are clear Heart is nonenlarged Degenerative changes are present throughout the bony structures without evidence of a suspicious focal lesion. Diffuse calcified atherosclerotic vascular disease throughout the arterial structures. [facility]-[id number] Performing Organization Address [facility] Phone Number [facility] [address] [place] [address] * XR Panorex (07/21/2017 2:11 PM CDT) Narrative Performed At EXAMINATION: XR PANOREX [facility] CLINICAL HISTORY: K74.5 Biliary cirrhosisunspecified, Z01.818 Encounter for other preprocedural examination, Liver transplant evaluation COMPARISON:None IMPRESSION: Only the mandibular incisors, canines,, first premolars, and a left mandibular molar are present. No periapical lucency is identified. There is minimal periodontal lucency of the right mandibular first premolar. Dental amalgam is present. [facility]-[id number] Procedure Note Interface, Radiology Results Incoming - 07/21/2017 3:09 PM CDT EXAMINATION: XR PANOREX CLINICAL HISTORY: K74.5 Biliary cirrhosis unspecified, Z01.818 Encounter for other preprocedural examination, Liver transplant evaluation COMPARISON: None IMPRESSION: Only the mandibular incisors, canines,, first premolars, and a left mandibular molar are present. No periapical lucency is identified. There is minimal periodontal lucency of the right mandibular first premolar. Dental amalgam is present. [facility]-[id number] Performing Organization Address [facility] Phone Number [facility] [address] [place] [address] * Bone Density Peripheral (07/21/2017 2:11 PM CDT) Narrative Performed At EXAMINATION:BONE DENSITY PERIPHERAL [facility] CLINICAL HISTORY:Evaluation for osteoporosis. COMPARISON:None. The results of this study expressed as bone mineral density (BMD) were as follows: AP spine (L1-L4) BMD: 1.11 g/cm2, T-Score: - 0.6 Left Forearm (Radius 33%): BMD: 0.73 g/cm2 T-Score: - 1.7 Dual Femur (Total Mean): BMD: 0.95 g/cm2 T-Score: - 0.4 Dual femur FRAX: Risk factors: Current smoker Trabecular Bone Score (TBS): TBS L1-L4: 1.16,>1.350 normal, 1.200-1.350 partially degraded microarchitecture, <1.200 degraded microarchitecture IMPRESSION: 1. 10 year probability of fracture adjusted for TBS: Major osteoporotic: 5.6% Hip: 0.7% 2. Bone mineral density values as above. A copy of this scans including a report detailing these results will follow. Note: The world health organization (WHO) has classified the patient's T-score as follows: Above (-1) as normal (-1) to (-2.5) as low (osteopenia) Below (-2.5) as abnormally low (osteoporosis, increased fracture risk) [facility]-[id number] Procedure Note Interface, Radiology Results Incoming - 07/21/2017 2:27 PM CDT EXAMINATION: BONE DENSITY PERIPHERAL CLINICAL HISTORY: Evaluation for osteoporosis. COMPARISON: None. The results of this study expressed as bone mineral density (BMD) were as follows: AP spine (L1-L4) BMD: 1.11 g/cm2, T-Score: - 0.6 Left Forearm (Radius 33%): BMD: 0.73 g/cm2 T-Score: - 1.7 Dual Femur (Total Mean): BMD: 0.95 g/cm2 T-Score: - 0.4 Dual femur FRAX: Risk factors: Current smoker Trabecular Bone Score (TBS): TBS L1-L4: 1.16, >1.350 normal, 1.200-1.350 partially degraded microarchitecture, <1.200 degraded microarchitecture IMPRESSION: 1. 10 year probability of fracture adjusted for TBS: Major osteoporotic: 5.6% Hip: 0.7% 2. Bone mineral density values as above. A copy of this scans including a report detailing these results will follow. Note: The world health organization (WHO) has classified the patient's T-score as follows: Above (-1) as normal (-1) to (-2.5) as low (osteopenia) Below (-2.5) as abnormally low (osteoporosis, increased fracture risk) [facility]-[id number] Performing Organization Address City/State/Zipcode Phone Number [facility] [address] [place] [address] * Bone Density (07/21/2017 2:10 PM CDT) Narrative Performed At EXAMINATION:BONE DENSITY [facility] CLINICAL HISTORY:Evaluation for osteoporosis. COMPARISON:None. The results of this study expressed as bone mineral density (BMD) were as follows: AP spine (L1-L4) BMD: 1.11 g/cm2, T-Score: - 0.6 Left Forearm (Radius 33%): BMD: 0.73 g/cm2 T-Score: - 1.7 Dual Femur (Total Mean): BMD: 0.95 g/cm2 T-Score: - 0.4 Dual femur FRAX: Risk factors: Current smoker Trabecular Bone Score (TBS): TBS L1-L4: 1.16,>1.350 normal, 1.200-1.350 partially degraded microarchitecture, <1.200 degraded microarchitecture IMPRESSION: 1. 10 year probability of fracture adjusted for TBS: Major osteoporotic: 5.6% Hip: 0.7% 2. Bone mineral density values as above. A copy of this scans including a report detailing these results will follow. Note: The world health organization (WHO) has classified the patient's T-score as follows: Above (-1) as normal (-1) to (-2.5) as low (osteopenia) Below (-2.5) as abnormally low (osteoporosis, increased fracture risk) [facility]-[id number] Procedure Note Interface, Radiology Results Incoming - 07/21/2017 2:28 PM CDT EXAMINATION: BONE DENSITY CLINICAL HISTORY: Evaluation for osteoporosis. COMPARISON: None. The results of this study expressed as bone mineral density (BMD) were as follows: AP spine (L1-L4) BMD: 1.11 g/cm2, T-Score: - 0.6 Left Forearm (Radius 33%): BMD: 0.73 g/cm2 T-Score: - 1.7 Dual Femur (Total Mean): BMD: 0.95 g/cm2 T-Score: - 0.4 Dual femur FRAX: Risk factors: Current smoker Trabecular Bone Score (TBS): TBS L1-L4: 1.16, >1.350 normal, 1.200-1.350 partially degraded microarchitecture, <1.200 degraded microarchitecture IMPRESSION: 1. 10 year probability of fracture adjusted for TBS: Major osteoporotic: 5.6% Hip: 0.7% 2. Bone mineral density values as above. A copy of this scans including a report detailing these results will follow. Note: The world health organization (WHO) has classified the patient's T-score as follows: Above (-1) as normal (-1) to (-2.5) as low (osteopenia) Below (-2.5) as abnormally low (osteoporosis, increased fracture risk) [facility]-[id number] Performing Organization Address City/[facility]/[place] [address] * Low resolution full typing by SSO (07/21/2017 12:11 PM CDT) [facility] DEPARTMENT OF PATHOLOGY AND GENOMIC MEDICINE Low resolution full See link below for PDF Lab [facility] DEPARTMENT OF typing by SSO Report PATHOLOGY AND GENOMIC MEDICINE Performing Organization Address [facility] [place] [address] PATHOLOGY AND GENOMIC MEDICINE * C1Q class 1 & 2 antibody (07/21/2017 12:11 PM CDT) [facility] DEPARTMENT OF PATHOLOGY AND GENOMIC MEDICINE C1Q class 1 & 2 antibody See link below for PDF Lab [facility] DEPARTMENT OF Report PATHOLOGY AND GENOMIC MEDICINE Performing Organization Address [facility] [place] [address] PATHOLOGY AND GENOMIC MEDICINE * HIV Ag/Ab combination (07/21/2017 12:11 PM CDT) HIV Ag/Ab combination Non-reactive Non-reactive [facility] DEPARTMENT OF PATHOLOGY AND GENOMIC MEDICINE Specimen Serum Performing Organization Address [facility] [place] [address] PATHOLOGY AND GENOMIC MEDICINE * Anti smooth muscle Ab screen (07/21/2017 12:11 PM CDT) Anti smooth muscle Ab Not Detected Not-Detected [facility] DEPARTMENT OF screen PATHOLOGY AND GENOMIC MEDICINE Specimen Blood Performing Organization Address City/State/Zipcode Phone Number [facility] DEPARTMENT OF [address] [place] [address] PATHOLOGY AND GENOMIC MEDICINE * TB T-SPOT (07/21/2017 12:11 PM CDT) TB T-SPOT SEE NOTE [facility] DEPARTMENT OF Comment: PATHOLOGY AND T-SPOT TUBERCULOSIS GENOMIC MEDICINE Nil Control: 0 Panel A: 0 Panel B: 0 Positive Control: >20 Result: NEGATIVE NOTE: TMTC INDICATES TOO MANY SPOTS TO COUNT SAT INDICATES THE WELL WAS SATURATED RESULTS INTERPRETATION: RESULTS ARE NEGATIVE WHEN (PANEL A-NIL) OR (PANEL B-NIL) <=4 SPOTS, INCLUDING VALUES LESS THAN ZERO. RESULTS ARE POSITIVE WHEN (PANEL A-NIL) OR (PANEL B-NIL) >=8 SPOTS RESULTS ARE BORDERELINE WHEN EITHER (PANEL A-NIL) OR (PANEL B-NIL)=5,6,0R 7. THE TEST IS INVALID WHEN EITHER OF THE FOLLOWING CONDITIONS IS MET: 1.) THE NIL CONTROL HAS >10 SPOTS 2.) THE MITOGEN (POSITIVE CONTROL) HAS <20 SPOTS AND BOTH (PANEL A-NIL) AND (PANEL B-NIL) <=4 SPOTS. M. TUBERCULOSIS INFECTION UNLIKELY, BUT CANNOT BE EXCLUDED ESPECIALLY WHEN: 1. ANY ILLNESS IS CONSISTENT WITH TB DISEASE. 2. LIKELIHOOD OF PROGRESSION TO DISEASE (e.g. DUE TO IMMUNOSUPPRESSION) IS INCREASED. LIMITATIONS: DIAGNOSING OR EXCLUDING TUBERCULOSIS DISEASE, AND ASSESSING THE PROBABILITY OF LTBI, REQUIRES A COMBINATION OF EPIDEMIOLOGICAL, HISTORICAL, MEDICAL, AND DIAGNOSTIC FINDINGS THAT SHOULD BE TAKEN INTO ACCOUNT WHEN INTERPRETING T-SPOT.TB REFER TO THE MOST RECENT CDC GUIDANCE (HTTP: //WWW.CDC.GOV/NCHSTP/TB) FOR DETAILED RECOMMENDATIONS ABOUT DIAGNOSING TB INFECTION (INCLUDING DISEASE) AND SELECTING PERSONS FOR TESTING. 1.) A FALSE NEGATIVE RESULT CAN BE CAUSED BY INCORRECT BLOOD SAMPLE COLLECTION OR IMPROPER HANDLING OF THE SPECIMEN, AFFECTING LYMPHOCYTE FUNCTION 2.) THE PERFORMANCE OF T-SPOT.TB HAS NOT BEEN ADEQUATELY EVALUATED WITH SPECIMENS FROM INDIVIDUALS YOUNGER THANAGE 17 YEARS, IN WOMEN, AND IN PATIENTS WITH HEMOPHILIA. 3-) A FALSE POSITIVE RESULT WAS OBTAINED FOR T-SPOT.TB WHEN TESTED IN SUBJECTS WITH M. XENOPI, M. KANSASII, AND M. GORDONAE.WHILE ESAT-6 AND CFP-10 ANTIGENS ARE ABSENT FROM BCG STRAINS OF M. BOVIS AND FROM MOST ENVIRONMENTAL MYCOBACTERIA, IT IS POSSIBLE THAT A POSITIVE T-SPOT.TB RESULT MAY BE DUE TO INFECTION WITH M. KANSASII, M. SZULGAI, M. GORDONAE, OR M. MARINUM. ALTERNATIVE TESTS WOULD BE REQUIRED IF THESE INFECTIONS ARE SUSPECTED. 4.) A NEGATIVE TEST RESULT DOES NOT EXCLUDE THE POSSIBILITY OF EXPOSURE TO, OR INFECTION WITH, M. TUBERCULOSIS. PATIENTS WITH RECENT EXPOSURE TO TB INFECTED INDIVIDUALS EXHIBITING A NEGATIVE T-SPOT.TB RESULT SHOULD BE CONSIDERED FOR RETESTING WITHIN 6 WEEKS OR IF OTHER RELEVANT CLINICAL SYMPTOMS INDICATE POSSIBLE INFECTION. 5.) A POSITIVE TEST RESULT DOES NOT RULE IN ACTIVE TB DISEASE; OTHER TESTS SHOULD BE PERFORMED TO CONFIRM THE DIAGNOSIS OF ACTIVE TB DISEASE SUCH SPUTUM SMEAR AND CULTURE, PCR AND CHEST RADIOGRAPHY. 6.) T-SPOT.TB TEST HAS NOT BEEN EVALUATED IN SUBJECTS WHO HAVE RECEIVED >1 MONTH OF ANTI-TB THERAPY. 7. ) REFRIGERATED AND FROZEN SAMPLES ARE NOT RECOMMENDED FOR USE WITH T=SPOT.TB TEST. Performed by: [facility] Molecular Tuberculosis Laboratory [facility] ([id number]) [place] [address] Specimen Blood Performing Organization Address City/[facility]/[place] [address] PATHOLOGY AND [employer] MEDICINE * HLA autologous crossmatch, AHG (07/21/2017 12:11 PM CDT) [facility] DEPARTMENT OF PATHOLOGY AND GENOMIC MEDICINE HLA autologous crossmatch See link below for PDF Lab [facility] DEPARTMENT OF Report PATHOLOGY AND GENOMIC MEDICINE Performing Organization Address City/[facility] [place] [address] [facility]IC[facility] * Hepatitis C antibody (07/21/2017 12:11 PM CDT) Hepatitis C Ab Non-reactive Non-reactive [facility] DEPARTMENT OF PATHOLOGY AND GENOMIC MEDICINE Specimen Serum Performing Organization Address City/[facility]/[place] [address] PATHOLOGY AND [employer] MEDICINE * Cytomegalovirus Ab, IgM (07/21/2017 12:11 PM CDT) Cytomegalovirus Ab, IgM Positive (A) Negative [facility] DEPARTMENT OF Comment: PATHOLOGY AND Positive; CMV IgM antibodies [facility] were detected which may indicate a current or recent infection. Specimen Serum Performing Organization Address City/State/Zipcode Phone Number [facility] [place] [address] PATHOLOGY AND GENOMIC MEDICINE * Alpha-1 antitrypsin level (07/21/2017 12:11 PM CDT) Alpha-1 antitrypsin 206 (H) 90 - 200 mg/dL [facility] DEPARTMENT OF PATHOLOGY AND GENOMIC MEDICINE Specimen Plasma specimen Performing Organization Address City/State/[place] [address] PATHOLOGY AND GENOMIC MEDICINE * Hepatitis A antibody IgM (07/21/2017 12:11 PM CDT) Hepatitis A IgM Non-reactive Non-reactive [facility] DEPARTMENT OF PATHOLOGY AND [employer] MEDICINE Specimen Serum Performing Organization Address [facility] Phone Number [facility] [place] [address] PATHOLOGY AND [facility] * Hepatitis A antibody total (07/21/2017 12:11 PM CDT) Hepatitis A total Ab Reactive (A) Non-reactive [facility] DEPARTMENT OF Comment: PATHOLOGY AND Hepatitis A Total Antibody [facility] reactive. Hepatitis A IgM antibody will be performed and reported separately when completed. Specimen Serum Performing Organization Address [facility] Phone Number [facility] [place] [address] [facility] * Cancer antigen 19-9 (07/21/2017 12:11 PM CDT) CA 19-9 48 (H) 0 - 35 U/mL [facility] DEPARTMENT OF Comment: PATHOLOGY AND [employer] [address] [id number] GENOMIC [facility] immunoassay was used. Results obtained with different assay methods or kits should not be used interchangeably and may be different. Specimen Plasma specimen Performing Organization Address [facility]/Zipcode Phone Number [facility] [place] [address] PATHOLOGY AND GENOMIC MEDICINE * DIANE titer (07/21/2017 12:11 PM CDT) DIANE titer 1:160 (A) Not-Detected [facility] DEPARTMENT OF PATHOLOGY AND GENOMIC MEDICINE DIANE titer 1 1:160 (A) Not-Detected [facility] DEPARTMENT OF PATHOLOGY AND GENOMIC MEDICINE DIANE pattern Centromere (A) Not-Detected [facility] DEPARTMENT OF PATHOLOGY AND GENOMIC MEDICINE Specimen Blood Performing Organization Address City/[facility]/[place] [address] [facility] * Anti mitochondria screen (07/21/2017 12:11 PM CDT) Anti mitochondria screen Not Detected Not-Detected [facility] DEPARTMENT PATHOLOGY AND GENOMIC MEDICINE Specimen Blood Performing Organization Address City/[facility] [place] [address] [facility] * Ceruloplasmin level (07/21/2017 12:11 PM CDT) Ceruloplasmin 34 16 - 45 mg/dL [facility] DEPARTMENT PATHOLOGY AND GENOMIC MEDICINE Specimen Plasma specimen Performing Organization Address [facility] [place] [address] [facility] * Drug colby 9, ser/errol, scrn w/rflx to conf (07/21/2017 12:11 PM CDT) Amphetamines, s/p, screen Negative Cutoff 30 ng/mL [facility] Methamphetamine, s/p, Negative Cutoff 30 ng/mL [facility] screen Barbiturates, s/p, screen Negative Cutoff 75 ng/mL [facility] Benzodiazepines, s/p, Negative Cutoff 75 ng/mL [facility] screen Cocaine, s/p, screen Negative Cutoff 30 ng/mL [facility] Methadone, s/p, screen Negative Cutoff 40 ng/mL [facility] Opiates, s/p, screen Negative Cutoff 30 ng/mL [facility] Oxycodone, s/p, screen Negative Cutoff 30 ng/mL [facility] Phencyclidine, s/p, Negative Cutoff 15 ng/mL [facility] screen Cannabinoids, s/p, screen Negative Cutoff 30 ng/mL [facility] Drug screen comments, See Note [facility] serum Comment: INTERPRETIVE INFORMATION: Drug Screen 9 Panel, Serum or Plasma - Immunoassay Screen with Reflex to Mass Spectrometry Confirma tion/Quantitation 1. Methodology: Qualitative Immunoassay Screen 2. Drugs/Drug classes reported as "Positive" are automatically reflexed to mass spectrometry confirmation/quantitation testing. An immunoassay unconfirmed positive screen result may be useful for medical purposes but does not meet forensic standards. 3. The absence of expected drug(s) and/or drug metabolite(s) may indicate non-compliance, inappropriate timing of specimen collection relative to drug administration, poor drug absorption, or limitations of testing. The concentration at which the screening test can detect a drug or metabolite varies within a drug class. Specimens for which drugs or drug classes are detected by the screen are automatically reflexed to a second, more specific technology (mass spectrometry). The concentration value must be greater than or equal to the cutoff to be reported as positive. Interpretive questions should be directed to the laboratory. 4. For medical purposes only; not valid for forensic use. Test developed and characteristics determined by [employer]. See Compliance Statement B: [employer] Performed by [employer], [address] [place] [address] [id number] www.[employer], Randy Hutchison MD - Lab. Director Specimen Blood Performing Organization Address [facility] [place] Phone Number [facility] [address] [place] [address] * Zinc level, serum (07/21/2017 12:11 PM CDT) Zinc 61 60 - 120 ug/dL [facility] Comment: INTERPRETIVE INFORMATION: Zinc, Serum or Plasma Circulating zinc concentrations are dependent on albumin status and are depressed with malnutrition. Zinc may also be lowered with infection, inflammation, stress, oral contraceptives, and . Zinc may be elevated with zinc supplementation or fasting. Elevated zinc concentrations may interfere with copper absorption. Test developed and characteristics determined by [employer]. See Compliance Statement B: [employer]/CS Performed by [employer], [address] [place], [place] [id number] [email or web address], Randy Hutchison MD - Lab. Director Specimen Blood Performing Organization Address City/[facility]/Zipcode Phone Number [facility] [address] [place] [address] * ABORh - transplant (07/21/2017 12:11 PM CDT) ABO grouping O [facility] DEPARTMENT OF PATHOLOGY AND GENOMIC MEDICINE Rh type POS [facility] DEPARTMENT OF PATHOLOGY AND GENOMIC MEDICINE Specimen Blood Performing Organization Address City/[facility]/Zipcode Phone Number [address] [address] PATHOLOGY AND GENOMIC MEDICINE * Hepatitis B core antibody total (07/21/2017 12:11 PM CDT) Hepatitis B core total Ab Non-reactive Non-reactive [facility] DEPARTMENT OF PATHOLOGY AND [employer] MEDICINE Specimen Serum Performing Organization Address City/[facility]/[place] [address] PATHOLOGY AND [facility] * Vitamin D 25 hydroxy level (07/21/2017 12:11 PM CDT) Vitamin D, 25-hydroxy 11.2 (L) 30.0 - 150.0 ng/mL [facility] DEPARTMENT OF Comment: PATHOLOGY AND This assay reports the sum of [facility] 25-hydroxy vitamin D3 and 25-hydroxy vitamin D2. Reference range: 0-17 years: Deficiency: less than 20ng/mL Optimum level: greater than or equal to 20 ng/mL. 18 years and older: Deficiency: less than 20ng/mL Insufficiency: 20-29 ng/mL Optimum Level: 30-80 ng/mL The assay reportable range is 3.4155.9 ng/mL. Levels higher than 150 ng/mL may be associated with toxicity. If toxicity is clinically suspected and the reported result is >155.9 ng/mL,contact lab for alternative methods to obtain a definitivelevel. If separate quantitation of 25-hydroxy vitamin D3 and 25-hydroxy vitamin D2 is needed, please contact lab for alternative methods. Specimen Blood Performing Organization Address [facility]/[place] [address] [facility] * Hepatitis B surface antibody (07/21/2017 12:11 PM CDT) Hepatitis B surface Ab Reactive (A) Non-reactive [facility] DEPARTMENT OF PATHOLOGY AND [employer] MEDICINE Specimen Serum Performing Organization Address City/[facility]/Zipcode Phone Number [facility] [place] [address] PATHOLOGY AND [facility] * Hepatitis B surface antigen (07/21/2017 12:11 PM CDT) Hepatitis B surface Ag Non-reactive Non-reactive [facility] DEPARTMENT OF PATHOLOGY AND [employer] MEDICINE Specimen Serum Performing Organization Address City/[facility]/[place] [address] [facility] * Cytomegalovirus Ab, IgG (07/21/2017 12:11 PM CDT) Cytomegalovirus Ab, IgG Positive (A) Negative [facility] DEPARTMENT OF Comment: PATHOLOGY AND Positive; IgG antibody to CMV [facility] detected which may indicate exposure to CMV infection. Specimen Serum Performing Organization Address City/[facility]/Zipcode Phone Number [facility] [place] [address] [facility] * C-reactive protein (07/21/2017 12:11 PM CDT) CRP 0.93 (H) 0.00 - 0.50 mg/dL [facility] DEPARTMENT OF PATHOLOGY AND GENOMIC MEDICINE Specimen Plasma specimen Performing Organization Address City/[facility] Phone Number [facility] [place] [address] [facility] * DIANE (07/21/2017 12:11 PM CDT) DIANE screen Positive (A) Negative [facility] DEPARTMENT OF PATHOLOGY AND GENOMIC MEDICINE Specimen Blood Performing Organization Address [facility] [place] [address] PATHOLOGY AND [facility] * GGT (07/21/2017 12:11 PM CDT) GGT 53 (H) 0 - 39 U/L [facility] DEPARTMENT OF PATHOLOGY AND GENOMIC MEDICINE Specimen Plasma specimen Performing Organization Address [facility] Phone Number [facility] [place] [address] [facility] * Carcinoembryonic antigen (CEA) (07/21/2017 12:11 PM CDT) CEA 4.6 (H) 0.0 - 3.8 ng/mL [facility] DEPARTMENT OF Comment: PATHOLOGY AND Reference range for heavy [facility] smokers:0.0 - 5.5 ng/mL The GLENYS Bear 8000 CEA immunoassay was used. Results obtained with different assay methods or kits should not be used interchangeably and may be different. Specimen Serum Performing Organization Address [facility] Phone Number [facility] [place] [address] PATHOLOGY AND [facility] * Alcohol level, blood (07/21/2017 12:11 PM CDT) Alcohol None Detected mg/dL [facility] DEPARTMENT OF Comment: PATHOLOGY AND Normal GENOMIC MEDICINE None Detected Legal Intoxication in [place]80 mg/dL (0.08%) - Whole Blood Toxic Concentration 200 mg/dL (0.2%) Potentially Fatal3 50 - 500 mg/dL (0.35 - 0.5%) Alcohol percent None Detected % [facility] DEPARTMENT OF PATHOLOGY AND GENOMIC MEDICINE Specimen Plasma specimen Performing Organization Address City/State/Zipcode Phone Number [facility] DEPARTMENT OF [address] [place] [address] PATHOLOGY AND GENOMIC MEDICINE after 07/01/2017 Advance Directives Patient has advance care planning documents, and code status on file. For more i nformation, please contact: Jose Hutchins [address] [place] [address] Date Inactivated Comments Code Status Date Activated 05/07/2017 5:41 PM Full Code 05/01/2017 3:05 PM Code Status decision reached by: Patient
[2018-07-02] MEDS ORDERED: ONDANSETRON HCL INJ 2MG/ML 2ML 2 MG/ML VIAL IV PRN (18:45)
--- NOTE | 2018-07-02 19:00 | NUR ---
BEDSIDE REPORT TO LEDA Brock
--- NOTE | 2018-07-02 19:35 | NUR ---
Received report from ER nurse.
[2018-07-02 20:00] VITALS: BP 152/67
--- NOTE | 2018-07-02 20:00 | NUR ---
Patient arrived to the floor stretcher.
[2018-07-03] VITALS (9 sets, daily range): BP systolic 122–136; BP diastolic 58–73
[2018-07-03] MEDS ORDERED: AMLODIPINE BESYL5 MG PO (03:36)
[2018-07-03] MEDS ORDERED: LIOTHYRONINE SO5 MCG (03:37)
[2018-07-03] MEDS ORDERED: LASIX40 MG PO (03:38)
[2018-07-03] MEDS ORDERED: LEVOTHYROXINE50 MCG PO (03:39)
[2018-07-03] MEDS ORDERED: METOPROLOL TART50 MG PO (03:40)
[2018-07-03] MEDS ORDERED: ASPIRIN81 MG PO (03:41)
[2018-07-03] MEDS ORDERED: SPIRONOLACTONE25 MG PO (03:44)
[2018-07-03] MEDS ORDERED: XIFAXAN550 MG PO (03:46)
[2018-07-03] MEDS ORDERED: FENOFIBRATE145 MG PO (03:48)
[2018-07-03] MEDS ORDERED: SODIUM CHLORIDE 0.9% 250ML 250 ML ONE ×2 (05:00→12:13)
[2018-07-03 06:14] LABS: BASOPHILS % 0.4 % (0.0-1.0); EOSINOPHILS # (AUTO) 0.1 (0.0-0.4); EOSINOPHILS % 1.7 % (0.0-6.0); LYMPHOCYTES # (AUTO) 0.9 (1.0-3.2); LYMPHOCYTES % 17.6 % (18.0-39.1); MONOCYTES # (AUTO) 0.6 (0.2-0.8); MONOCYTES % 11.6 % (4.4-11.3); NEUTROPHILS # (AUTO) 3.6 (2.1-6.9); NEUTROPHILS % 68.3 % (38.7-80.0); PLATELET COUNT 358 x10e3/uL (140-360); RED BLOOD COUNT 1.71 x10e6/uL (3.6-5.1); RED CELL DISTRIBUTION WIDTH 17.2 % (11.7-14.4)
[2018-07-03 06:22] LABS: ALBUMIN 2.5 g/dL (3.5-5.0); ALBUMIN/GLOBULIN RATIO 0.9 (0.8-2.0); ANION GAP 11.7 mmol/L (8-16); CALCIUM 8.3 mg/dL (8.4-10.2); CREATININE, SERUM 2.08 mg/dL (0.57-1.11); POTASSIUM 3.7 mmol/L (3.5-5.1)
[2018-07-03 06:41] LABS: HEMATOCRIT 17.1 % (34.2-44.1); HEMOGLOBIN 5.3 g/dL (12.0-16.0)
[2018-07-03] MEDS: PANTOPRAZOLE 40 MG 10ML VIAL IV SCH ×3 (06:43→08:54)
--- NOTE | 2018-07-03 07:31 | NUR ---
Gave report to oncoming nurse. Call light within reach. Patient in bed. Patient is having blood transfusing and no reactions to transfusion. Consent for paracentesis done. Did not give protonix because blood is transfusing in her IV line
[2018-07-03 07:57] LABS: ALBUMIN 2.5 g/dL (3.5-5.0); BILIRUBIN,DIRECT 0.4 mg/dL (0.0-0.5)
[2018-07-03] MEDS: FUROSEMIDE INJ 10 MG/ML 2 ML VIAL IV PRN ×2 (08:53→16:13)
--- NOTE | 2018-07-03 08:58 | NUR ---
Patient is NPO for paracentesis, AM meds held, first unit PRBC's in and repeat H/H ordered.
[2018-07-03] MEDS: FUROSEMIDE 40 MG TAB PO SCH ×2 (09:00→17:30)
[2018-07-03] MEDS: METOPROLOL TARTRATE 50 MG TAB PO SCH ×2 (09:00→17:31)
[2018-07-03] MEDS: RIFAXIMIN 550 MG TABLET PO SCH ×2 (09:00→17:31)
[2018-07-03 09:59] LABS: HEMOGLOBIN 7.3 g/dL (12.0-16.0)
--- NOTE | 2018-07-03 10:15 | NUR ---
H/H 7.3 reported to Mabel Bah RN. Per SOLO MUSICIAN patient should get an additional unit PRBC's for a total of two units. SOLO MUSICIAN also gave the okay for Paracentesis today, have 6L removed and schedule another paracentesis for tomorrow and have an additional 6L removed. WILL Milesresearch physiologist nurse notified.
--- NOTE | 2018-07-03 11:00 | NUR ---
Interventional Radiologist, Radiology Nurse and tech at the bedside to start u/s guided Paracentesis.
--- NOTE | 2018-07-03 12:06 | NUR ---
Paracentesis complete. Patient tolerated well. Dressing to right abdomen intact.
--- NOTE | 2018-07-03 12:09 | Diagnostic Imaging Report ---
Procedure: Ultrasound-guided therapeutic paracentesis quill cleaning machine operator: Krista Boyce MD Pre-operative diagnosis: Large volume ascites. Post-operative diagnosis: Moderate to large volume ascites. Conscious Sedation: The patient's heart rate and pulse oximetry were continuously monitored by the IR nurse. Additional Medications: Lidocaine 1% for local anesthesia Estimated blood loss: Minimal Specimens: None. Implants: None TECHNIQUE/FINDINGS: Informed consent was obtained from the patient and documented in the medical record. The patient was placed in the supine position. Initial ultrasound demonstrated large volume ascites. The right lower abdomen was prepped and draped in standard sterile fashion. 1% lidocaine was infiltrated into the skin and subcutaneous tissues for local anesthesia. Then under continuous sonographic guidance, a 5 Fr catheter was advanced into the peritoneal space. The catheter was connected to vacuum bottle with subsequent evacuation of 6,000 cc of serosanguinous fluid. The catheter was removed. Dermabond and sterile dressing was applied. The patient tolerated the procedure well. IMPRESSION: Ultrasound-guided therapeutic paracentesis with removal of 6,000 cc of serosanguinous fluid. Signed by: Dr. Krista Boyce MD on 07/03/2018 12:06 PM
[2018-07-03] MEDS: FENOFIBRATE 145 MG TAB PO SCH (12:10)
[2018-07-03] MEDS: AMLODIPINE BESYLATE 5 MG TAB PO SCH (12:10)
[2018-07-03] MEDS: SPIRONOLACTONE 25 MG TAB PO SCH (12:10)
[2018-07-03] MEDS: ASPIRIN 81 MG CHEW TAB PO SCH (12:10)
[2018-07-03] MEDS: LIOTHYRONINE SODIUM 5 MCG TAB PO SCH (12:10)
[2018-07-03] MEDS: LEVOTHYROXINE SODIUM 50 MCG TAB PO SCH (12:10)
[2018-07-03] MEDS ORDERED: SODIUM CHLORIDE 0.9% 250ML 250 ML IV ONE (12:45)
[2018-07-03] MEDS ORDERED: ONDANSETRON HCL 4 MG ORAL DISINTEGRATING TAB PO PRN (14:30)
--- NOTE | 2018-07-03 15:00 | NUR ---
Report given to WILL Goldstein
--- NOTE | 2018-07-03 15:05 | NUR ---
Mabel Bah NP notified of positive stool OB and clarified transfusion order. Patient will received a total of 2 units of PRBC's today.
--- NOTE | 2018-07-03 15:10 | NUR ---
PATIENT RECEIVED FROM OBS PER STRETCHER. ALERT AND VERBALLY RESPONSIVE, RESP EVEN AND UNLABORED, ABDOMEN DISTENDED. DENIED PAIN AT THIS TIME. BLOOD TRANSFUSION IN PROGRESS, NO ADVERSE REACTION OBSERVED. V/S 97.2-85-18-133/61 AND 97% ON RA. BED IN LOWER POSITION, CALL LIGHT AT REACH.
--- NOTE | 2018-07-03 16:30 | NUR ---
BLOOD TRANSFUSION COMPLETED, NO ADVERSE REACTION NOTED. POST TRANSFUSION MED GIVEN ORDERED. PATIENT ASSISTED TO THE BED SIDE COMMODE AND BACK TO BED. CALL LIGHT AT REACH.
[2018-07-03] MEDS: FERROUS SULFATE 325 MG TAB PO SCH (17:30)
[2018-07-03] MEDS: ASCORBIC ACID 500 MG TAB PO SCH (17:31)
--- NOTE | 2018-07-03 19:17 | NUR ---
PT IS RESTING IN BED. NO RESPIRATORY DISTRESS NOTED. BED IN THE LOWEST POSITION, LOCKED, AND CALL LIGHT WITHIN REACH. WILL CONTINUE TO MONITOR.
[2018-07-04] VITALS (8 sets, daily range): BP systolic 104–134; BP diastolic 52–62
--- NOTE | 2018-07-04 03:40 | NUR ---
PER PT SHE WANTS TO WAIT TILL MORNING TO HAVE HER LABS DRAWN. WILL CONTINUE TO MONITOR.
[2018-07-04] MEDS: LEVOTHYROXINE SODIUM 50 MCG TAB PO SCH (05:50)
[2018-07-04] MEDS: PANTOPRAZOLE SOD 40 MG TABEC PO SCH ×2 (05:50→07:30)
[2018-07-04 06:04] LABS: BASOPHILS % 0.7 % (0.0-1.0); EOSINOPHILS # (AUTO) 0.1 (0.0-0.4); EOSINOPHILS % 1.7 % (0.0-6.0); HEMATOCRIT 23.3 % (34.2-44.1); HEMOGLOBIN 7.6 g/dL (12.0-16.0); LYMPHOCYTES # (AUTO) 0.6 (1.0-3.2); LYMPHOCYTES % 14.4 % (18.0-39.1); MEAN CORPUSCULAR HEMOGLOBIN 30.4 pg (28-32); MEAN CORPUSCULAR HGB CONC 32.6 g/dL (31-35); MEAN CORPUSCULAR VOLUME 93.2 fL (81-99); MONOCYTES # (AUTO) 0.5 (0.2-0.8); MONOCYTES % 10.6 % (4.4-11.3); NEUTROPHILS # (AUTO) 3.1 (2.1-6.9); NEUTROPHILS % 72.1 % (38.7-80.0); PLATELET COUNT 279 x10e3/uL (140-360); RED CELL DISTRIBUTION WIDTH 16.5 % (11.7-14.4)
[2018-07-04 06:32] LABS: ANION GAP 12.5 mmol/L (8-16); CALCIUM 7.9 mg/dL (8.4-10.2); CREATININE, SERUM 1.96 mg/dL (0.57-1.11); MAGNESIUM 2.1 MG/DL (1.3-2.1); POTASSIUM 3.5 mmol/L (3.5-5.1)
--- NOTE | 2018-07-04 07:23 | NUR ---
PATIENT IN BED RESTING WITH EYES CLOSED, NO RESPIRATORY DISTRESS OBSERVED. ALL PERSONAL ITEMS CLOSE TO PATIENT. BED IN LOWER POSITION, CALL LIGHT AT REACH.
[2018-07-04] MEDS: LIOTHYRONINE SODIUM 5 MCG TAB PO SCH (07:30)
[2018-07-04] MEDS ORDERED: FUROSEMIDE INJ 10 MG/ML 2 ML VIAL IV SCH (07:45)
[2018-07-04] MEDS ORDERED: SODIUM CHLORIDE 0.9% 250ML 250 ML IV ONE (07:45)
--- NOTE | 2018-07-04 10:15 | NUR ---
PATIENT OFF UNIT FOR A PROCEDURE.
--- NOTE | 2018-07-04 10:17 | NUR ---
PATIENT RETURNED TO UNIT AND WILL RECEIVED A BED SIDE PARACENTESIS. CALL LIGHT AT REACH.
--- NOTE | 2018-07-04 11:26 | NUR ---
BED SIDE PARACENTESIS COMPLETED AT THIS TIME. 6 LITER REMOVED PER IR STAFF. PATIENT IN BED WITH CALL LIGHT AT REACH V/S 97.5-83-18-134/61 AND 100% ON RA. WILL CLOSELY MONITOR.
[2018-07-04] MEDS: FENOFIBRATE 145 MG TAB PO SCH (11:50)
[2018-07-04] MEDS: ASCORBIC ACID 500 MG TAB PO SCH ×2 (11:50→17:33)
[2018-07-04] MEDS: OYST-CAL-D 500MG TABLET PO SCH ×2 (11:50→17:33)
[2018-07-04] MEDS: RIFAXIMIN 550 MG TABLET PO SCH ×2 (11:50→17:33)
[2018-07-04] MEDS: AMLODIPINE BESYLATE 5 MG TAB PO SCH (11:50)
[2018-07-04] MEDS: FUROSEMIDE 40 MG TAB PO SCH ×2 (11:51→17:33)
[2018-07-04] MEDS: METOPROLOL TARTRATE 50 MG TAB PO SCH ×2 (11:51→17:33)
[2018-07-04] MEDS: ASPIRIN 81 MG CHEW TAB PO SCH (11:51)
[2018-07-04] MEDS: FERROUS SULFATE 325 MG TAB PO SCH ×2 (11:51→17:33)
[2018-07-04] MEDS: SPIRONOLACTONE 25 MG TAB PO SCH (11:51)
[2018-07-04] MEDS ORDERED: SODIUM CHLORIDE 0.9% 250ML 250 ML ONE ×2 (12:02→17:02)
--- NOTE | 2018-07-04 12:49 | NUR ---
BLOOD TRANSFUSION STARTED ORDERED, STAYED WITH PATIENT FOR THE FIRST 15 MINUTES, NO ADVERSE REACTION OBSERVED. WILL CLOSELY MONITOR.
[2018-07-04] MEDS: FUROSEMIDE INJ 10 MG/ML 2 ML VIAL IV PRN (15:48)
--- NOTE | 2018-07-04 16:02 | NUR ---
FIRST UNIT OF BLOOD TRANSFUSION COMPLETED, NO ADVERSE REACTION OBSERVED. POST TRANSFUSION MEDICATION GIVEN ORDERED. IN BED TALKING TO FAMILY MEMBER VISITING, CALL LIGHT AT REACH.
--- NOTE | 2018-07-04 16:25 | NUR ---
CASE MANAGEMENT INITIAL ASSESSMENT Plow Mechanic to bedside to discuss plan of care with patient/family. CM/SW role and care transitions discussed. Anticipated discharge plan discussed along with duration of care. CM/SW discussed patients right to make decisions in care. CM/SW work hours given. Patient lives: WITH HER . HER 2 ADULT CHILDREN LIVE WITH THEM Admit/Transfer: ED Hospital/ER visits since last admit: COMES FOR OUTPATIENT US FREQUENTLY. NO ER OR HOSPITALIZATIONS POA/Emergency contact: : ANTONIA SIFUENTES [phone] Current/Previous Home Health:0 PCP/Follow-up Care: DR. UMA PARKER Current/Previous DME: 0 Medications (referring to index hospitalization or the first time you were in the hospital)N/A a. Were changes made in your medications when you were in the hospital on [date of index hospitalization]? Yes No Not sure Explain:N/A Note: If no or not sure, please skip to question d b. Did you understand the changes? Yes No Explain:N/A c. Were you able to obtain your new medications right away? Yes No n/a SNF only Explain: d. Were you able to take your medications like the doctor wanted you to? Yes No Explain: N/A e. Did the hospital give you an accurate, easy to understand list of medications when you left? Yes No n/a SNF only Explain: N/A PT UNDERSTANDS HER DISEASE PROCESSES AND HER HOME MEDICATIONS Scale of 1-10 how comfortable does patient feel with disease management in outpatient settin Other Services: 0 Employment Status: RETIRED Areas of Concerns: 0 Referral Needs: 0 Education Needs: 0 IMM/VARELA given and signed (if applicable): N/A Goal for discharge: TO RETURN HOME TO AND FAMILY CM/SW left business card at the bedside with contact information. Name and number was also written on the patients whiteboard. Patient verbalized understanding of discussion. CM will follow-up with ongoing discharge and transition of care needs.
--- NOTE | 2018-07-04 17:55 | NUR ---
SECOND UNIT OF BLOOD TRANSFUSION STARTED. STAYED WITH PATIENT FOR THE FIRST 15 MINUTES, NO ADVERSE REACTION OBSERVED. WILL CLOSELY MONITOR.
[2018-07-04 22:53] LABS: BASOPHILS % 0.3 % (0.0-1.0); EOSINOPHILS # (AUTO) 0.1 (0.0-0.4); EOSINOPHILS % 1.2 % (0.0-6.0); HEMATOCRIT 32.7 % (34.2-44.1); HEMOGLOBIN 10.8 g/dL (12.0-16.0); LYMPHOCYTES # (AUTO) 0.7 (1.0-3.2); MEAN CORPUSCULAR HEMOGLOBIN 29.8 pg (28-32); MEAN CORPUSCULAR VOLUME 90.3 fL (81-99); MONOCYTES # (AUTO) 0.6 (0.2-0.8); MONOCYTES % 8.3 % (4.4-11.3); NEUTROPHILS # (AUTO) 5.5 (2.1-6.9); NEUTROPHILS % 79.6 % (38.7-80.0); PLATELET COUNT 314 x10e3/uL (140-360); RED BLOOD COUNT 3.62 x10e6/uL (3.6-5.1); RED CELL DISTRIBUTION WIDTH 17.4 % (11.7-14.4)
[2018-07-05] MEDS ORDERED: ACETAMINOPHEN 325 MG TAB PO PRN (00:30)
[2018-07-05 04:10] VITALS: BP 96/53
[2018-07-05 04:30] LABS: BASOPHILS % 0.4 % (0.0-1.0); EOSINOPHILS # (AUTO) 0.1 (0.0-0.4); EOSINOPHILS % 2.3 % (0.0-6.0); HEMATOCRIT 30.3 % (34.2-44.1); HEMOGLOBIN 9.8 g/dL (12.0-16.0); LYMPHOCYTES # (AUTO) 0.8 (1.0-3.2); LYMPHOCYTES % 13.8 % (18.0-39.1); MEAN CORPUSCULAR HEMOGLOBIN 29.4 pg (28-32); MEAN CORPUSCULAR HGB CONC 32.3 g/dL (31-35); MONOCYTES # (AUTO) 0.6 (0.2-0.8); MONOCYTES % 10.4 % (4.4-11.3); NEUTROPHILS % 72.6 % (38.7-80.0); PLATELET COUNT 288 x10e3/uL (140-360); RED BLOOD COUNT 3.33 x10e6/uL (3.6-5.1); RED CELL DISTRIBUTION WIDTH 17.5 % (11.7-14.4)
[2018-07-05 04:59] LABS: ANION GAP 14.4 mmol/L (8-16); CALCIUM 7.9 mg/dL (8.4-10.2); CREATININE, SERUM 1.79 mg/dL (0.57-1.11); MAGNESIUM 2.1 MG/DL (1.3-2.1); POTASSIUM 3.4 mmol/L (3.5-5.1)
--- NOTE | 2018-07-05 05:03 | NUR ---
Patient laying in bed with HOB slightly elevated. No sob noted. No acute distress noted. Patient noted with infiltrated IV to left AC, removed, pressure applied, no active bleeding noted. Patient in stable condition, will continue to monitor.
[2018-07-05] MEDS: LEVOTHYROXINE SODIUM 50 MCG TAB PO SCH (05:27)
[2018-07-05] MEDS ORDERED: POTASSIUM CHLORIDE 20 MEQ TAB CR PO STA (07:05)
[2018-07-05] MEDS ORDERED: PROTONIX40 MG/ML PO (07:08)
[2018-07-05] MEDS ORDERED: FERROUS SULFAT325 MG PO (07:08)
[2018-07-05] MEDS ORDERED: ASCORBIC ACID500 MG PO (07:08)
[2018-07-05] MEDS ORDERED: Calcium Carbonate PO (07:08)
--- NOTE | 2018-07-05 07:24 | NUR ---
PATIENT IN BED RESTING WITH NO S/S OF DISTRESS, DENIED PAIN. BED IN LOWER POSITION, CALL LIGHT AT REACH.
[2018-07-05 07:26] VITALS: BP 115/59
[2018-07-05] MEDS: PANTOPRAZOLE SOD 40 MG TABEC PO SCH (07:30)
[2018-07-05] MEDS: LIOTHYRONINE SODIUM 5 MCG TAB PO SCH (07:30)
[2018-07-05 07:55] VITALS: BP 115/59
--- NOTE | 2018-07-05 08:40 | NUR ---
SPOKE WITH MD REGARDING ABNORMAL LAB RESULT, NEW ORDER RECEIVED AND IMPLEMENTED.
[2018-07-05] MEDS: FERROUS SULFATE 325 MG TAB PO SCH (08:45)
[2018-07-05] MEDS: METOPROLOL TARTRATE 50 MG TAB PO SCH (09:00)
[2018-07-05] MEDS: AMLODIPINE BESYLATE 5 MG TAB PO SCH (09:00)
[2018-07-05] MEDS: OYST-CAL-D 500MG TABLET PO SCH (09:24)
[2018-07-05] MEDS: RIFAXIMIN 550 MG TABLET PO SCH (09:24)
[2018-07-05] MEDS: ASCORBIC ACID 500 MG TAB PO SCH (09:24)
[2018-07-05] MEDS: ASPIRIN 81 MG CHEW TAB PO SCH (09:24)
[2018-07-05] MEDS: FENOFIBRATE 145 MG TAB PO SCH (09:24)
[2018-07-05] MEDS: SPIRONOLACTONE 25 MG TAB PO SCH (09:24)
[2018-07-05] MEDS: FUROSEMIDE 40 MG TAB PO SCH (09:24)
--- NOTE | 2018-07-05 11:00 | NUR ---
PATIENT DISCHARGED HOME. DISCHARGE INSTRUCTIONS, PRESCRIPTIONS, AND FOLLOW UP GIVEN TO PATIENT, SHE VERBALIZED UNDERSTANDING. IV TO LEFT AC REMOVED WITH TIP INTACT. ALL PERSONAL ITEMS TAKEN WITH PATIENT. LEFT UNIT PER WHEEL CHAIR TO FRONT LOBBY IN STABLE CONDITION.
--- NOTE | 2018-07-06 07:25 | Diagnostic Imaging Report ---
Date and Time: 07/04/2018 Procedure: Ultrasound-guided paracentesis heavy rail train operator: Dr. Arnett Pre-operative diagnosis: Ascites Post-operative diagnosis: Ascites Conscious Sedation: None Additional Medications: Lidocaine 1% for local anesthesia Estimated blood loss: Minimal Blood products administered: None Specimens: 6000 cc sanguinous fluid Implants: None Condition at completion: Stable Disposition: Remain in andrew unit Complications: No immediate DISCUSSION: Informed consent was obtained and documented in the medical record after discussion of risks and benefits. Preliminary sonographic evaluation confirmed moderate ascites. A suitable percutaneous approach in the right upper quadrant was identified and the overlying skin was prepped and draped in standard sterile fashion. 1% lidocaine was infiltrated into the skin and subcutaneous tissues for local anesthesia. Then under continuous sonographic guidance, a 5 Swedish Yueh needle catheter was advanced into the peritoneal space. The catheter was advanced off the needle and connected to vacuum bottle with subsequent evacuation of 6000 cc sanguinous fluid. The catheter was removed and a sterile dressing was applied. The patient tolerated the procedure well without immediate complication. FINDINGS: Moderate ascites IMPRESSION: Successful ultrasound-guided paracentesis with evacuation of 6000 cc sanguinous fluid. Signed by: Dr. Jerome Arnett M.D. on 07/06/2018 7:21 AM
--- NOTE | 2018-07-06 07:40 | Discharge Summary ---
ADMISSION DIAGNOSES: Ascites secondary to cirrhosis, cirrhosis, anemia secondary to gastrointestinal bleed and chronic kidney disease, hypertension, hypothyroidism, hyponatremia, chronic kidney disease 4, hyperlipidemia. DISCHARGE DIAGNOSES: Ascites secondary to cirrhosis, cirrhosis, anemia secondary to gastrointestinal bleed and chronic kidney disease, hypertension, hypothyroidism, hyponatremia, chronic kidney disease 4, hyperlipidemia, gastrointestinal bleed. HISTORY: The patient has a history of hypertension, hyperlipidemia, cirrhosis, and hypothyroidism. SURGICAL HISTORY: Hysterectomy, cholecystectomy, appendectomy, and abdominal surgery for tumors. FAMILY HISTORY: The patient's dad had cancer. The patient's mom had a stroke. SOCIAL HISTORY: Noncontributory. The patient admits to quitting tobacco use in January 2018. HOSPITAL COURSE: A 62-year-old female, presents from with anemia. Hemoglobin was found to be 6.2. She has a weekly paracentesis appointment due to cirrhosis. She says she felt dizzy and weak since Friday. She denies bright red blood per rectum, but says that she has black stools due to her iron tablets. She is on a liver transplant list at [facility] and follows Dr. Samuels. On admission, IR was consulted and the patient had 6 L removed from the abdomen and the following day, she had additional 6 L removed. She was resumed on home medications of Lasix, Aldactone, Xifaxan. Chest x-ray was negative. Stool for blood was positive. The patient received a total of 4 units of blood. Her hemoglobin remained stable. She was started on a Protonix. She is tolerating diet and has no abdominal pain. She will discharge home and follow up with her doctor at [facility] in 2 days and her weekly paracentesis appointment with IR. Vital signs stable. The patient is afebrile. The patient understands discharge instructions and agrees to plan. Dictated by Mabel Bah NP MD [facility] [place]/MODL /[id number]
== END 2018-07-05 10:56 | disposition home or self-care (01) | DRG 812 ==
LOC: ER 15:04 → ERHOLD 18:39 → IMCU 20:00 → OBSVTOIN 07-03 12:32 → MED/SURG3 07-03 15:05
PROVIDERS: ADMIT Internal Medicine; ATTEND Internal Medicine
PROC: 30233N1 Transfusion of Nonautologous Red Blood Cells into Peripheral Vein, Percutaneous Approach (ICD-10-PCS; principal; 2018-07-03)
PROC: 0W9G3ZZ Drainage of Peritoneal Cavity, Percutaneous Approach (ICD-10-PCS; 2018-07-03)
PROC: 0W9G3ZZ Drainage of Peritoneal Cavity, Percutaneous Approach (ICD-10-PCS; 2018-07-04)
DX: D50.0 Iron deficiency anemia secondary to blood loss (chronic) (principal); R18.8 Other ascites; K92.1 Melena; N18.4 Chronic kidney disease, stage 4 (severe); E87.1 Hypo-osmolality and hyponatremia; D63.1 Anemia in chronic kidney disease; K74.60 Unspecified cirrhosis of liver; I12.9 Hypertensive chronic kidney disease with stage 1 through stage 4 chronic kidney disease, or unspecified chronic kidney disease; E03.9 Hypothyroidism, unspecified; E78.5 Hyperlipidemia, unspecified; E83.51 Hypocalcemia; Z87.891 Personal history of nicotine dependence; Z76.82 Awaiting organ transplant status; Z79.82 Long term (current) use of aspirin
CPT/HCPCS: 36415; 49083; 71045; 74470; 80048; 80053; 80076; 82105; 82140; 82270; 82550; 82553; 82607; 82728; 82746; 83540; 83735; 83880; 84466; 84484; 85014; 85018; 85025; 85045; 85610; 85730; 86850; 86870; 86880; 86900; 86905; 86920; 86922; 93005; 99001; 99284; G0378; J1940; J7050; P9016

== ENCOUNTER → 2018-07-02 | Outpatient (CLI) | payer BC ==
[~2018-07-02] MED LIST changes: +ALBUMIN 25% 12.5GM 50ML 0 ML IV ONE; -ALBUMIN 25% 12.5GM 50ML 200 ML IV ONE; +AMLODIPINE BESYL5 MG PO; +ASCORBIC ACID500 MG PO; +ASPIRIN81 MG PO; +Calcium Carbonate PO; +FENOFIBRATE145 MG PO; +FERROUS SULFAT325 MG PO; +LASIX40 MG PO; +LEVOTHYROXINE50 MCG PO; +LIOTHYRONINE SO5 MCG; +METOPROLOL TART50 MG PO; +PROTONIX40 MG/ML PO; +SPIRONOLACTONE25 MG PO; +XIFAXAN550 MG PO
[2018-07-02 14:06] LABS: BASOPHILS % 0.6 % (0.0-1.0); EOSINOPHILS # (AUTO) 0.1 (0.0-0.4); EOSINOPHILS % 1.7 % (0.0-6.0); LYMPHOCYTES # (AUTO) 0.8 (1.0-3.2); LYMPHOCYTES % 12.1 % (18.0-39.1); MEAN CORPUSCULAR HEMOGLOBIN 30.8 pg (28-32); MEAN CORPUSCULAR HGB CONC 31.3 g/dL (31-35); MEAN CORPUSCULAR VOLUME 98.5 fL (81-99); MONOCYTES # (AUTO) 0.4 (0.2-0.8); MONOCYTES % 6.2 % (4.4-11.3); NEUTROPHILS # (AUTO) 5.1 (2.1-6.9); NEUTROPHILS % 78.6 % (38.7-80.0); PLATELET COUNT 464 x10e3/uL (140-360); RED BLOOD COUNT 1.95 x10e6/uL (3.6-5.1); RED CELL DISTRIBUTION WIDTH 17.4 % (11.7-14.4)
[2018-07-02 14:09] LABS: HEMATOCRIT 19.2 % (34.2-44.1)
[2018-07-02 14:11] LABS: PARTIAL THROMBOPLASTIN TIME 30.9 seconds (23.8-35.5)
[2018-07-02 14:15] LABS: CREATININE, SERUM 2.23 mg/dL (0.57-1.11)
[2018-07-02 14:19] LABS: INR 1.12; PROTHROMBIN TIME 14.9 seconds (11.9-14.5)
== END ==
LOC: US 13:31
PROVIDERS: ATTEND Legal Medicine
DX: R18.8 Other ascites (principal)
CPT/HCPCS: 36415; 82565; 84520; 85025; 85610; 85730

== ENCOUNTER → 2018-07-09 | Outpatient (CLI) | payer BC ==
[~2018-07-09] MED LIST changes: -ALBUMIN 25% 12.5GM 50ML 0 ML IV ONE; +ALBUMIN 25% 12.5GM 50ML 200 ML IV ONE
--- NOTE | 2018-07-09 11:59 | Diagnostic Imaging Report ---
Procedure: Ultrasound-guided diagnostic and therapeutic paracentesis dry cans operator: Krista Boyce MD Pre-operative diagnosis: Large volume ascites. Post-operative diagnosis: Large volume ascites. Conscious Sedation: The patient's heart rate and pulse oximetry were continuously monitored by the IR nurse. Additional Medications: Lidocaine 1% for local anesthesia Estimated blood loss: Minimal Specimens: 6,000 cc of serosanguineous fluid Implants: None TECHNIQUE/FINDINGS: Informed consent was obtained from the patient and documented in the medical record. The patient was placed in the supine position. Initial ultrasound demonstrated large volume ascites. The right lower abdomen was prepped and draped in standard sterile fashion. 1% lidocaine was infiltrated into the skin and subcutaneous tissues for local anesthesia. Then under continuous sonographic guidance, a 5 Fr catheter was advanced into the peritoneal space. The catheter was connected to vacuum bottle with subsequent evacuation of 6,000 cc of serosanguinous fluid. The catheter was removed. Sterile dressing was applied. Sample was sent to the lab. The patient tolerated the procedure well. IMPRESSION: Ultrasound-guided diagnostic and therapeutic paracentesis with removal of 6,000 cc of serosanguineous fluid Signed by: Dr. Krista Boyce MD on 07/09/2018 11:54 AM
[2018-07-09 15:27] LABS: BODY FLUID APPEARANCE CLOUDY; BODY FLUID COLOR RED; BODY FLUID TYPE PERITONEAL
[2018-07-09 15:28] LABS: RBC,BODY FLUID 21780 cells/uL; WBC,BODY FLUID 495 cells/uL
[2018-07-09 15:44] LABS: LYMPHOCYTES,BODY FLUID 20 %; MONO/MACROPHG,BODY FLUID 10 %; NEUTROPHILS,BODY FLUID 4 %; OTHER CELLS,BODY FLUID 66 %
== END ==
LOC: US 09:27
PROVIDERS: ATTEND Legal Medicine
DX: R18.8 Other ascites (principal)
CPT/HCPCS: 36415; 49083; 87070; 87205; 89051; C1729

== ENCOUNTER → 2018-07-16 | Outpatient (CLI) | payer BC ==
[2018-07-16 15:12] LABS: BODY FLUID APPEARANCE SL.CLOUDY; BODY FLUID COLOR RED; BODY FLUID TYPE PERITONEAL
[2018-07-16 15:13] LABS: RBC,BODY FLUID 10098 cells/uL; WBC,BODY FLUID 495 cells/uL
[2018-07-16 15:20] LABS: LYMPHOCYTES,BODY FLUID 36 %; MONO/MACROPHG,BODY FLUID 10 %; NEUTROPHILS,BODY FLUID 12 %
[2018-07-16 15:21] LABS: OTHER CELLS,BODY FLUID 42 %
--- NOTE | 2018-07-16 16:49 | Diagnostic Imaging Report ---
Date and Time: 16 Procedure: Ultrasound-guided paracentesis telegraphic typewriter operator: Dr. Arnett Pre-operative diagnosis: Ascites Post-operative diagnosis: Ascites Conscious Sedation: None Additional Medications: Lidocaine 1% for local anesthesia Estimated blood loss: Minimal Blood products administered: None Specimens: 6000 cc sanguinous fluid Implants: None Condition at completion: Stable Disposition: Discharged home Complications: No immediate DISCUSSION: Informed consent was obtained and documented in the medical record after discussion of risks and benefits. Preliminary sonographic evaluation confirmed moderate ascites. A suitable percutaneous approach in the right upper quadrant was identified and the overlying skin was prepped and draped in standard sterile fashion. 1% lidocaine was infiltrated into the skin and subcutaneous tissues for local anesthesia. Then under continuous sonographic guidance, a 5 [place] [employer] needle catheter was advanced into the peritoneal space. The catheter was advanced off the needle and connected to vacuum bottle with subsequent evacuation of 6000 cc sanguinous fluid. The catheter was removed and a sterile dressing was applied. The patient tolerated the procedure well without immediate complication. FINDINGS: Moderate ascites IMPRESSION: Successful ultrasound-guided paracentesis with evacuation of 6000 cc sanguinous fluid. Signed by: Dr. Jerome Arnett M.D. on 07/16/2018 4:45 PM
== END ==
LOC: US 11:16
PROVIDERS: ATTEND Legal Medicine
DX: R18.8 Other ascites (principal)
CPT/HCPCS: 36415; 49083; 87070; 87205; 89051

== ENCOUNTER → 2018-07-23 | Outpatient (CLI) | payer BC ==
--- NOTE | 2018-07-23 10:59 | Diagnostic Imaging Report ---
Date and Time: 07/24/2015 at 9:54 AM Procedure: Ultrasound-guided paracentesis Pre-operative diagnosis: Ascites Post-operative diagnosis: Ascites Conscious Sedation: None Additional Medications: Lidocaine 1% for local anesthesia Estimated blood loss: Minimal Blood products administered: None Specimens: 6,000 cc sanguinous fluid Implants: None Condition at completion: Stable Disposition: Discharged home Complications: No immediate DISCUSSION: Informed consent was obtained and documented in the medical record after discussion of risks and benefits. Preliminary sonographic evaluation confirmed moderate ascites. A suitable percutaneous approach in the right upper quadrant was identified and the overlying skin was prepped and draped in standard sterile fashion. 1% lidocaine was infiltrated into the skin and subcutaneous tissues for local anesthesia. Then a 5 Greek [employer]aceutical[employer]h needle catheter was advanced into the peritoneal space. The catheter was advanced off the needle and connected to vacuum bottle with subsequent evacuation of 6,000 cc sanguinous fluid. The catheter was removed and a sterile dressing was applied. The patient tolerated the procedure well without immediate complication. The patient was administered 50 g of albumin during the procedure. FINDINGS: Large volume ascites IMPRESSION: Successful ultrasound-guided paracentesis with evacuation of 6,000 cc sanguinous fluid. Signed by: Dr. Sandeep Beard DO on 07/23/2018 10:56 AM
[2018-07-23 12:23] LABS: BODY FLUID APPEARANCE SL.CLOUDY; BODY FLUID COLOR RED
[2018-07-23 12:25] LABS: RBC,BODY FLUID 11682 cells/uL; WBC,BODY FLUID 149 cells/uL
== END ==
LOC: US 08:47
PROVIDERS: ATTEND Legal Medicine
DX: R18.8 Other ascites (principal)
CPT/HCPCS: 36415; 49083; 87070; 87205; 89051

== ENCOUNTER → 2018-07-30 | Outpatient (CLI) | payer BC ==
[2018-07-30 10:54] LABS: INR 1.03
[2018-07-30 10:55] LABS: PARTIAL THROMBOPLASTIN TIME 29.4 seconds (23.8-35.5)
--- NOTE | 2018-07-30 12:24 | Diagnostic Imaging Report ---
Procedure: Ultrasound-guided diagnostic and therapeutic paracentesis dressing machine operator: Krista Boyce MD Pre-operative diagnosis: Large volume ascites. Post-operative diagnosis: Moderate volume ascites. Conscious Sedation: The patient's heart rate and pulse oximetry were continuously monitored by the IR nurse. Additional Medications: Lidocaine 1% for local anesthesia Estimated blood loss: Minimal Specimens: 6,000 cc of serosanguineous fluid Implants: None TECHNIQUE/FINDINGS: Informed consent was obtained from the patient and documented in the medical record. The patient was placed in the supine position. Initial ultrasound demonstrated large volume ascites. The right lower abdomen was prepped and draped in standard sterile fashion. 1% lidocaine was infiltrated into the skin and subcutaneous tissues for local anesthesia. Then under continuous sonographic guidance, a 5 Fr catheter was advanced into the peritoneal space. The catheter was connected to vacuum bottle with subsequent evacuation of 6,000 cc of serosanguinous fluid. The catheter was removed. Sterile dressing was applied. Sample was sent to the lab. The patient tolerated the procedure well. IMPRESSION: Ultrasound-guided diagnostic and therapeutic paracentesis with removal of 6,000 cc of serosanguineous fluid. Signed by: Dr. Krista Boyce MD on 07/30/2018 12:20 PM
[2018-07-30 13:40] LABS: BODY FLUID APPEARANCE SL.CLOUDY; BODY FLUID COLOR YELLOW; BODY FLUID TYPE PERITONEAL
[2018-07-30 14:01] LABS: RBC,BODY FLUID 2827 cells/uL; WBC,BODY FLUID 11 cells/uL
== END ==
LOC: US 09:29
PROVIDERS: ATTEND Legal Medicine
DX: R18.8 Other ascites (principal)
CPT/HCPCS: 36415; 49083; 85049; 85610; 85730; 87070; 87205; 89051

== ENCOUNTER → 2018-08-06 | Outpatient (CLI) | payer BC ==
--- NOTE | 2018-08-06 11:33 | Diagnostic Imaging Report ---
Procedure: Ultrasound-guided diagnostic and therapeutic paracentesis electronic prepress operator: Krista Boyce MD Pre-operative diagnosis: Large volume ascites. Post-operative diagnosis: Large volume ascites. Conscious Sedation: The patient's heart rate and pulse oximetry were continuously monitored by the IR nurse. Additional Medications: Lidocaine 1% for local anesthesia Estimated blood loss: Minimal Specimens: 6,000 cc of serosanguineous fluid Implants: None TECHNIQUE/FINDINGS: Informed consent was obtained from the patient and documented in the medical record. The patient was placed in the supine position. Initial ultrasound demonstrated large volume ascites. The right lower abdomen was prepped and draped in standard sterile fashion. 1% lidocaine was infiltrated into the skin and subcutaneous tissues for local anesthesia. Then under continuous sonographic guidance, a 5 Fr catheter was advanced into the peritoneal space. The catheter was connected to vacuum bottle with subsequent evacuation of 6,000 cc of serosanguinous fluid. The catheter was removed. Sterile dressing was applied. Sample was sent to the lab. The patient tolerated the procedure well. IMPRESSION: Ultrasound-guided diagnostic and therapeutic paracentesis with removal of 6,000 cc of serosanguineous fluid. Signed by: Dr. Krista Boyce MD on 08/06/2018 11:30 AM
[2018-08-06 13:50] LABS: RBC,BODY FLUID 7153 cells/uL; WBC,BODY FLUID 124 cells/uL
== END ==
LOC: US 09:16
PROVIDERS: ATTEND Legal Medicine
DX: R18.8 Other ascites (principal)
CPT/HCPCS: 49083; 87070; 87205

== ENCOUNTER → 2018-08-13 | Outpatient (CLI) | payer BC ==
--- NOTE | 2018-08-13 12:24 | Diagnostic Imaging Report ---
Procedure: Ultrasound-guided diagnostic and therapeutic paracentesis Pre-operative diagnosis: Large volume ascites. Post-operative diagnosis: Large volume ascites. Conscious Sedation: None administered. The patient's heart rate and pulse oximetry were continuously monitored by the IR nurse. Additional Medications: Lidocaine 1% for local anesthesia; patient did receive 50 g of albumin during the procedure. Estimated blood loss: Less than 2 cc Specimens: 6,000 cc of serosanguineous fluid Implants: None TECHNIQUE/FINDINGS: Informed consent was obtained from the patient and documented in the medical record. The patient was placed in the supine position. Initial ultrasound demonstrated large volume ascites. The right mid lateral abdomen was prepped and draped in standard sterile fashion. 1% lidocaine was infiltrated into the skin and subcutaneous tissues for local anesthesia. With sonographic guidance, a 5 Fr [employer] catheter was advanced into the peritoneal space. The catheter was connected to vacuum bottle with subsequent evacuation of 6,000 cc of serosanguinous fluid. The catheter was removed. Sterile dressing was applied. Sample was sent to the lab. The patient tolerated the procedure well. Puncture site closed with manual pressure and [employer]. One bottle was sent to the laboratory for analysis as deemed necessary by the ordering physician IMPRESSION: Ultrasound-guided diagnostic and therapeutic paracentesis with removal of 6,000 cc of serosanguineous fluid. Signed by: Dr. Sandeep Beard DO on 08/13/2018 12:21 PM
[2018-08-13 14:26] LABS: BODY FLUID TYPE ASCITIES
[2018-08-13 14:27] LABS: BODY FLUID APPEARANCE SL.CLOUDY; BODY FLUID COLOR YELLOW
[2018-08-13 14:31] LABS: RBC,BODY FLUID 33165 cells/uL; WBC,BODY FLUID 743 cells/uL
== END ==
LOC: US 09:31
PROVIDERS: ATTEND Legal Medicine
DX: R18.8 Other ascites (principal)
CPT/HCPCS: 36415; 49083; 87070; 87205; 89051

== ENCOUNTER → 2018-08-20 | Outpatient (CLI) | payer BC ==
--- NOTE | 2018-08-20 12:15 | Diagnostic Imaging Report ---
Date and Time: 08/20/2018 Procedure: Ultrasound-guided paracentesis capsule filling machine operator: Dr. Arnett Pre-operative diagnosis: Ascites Post-operative diagnosis: Ascites Conscious Sedation: None The patient's heart rate and pulse oximetry were continuously monitored by the interventional radiology nurse. Blood pressure was monitored at 5 minute intervals. Additional Medications: Lidocaine 1% for local anesthesia Estimated blood loss: Minimal Blood products administered: None Specimens: 6000 cc straw-colored fluid Implants: None Condition at completion: Stable Disposition: Discharged home Complications: No immediate DISCUSSION: Informed consent was obtained and documented in the medical record after discussion of risks and benefits. Preliminary sonographic evaluation confirmed moderate ascites. A suitable percutaneous approach in the right upper quadrant was identified and the overlying skin was prepped and draped in standard sterile fashion. 1% lidocaine was infiltrated into the skin and subcutaneous tissues for local anesthesia. Then under continuous sonographic guidance, a 5 [place] Yueh needle catheter was advanced into the peritoneal space. The catheter was advanced off the needle and connected to vacuum bottle with subsequent evacuation of 6000 cc straw-colored fluid. The catheter was removed and a sterile dressing was applied. The patient tolerated the procedure well without immediate complication. FINDINGS: Moderate ascites IMPRESSION: Successful ultrasound-guided paracentesis with evacuation of 6000 cc straw-colored fluid. Specimen was submitted for laboratory analysis as requested by the referring clinical team. Signed by: Dr. Jerome Arnett M.D. on 08/20/2018 12:12 PM
[2018-08-20 15:16] LABS: BODY FLUID APPEARANCE SL.CLOUDY; BODY FLUID COLOR YELLOW; BODY FLUID TYPE PERITONEAL; RBC,BODY FLUID 318 cells/uL; WBC,BODY FLUID 8 cells/uL
[2018-08-20 17:42] LABS: LYMPHOCYTES,BODY FLUID 64 %; NEUTROPHILS,BODY FLUID 2 %
[2018-08-20 17:43] LABS: MONO/MACROPHG,BODY FLUID 16 %; OTHER CELLS,BODY FLUID 18 %
== END ==
LOC: US 09:16
PROVIDERS: ATTEND Legal Medicine
DX: R18.8 Other ascites (principal)
CPT/HCPCS: 36415; 49083; 87070; 87205; 89051; C1729

== ENCOUNTER → 2018-08-27 | Outpatient (CLI) | payer BC ==
--- NOTE | 2018-08-27 11:08 | Diagnostic Imaging Report ---
Procedure: Ultrasound-guided paracentesis Date and Time: 08/27/2018 Pre-operative diagnosis: Large volume ascites Post-operative diagnosis: Large volume ascites Conscious Sedation: None The patient's heart rate and pulse oximetry were continuously monitored by the interventional radiology nurse. Blood pressure was monitored at 5 minute intervals. Additional Medications: Lidocaine 1% for local anesthesia Estimated blood loss: Less than 2 cc Blood products administered: None; patient did receive albumin per ordering Physician's direction during the procedure. Specimens: 5 bottles (6000 cc) of straw-colored fluid Implants: None Condition at completion: Stable Disposition: Discharged home Complications: No immediate DISCUSSION: Informed consent was obtained and documented in the medical record after discussion of risks and benefits. Preliminary sonographic evaluation confirmed large volume ascites. A suitable percutaneous approach in the right upper quadrant was identified and the overlying skin was prepped and draped in standard sterile fashion. 1% lidocaine was infiltrated into the skin and subcutaneous tissues for local anesthesia. Then under sonographic guidance, a 5 [place] Yueh needle catheter was advanced into the peritoneal space. The catheter was advanced off the needle and connected to vacuum bottle with subsequent evacuation of of 5 bottles (6000 cc) of straw-colored fluid. The catheter was removed and a sterile dressing was applied. The patient tolerated the procedure well without immediate complication. FINDINGS: Large volume ascites IMPRESSION: 1. Successful ultrasound-guided paracentesis with evacuation of 5 bottles (6000 cc) of straw-colored fluid. 2. Specimen was submitted for laboratory analysis as requested by the ordering Physician. Signed by: Dr. Sandeep Beard DO on 08/27/2018 11:05 AM
[2018-08-27 15:38] LABS: BODY FLUID APPEARANCE SL.CLOUDY; BODY FLUID COLOR YELLOW; BODY FLUID TYPE PERITONEAL
[2018-08-27 15:40] LABS: RBC,BODY FLUID 100 cells/uL; WBC,BODY FLUID 4 cells/uL
== END ==
LOC: US 09:33
PROVIDERS: ATTEND Legal Medicine
DX: R18.8 Other ascites (principal)
CPT/HCPCS: 36415; 49083; 87070; 87205; 89051

== ENCOUNTER → 2018-09-02 | Outpatient (CLI) | payer BC ==
[2018-09-02 12:08] LABS: INR 1.13
[2018-09-02 12:09] LABS: PARTIAL THROMBOPLASTIN TIME 33.2 seconds (23.8-35.5)
--- NOTE | 2018-09-02 13:27 | Diagnostic Imaging Report ---
Procedure: Ultrasound-guided diagnostic and therapeuticparacentesis mold cutting machine operator: Dayanara Fontana MD Pre-operative diagnosis: Ascites Post-operative diagnosis: Ascites Conscious Sedation: The patient's heart rate and pulse oximetry were continuously monitored by the IR nurse. Additional Medications: Lidocaine 1% for local anesthesia Estimated blood loss: Minimal Specimens: 6000 cc of serous ascites Implants: None TECHNIQUE/FINDINGS: Informed consent was obtained from the patient and documented in the medical record. The patient was placed in the supine position. Initial ultrasound demonstrated ascites. The right lower abdomen was prepped and draped in standard sterile fashion. 1% lidocaine was infiltrated into the skin and subcutaneous tissues for local anesthesia. Then under continuous sonographic guidance, a 5 Fr catheter was advanced into the peritoneal space. The catheter was connected to vacuum bottle with subsequent evacuation of 6000 cc of serous fluid. The catheter was removed. Dermabond and sterile dressing was applied. Sample was sent to the lab. The patient tolerated the procedure well. IMPRESSION: Ultrasound-guided paracentesis with removal of 6000 cc of serous fluid. Signed by: Dayanara Fontana MD on 09/02/2018 1:23 PM
[2018-09-02 14:53] LABS: RBC,BODY FLUID 239 cells/uL
[2018-09-02 14:58] LABS: BODY FLUID COLOR COLORLESS; BODY FLUID TYPE PERITONEAL
[2018-09-02 14:59] LABS: BODY FLUID APPEARANCE CLEAR
[2018-09-02 15:00] LABS: RBC,BODY FLUID 239 cells/uL; WBC,BODY FLUID 18 cells/uL
[2018-09-02 15:08] LABS: LYMPHOCYTES,BODY FLUID 5 %; MONO/MACROPHG,BODY FLUID 71 %; NEUTROPHILS,BODY FLUID 16 %; OTHER CELLS,BODY FLUID 8 %
== END ==
LOC: US 10:52
PROVIDERS: ATTEND Legal Medicine
DX: R18.8 Other ascites (principal)
CPT/HCPCS: 36415; 49083; 85049; 85610; 85730; 87070; 87205; 89051; C1729

== ENCOUNTER → 2018-09-10 | Outpatient (CLI) | payer BC ==
[2018-09-10 10:35] LABS: BASOPHILS # (AUTO) 0.1 (0.0-0.1); BASOPHILS % 0.9 % (0.0-1.0); EOSINOPHILS # (AUTO) 0.2 (0.0-0.4); HEMATOCRIT 25.1 % (34.2-44.1); LYMPHOCYTES # (AUTO) 0.8 (1.0-3.2); MEAN CORPUSCULAR HGB CONC 31.9 g/dL (31-35); MEAN CORPUSCULAR VOLUME 106.8 fL (81-99); MONOCYTES # (AUTO) 0.5 (0.2-0.8); MONOCYTES % 8.8 % (4.4-11.3); NEUTROPHILS # (AUTO) 3.9 (2.1-6.9); NEUTROPHILS % 72.7 % (38.7-80.0); PLATELET COUNT 279 x10e3/uL (140-360); RED BLOOD COUNT 2.35 x10e6/uL (3.6-5.1); RED CELL DISTRIBUTION WIDTH 15.5 % (11.7-14.4)
--- NOTE | 2018-09-10 11:50 | Diagnostic Imaging Report ---
PROCEDURE: Ultrasound-guided paracentesis Procedural Personnel Attending physician(s): Dayanara Fontana MD Pre-procedure diagnosis: Ascites, portal hypertension Post-procedure diagnosis: Same Indication: Refractory ascites Additional clinical history: None Complications: No immediate complications. IMPRESSION: Ultrasound-guided paracentesis with drainage of 6000 mL of serous fluid. Plan: Resume care by clinical team. PROCEDURE SUMMARY: - Limited abdominal ultrasound - Ultrasound-guided paracentesis - Additional procedure(s): None PROCEDURE DETAILS: Pre-procedure Consent: Informed consent for the procedure including risks, benefits and alternatives was obtained and time-out was performed prior to the procedure. Preparation: The site was prepared and draped using maximal sterile barrier technique including cutaneous antisepsis. Anesthesia/sedation Level of anesthesia/sedation: No sedation Anesthesia/sedation administered by: Not applicable Initial abdominal ultrasound Initial abdominal ultrasound was performed. Findings: Large ascites. A safe window for paracentesis was identified. Paracentesis Local anesthesia was administered. The peritoneal cavity was accessed and fluid return confirmed position. Ascites was drained. The catheter was then removed, and a sterile bandage was applied. Paracentesis access technique: Real-time ultrasound guidance Catheter placed: 5F Yueh Post-drainage ultrasound: Not performed Additional Details Additional description of procedure: None Equipment details: None Specimens removed: Abdominal fluid Estimated blood loss (mL): Less than 10 Standardized report: [email or web address] Attestation Signer name: Dayanara Fontana MD I attest that I was present for the entire procedure. I reviewed the stored images and agree with the report as written. Signed by: Dayanara Fontana MD on 09/10/2018 11:47 AM
[2018-09-10 13:25] LABS: BODY FLUID COLOR YELLOW; BODY FLUID TYPE ASCITIES
[2018-09-10 13:26] LABS: BODY FLUID APPEARANCE SL.CLOUDY
[2018-09-10 13:28] LABS: RBC,BODY FLUID 29 cells/uL; WBC,BODY FLUID 23 cells/uL
[2018-09-10 13:34] LABS: LYMPHOCYTES,BODY FLUID 34 %; MONO/MACROPHG,BODY FLUID 10 %; NEUTROPHILS,BODY FLUID 10 %; OTHER CELLS,BODY FLUID 46 %
== END ==
LOC: US 09:51
PROVIDERS: ATTEND Legal Medicine
DX: R18.8 Other ascites (principal)
CPT/HCPCS: 36415; 49083; 85025; 87070; 87205; 89051; C1729

== ENCOUNTER → 2018-09-18 | Outpatient (CLI) | payer BC ==
[2018-09-18 15:45] LABS: BODY FLUID APPEARANCE CLOUDY; BODY FLUID COLOR YELLOW; BODY FLUID TYPE PERITONEAL
--- NOTE | 2018-09-18 16:40 | Diagnostic Imaging Report ---
Procedure: Ultrasound-guided paracentesis power ballast machine operator: Paulo Perez M.D. Pre-operative diagnosis: Ascites Post-operative diagnosis: Ascites Conscious Sedation: None. The patient's heart rate and pulse oximetry were continuously monitored by the IR nurse. Additional Medications: Lidocaine 1% for local anesthesia Estimated blood loss: Less than 1 cc. Specimen: 12,000 cc of cloudy yellow fluid Implants: None TECHNIQUE/FINDINGS: Informed consent was obtained from the patient and documented in the medical record. The patient was placed in the supine position. Initial ultrasound demonstrated ascites. The right lower abdomen was prepped and draped in standard sterile fashion. 1% lidocaine was infiltrated into the skin and subcutaneous tissues for local anesthesia. Then under continuous sonographic guidance, a 5 Fr catheter was advanced into the peritoneal space. The catheter was connected to vacuum bottle with subsequent evacuation of 12,000 cc of serous fluid. The catheter was removed and sterile dressing was applied. Sample was sent to the lab. The patient tolerated the procedure well. IMPRESSION: Successful ultrasound-guided paracentesis. Signed by: Paulo Perez on 09/18/2018 4:37 PM
[2018-09-18 17:09] LABS: RBC,BODY FLUID 40 cells/uL; WBC,BODY FLUID 41 cells/uL
[2018-09-18 19:19] LABS: LYMPHOCYTES,BODY FLUID 34 %; MONO/MACROPHG,BODY FLUID 6 %; NEUTROPHILS,BODY FLUID 9 %; OTHER CELLS,BODY FLUID 51 %
== END ==
LOC: US 09-17 09:48
PROVIDERS: ATTEND Legal Medicine
DX: R18.8 Other ascites (principal)
CPT/HCPCS: 36415; 49083; 87070; 87205; 88112; 88305; 89051

== ENCOUNTER → 2018-09-21 | Outpatient (CLI) | payer BC ==
--- NOTE | 2018-09-21 11:34 | Diagnostic Imaging Report ---
PROCEDURE: Ultrasound-guided diagnostic and therapeutic paracentesis Procedural Personnel Attending physician(s): Dayanara Fontana MD Pre-procedure diagnosis: Cirrhosis, ascites Post-procedure diagnosis: Same Indication: Ascites with pain or pressure symptoms Additional clinical history: None Complications: No immediate complications. IMPRESSION: Ultrasound-guided paracentesis with drainage of 5000 mL of cloudy fluid. Plan: Resume care by clinical team. PROCEDURE SUMMARY: - Limited abdominal ultrasound - Ultrasound-guided paracentesis - Additional procedure(s): None PROCEDURE DETAILS: Pre-procedure Consent: Informed consent for the procedure including risks, benefits and alternatives was obtained and time-out was performed prior to the procedure. Preparation: The site was prepared and draped using maximal sterile barrier technique including cutaneous antisepsis. Anesthesia/sedation Level of anesthesia/sedation: No sedation Anesthesia/sedation administered by: Not applicable Initial abdominal ultrasound Initial abdominal ultrasound was performed. Findings: Large ascites. A safe window for paracentesis was identified. Paracentesis Local anesthesia was administered. The peritoneal cavity was accessed and fluid return confirmed position. Ascites was drained. The catheter was then removed, and a sterile bandage was applied. Paracentesis access technique: Real-time ultrasound guidance Catheter placed: 5F Yueh Post-drainage ultrasound: Not performed Additional Details Additional description of procedure: None Equipment details: None Specimens removed: Abdominal fluid Estimated blood loss (mL): Less than 10 Standardized report: [email or web address] Attestation Signer name: Dayanara Fontana MD I attest that I was present for the entire procedure. I reviewed the stored images and agree with the report as written. Signed by: Dayanara Fontana MD on 09/21/2018 11:31 AM
[2018-09-21 13:47] LABS: LYMPHOCYTES,BODY FLUID 61 %; MONO/MACROPHG,BODY FLUID 2 %; NEUTROPHILS,BODY FLUID 6 %; OTHER CELLS,BODY FLUID 31 %
[2018-09-21 14:36] LABS: BODY FLUID APPEARANCE SL.CLOUDY; BODY FLUID COLOR YELLOW; BODY FLUID TYPE ASCITIES
[2018-09-21 14:37] LABS: RBC,BODY FLUID 177 cells/uL; WBC,BODY FLUID 32 cells/uL
== END ==
LOC: US 10:07
PROVIDERS: ATTEND Legal Medicine
DX: R18.8 Other ascites (principal)
CPT/HCPCS: 36415; 49083; 87070; 87205; 89051; C1729

== ENCOUNTER → 2018-09-25 | Outpatient (CLI) | payer BC ==
--- NOTE | 2018-09-25 11:03 | Diagnostic Imaging Report ---
PROCEDURE: Ultrasound-guided diagnostic and therapeutic paracentesis Procedural Personnel Attending physician(s): Dayanara Fontana MD Pre-procedure diagnosis: Cirrhosis, ascites Post-procedure diagnosis: Same Indication: Ascites with pain or pressure symptoms Additional clinical history: None Complications: No immediate complications. IMPRESSION: Ultrasound-guided paracentesis with drainage of 5000 mL of serous fluid. Plan: Resume care by clinical team. PROCEDURE SUMMARY: - Limited abdominal ultrasound - Ultrasound-guided paracentesis - Additional procedure(s): None PROCEDURE DETAILS: Pre-procedure Consent: Informed consent for the procedure including risks, benefits and alternatives was obtained and time-out was performed prior to the procedure. Preparation: The site was prepared and draped using maximal sterile barrier technique including cutaneous antisepsis. Anesthesia/sedation Level of anesthesia/sedation: No sedation Anesthesia/sedation administered by: Not applicable Initial abdominal ultrasound Initial abdominal ultrasound was performed. Findings: Large ascites. A safe window for paracentesis was identified. Paracentesis Local anesthesia was administered. The peritoneal cavity was accessed and fluid return confirmed position. Ascites was drained. The catheter was then removed, and a sterile bandage was applied. Paracentesis access technique: Real-time ultrasound guidance Catheter placed: 5F Yueh Post-drainage ultrasound: Moderate ascites Additional Details Additional description of procedure: None Equipment details: None Specimens removed: Abdominal fluid Estimated blood loss (mL): Less than 10 Standardized report: [email or web address] Attestation Signer name: Dayanara Fontana MD I attest that I was present for the entire procedure. I reviewed the stored images and agree with the report as written. Signed by: Dayanara Fontana MD on 09/25/2018 11:00 AM
[2018-09-25 12:32] LABS: BODY FLUID APPEARANCE SL.CLOUDY; BODY FLUID COLOR YELLOW; BODY FLUID TYPE PERITONEAL
[2018-09-25 12:33] LABS: RBC,BODY FLUID 605 cells/uL; WBC,BODY FLUID 110 cells/uL
[2018-09-25 12:44] LABS: LYMPHOCYTES,BODY FLUID 37 %; MONO/MACROPHG,BODY FLUID 27 %; NEUTROPHILS,BODY FLUID 4 %; OTHER CELLS,BODY FLUID 2 %
== END ==
LOC: US 09:32
PROVIDERS: ATTEND Legal Medicine
DX: R18.8 Other ascites (principal); K74.60 Unspecified cirrhosis of liver
CPT/HCPCS: 36415; 49083; 87070; 87205; 89051; C1729

== ENCOUNTER → 2018-09-29 | Outpatient (CLI) | payer BC ==
--- NOTE | 2018-09-29 13:54 | Diagnostic Imaging Report ---
PROCEDURE: Ultrasound-guided diagnostic and therapeutic paracentesis Procedural Personnel Attending physician(s): Dayanara Fontana MD Pre-procedure diagnosis: Cirrhosis, ascites Post-procedure diagnosis: Same Indication: Ascites with pain or pressure symptoms Additional clinical history: None Complications: No immediate complications. IMPRESSION: Ultrasound-guided paracentesis with drainage of 5000 mL of serous fluid. Plan: Resume care by clinical team. PROCEDURE SUMMARY: - Limited abdominal ultrasound - Ultrasound-guided paracentesis - Additional procedure(s): None PROCEDURE DETAILS: Pre-procedure Consent: Informed consent for the procedure including risks, benefits and alternatives was obtained and time-out was performed prior to the procedure. Preparation: The site was prepared and draped using maximal sterile barrier technique including cutaneous antisepsis. Anesthesia/sedation Level of anesthesia/sedation: No sedation Anesthesia/sedation administered by: Not applicable Initial abdominal ultrasound Initial abdominal ultrasound was performed. Findings: Large ascites. A safe window for paracentesis was identified. Paracentesis Local anesthesia was administered. The peritoneal cavity was accessed and fluid return confirmed position. Ascites was drained. The catheter was then removed, and a sterile bandage was applied. Paracentesis access technique: Real-time ultrasound guidance Catheter placed: 5F Yueh Post-drainage ultrasound: Moderate ascites Additional Details Additional description of procedure: None Equipment details: None Specimens removed: Abdominal fluid Estimated blood loss (mL): Less than 10 Standardized report: [email or web address] Attestation Signer name: Dayanara Fontana MD I attest that I was present for the entire procedure. I reviewed the stored images and agree with the report as written. Signed by: Dayanara Fontana MD on 09/29/2018 1:51 PM
[2018-09-29 16:00] LABS: RBC,BODY FLUID 243 cells/uL; WBC,BODY FLUID 12 cells/uL
[2018-09-29 16:02] LABS: BODY FLUID APPEARANCE CLOUDY; BODY FLUID COLOR YELLOW; BODY FLUID TYPE PERITONEAL
[2018-09-29 16:53] LABS: LYMPHOCYTES,BODY FLUID 44 %; MONO/MACROPHG,BODY FLUID 9 %; NEUTROPHILS,BODY FLUID 7 %; OTHER CELLS,BODY FLUID 40 %
== END ==
LOC: US 12:40
PROVIDERS: ATTEND Legal Medicine
DX: R18.8 Other ascites (principal); K74.60 Unspecified cirrhosis of liver
CPT/HCPCS: 36415; 49083; 87070; 87205; 89051; C1729

== ENCOUNTER → 2018-10-02 | Outpatient (CLI) | payer BC ==
--- NOTE | 2018-10-02 11:54 | Diagnostic Imaging Report ---
PROCEDURE: Ultrasound-guided diagnostic and therapeutic paracentesis Procedural Personnel Attending physician(s): Dayanara Fontana MD Pre-procedure diagnosis: Cirrhosis, ascites Post-procedure diagnosis: Same Indication: Ascites with pain or pressure symptoms Additional clinical history: None Complications: No immediate complications. IMPRESSION: Ultrasound-guided paracentesis with drainage of 5000 mL of serous fluid. Plan: Resume care by clinical team. PROCEDURE SUMMARY: - Limited abdominal ultrasound - Ultrasound-guided paracentesis - Additional procedure(s): None PROCEDURE DETAILS: Pre-procedure Consent: Informed consent for the procedure including risks, benefits and alternatives was obtained and time-out was performed prior to the procedure. Preparation: The site was prepared and draped using maximal sterile barrier technique including cutaneous antisepsis. Anesthesia/sedation Level of anesthesia/sedation: No sedation Anesthesia/sedation administered by: Not applicable Initial abdominal ultrasound Initial abdominal ultrasound was performed. Findings: Large ascites. A safe window for paracentesis was identified. Paracentesis Local anesthesia was administered. The peritoneal cavity was accessed and fluid return confirmed position. Ascites was drained. The catheter was then removed, and a sterile bandage was applied. Paracentesis access technique: Real-time ultrasound guidance Catheter placed: 5F Yueh Post-drainage ultrasound: Moderate ascites Additional Details Additional description of procedure: None Equipment details: None Specimens removed: Abdominal fluid Estimated blood loss (mL): Less than 10 Standardized report: [email or web address] Attestation Signer name: Dayanara Fontana MD I attest that I was present for the entire procedure. I reviewed the stored images and agree with the report as written. Signed by: Dayanara Fontana MD on 10/02/2018 11:51 AM
[2018-10-02 15:09] LABS: RBC,BODY FLUID 413 cells/uL; WBC,BODY FLUID 16 cells/uL
[2018-10-02 15:10] LABS: BODY FLUID APPEARANCE SL.CLOUDY; BODY FLUID COLOR YELLOW; BODY FLUID TYPE PERITONEAL
[2018-10-02 15:37] LABS: LYMPHOCYTES,BODY FLUID 14 %; MONO/MACROPHG,BODY FLUID 62 %; NEUTROPHILS,BODY FLUID 12 %; OTHER CELLS,BODY FLUID 12 %
== END ==
LOC: US 09:35
PROVIDERS: ATTEND Legal Medicine
DX: R18.8 Other ascites (principal)
CPT/HCPCS: 36415; 49083; 87070; 87205; 89051; C1729

== ENCOUNTER → 2018-10-06 | Outpatient (CLI) | payer BC ==
[2018-10-06 10:06] LABS: BASOPHILS # (AUTO) 0.1 (0.0-0.1); BASOPHILS % 0.9 % (0.0-1.0); EOSINOPHILS # (AUTO) 0.2 (0.0-0.4); HEMOGLOBIN 7.9 g/dL (12.0-16.0); LYMPHOCYTES # (AUTO) 0.8 (1.0-3.2); LYMPHOCYTES % 12.1 % (18.0-39.1); MEAN CORPUSCULAR HEMOGLOBIN 33.3 pg (28-32); MEAN CORPUSCULAR HGB CONC 31.6 g/dL (31-35); MEAN CORPUSCULAR VOLUME 105.5 fL (81-99); MONOCYTES # (AUTO) 0.6 (0.2-0.8); MONOCYTES % 8.3 % (4.4-11.3); NEUTROPHILS # (AUTO) 5.1 (2.1-6.9); PLATELET COUNT 328 x10e3/uL (140-360); RED BLOOD COUNT 2.37 x10e6/uL (3.6-5.1); RED CELL DISTRIBUTION WIDTH 14.7 % (11.7-14.4)
[2018-10-06 10:15] LABS: INR 1.02; PROTHROMBIN TIME 13.9 seconds (11.9-14.5)
[2018-10-06 10:37] LABS: PARTIAL THROMBOPLASTIN TIME 32.7 seconds (23.8-35.5)
--- NOTE | 2018-10-06 11:36 | Diagnostic Imaging Report ---
PROCEDURE: Ultrasound-guided diagnostic and therapeutic paracentesis Procedural Personnel Attending physician(s): Dayanara Fontana MD Pre-procedure diagnosis: Cirrhosis, ascites Post-procedure diagnosis: Same Indication: Ascites with pain or pressure symptoms Additional clinical history: None Complications: No immediate complications. IMPRESSION: Ultrasound-guided paracentesis with drainage of 5000 mL of serous fluid. Plan: Resume care by clinical team. PROCEDURE SUMMARY: - Limited abdominal ultrasound - Ultrasound-guided paracentesis - Additional procedure(s): None PROCEDURE DETAILS: Pre-procedure Consent: Informed consent for the procedure including risks, benefits and alternatives was obtained and time-out was performed prior to the procedure. Preparation: The site was prepared and draped using maximal sterile barrier technique including cutaneous antisepsis. Anesthesia/sedation Level of anesthesia/sedation: No sedation Anesthesia/sedation administered by: Not applicable Initial abdominal ultrasound Initial abdominal ultrasound was performed. Findings: Large ascites. A safe window for paracentesis was identified. Paracentesis Local anesthesia was administered. The peritoneal cavity was accessed and fluid return confirmed position. Ascites was drained. The catheter was then removed, and a sterile bandage was applied. Paracentesis access technique: Real-time ultrasound guidance Catheter placed: 5F Yueh Post-drainage ultrasound: Moderate ascites Additional Details Additional description of procedure: None Equipment details: None Specimens removed: Abdominal fluid Estimated blood loss (mL): Less than 10 Standardized report: [email or web address] Attestation Signer name: Dayanara Fontana MD I attest that I was present for the entire procedure. I reviewed the stored images and agree with the report as written. Signed by: Dayanara Fontana MD on 10/06/2018 11:33 AM
[2018-10-06 13:05] LABS: BODY FLUID APPEARANCE CLOUDY; BODY FLUID COLOR STRAW; BODY FLUID TYPE SEE COMMENTS
[2018-10-06 13:06] LABS: RBC,BODY FLUID 1812 cells/uL; WBC,BODY FLUID 50 cells/uL
[2018-10-06 13:15] LABS: BASOPHILS,BODY FLUID 0 %; EOSINOPHILS,BODY FLUID 0 %; LYMPHOCYTES,BODY FLUID 60 %; MONO/MACROPHG,BODY FLUID 10 %; NEUTROPHILS,BODY FLUID 19 %
[2018-10-06 13:20] LABS: OTHER CELLS,BODY FLUID 10 %
== END ==
LOC: US 09:38
PROVIDERS: ATTEND Legal Medicine
DX: R18.8 Other ascites (principal)
CPT/HCPCS: 36415; 49083; 85025; 85610; 85730; 87070; 87205; 89051; C1729

== ENCOUNTER → 2018-10-09 | Outpatient (CLI) | payer BC ==
--- NOTE | 2018-10-09 11:19 | Diagnostic Imaging Report ---
PROCEDURE: Ultrasound-guided diagnostic and therapeutic paracentesis Procedural Personnel Attending physician(s): Dayanara Fontana MD Pre-procedure diagnosis: Cirrhosis, ascites Post-procedure diagnosis: Same Indication: Ascites with pain or pressure symptoms Additional clinical history: None Complications: No immediate complications. IMPRESSION: Ultrasound-guided paracentesis with drainage of 5000 mL of serous fluid. Plan: Resume care by clinical team. PROCEDURE SUMMARY: - Limited abdominal ultrasound - Ultrasound-guided paracentesis - Additional procedure(s): None PROCEDURE DETAILS: Pre-procedure Consent: Informed consent for the procedure including risks, benefits and alternatives was obtained and time-out was performed prior to the procedure. Preparation: The site was prepared and draped using maximal sterile barrier technique including cutaneous antisepsis. Anesthesia/sedation Level of anesthesia/sedation: No sedation Anesthesia/sedation administered by: Not applicable Initial abdominal ultrasound Initial abdominal ultrasound was performed. Findings: Large ascites. A safe window for paracentesis was identified. Paracentesis Local anesthesia was administered. The peritoneal cavity was accessed and fluid return confirmed position. Ascites was drained. The catheter was then removed, and a sterile bandage was applied. Paracentesis access technique: Real-time ultrasound guidance Catheter placed: 5F Yueh Post-drainage ultrasound: Moderate ascites Additional Details Additional description of procedure: None Equipment details: None Specimens removed: Abdominal fluid Estimated blood loss (mL): Less than 10 Standardized report: [email or web address] Attestation Signer name: Dayanara Fontana MD I attest that I was present for the entire procedure. I reviewed the stored images and agree with the report as written. Signed by: Dayanara Fontana MD on 10/09/2018 11:16 AM
[2018-10-09 12:45] LABS: BODY FLUID APPEARANCE CLOUDY; BODY FLUID COLOR STRAW; BODY FLUID TYPE SEE COMMENTS
[2018-10-09 12:46] LABS: RBC,BODY FLUID 1067 cells/uL; WBC,BODY FLUID 58 cells/uL
[2018-10-09 12:50] LABS: LYMPHOCYTES,BODY FLUID 29 %; MONO/MACROPHG,BODY FLUID 8 %; NEUTROPHILS,BODY FLUID 47 %
[2018-10-09 12:52] LABS: OTHER CELLS,BODY FLUID 16 %
== END ==
LOC: US 09:31
PROVIDERS: ATTEND Legal Medicine
DX: R18.8 Other ascites (principal); K74.60 Unspecified cirrhosis of liver
CPT/HCPCS: 36415; 49083; 87070; 87205; 88112; 88305; 89051; C1729

== ENCOUNTER → 2018-10-13 | Outpatient (CLI) | payer BC ==
[2018-10-13 16:25] LABS: RBC,BODY FLUID 471 cells/uL; WBC,BODY FLUID 14 cells/uL
[2018-10-13 16:29] LABS: BODY FLUID APPEARANCE CLOUDY; BODY FLUID COLOR STRAW; BODY FLUID TYPE PERITONEAL
--- NOTE | 2018-10-13 16:38 | Diagnostic Imaging Report ---
PROCEDURE: Ultrasound-guided diagnostic and therapeutic paracentesis Procedural Personnel Attending physician(s): Dayanara Fontana MD Pre-procedure diagnosis: Cirrhosis, ascites Post-procedure diagnosis: Same Indication: Ascites with pain or pressure symptoms Additional clinical history: None Complications: No immediate complications. IMPRESSION: Ultrasound-guided paracentesis with drainage of 5000 mL of serous fluid. Plan: Resume care by clinical team. PROCEDURE SUMMARY: - Limited abdominal ultrasound - Ultrasound-guided paracentesis - Additional procedure(s): None PROCEDURE DETAILS: Pre-procedure Consent: Informed consent for the procedure including risks, benefits and alternatives was obtained and time-out was performed prior to the procedure. Preparation: The site was prepared and draped using maximal sterile barrier technique including cutaneous antisepsis. Anesthesia/sedation Level of anesthesia/sedation: No sedation Anesthesia/sedation administered by: Not applicable Initial abdominal ultrasound Initial abdominal ultrasound was performed. Findings: Large ascites. A safe window for paracentesis was identified. Paracentesis Local anesthesia was administered. The peritoneal cavity was accessed and fluid return confirmed position. Ascites was drained. The catheter was then removed, and a sterile bandage was applied. Paracentesis access technique: Real-time ultrasound guidance Catheter placed: 5F Yueh Post-drainage ultrasound: Moderate ascites Additional Details Additional description of procedure: None Equipment details: None Specimens removed: Abdominal fluid Estimated blood loss (mL): Less than 10 Standardized report: [email or web address] Attestation Signer name: Dayanara Fontana MD I attest that I was present for the entire procedure. I reviewed the stored images and agree with the report as written. Signed by: Dayanara Fontana MD on 10/13/2018 4:35 PM
[2018-10-13 16:51] LABS: LYMPHOCYTES,BODY FLUID 29 %; MONO/MACROPHG,BODY FLUID 49 %; NEUTROPHILS,BODY FLUID 6 %; OTHER CELLS,BODY FLUID 16 %
== END ==
LOC: US 12:11
PROVIDERS: ATTEND Legal Medicine
DX: R18.8 Other ascites (principal); K74.60 Unspecified cirrhosis of liver
CPT/HCPCS: 36415; 49083; 87070; 87205; 89051; C1729

== ENCOUNTER → 2018-10-16 | Outpatient (CLI) | payer BC ==
--- NOTE | 2018-10-16 11:29 | Diagnostic Imaging Report ---
Procedure: Ultrasound-guided paracentesis bean picker machine operator: Paulo Perez M.D. Pre-operative diagnosis: Ascites Post-operative diagnosis: Ascites Conscious Sedation: None. The patient's heart rate and pulse oximetry were continuously monitored by the IR nurse. Additional Medications: Lidocaine 1% for local anesthesia Estimated blood loss: Less than 1 cc. Specimen: 5000 cc of cloudy yellow fluid Implants: None TECHNIQUE/FINDINGS: Informed consent was obtained from the patient and documented in the medical record. The patient was placed in the supine position. Initial ultrasound demonstrated ascites. The right lower abdomen was prepped and draped in standard sterile fashion. 1% lidocaine was infiltrated into the skin and subcutaneous tissues for local anesthesia. Then under continuous sonographic guidance, a 5 Fr catheter was advanced into the peritoneal space. The catheter was connected to vacuum bottle with subsequent evacuation of 5000 cc of serous fluid. The catheter was removed and sterile dressing was applied. Sample was sent to the lab. The patient tolerated the procedure well. IMPRESSION: Successful ultrasound-guided paracentesis. Signed by: Paulo Perez on 10/16/2018 11:26 AM
[2018-10-16 12:45] LABS: BODY FLUID APPEARANCE CLOUDY; BODY FLUID COLOR STRAW; BODY FLUID TYPE PERITONEAL
[2018-10-16 12:46] LABS: RBC,BODY FLUID 2364 cells/uL; WBC,BODY FLUID 81 cells/uL
[2018-10-16 12:49] LABS: LYMPHOCYTES,BODY FLUID 55 %; MONO/MACROPHG,BODY FLUID 17 %; NEUTROPHILS,BODY FLUID 17 %; OTHER CELLS,BODY FLUID 11 %
== END ==
LOC: US 09:24
PROVIDERS: ATTEND Legal Medicine
DX: R18.8 Other ascites (principal)
CPT/HCPCS: 36415; 49083; 87070; 87205; 89051; C1729

== ENCOUNTER → 2018-10-20 | Outpatient (CLI) | payer BC ==
--- NOTE | 2018-10-20 13:24 | Diagnostic Imaging Report ---
Procedure: Ultrasound-guided paracentesis circular ripsaw operator: Paulo Perez M.D. Pre-operative diagnosis: Ascites Post-operative diagnosis: Ascites Conscious Sedation: None. The patient's heart rate and pulse oximetry were continuously monitored by the IR nurse. Additional Medications: Lidocaine 1% for local anesthesia Estimated blood loss: Less than 1 cc. Specimen: 4800 cc of cloudy yellow fluid Implants: None TECHNIQUE/FINDINGS: Informed consent was obtained from the patient and documented in the medical record. The patient was placed in the supine position. Initial ultrasound demonstrated ascites. The right lower abdomen was prepped and draped in standard sterile fashion. 1% lidocaine was infiltrated into the skin and subcutaneous tissues for local anesthesia. Then under continuous sonographic guidance, a 5 Fr catheter was advanced into the peritoneal space. The catheter was connected to vacuum bottle with subsequent evacuation of 4800 cc of serous fluid. The catheter was removed and sterile dressing was applied. Sample was sent to the lab. The patient tolerated the procedure well. IMPRESSION: Successful ultrasound-guided paracentesis. Signed by: Paulo Perez on 10/20/2018 1:20 PM
[2018-10-20 15:40] LABS: BODY FLUID APPEARANCE CLOUDY; BODY FLUID COLOR STRAW; BODY FLUID TYPE PERITONEAL
[2018-10-20 17:58] LABS: LYMPHOCYTES,BODY FLUID 38 %; MONO/MACROPHG,BODY FLUID 21 %; NEUTROPHILS,BODY FLUID 29 %; OTHER CELLS,BODY FLUID 12 %
[2018-10-20 18:38] LABS: RBC,BODY FLUID 2114 cells/uL; WBC,BODY FLUID 381 cells/uL
== END ==
LOC: US 10:30
PROVIDERS: ATTEND Legal Medicine
DX: R18.8 Other ascites (principal)
CPT/HCPCS: 36415; 49083; 87070; 87205; 89051; C1729

== ENCOUNTER → 2018-10-23 | Outpatient (CLI) | payer BC ==
[~2018-10-23] MED LIST changes: +SODIUM BICARBONATE 4.2% 10 ML SYRINGE ONE
--- NOTE | 2018-10-23 10:44 | Diagnostic Imaging Report ---
Procedure: Ultrasound-guided paracentesis rotary derrick operator: Seferino Logan MD Pre-operative diagnosis: Ascites Post-operative diagnosis: Ascites Conscious Sedation: None. The patient's heart rate and pulse oximetry were continuously monitored by the IR nurse. Additional Medications: Lidocaine 1% for local anesthesia Estimated blood loss: Less than 1 cc. Specimen: 6000 cc of cloudy yellow fluid Implants: None TECHNIQUE/FINDINGS: Informed consent was obtained from the patient and documented in the medical record. The patient was placed in the supine position. Initial ultrasound demonstrated ascites. The right lower abdomen was prepped and draped in standard sterile fashion. 1% lidocaine was infiltrated into the skin and subcutaneous tissues for local anesthesia. Then under continuous sonographic guidance, a 5 Fr catheter was advanced into the peritoneal space. The catheter was connected to vacuum bottle with subsequent evacuation of 6000 cc of serous fluid. The catheter was removed and sterile dressing was applied. Sample was sent to the lab. The patient tolerated the procedure well. IMPRESSION: Successful ultrasound-guided paracentesis. Signed by: Seferino Logan MD on 10/23/2018 10:41 AM
[2018-10-23 12:41] LABS: LYMPHOCYTES,BODY FLUID 43 %; MONO/MACROPHG,BODY FLUID 12 %; NEUTROPHILS,BODY FLUID 37 %
[2018-10-23 12:49] LABS: BODY FLUID APPEARANCE CLOUDY; BODY FLUID COLOR STRAW; BODY FLUID TYPE PERITONEAL; RBC,BODY FLUID 906 cells/uL; WBC,BODY FLUID 25 cells/uL
[2018-10-23 12:51] LABS: OTHER CELLS,BODY FLUID 8 %
== END ==
LOC: US 08:35
PROVIDERS: ATTEND Legal Medicine
DX: R18.8 Other ascites (principal)
CPT/HCPCS: 36415; 49083; 89051; C1729

== ENCOUNTER → 2018-10-27 | Outpatient (CLI) | payer BC ==
--- NOTE | 2018-10-27 11:41 | Diagnostic Imaging Report ---
Procedure: Ultrasound-guided paracentesis curing press operator: David Cesar MD Pre-operative diagnosis: Ascites Post-operative diagnosis: Ascites Conscious Sedation: None. The patient's heart rate and pulse oximetry were continuously monitored by the IR nurse. Additional Medications: Lidocaine 1% for local anesthesia Estimated blood loss: Less than 1 cc. Specimen: 6000 cc of cloudy fluid Implants: None TECHNIQUE/FINDINGS: Informed consent was obtained from the patient and documented in the medical record. The patient was placed in the supine position. Initial ultrasound demonstrated ascites. The right lower abdomen was prepped and draped in standard sterile fashion. 1% lidocaine was infiltrated into the skin and subcutaneous tissues for local anesthesia. Then under continuous sonographic guidance, a 5 Fr catheter was advanced into the peritoneal space. The catheter was connected to vacuum bottle with subsequent evacuation of 6000 cc of serous fluid. The catheter was removed and sterile dressing was applied. Sample was sent to the lab. The patient tolerated the procedure well. IMPRESSION: Successful ultrasound-guided paracentesis. Signed by: Dr. David Cesar MD on 10/27/2018 11:38 AM
[2018-10-27 12:56] LABS: BODY FLUID TYPE PERITONEAL
[2018-10-27 12:57] LABS: BODY FLUID APPEARANCE CLOUDY; BODY FLUID COLOR STRAW; RBC,BODY FLUID 1886 cells/uL; WBC,BODY FLUID 35 cells/uL
[2018-10-27 13:03] LABS: LYMPHOCYTES,BODY FLUID 51 %; MONO/MACROPHG,BODY FLUID 31 %; NEUTROPHILS,BODY FLUID 12 %
[2018-10-27 13:05] LABS: OTHER CELLS,BODY FLUID 6 %
== END ==
LOC: US 09:42
PROVIDERS: ATTEND Legal Medicine
DX: R18.8 Other ascites (principal)
CPT/HCPCS: 36415; 49083; 89051; C1729

== ENCOUNTER → 2018-10-30 | Outpatient (CLI) | payer BC ==
--- NOTE | 2018-10-30 11:41 | Diagnostic Imaging Report ---
Procedure: Ultrasound-guided paracentesis bonderite operator: Paulo Perez M.D. Pre-operative diagnosis: Ascites Post-operative diagnosis: Ascites Conscious Sedation: None. The patient's heart rate and pulse oximetry were continuously monitored by the IR nurse. Additional Medications: Lidocaine 1% for local anesthesia Estimated blood loss: Less than 1 cc. Specimen: 6000 cc of cloudy yellow fluid Implants: None TECHNIQUE/FINDINGS: Informed consent was obtained from the patient and documented in the medical record. The patient was placed in the supine position. Initial ultrasound demonstrated ascites. The right lower abdomen was prepped and draped in standard sterile fashion. 1% lidocaine was infiltrated into the skin and subcutaneous tissues for local anesthesia. Then under continuous sonographic guidance, a 5 Fr catheter was advanced into the peritoneal space. The catheter was connected to vacuum bottle with subsequent evacuation of 6000 cc of serous fluid. The catheter was removed and sterile dressing was applied. Sample was sent to the lab. The patient tolerated the procedure well. IMPRESSION: Successful ultrasound-guided paracentesis. Signed by: Paulo Perez on 10/30/2018 11:38 AM
[2018-10-30 13:24] LABS: RBC,BODY FLUID 1038 cells/uL; WBC,BODY FLUID 59 cells/uL
[2018-10-30 13:35] LABS: LYMPHOCYTES,BODY FLUID 60 %; MONO/MACROPHG,BODY FLUID 15 %; NEUTROPHILS,BODY FLUID 7 %; OTHER CELLS,BODY FLUID 18 %
[2018-10-30 14:01] LABS: BODY FLUID APPEARANCE SL.CLOUDY; BODY FLUID COLOR YELLOW; BODY FLUID TYPE PERITONEAL
== END ==
LOC: US 09:50
PROVIDERS: ATTEND Legal Medicine
DX: R18.8 Other ascites (principal)
CPT/HCPCS: 36415; 49083; 89051

== ENCOUNTER → 2018-11-03 | Outpatient (CLI) | payer BC ==
[2018-11-03 10:27] LABS: BASOPHILS % 0.7 % (0.0-1.0); EOSINOPHILS # (AUTO) 0.2 (0.0-0.4); EOSINOPHILS % 3.1 % (0.0-6.0); HEMOGLOBIN 8.1 g/dL (12.0-16.0); LYMPHOCYTES # (AUTO) 0.9 (1.0-3.2); LYMPHOCYTES % 15.1 % (18.0-39.1); MEAN CORPUSCULAR HEMOGLOBIN 32.9 pg (28-32); MEAN CORPUSCULAR HGB CONC 32.4 g/dL (31-35); MEAN CORPUSCULAR VOLUME 101.6 fL (81-99); MONOCYTES # (AUTO) 0.4 (0.2-0.8); MONOCYTES % 6.5 % (4.4-11.3); NEUTROPHILS # (AUTO) 4.5 (2.1-6.9); NEUTROPHILS % 73.9 % (38.7-80.0); PLATELET COUNT 359 x10e3/uL (140-360); RED BLOOD COUNT 2.46 x10e6/uL (3.6-5.1); RED CELL DISTRIBUTION WIDTH 14.7 % (11.7-14.4)
[2018-11-03 10:37] LABS: INR 1.06; PROTHROMBIN TIME 14.3 seconds (11.9-14.5)
[2018-11-03 10:38] LABS: PARTIAL THROMBOPLASTIN TIME 31.8 seconds (23.8-35.5)
--- NOTE | 2018-11-03 12:05 | Diagnostic Imaging Report ---
Procedure: Ultrasound-guided paracentesis lime filter operator: David Csear MD Pre-operative diagnosis: Ascites Post-operative diagnosis: Ascites Conscious Sedation: None. The patient's heart rate and pulse oximetry were continuously monitored by the IR nurse. Additional Medications: Lidocaine 1% for local anesthesia Estimated blood loss: Less than 1 cc. Specimen: 2400 cc of cloudy fluid Implants: None TECHNIQUE/FINDINGS: Informed consent was obtained from the patient and documented in the medical record. The patient was placed in the supine position. Initial ultrasound demonstrated ascites. The right lower abdomen was prepped and draped in standard sterile fashion. 1% lidocaine was infiltrated into the skin and subcutaneous tissues for local anesthesia. Then under continuous sonographic guidance, a 5 Fr catheter was advanced into the peritoneal space. The catheter was connected to vacuum bottle with subsequent evacuation of 2400 cc of fluid. The catheter was removed and sterile dressing was applied. Sample was sent to the lab. The patient tolerated the procedure well. IMPRESSION: Successful ultrasound-guided paracentesis. Signed by: Dr. David Cesar MD on 11/03/2018 12:02 PM
[2018-11-03 14:51] LABS: BODY FLUID APPEARANCE SL.CLOUDY; BODY FLUID COLOR YELLOW; BODY FLUID TYPE PERITONEAL
[2018-11-03 14:52] LABS: RBC,BODY FLUID 238 cells/uL; WBC,BODY FLUID 11 cells/uL
[2018-11-03 16:48] LABS: LYMPHOCYTES,BODY FLUID 50 %; MONO/MACROPHG,BODY FLUID 35 %; NEUTROPHILS,BODY FLUID 12 %
[2018-11-03 16:49] LABS: OTHER CELLS,BODY FLUID 3 %
== END ==
LOC: US 09:48
PROVIDERS: ATTEND Legal Medicine
DX: R18.8 Other ascites (principal)
CPT/HCPCS: 36415; 49083; 85025; 85610; 85730; 89051; C1729

== ENCOUNTER → 2018-11-06 | Outpatient (CLI) | payer BC ==
[2018-11-06 16:54] LABS: BODY FLUID APPEARANCE CLOUDY; BODY FLUID COLOR YELLOW; BODY FLUID TYPE PERITONEAL
[2018-11-06 17:57] LABS: WBC,BODY FLUID 9 cells/uL
[2018-11-06 17:58] LABS: RBC,BODY FLUID 203 cells/uL
[2018-11-06 19:05] LABS: LYMPHOCYTES,BODY FLUID 48 %; MONO/MACROPHG,BODY FLUID 10 %; NEUTROPHILS,BODY FLUID 16 %; OTHER CELLS,BODY FLUID 26 %
--- NOTE | 2018-11-09 08:31 | Diagnostic Imaging Report ---
PROCEDURE: Ultrasound-guided diagnostic and therapeutic paracentesis Procedural Personnel Attending physician(s): Dayanara Fontana MD Pre-procedure diagnosis: Cirrhosis, ascites Post-procedure diagnosis: Same Indication: Ascites with pain or pressure symptoms Additional clinical history: None Complications: No immediate complications. IMPRESSION: Ultrasound-guided paracentesis with drainage of 3950 mL of serous fluid. Plan: Resume care by clinical team. PROCEDURE SUMMARY: - Limited abdominal ultrasound - Ultrasound-guided paracentesis - Additional procedure(s): None PROCEDURE DETAILS: Pre-procedure Consent: Informed consent for the procedure including risks, benefits and alternatives was obtained and time-out was performed prior to the procedure. Preparation: The site was prepared and draped using maximal sterile barrier technique including cutaneous antisepsis. Anesthesia/sedation Level of anesthesia/sedation: No sedation Anesthesia/sedation administered by: Not applicable Initial abdominal ultrasound Initial abdominal ultrasound was performed. Findings: Large ascites. A safe window for paracentesis was identified. Paracentesis Local anesthesia was administered. The peritoneal cavity was accessed and fluid return confirmed position. Ascites was drained. The catheter was then removed, and a sterile bandage was applied. Paracentesis access technique: Real-time ultrasound guidance Catheter placed: 5F Yueh Post-drainage ultrasound: Moderate ascites Additional Details Additional description of procedure: None Equipment details: None Specimens removed: Abdominal fluid Estimated blood loss (mL): Less than 10 Standardized report: [email or web address] Attestation Signer name: Daynaara Fontana MD I attest that I was present for the entire procedure. I reviewed the stored images and agree with the report as written. Signed by: Dayanara Fontana MD on 11/09/2018 8:28 AM
== END ==
LOC: US 14:33
PROVIDERS: ATTEND Legal Medicine
DX: R18.8 Other ascites (principal); K74.60 Unspecified cirrhosis of liver
CPT/HCPCS: 36415; 49083; 89051; C1729

== ENCOUNTER → 2018-11-10 | Outpatient (CLI) | payer BC ==
[~2018-11-10] MED LIST changes: -SODIUM BICARBONATE 4.2% 10 ML SYRINGE ONE; +SODIUM BICARBONATE 8.4% SYRING 50 ML ONE
--- NOTE | 2018-11-10 13:30 | Diagnostic Imaging Report ---
Procedure: Ultrasound-guided paracentesis scouring machine operator: Paulo Perez M.D. Pre-operative diagnosis: Ascites Post-operative diagnosis: Ascites Conscious Sedation: None. The patient's heart rate and pulse oximetry were continuously monitored by the IR nurse. Additional Medications: Lidocaine 1% for local anesthesia Estimated blood loss: Less than 1 cc. Specimen: 5600 cc of cloudy yellow fluid Implants: None TECHNIQUE/FINDINGS: Informed consent was obtained from the patient and documented in the medical record. The patient was placed in the supine position. Initial ultrasound demonstrated ascites. The right upper abdomen was prepped and draped in standard sterile fashion. 1% lidocaine was infiltrated into the skin and subcutaneous tissues for local anesthesia. Then under continuous sonographic guidance, a 5 Fr catheter was advanced into the peritoneal space. The catheter was connected to vacuum bottle with subsequent evacuation of 5600 cc of serous fluid. The catheter was removed and sterile dressing was applied. Sample was sent to the lab. The patient tolerated the procedure well. IMPRESSION: Successful ultrasound-guided paracentesis. Signed by: Paulo Perez on 11/10/2018 1:27 PM
[2018-11-10 14:30] LABS: BODY FLUID APPEARANCE SL.CLOUDY; BODY FLUID COLOR YELLOW
[2018-11-10 14:33] LABS: RBC,BODY FLUID 960 cells/uL; WBC,BODY FLUID 57 cells/uL
[2018-11-10 14:37] LABS: LYMPHOCYTES,BODY FLUID 37 %; MONO/MACROPHG,BODY FLUID 13 %; NEUTROPHILS,BODY FLUID 11 %; OTHER CELLS,BODY FLUID 39 %
== END ==
LOC: US 09:38
PROVIDERS: ATTEND Legal Medicine
DX: R18.8 Other ascites (principal)
CPT/HCPCS: 36415; 49083; 89051; C1729

== ENCOUNTER → 2018-11-13 | Outpatient (CLI) | payer BC ==
[~2018-11-13] MED LIST changes: -SODIUM BICARBONATE 8.4% SYRING 50 ML ONE
--- NOTE | 2018-11-13 12:02 | Diagnostic Imaging Report ---
Exam: Ultrasound guided paracentesis Clinical History: Ascites Consent: Benefits and risks were explained to the patient who gave consent to the procedure. Complication: None immediate Procedure: The right lower quadrant was prepped and draped in usual sterile fashion. 1% lidocaine was used as the anesthetic. Under ultrasound guidance, a paracentesis catheter was inserted into the peritoneal cavity. Approximately 4.4 L of cloudy yellow ascitic fluid was aspirated. The catheter was removed. Hemostasis was achieved. The patient tolerated the procedure well without any adverse reactions and left the ultrasound department in stable condition. Impression: Ultrasound guided paracentesis as described. Signed by: Dr. Rosendo Vazquez MD on 11/13/2018 11:59 AM
[2018-11-13 13:37] LABS: BODY FLUID APPEARANCE SL.CLOUDY; BODY FLUID COLOR YELLOW
[2018-11-13 13:38] LABS: RBC,BODY FLUID 848 cells/uL; WBC,BODY FLUID 83 cells/uL
[2018-11-13 14:15] LABS: LYMPHOCYTES,BODY FLUID 71 %; MONO/MACROPHG,BODY FLUID 6 %; NEUTROPHILS,BODY FLUID 9 %; OTHER CELLS,BODY FLUID 14 %
== END ==
LOC: US 09:43
PROVIDERS: ATTEND Legal Medicine
DX: R18.8 Other ascites (principal)
CPT/HCPCS: 36415; 49083; 89051; C1729

== ENCOUNTER 2018-11-15 21:46 | Emergency (ER) | payer BC ==
[~2018-11-15] VITALS: Ht 165.1 cm; Wt 87.1 kg
[~2018-11-15 21:46] MED LIST changes: -ALBUMIN 25% 12.5GM 50ML 200 ML IV ONE
--- OUTSIDE RECORDS SUMMARY | 2018-11-15 21:49 | XMS REPORT | Clinical Summary ---
Author Author [facility] Organization [facility] Address Unknown Phone Unavailable Care Team Providers Care Manager Mining Name Role Phone Breezy Cabrera DO PCP Allergies No Known Allergies Medications End Date Status Medication Sig Dispensed Refills Start Date Active fenofibrate (LOFIBRA) 160 Take 160 mg [...] EYES) drops as needed (for Dry Eyes). Active liothyronine (CYTOMEL) 5 Take 5 mcg by 0 MCG tablet mouth daily. Active spironolactone Take 50 mg by 0 (ALDACTONE) 50 MG tablet mouth daily. 08/07/2019 Active furosemide (LASIX) 40 mg Take 1 tablet 90 tablet 2 tablet (40 mg total) 9 by mouth daily for 270 days. 08/07/2019 Active levothyroxine (SYNTHROID, Take 1 tablet 90 tablet 2 LEVOXYL) 175 mcg tablet (175 mcg 9 total) by mouth daily for 270 days. 08/07/2019 Active metoprolol tartrate Take 1 tablet 180 tablet 2 (LOPRESSOR) 50 mg tablet (50 mg total) 9 by mouth 2 (two) times a day for 270 days. 11/10/2018 Discontinued (Reorder) metoprolol tartrate Take 50 mg by 0 (LOPRESSOR) 50 mg tablet mouth 2 (two) times a day. 12/05/2017 Discontinued (Stop Taking at Discharge) amLODIPine (NORVASC) 5 mg Take 5 mg by 0 tablet mouth daily. 05/01/2018 Discontinued (Discontinued by another clinician) liothyronine (CYTOMEL) 5 Take 5 mcg by 0 MCG tablet mouth every morning. 05/05/2018 Discontinued (Reorder) levothyroxine (SYNTHROID, Take 175 mcg 0 LEVOXYL) 175 mcg tablet by mouth every morning. 03/05/2018 Discontinued amLODIPine (NORVASC) 5 mg Take 1 tablet 3 tablet by mouth 2 8 (two) times a day. 03/05/2018 Discontinued furosemide (LASIX) 40 mg Take 1 tablet 1 tablet by mouth 9 every morning. 03/05/2018 Discontinued fenofibrate micronized Take 1 3 (LOFIBRA) 134 MG capsule capsule by 8 mouth daily. 05/01/2018 Discontinued (Reorder) amLODIPine (NORVASC) 5 mg Take 5 mg by 0 tablet mouth 2 (two) times a day. 05/01/2018 Discontinued (Reorder) furosemide (LASIX) 40 mg Take 40 mg by 0 tablet mouth every morning. 05/01/2018 Discontinued (Discontinued by another clinician) spironolactone Take 50 mg by 0 (ALDACTONE) 50 MG tablet mouth every morning. 04/19/2018 lactulose 20 gram/30 mL Take 30 mL 2000 mL 0 solution (20 g total) 9 by mouth 3 (three) times a day for 30 days. 10/28/2018 amLODIPine (NORVASC) 5 mg Take 1 tablet 60 tablet 5 tablet (5 mg total) 9 by mouth 2 (two) times a day for 180 days. 10/28/2018 furosemide (LASIX) 40 mg Take 1 tablet 30 tablet 5 tablet (40 mg total) 9 by mouth every morning for 180 days. 11/01/2018 levothyroxine (SYNTHROID, Take 1 tablet 30 tablet 5 LEVOXYL) 175 mcg tablet (175 mcg 9 total) by mouth every morning for 180 days. Active Problems Problem Noted Date Heart failure 10/28/2018 Overview: Added automatically from request for surgery [id number] Cardiomyopathy 10/28/2018 Overview: Added automatically from request for surgery [id number] CAD (coronary artery disease) 04/28/2018 Hyperglycemia 03/11/2018 SBP (spontaneous bacterial peritonitis) 03/11/2018 Nausea 03/11/2018 Generalized abdominal pain 03/11/2018 Cirrhosis of liver with ascites 03/05/2018 Awaiting transplantation of liver 12/05/2017 Overview: Added automatically from request for surgery [id number] Cirrhosis 08/19/2017 Volume overload 08/19/2017 Other ascites 07/21/2017 Overview: Added automatically from request for surgery [id number] 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/2017 Ascites 06/26/2017 Abdominal pain 05/01/2017 Resolved Problems Problem Noted Date Resolved Date Preop cardiovascular exam 07/21/2017 02/26/2018 Overview: Added automatically from request for surgery [id number] Encounters Care Team Description Date Type Specialty Barak Diana RN Med Refill 11/10/2018 Refill Transplant Alejandro Pickard MD Kim, Ju Hyun, MD Coronary artery disease, angina presence unspecified, unspecified vessel or lesion type, unspecified whether [place] posta or transplanted heart (Primary Dx); 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); Chronic combined systolic and diastolic congestive heart failure (HCC); Other ascites; CKD (chronic kidney disease) stage 4, GFR 15-29 ml/min (HCC) 10/28/2018 Office Visit Transplant Barak Diana RN 10/28/2018 Orders Only Transplant Mary Thompson RN 10/28/2018 Documentation Transplant Jyothi Hodge MA test ordered for clearance 10/23/2018 Telephone Cardiology Dae Palomino RN Cirrhosis of liver with ascites, unspecified hepatic cirrhosis type (HCC) (Primary Dx); Coagulopathy (HCC) 10/22/2018 Orders Only Transplant Jyothi Hodge MA Results 10/21/2018 Telephone Cardiology Mary Thompson RN 10/20/2018 Documentation Transplant Frances Carreno MA RESCHEDULE 10/20/2018 Telephone Transplant Jason Flores MD 10/19/2018 Orders Only Cardiology Jaden Kemp MD EGD 09/01/2018 Surgery Gastroenterology [facility], Joseph Berkowitz MD 09/01/2018 Anesthesia Gastroenterology Event Jaden Kemp MD Idiopathic esophageal varices without bleeding (HCC) (Primary Dx); 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) 09/01/2018 Hospital Gastroenterology Encounter Beth Castillo To reschedule appointment 08/26/2018 Telephone Transplant Jaden Kemp MD Anemia, unspecified type 07/22/2018 Hospital Radiology Encounter Provider, Unknown 07/21/2018 Abstract Transplant Jaden Kemp MD Anemia, unspecified type 07/17/2018 Hospital Radiology Encounter Jaden Kemp MD Anemia, unspecified type (Primary Dx) 07/17/2018 Transcribe Access Orders Jaden Kemp MD Anemia, unspecified type (Primary Dx) 07/14/2018 Transcribe Access Orders Madisyn Fonseca 07/09/2018 Telephone Transplant Mary Wolf MA Appointment 07/08/2018 Telephone Transplant Mary Wolf MA Stress Test 07/07/2018 Telephone Transplant Dae Palomino RN Stress Test needs scheduled 07/07/2018 Telephone Transplant Megan Wolf MA Treadmill Stress MVO2 06/05/2018 Telephone Cardiology Jason Flores MD Coronary artery disease involving la posta coronary artery of [place] post[place] heart without angina pectoris (Primary Dx) 06/05/2018 [...] unspecified vessel or lesion type, unspecified whether la posta or transplanted heart (Primary Dx); Coronary artery disease involving [place] posta coronary artery of [place] post[place] heart without angina pectoris; Screening for ischemic heart disease; 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); Abdominal pain, unspecified abdominal location 04/29/2018 Hospital Transplant Encounter Alejandro Pickard MD Coronary artery disease involving [place] post[place] coronary artery of [place] heart without angina pectoris; Screening for ischemic heart disease 04/29/2018 Hospital Transplant Encounter Barak Diana RN Coronary artery disease involving [place] post[place] coronary artery of [place] heart without angina pectoris (Primary Dx); Screening [...] Vandana Kim MD Cv right heart cath [15378 (CPT)] 03/17/2018 Surgery Procedural Cardiology Beth Jackson RN Referral - Heart Txp (inpatient) 03/13/2018 Telephone Transplant Dae Palomino RN MRB Outcome/Cardiac 03/12/2018 Documentation Transplant Dae Palomino RN MELD updated to 25, labs due 03/18/18 03/11/2018 Documentation Transplant Christin Steel MD Giveon, Ron, MD Neason, Chau L., MD Cirrhosis of liver with ascites, unspecified hepatic cirrhosis type (HCC) (Primary Dx); Severe anemia 03/05/2018 [facility] General Internal Medicine - Encounter 03/20/2018 Jaden Kemp MD Primary biliary cirrhosis (HCC) 02/26/2018 Hospital Radiology Encounter Jaden Kemp MD Other ascites 02/26/2018 Hospital Radiology Encounter Jaden Kemp MD 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) (Primary Dx); Awaiting transplantation of liver; Other ascites 02/26/2018 Hospital Transplant Encounter Jaden Kemp MD 02/26/2018 Hospital Procedural Cardiology Encounter Jaden [...] Awaiting liver transplant 01/19/2018 Orders Only Transplant Transplant, Nurse Coordinator, RN 01/14/2018 Abstract Transplant Karen Acevedo RN Primary biliary cirrhosis (HCC) (Primary Dx) 01/14/2018 Transcribe Transplant Orders Karen Acevedo RN Listed for OLT 01/14/2018 Telephone Transplant Karen Acevedo RN [facility], MELD=15, recert due 04/16/18 01/14/2018 Documentation Transplant Karen Acevedo RN Ascites of liver (Primary Dx) 01/12/2018 Transcribe Transplant Orders Cindy Jj MA Lab order 01/09/2018 Telephone Transplant Jon Cortez TXP LISTING FINANCIALLY APPROVED 01/06/2018 Telephone Transplant Cindy Jj MA TIPS Procedure 12/31/2017 Telephone Transplant Erma Thompson MD Pre-transplant evaluation for liver transplant (Primary Dx) 12/05/2017 Office Visit Cardiology Maryjane Madrigal RN Labs Only 12/04/2017 Telephone Cardiology Mina Cote MA 11/24/2017 Orders Only Cardiology after 11/14/2017 Immunizations Name Administration Dates Next Due FLUCELVAX QUAD PF 03/20/2018, 05/07/2017 Pneumococcal 03/06/2018 Polysaccharide Social History Date Tobacco Use Types Packs/Day Years Used Current Every Day Smoker Cigarettes 0.25 Smokeless Tobacco: Never Used Comments: smoking since age 18 Drinks/Week oz/Week Comments Alcohol Use No Sex Assigned at Date Recorded Not on file Industry Job Start Date Occupation Not on file Not on file Not on file Travel End Travel History Travel Start No recent travel history available. Last Filed Vital Signs Reading Time Taken Comments Vital Sign 114/54 10/28/2018 7:58 AM CDT Blood Pressure 62 10/28/2018 7:58 AM CDT Pulse 35.6 C (96.1 F) 10/28/2018 7:58 AM CDT Temperature 17 10/28/2018 7:58 AM CDT Respiratory Rate 98% 10/28/2018 7:58 AM CDT Oxygen Saturation - - Inhaled Oxygen Concentration 81.7 kg (180 lb 3.2 oz) 10/28/2018 7:58 AM CDT Weight 167.6 cm (5' 6") 10/28/2018 7:58 AM CDT Height 29.09 10/28/2018 7:58 AM CDT Body Mass Index Plan of Treatment Care Team Description Date Type Specialty Andres Gonzalez MD [address] [facility] [address] [place] [address] [phone] Heart failure, unspecified HF chronicity, unspecified heart failure type (HCC); Cardiomyopathy, unspecified type (HCC) 11/18/2018 Hospital Procedural Cardiology Encounter Vandana Kim MD [address] [facility] [address] [place] [address] [phone] Right heart cath [15630 (CPT)] 11/18/2018 Surgery Procedural Cardiology Erma Thompson MD [address] [facility] [address] [place] [address] [phone] 12/24/2018 Lab Transplant 12/24/2018 Office Visit Transplant Health Maintenance Due Date Last Done Comments COLONOSCOPY SCREENING 10/05/2005 SHINGLES VACCINES (#1) 10/05/2005 INFLUENZA VACCINE 10/01/2018 03/20/2018, 05/07/2017 BREAST CANCER SCREENING 07/23/2019 07/22/2017 CERVICAL CANCER SCREENING 07/21/2020 07/21/2017, 05/01/2017 Procedures Comments Procedure Name Priority Date/Time Associated Diagnosis ECG 12-LEAD Routine 10/28/2018 Chronic combined systolic 8:27 AM CDT and diastolic congestive heart failure (HCC) BILIRUBIN DIRECT Routine 10/28/2018 8:05 AM CDT ESTIMATED GFR Routine 10/28/2018 8:05 AM CDT PROTHROMBIN TIME WITH INR Routine 10/28/2018 Cirrhosis of liver with 8:05 AM CDT ascites, unspecified hepatic cirrhosis type (HCC) URIC ACID LEVEL Routine 10/28/2018 Chronic combined systolic 8:05 AM CDT and diastolic congestive heart failure (HCC) MAGNESIUM LEVEL Routine 10/28/2018 Chronic combined systolic 8:05 AM CDT and diastolic congestive heart failure (HCC) NICOTINE AND COTININE, Routine 10/28/2018 Pre-transplant evaluation SERUM 8:05 AM CDT for heart transplant B NATRIURETIC PEPTIDE Routine 10/28/2018 Chronic combined systolic 8:05 AM CDT and diastolic congestive heart failure (HCC) COMPREHENSIVE METABOLIC Routine 10/28/2018 Chronic combined systolic PANEL 8:05 AM CDT and diastolic congestive heart failure (HCC) CBC WITH PLATELET AND Routine 10/28/2018 Chronic combined systolic DIFFERENTIAL 8:05 AM CDT and diastolic congestive heart failure (HCC) SURGICAL PATHOLOGY Routine 09/01/2018 REQUEST 3:41 PM CDT SURGICAL PATHOLOGY Routine 09/01/2018 REQUEST 3:41 PM CDT ESOPHAGOGASTRODUODENOSCOP 09/01/2018 Secondary esophageal Y (EGD) 2:10 PM CDT varices without bleeding (HCC) CV TREADMILL STRESS TEST Routine 08/10/2018 Coronary artery disease 2:26 PM CDT involving [place] post[place] coronary artery of [place] post[place] heart without angina pectoris FL UPPER GI AND SMALL Routine 07/22/2018 Anemia, unspecified type BOWEL 11:12 AM CDT XR ABDOMEN 1 VW Routine 07/17/2018 Anemia, unspecified type 11:01 AM CDT ESTIMATED GFR Routine 05/27/2018 10:45 AM CDT [...] Routine 05/05/2018 Anemia, unspecified type 4:20 PM STRATEGIC COMMUNICATIONS MANAGER Hepatic cirrhosis, unspecified hepatic cirrhosis type, unspecified whether ascites present (HCC) Primary biliary cirrhosis (HCC) Chronic kidney disease, stage IV (severe) (HCC) FERRITIN LEVEL Routine 05/05/2018 Anemia, unspecified type 4:20 PM STRATEGIC COMMUNICATIONS MANAGER Hepatic cirrhosis, unspecified hepatic cirrhosis type, unspecified whether ascites present (HCC) Primary biliary cirrhosis (HCC) Chronic kidney disease, stage IV (severe) (HCC) TOTAL IRON BINDING Routine 05/05/2018 Anemia, unspecified type CAPACITY 4:20 PM STRATEGIC COMMUNICATIONS MANAGER Hepatic cirrhosis, unspecified hepatic cirrhosis type, unspecified whether ascites present (HCC) Primary biliary cirrhosis (HCC) Chronic kidney disease, stage IV (severe) (HCC) MANUAL DIFFERENTIAL Routine 04/29/2018 10:32 AM STRATEGIC COMMUNICATIONS MANAGER ESTIMATED GFR Routine 04/29/2018 10:32 AM STRATEGIC COMMUNICATIONS MANAGER NICOTINE AND COTININE, Routine 04/29/2018 Coronary artery disease SERUM 10:32 AM STRATEGIC COMMUNICATIONS MANAGER involving [place] posta coronary artery of [place] post[place] heart without angina pectoris Screening for ischemic heart disease PROTHROMBIN TIME WITH INR Routine 04/29/2018 Coronary artery disease 10:32 AM STRATEGIC COMMUNICATIONS MANAGER involving [place] post[place] coronary artery of [place] heart without angina pectoris Screening for ischemic heart disease LIPID PANEL Routine 04/29/2018 Coronary artery disease 10:32 AM STRATEGIC COMMUNICATIONS MANAGER involving [place] post[place] coronary artery of [place] post[place] heart without angina pectoris Screening for ischemic heart disease B NATRIURETIC PEPTIDE Routine 04/29/2018 Coronary artery disease 10:32 AM STRATEGIC COMMUNICATIONS MANAGER involving [place] post[place] coronary artery of [place] heart without angina pectoris Screening for ischemic heart disease COMPREHENSIVE METABOLIC Routine 04/29/2018 Coronary artery disease PANEL 10:32 AM STRATEGIC COMMUNICATIONS MANAGER involving [place] post[place] coronary artery of [place] heart without angina pectoris Screening for ischemic heart disease CBC WITH PLATELET AND Routine 04/29/2018 Coronary artery disease DIFFERENTIAL 10:32 AM STRATEGIC COMMUNICATIONS MANAGER involving [place] post[place] coronary artery of [place] heart without angina pectoris Screening for ischemic heart disease ECG 12-LEAD Routine 04/29/2018 Coronary artery disease 10:05 AM STRATEGIC COMMUNICATIONS MANAGER involving [place] post[place] coronary artery of [place] heart without angina pectoris Screening for ischemic heart disease POC GLUCOSE Routine 03/20/2018 8:48 AM STRATEGIC COMMUNICATIONS MANAGER MANUAL DIFFERENTIAL Routine 03/20/2018 4:02 AM STRATEGIC COMMUNICATIONS MANAGER ESTIMATED GFR Routine 03/20/2018 4:02 AM STRATEGIC COMMUNICATIONS MANAGER PROTHROMBIN TIME WITH INR Routine 03/20/2018 4:02 AM STRATEGIC COMMUNICATIONS MANAGER COMPREHENSIVE METABOLIC Routine 03/20/2018 PANEL 4:02 AM STRATEGIC COMMUNICATIONS MANAGER CBC WITH PLATELET AND Routine 03/20/2018 DIFFERENTIAL 4:02 AM STRATEGIC COMMUNICATIONS MANAGER POC GLUCOSE Routine 03/19/2018 6:37 PM STRATEGIC COMMUNICATIONS MANAGER XR ABDOMEN 1 VW PORTABLE Routine 03/19/2018 3:42 PM STRATEGIC COMMUNICATIONS MANAGER POC GLUCOSE Routine 03/19/2018 12:12 PM STRATEGIC COMMUNICATIONS MANAGER POC GLUCOSE Routine 03/19/2018 7:49 AM STRATEGIC COMMUNICATIONS MANAGER PROTHROMBIN TIME WITH INR Routine 03/19/2018 5:30 AM STRATEGIC COMMUNICATIONS MANAGER HC COMPLETE BLD COUNT Routine 03/19/2018 W/AUTO DIFF 5:30 AM STRATEGIC COMMUNICATIONS MANAGER ESTIMATED GFR Routine 03/19/2018 4:00 AM STRATEGIC COMMUNICATIONS MANAGER COMPREHENSIVE METABOLIC Routine 03/19/2018 PANEL 4:00 AM STRATEGIC COMMUNICATIONS MANAGER POC GLUCOSE Routine 03/18/2018 9:18 PM STRATEGIC COMMUNICATIONS MANAGER POC GLUCOSE Routine 03/18/2018 6:09 PM STRATEGIC COMMUNICATIONS MANAGER POC GLUCOSE Routine 03/18/2018 12:30 PM STRATEGIC COMMUNICATIONS MANAGER POC GLUCOSE Routine 03/18/2018 8:15 AM STRATEGIC COMMUNICATIONS MANAGER ESTIMATED GFR Routine 03/18/2018 5:15 AM STRATEGIC COMMUNICATIONS MANAGER PHOSPHORUS LEVEL Routine 03/18/2018 5:15 AM STRATEGIC COMMUNICATIONS MANAGER MAGNESIUM LEVEL Routine 03/18/2018 5:15 AM STRATEGIC COMMUNICATIONS MANAGER LDH Routine 03/18/2018 5:15 AM STRATEGIC COMMUNICATIONS MANAGER FIBRINOGEN Routine 03/18/2018 5:15 AM STRATEGIC COMMUNICATIONS MANAGER PROTHROMBIN TIME WITH INR Routine 03/18/2018 5:15 AM STRATEGIC COMMUNICATIONS MANAGER HEPATIC FUNCTION PANEL Routine 03/18/2018 5:15 AM STRATEGIC COMMUNICATIONS MANAGER CBC WITH PLATELET AND Routine 03/18/2018 DIFFERENTIAL 5:15 AM STRATEGIC COMMUNICATIONS MANAGER BASIC METABOLIC PANEL Routine 03/18/2018 5:15 AM STRATEGIC COMMUNICATIONS MANAGER POC GLUCOSE Routine 03/17/2018 9:57 PM STRATEGIC COMMUNICATIONS MANAGER POC GLUCOSE Routine 03/17/2018 4:11 PM STRATEGIC COMMUNICATIONS MANAGER POTASSIUM LEVEL STAT 03/17/2018 2:30 PM STRATEGIC COMMUNICATIONS MANAGER HC COMPLETE BLD COUNT STAT 03/17/2018 W/AUTO DIFF 2:30 PM STRATEGIC COMMUNICATIONS MANAGER CV RIGHT HEART CATH Routine 03/17/2018 1:[address]ATEGIC COMMUNICATIONS MANAGER CT CHEST WO CONTRAST Routine 03/17/2018 1:36 PM STRATEGIC COMMUNICATIONS MANAGER POC GLUCOSE Routine 03/17/2018 12:06 PM STRATEGIC COMMUNICATIONS MANAGER POC GLUCOSE Routine 03/17/2018 11:55 AM STRATEGIC COMMUNICATIONS MANAGER POC GLUCOSE Routine 03/17/2018 11:53 AM STRATEGIC COMMUNICATIONS MANAGER POC GLUCOSE Routine 03/17/2018 7:32 AM STRATEGIC COMMUNICATIONS MANAGER CBC WITH PLATELET AND Routine 03/17/2018 DIFFERENTIAL 12:29 AM STRATEGIC COMMUNICATIONS MANAGER PROTHROMBIN TIME WITH INR Routine 03/17/2018 12:28 AM STRATEGIC COMMUNICATIONS MANAGER ESTIMATED GFR Routine 03/17/2018 12:00 AM STRATEGIC COMMUNICATIONS MANAGER PHOSPHORUS LEVEL Routine 03/17/2018 12:00 AM STRATEGIC COMMUNICATIONS MANAGER MAGNESIUM LEVEL Routine 03/17/2018 12:00 AM STRATEGIC COMMUNICATIONS MANAGER LDH Routine 03/17/2018 12:00 AM STRATEGIC COMMUNICATIONS MANAGER HEPATIC FUNCTION PANEL Routine 03/17/2018 12:00 AM STRATEGIC COMMUNICATIONS MANAGER BASIC METABOLIC PANEL Routine 03/17/2018 12:00 AM STRATEGIC COMMUNICATIONS MANAGER POC GLUCOSE Routine 03/16/2018 8:51 PM STRATEGIC COMMUNICATIONS MANAGER POC GLUCOSE Routine 03/16/2018 5:20 PM STRATEGIC COMMUNICATIONS MANAGER US ABDOMINAL PARACENTESIS Routine 03/16/2018 IMAGING 1:20 PM STRATEGIC COMMUNICATIONS MANAGER CELL COUNT AND Routine 03/16/2018 DIFFERENTIAL, BODY FLUID 1:05 PM STRATEGIC COMMUNICATIONS MANAGER GRAM STAIN Routine 03/16/2018 1:05 PM STRATEGIC COMMUNICATIONS MANAGER ANAEROBIC CULTURE Routine 03/16/2018 1:05 PM STRATEGIC COMMUNICATIONS MANAGER AEROBIC CULTURE Routine 03/16/2018 1:05 PM STRATEGIC COMMUNICATIONS MANAGER POC GLUCOSE Routine 03/16/2018 11:41 AM STRATEGIC COMMUNICATIONS MANAGER POC GLUCOSE Routine 03/16/2018 7:41 AM STRATEGIC COMMUNICATIONS MANAGER XR CHEST 1 VW PORTABLE Routine 03/16/2018 7:02 AM STRATEGIC COMMUNICATIONS MANAGER ESTIMATED GFR Routine 03/16/2018 3:57 AM STRATEGIC COMMUNICATIONS MANAGER LDH Routine 03/16/2018 3:57 AM STRATEGIC COMMUNICATIONS MANAGER PHOSPHORUS LEVEL Routine 03/16/2018 3:57 AM STRATEGIC COMMUNICATIONS MANAGER MAGNESIUM LEVEL Routine 03/16/2018 3:57 AM STRATEGIC COMMUNICATIONS MANAGER HEPATIC FUNCTION PANEL Routine 03/16/2018 3:57 AM STRATEGIC COMMUNICATIONS MANAGER BASIC METABOLIC PANEL Routine 03/16/2018 3:57 AM STRATEGIC COMMUNICATIONS MANAGER POC GLUCOSE Routine 03/16/2018 3:45 AM STRATEGIC COMMUNICATIONS MANAGER FIBRINOGEN Routine 03/16/2018 3:30 AM STRATEGIC COMMUNICATIONS MANAGER PROTHROMBIN TIME WITH INR Routine 03/16/2018 3:30 AM STRATEGIC COMMUNICATIONS MANAGER CBC WITH PLATELET AND Routine 03/16/2018 DIFFERENTIAL 3:30 AM STRATEGIC COMMUNICATIONS MANAGER POC GLUCOSE Routine 03/16/2018 1:14 AM STRATEGIC COMMUNICATIONS MANAGER POC GLUCOSE Routine 03/15/2018 8:44 PM STRATEGIC COMMUNICATIONS MANAGER POC GLUCOSE Routine 03/15/2018 4:19 PM STRATEGIC COMMUNICATIONS MANAGER PV PHYSIOLOGIC ARTERIAL Routine 03/15/2018 LOWER EXTREMITY COMPLETE 3:15 PM STRATEGIC COMMUNICATIONS MANAGER POC GLUCOSE Routine 03/15/2018 11:51 AM STRATEGIC COMMUNICATIONS MANAGER POC GLUCOSE Routine 03/15/2018 7:43 AM STRATEGIC COMMUNICATIONS MANAGER XR CHEST 1 VW PORTABLE Routine 03/15/2018 6:02 AM STRATEGIC COMMUNICATIONS MANAGER ESTIMATED GFR Routine 03/15/2018 3:10 AM STRATEGIC COMMUNICATIONS MANAGER HC COMPLETE BLD COUNT Routine 03/15/2018 W/AUTO DIFF 3:10 AM STRATEGIC COMMUNICATIONS MANAGER PHOSPHORUS LEVEL Routine 03/15/2018 3:10 AM STRATEGIC COMMUNICATIONS MANAGER MAGNESIUM LEVEL Routine 03/15/2018 3:10 AM STRATEGIC COMMUNICATIONS MANAGER LDH Routine 03/15/2018 3:10 AM STRATEGIC COMMUNICATIONS MANAGER IONIZED CALCIUM Routine 03/15/2018 3:10 AM STRATEGIC COMMUNICATIONS MANAGER FIBRINOGEN Routine 03/15/2018 3:10 AM STRATEGIC COMMUNICATIONS MANAGER PARTIAL THROMBOPLASTIN Routine 03/15/2018 TIME (PTT) 3:10 AM STRATEGIC COMMUNICATIONS MANAGER HEPATIC FUNCTION PANEL Routine 03/15/2018 3:10 AM STRATEGIC COMMUNICATIONS MANAGER PROTHROMBIN TIME WITH INR Routine 03/15/2018 3:10 AM STRATEGIC COMMUNICATIONS MANAGER BASIC METABOLIC PANEL Routine 03/15/2018 3:10 AM STRATEGIC COMMUNICATIONS MANAGER POC GLUCOSE Routine 03/14/2018 8:52 PM STRATEGIC COMMUNICATIONS MANAGER POC GLUCOSE Routine 03/14/2018 5:50 PM STRATEGIC COMMUNICATIONS MANAGER POC GLUCOSE Routine 03/14/2018 11:51 AM STRATEGIC COMMUNICATIONS MANAGER POC GLUCOSE Routine 03/14/2018 8:12 AM STRATEGIC COMMUNICATIONS MANAGER XR CHEST 1 VW PORTABLE Routine 03/14/2018 6:28 AM STRATEGIC COMMUNICATIONS MANAGER TOXOPLASMA GONDII Routine 03/14/2018 ANTIBODY, IGG 3:42 AM STRATEGIC COMMUNICATIONS MANAGER SYPHILIS TREPONEMAL IGG Routine 03/14/2018 3:42 AM STRATEGIC COMMUNICATIONS MANAGER HEPATITIS ACUTE PANEL Routine 03/14/2018 3:42 AM STRATEGIC COMMUNICATIONS MANAGER PREALBUMIN LEVEL Routine 03/14/2018 3:42 AM STRATEGIC COMMUNICATIONS MANAGER MAURY-ROBERTS VIRUS Routine 03/14/2018 ANTIBODY TEST 3:42 AM STRATEGIC COMMUNICATIONS MANAGER ESTIMATED GFR Routine 03/14/2018 3:33 AM STRATEGIC COMMUNICATIONS MANAGER PHOSPHORUS LEVEL Routine 03/14/2018 3:33 AM STRATEGIC COMMUNICATIONS MANAGER MAGNESIUM LEVEL Routine 03/14/2018 3:33 AM STRATEGIC COMMUNICATIONS MANAGER HEPATIC FUNCTION PANEL Routine 03/14/2018 3:33 AM STRATEGIC COMMUNICATIONS MANAGER BASIC METABOLIC PANEL Routine 03/14/2018 3:33 AM STRATEGIC COMMUNICATIONS MANAGER T4, FREE Routine 03/14/2018 3:33 AM STRATEGIC COMMUNICATIONS MANAGER T4 Routine 03/14/2018 3:33 AM STRATEGIC COMMUNICATIONS MANAGER T3 Routine 03/14/2018 3:33 AM STRATEGIC COMMUNICATIONS MANAGER THYROID STIMULATING Routine 03/14/2018 HORMONE 3:33 AM STRATEGIC COMMUNICATIONS MANAGER LIPID PANEL Routine 03/14/2018 3:33 AM STRATEGIC COMMUNICATIONS MANAGER LDH Routine 03/14/2018 3:33 AM STRATEGIC COMMUNICATIONS MANAGER URIC ACID LEVEL Routine 03/14/2018 3:33 AM STRATEGIC COMMUNICATIONS MANAGER SINGLE ANTIGEN BEADS Routine 03/14/2018 3:20 AM STRATEGIC COMMUNICATIONS MANAGER MANUAL DIFFERENTIAL Routine 03/14/2018 3:20 AM STRATEGIC COMMUNICATIONS MANAGER PARTIAL THROMBOPLASTIN Routine 03/14/2018 TIME (PTT) 3:20 AM STRATEGIC COMMUNICATIONS MANAGER PROTHROMBIN TIME WITH INR Routine 03/14/2018 3:20 AM STRATEGIC COMMUNICATIONS MANAGER FIBRINOGEN Routine 03/14/2018 3:20 AM STRATEGIC COMMUNICATIONS MANAGER CBC WITH PLATELET AND Routine 03/14/2018 DIFFERENTIAL 3:20 AM STRATEGIC COMMUNICATIONS MANAGER TOXOPLASMA IGM AB Routine 03/14/2018 3:20 AM STRATEGIC COMMUNICATIONS MANAGER HEMOGLOBIN A1C Routine 03/14/2018 3:20 AM STRATEGIC COMMUNICATIONS MANAGER MAURY ROBERTS VIRUS (EBV) Routine 03/14/2018 BY PCR 3:20 AM STRATEGIC COMMUNICATIONS MANAGER POC GLUCOSE Routine 03/14/2018 12:36 AM STRATEGIC COMMUNICATIONS MANAGER FERRITIN LEVEL Routine 03/14/2018 12:00 AM STRATEGIC COMMUNICATIONS MANAGER POC GLUCOSE Routine 03/13/2018 8:52 PM STRATEGIC COMMUNICATIONS MANAGER URINALYSIS SCREEN AND Routine 03/13/2018 MICROSCOPY, WITH REFLEX 5:30 PM STRATEGIC COMMUNICATIONS MANAGER TO CULTURE CREATININE LEVEL, URINE, Routine 03/13/2018 RANDOM 5:30 PM STRATEGIC COMMUNICATIONS MANAGER PROTEIN, URINE, RANDOM Routine 03/13/2018 5:30 PM STRATEGIC COMMUNICATIONS MANAGER GRAM STAIN Routine 03/13/2018 5:30 PM STRATEGIC COMMUNICATIONS MANAGER URINE CULTURE Routine 03/13/2018 5:30 PM STRATEGIC COMMUNICATIONS MANAGER US RENAL Routine 03/13/2018 5:10 [address]IC COMMUNICATIONS MANA[address] HEAD WO CONTRAST Routine 03/13/2018 4:22 PM STRATEGIC COMMUNICATIONS MANAGER POC GLUCOSE Routine 03/13/2018 3:35 PM STRATEGIC COMMUNICATIONS MANAGER ESTIMATED GFR Routine 03/13/2018 3:30 PM STRATEGIC COMMUNICATIONS MANAGER CREATININE CLEARANCE, Routine 03/13/2018 URINE, 24 HOUR 3:30 PM STRATEGIC COMMUNICATIONS MANAGER POC GLUCOSE Routine 03/13/2018 11:06 AM STRATEGIC COMMUNICATIONS MANAGER TRANSFUSE RED BLOOD CELLS Routine 03/13/2018 9:57 AM STRATEGIC COMMUNICATIONS MANAGER POC GLUCOSE Routine 03/13/2018 7:30 AM STRATEGIC COMMUNICATIONS MANAGER PREPARE RBC Routine 03/13/2018 5:00 AM STRATEGIC COMMUNICATIONS MANAGER ANTIBODY IDENTIFICATION Routine 03/13/2018 5:00 AM STRATEGIC COMMUNICATIONS MANAGER TYPE AND SCREEN Routine 03/13/2018 5:00 AM STRATEGIC COMMUNICATIONS MANAGER ESTIMATED GFR Routine 03/13/2018 2:55 AM STRATEGIC COMMUNICATIONS MANAGER LDH Routine 03/13/2018 2:55 AM STRATEGIC COMMUNICATIONS MANAGER PHOSPHORUS LEVEL Routine 03/13/2018 2:55 AM STRATEGIC COMMUNICATIONS MANAGER MAGNESIUM LEVEL Routine 03/13/2018 2:55 AM STRATEGIC COMMUNICATIONS MANAGER HEPATIC FUNCTION PANEL Routine 03/13/2018 2:55 AM STRATEGIC COMMUNICATIONS MANAGER BASIC METABOLIC PANEL Routine 03/13/2018 2:55 AM STRATEGIC COMMUNICATIONS MANAGER SMEAR REVIEW Routine 03/13/2018 2:30 AM STRATEGIC COMMUNICATIONS MANAGER FIBRINOGEN Routine 03/13/2018 2:30 AM STRATEGIC COMMUNICATIONS MANAGER PARTIAL THROMBOPLASTIN Routine 03/13/2018 TIME (PTT) 2:30 AM STRATEGIC COMMUNICATIONS MANAGER PROTHROMBIN TIME WITH INR Routine 03/13/2018 2:30 AM STRATEGIC COMMUNICATIONS MANAGER HC COMPLETE BLD COUNT Routine 03/13/2018 W/AUTO DIFF 2:30 AM STRATEGIC COMMUNICATIONS MANAGER POC GLUCOSE Routine 03/12/2018 9:01 PM STRATEGIC COMMUNICATIONS MANAGER XR CHEST 1 VW PORTABLE STAT 03/12/2018 8:11 PM STRATEGIC COMMUNICATIONS MANAGER HEMODIALYSIS CATHETER Routine 03/12/2018 Cirrhosis of liver with PLACEMENT 4:51 PM STRATEGIC COMMUNICATIONS MANAGER ascites, unspecified hepatic cirrhosis type (HCC) POC GLUCOSE Routine 03/12/2018 11:45 AM STRATEGIC COMMUNICATIONS MANAGER POC GLUCOSE Routine 03/12/2018 9:57 AM STRATEGIC COMMUNICATIONS MANAGER POC GLUCOSE Routine 03/12/2018 8:09 AM STRATEGIC COMMUNICATIONS MANAGER XR CHEST 1 VW PORTABLE Routine 03/12/2018 7:07 AM STRATEGIC COMMUNICATIONS MANAGER POC GLUCOSE Routine 03/12/2018 4:46 AM STRATEGIC COMMUNICATIONS MANAGER ESTIMATED GFR Routine 03/12/2018 2:19 AM STRATEGIC COMMUNICATIONS MANAGER PHOSPHORUS LEVEL Routine 03/12/2018 2:19 AM STRATEGIC COMMUNICATIONS MANAGER MAGNESIUM LEVEL Routine 03/12/2018 2:19 AM STRATEGIC COMMUNICATIONS MANAGER LDH Routine 03/12/2018 2:19 AM STRATEGIC COMMUNICATIONS MANAGER LACTIC ACID LEVEL Routine 03/12/2018 2:19 AM STRATEGIC COMMUNICATIONS MANAGER IONIZED CALCIUM Routine 03/12/2018 2:19 AM STRATEGIC COMMUNICATIONS MANAGER HEPATIC FUNCTION PANEL Routine 03/12/2018 2:19 AM STRATEGIC COMMUNICATIONS MANAGER BASIC METABOLIC PANEL Routine 03/12/2018 2:19 AM STRATEGIC COMMUNICATIONS MANAGER FIBRINOGEN Routine 03/12/2018 2:15 AM STRATEGIC COMMUNICATIONS MANAGER PROTHROMBIN TIME WITH INR Routine 03/12/2018 2:15 AM STRATEGIC COMMUNICATIONS MANAGER HC COMPLETE BLD COUNT Routine 03/12/2018 W/AUTO DIFF 2:15 AM STRATEGIC COMMUNICATIONS MANAGER POC GLUCOSE Routine 03/12/2018 12:36 AM STRATEGIC COMMUNICATIONS MANAGER POC GLUCOSE Routine 03/11/2018 8:54 PM STRATEGIC COMMUNICATIONS MANAGER POC GLUCOSE Routine 03/11/2018 4:15 PM STRATEGIC COMMUNICATIONS MANAGER PROTHROMBIN TIME WITH INR STAT 03/11/2018 3:45 PM STRATEGIC COMMUNICATIONS MANAGER HC COMPLETE BLD COUNT STAT 03/11/2018 W/AUTO DIFF 3:45 PM STRATEGIC COMMUNICATIONS MANAGER XR ABDOMEN 1 VW PORTABLE Routine 03/11/2018 2:10 PM STRATEGIC COMMUNICATIONS MANAGER ESTIMATED GFR STAT 03/11/2018 1:48 PM STRATEGIC COMMUNICATIONS MANAGER IONIZED CALCIUM STAT 03/11/2018 1:48 PM STRATEGIC COMMUNICATIONS MANAGER LACTIC ACID LEVEL STAT 03/11/2018 1:48 PM STRATEGIC COMMUNICATIONS MANAGER PHOSPHORUS LEVEL STAT 03/11/2018 1:48 PM STRATEGIC COMMUNICATIONS MANAGER MAGNESIUM LEVEL STAT 03/11/2018 1:48 PM STRATEGIC COMMUNICATIONS MANAGER LDH STAT 03/11/2018 1:48 PM STRATEGIC COMMUNICATIONS MANAGER HEPATIC FUNCTION PANEL STAT 03/11/2018 1:48 PM STRATEGIC COMMUNICATIONS MANAGER BASIC METABOLIC PANEL STAT 03/11/2018 1:48 PM STRATEGIC COMMUNICATIONS MANAGER POC GLUCOSE Routine 03/11/2018 1:03 PM STRATEGIC COMMUNICATIONS MANAGER XR CHEST 1 VW PORTABLE STAT 03/11/2018 11:22 AM STRATEGIC COMMUNICATIONS MANAGER PROTHROMBIN TIME WITH INR Routine 03/11/2018 4:57 AM STRATEGIC COMMUNICATIONS MANAGER HC COMPLETE BLD COUNT Routine 03/11/2018 W/AUTO DIFF 4:57 AM STRATEGIC COMMUNICATIONS MANAGER ESTIMATED GFR Routine 03/11/2018 4:33 AM STRATEGIC COMMUNICATIONS MANAGER HEPATIC FUNCTION PANEL Routine 03/11/2018 4:33 AM STRATEGIC COMMUNICATIONS MANAGER MAGNESIUM LEVEL Routine 03/11/2018 4:33 AM STRATEGIC COMMUNICATIONS MANAGER BASIC METABOLIC PANEL Routine 03/11/2018 4:33 AM STRATEGIC COMMUNICATIONS MANAGER XR ABDOMEN 1 VW PORTABLE Routine 03/10/2018 8:00 PM STRATEGIC COMMUNICATIONS MANAGER ESTIMATED GFR Routine 03/10/2018 5:00 AM STRATEGIC COMMUNICATIONS MANAGER NICOTINE AND METABOLITES, Routine 03/10/2018 SERUM 5:00 AM STRATEGIC COMMUNICATIONS MANAGER HEPATIC FUNCTION PANEL Routine 03/10/2018 5:00 AM STRATEGIC COMMUNICATIONS MANAGER PROTHROMBIN TIME WITH INR Routine 03/10/2018 5:00 AM STRATEGIC COMMUNICATIONS MANAGER MAGNESIUM LEVEL Routine 03/10/2018 5:00 AM STRATEGIC COMMUNICATIONS MANAGER HC COMPLETE BLD COUNT Routine 03/10/2018 W/AUTO DIFF 5:00 AM STRATEGIC COMMUNICATIONS MANAGER BASIC METABOLIC PANEL Routine 03/10/2018 5:00 AM STRATEGIC COMMUNICATIONS MANAGER US ABDOMINAL PARACENTESIS Routine 03/09/2018 IMAGING 11:19 AM STRATEGIC COMMUNICATIONS MANAGER GRAM STAIN Routine 03/09/2018 10:49 AM STRATEGIC COMMUNICATIONS MANAGER ANAEROBIC CULTURE Routine 03/09/2018 10:49 AM STRATEGIC COMMUNICATIONS MANAGER AEROBIC CULTURE Routine 03/09/2018 10:49 AM STRATEGIC COMMUNICATIONS MANAGER LDH, MISC FLUID Routine 03/09/2018 10:48 AM STRATEGIC COMMUNICATIONS MANAGER PROTEIN, MISC FLUID Routine 03/09/2018 10:48 AM STRATEGIC COMMUNICATIONS MANAGER CELL COUNT AND Routine 03/09/2018 DIFFERENTIAL, BODY FLUID 10:48 AM STRATEGIC COMMUNICATIONS MANAGER ESTIMATED GFR Timed 03/09/2018 5:40 AM STRATEGIC COMMUNICATIONS MANAGER PROTHROMBIN TIME WITH INR Timed 03/09/2018 5:40 AM STRATEGIC COMMUNICATIONS MANAGER HEPATIC FUNCTION PANEL Timed 03/09/2018 5:40 AM STRATEGIC COMMUNICATIONS MANAGER HC COMPLETE BLD COUNT Timed 03/09/2018 W/AUTO DIFF 5:40 AM STRATEGIC COMMUNICATIONS MANAGER BASIC METABOLIC PANEL Timed 03/09/2018 5:40 AM STRATEGIC COMMUNICATIONS MANAGER HEMOGLOBIN & HEMATOCRIT Timed 03/08/2018 8:55 PM STRATEGIC COMMUNICATIONS MANAGER HEMOGLOBIN & HEMATOCRIT Timed 03/08/2018 1:21 PM STRATEGIC COMMUNICATIONS MANAGER PHOSPHORUS LEVEL Routine 03/08/2018 5:08 AM STRATEGIC COMMUNICATIONS MANAGER ESTIMATED GFR Routine 03/08/2018 5:08 AM STRATEGIC COMMUNICATIONS MANAGER PROTHROMBIN TIME WITH INR Routine 03/08/2018 5:08 AM STRATEGIC COMMUNICATIONS MANAGER HEPATIC FUNCTION PANEL Routine 03/08/2018 5:08 AM STRATEGIC COMMUNICATIONS MANAGER HC COMPLETE BLD COUNT Routine 03/08/2018 W/AUTO DIFF 5:08 AM STRATEGIC COMMUNICATIONS MANAGER BASIC METABOLIC PANEL Routine 03/08/2018 5:08 AM STRATEGIC COMMUNICATIONS MANAGER PARTIAL THROMBOPLASTIN Routine 03/08/2018 TIME (PTT) 5:08 AM STRATEGIC COMMUNICATIONS MANAGER MAGNESIUM LEVEL Routine 03/08/2018 5:08 AM STRATEGIC COMMUNICATIONS MANAGER HEMOGLOBIN & HEMATOCRIT Timed 03/07/2018 12:43 PM STRATEGIC COMMUNICATIONS MANAGER ESTIMATED GFR Routine 03/07/2018 5:40 AM STRATEGIC COMMUNICATIONS MANAGER PROTHROMBIN TIME WITH INR Routine 03/07/2018 5:40 AM STRATEGIC COMMUNICATIONS MANAGER HEPATIC FUNCTION PANEL Routine 03/07/2018 5:40 AM STRATEGIC COMMUNICATIONS MANAGER HC COMPLETE BLD COUNT Routine 03/07/2018 W/AUTO DIFF 5:40 AM STRATEGIC COMMUNICATIONS MANAGER BASIC METABOLIC PANEL Routine 03/07/2018 5:40 AM STRATEGIC COMMUNICATIONS MANAGER PARTIAL THROMBOPLASTIN Routine 03/07/2018 TIME (PTT) 5:40 AM STRATEGIC COMMUNICATIONS MANAGER MAGNESIUM LEVEL Routine 03/07/2018 5:40 AM STRATEGIC COMMUNICATIONS MANAGER US ABDOMINAL PARACENTESIS Routine 03/06/2018 IMAGING 4:14 PM STRATEGIC COMMUNICATIONS MANAGER CELL COUNT AND Routine 03/06/2018 DIFFERENTIAL, BODY FLUID 3:37 PM STRATEGIC COMMUNICATIONS MANAGER GRAM STAIN Routine 03/06/2018 3:37 PM STRATEGIC COMMUNICATIONS MANAGER ANAEROBIC CULTURE Routine 03/06/2018 3:37 PM STRATEGIC COMMUNICATIONS MANAGER AEROBIC CULTURE Routine 03/06/2018 3:37 [address]ATEGIC COMMUNICATIONS MANAGER CT ABDOMEN PELVIS WO STAT 03/06/2018 CONTRAST 2:36 PM STRATEGIC COMMUNICATIONS MANAGER ESTIMATED GFR Routine 03/06/2018 9:42 AM STRATEGIC COMMUNICATIONS MANAGER PARTIAL THROMBOPLASTIN Routine 03/06/2018 TIME (PTT) 9:42 AM STRATEGIC COMMUNICATIONS MANAGER PROTHROMBIN TIME WITH INR Routine 03/06/2018 9:42 AM STRATEGIC COMMUNICATIONS MANAGER MAGNESIUM LEVEL Routine 03/06/2018 9:42 AM STRATEGIC COMMUNICATIONS MANAGER HC COMPLETE BLD COUNT Routine 03/06/2018 W/AUTO DIFF 9:42 AM STRATEGIC COMMUNICATIONS MANAGER BASIC METABOLIC PANEL Routine 03/06/2018 9:42 AM STRATEGIC COMMUNICATIONS MANAGER HEPATIC FUNCTION PANEL Routine 03/06/2018 9:42 AM STRATEGIC COMMUNICATIONS MANAGER TRANSFUSE RED BLOOD CELLS STAT 03/06/2018 8:55 AM STRATEGIC COMMUNICATIONS MANAGER TRANSFUSE RED BLOOD CELLS STAT 03/06/2018 8:08 AM STRATEGIC COMMUNICATIONS MANAGER FOLATE LEVEL Routine 03/05/2018 8:20 PM STRATEGIC COMMUNICATIONS MANAGER VITAMIN B12 LEVEL Routine 03/05/2018 8:20 PM STRATEGIC COMMUNICATIONS MANAGER RETICULOCYTE COUNT Routine 03/05/2018 8:20 PM STRATEGIC COMMUNICATIONS MANAGER FERRITIN LEVEL Routine 03/05/2018 8:20 PM STRATEGIC COMMUNICATIONS MANAGER TOTAL IRON BINDING Routine 03/05/2018 CAPACITY 8:20 PM STRATEGIC COMMUNICATIONS MANAGER PREPARE RBC Timed 03/05/2018 4:55 PM STRATEGIC COMMUNICATIONS MANAGER ANTIBODY IDENTIFICATION Routine 03/05/2018 4:55 PM STRATEGIC COMMUNICATIONS MANAGER SMEAR REVIEW STAT 03/05/2018 4:55 PM STRATEGIC COMMUNICATIONS MANAGER ESTIMATED GFR STAT 03/05/2018 4:55 PM STRATEGIC COMMUNICATIONS MANAGER CREATINE KINASE, TOTAL STAT 03/05/2018 (CPK) 4:55 PM STRATEGIC COMMUNICATIONS MANAGER B NATRIURETIC PEPTIDE STAT 03/05/2018 4:55 PM STRATEGIC COMMUNICATIONS MANAGER TROPONIN STAT 03/05/2018 4:55 PM STRATEGIC COMMUNICATIONS MANAGER PHOSPHORUS LEVEL STAT 03/05/2018 4:55 PM STRATEGIC COMMUNICATIONS MANAGER MAGNESIUM LEVEL STAT 03/05/2018 4:55 PM STRATEGIC COMMUNICATIONS MANAGER HEPATIC FUNCTION PANEL STAT 03/05/2018 4:55 PM STRATEGIC COMMUNICATIONS MANAGER BASIC METABOLIC PANEL STAT 03/05/2018 4:55 PM STRATEGIC COMMUNICATIONS MANAGER TYPE AND SCREEN Routine 03/05/2018 4:55 PM STRATEGIC COMMUNICATIONS MANAGER PARTIAL THROMBOPLASTIN STAT 03/05/2018 TIME (PTT) 4:55 PM STRATEGIC COMMUNICATIONS MANAGER PROTHROMBIN TIME WITH INR STAT 03/05/2018 4:55 PM STRATEGIC COMMUNICATIONS MANAGER HC COMPLETE BLD COUNT STAT 03/05/2018 W/AUTO DIFF 4:55 PM STRATEGIC COMMUNICATIONS MANAGER CO CRITICAL CARE, E/M Routine 03/05/2018 30-74 MINUTES 4:45 PM STRATEGIC COMMUNICATIONS MANAGER ECG 12-LEAD STAT 03/05/2018 3:18 PM STRATEGIC COMMUNICATIONS MANAGER MRI ABDOMEN WO CONTRAST Routine 02/26/2018 Primary biliary cirrhosis 6:15 PM STRATEGIC COMMUNICATIONS MANAGER (HCC) US ABDOMINAL PARACENTESIS Routine 02/26/2018 Other ascites IMAGING 3:51 PM STRATEGIC COMMUNICATIONS MANAGER ALBUMIN, MISC FLUID Routine 02/26/2018 3:13 PM STRATEGIC COMMUNICATIONS MANAGER CELL COUNT AND Routine 02/26/2018 DIFFERENTIAL, BODY FLUID 3:13 PM STRATEGIC COMMUNICATIONS MANAGER AEROBIC CULTURE Routine 02/26/2018 3:13 PM STRATEGIC COMMUNICATIONS MANAGER GRAM STAIN Routine 02/26/2018 3:13 PM STRATEGIC COMMUNICATIONS MANAGER ANAEROBIC CULTURE Routine 02/26/2018 3:13 PM STRATEGIC COMMUNICATIONS MANAGER ECHOCARDIOGRAM 2D Routine 02/26/2018 COMPLETE W MMODE SPECTRAL 2:00 PM STRATEGIC COMMUNICATIONS MANAGER COLOR DOPPLER ([id number]) ESTIMATED GFR Routine 02/26/2018 11:48 AM STRATEGIC COMMUNICATIONS MANAGER VITAMIN K LEVEL, SERUM Routine 02/26/2018 Primary biliary 11:48 AM STRATEGIC COMMUNICATIONS MANAGER cholangitis (HCC) Awaiting liver transplant VITAMIN E LEVEL, PLASMA Routine 02/26/2018 Primary biliary OR SERUM 11:48 AM STRATEGIC COMMUNICATIONS MANAGER cholangitis (HCC) Awaiting liver transplant VITAMIN A LEVEL, PLASMA Routine 02/26/2018 Primary biliary OR SERUM 11:48 AM STRATEGIC COMMUNICATIONS MANAGER cholangitis (HCC) Awaiting liver transplant PHOSPHORUS LEVEL Routine 02/26/2018 Primary biliary 11:48 AM STRATEGIC COMMUNICATIONS MANAGER cholangitis (HCC) Awaiting liver transplant MAGNESIUM LEVEL Routine 02/26/2018 Primary biliary 11:48 AM STRATEGIC COMMUNICATIONS MANAGER cholangitis (HCC) Awaiting liver transplant ALPHA FETOPROTEIN Routine 02/26/2018 Primary biliary 11:48 AM STRATEGIC COMMUNICATIONS MANAGER cholangitis (HCC) Awaiting liver transplant HC COMPLETE BLD COUNT Routine 02/26/2018 Primary biliary W/AUTO DIFF 11:48 AM STRATEGIC COMMUNICATIONS MANAGER cholangitis (HCC) Awaiting liver transplant PARTIAL THROMBOPLASTIN Routine 02/26/2018 Primary biliary TIME (PTT) 11:48 AM STRATEGIC COMMUNICATIONS MANAGER cholangitis (HCC) Awaiting liver transplant PROTHROMBIN TIME WITH INR Routine 02/26/2018 Primary biliary 11:48 AM STRATEGIC COMMUNICATIONS MANAGER cholangitis (HCC) Awaiting liver transplant HEPATIC FUNCTION PANEL Routine 02/26/2018 Primary biliary 11:48 AM STRATEGIC COMMUNICATIONS MANAGER cholangitis (HCC) Awaiting liver transplant BASIC METABOLIC PANEL Routine 02/26/2018 Primary biliary 11:48 AM STRATEGIC COMMUNICATIONS MANAGER cholangitis (HCC) Awaiting liver transplant NM MYOCARDIAL [...] 2:24 PM CDT primary biliary cholangitis (HCC) after 11/14/2017 Results * ECG 12 lead (10/28/2018 8:27 AM CDT) Only the most recent of 2 results within the time period is included. Ventricular 54 [facility] rate Atrial rate 54 [facility] CO interval 174 [facility] QRSD interval 88 [facility] QT interval 436 [facility] QTC interval 413 [facility] P axis 1 10 [facility] QRS axis 1 16 [facility] T wave axis 27 [facility] EKG impression Sinus bradycardia-Cannot rule [facility] MUSE out Anterior infarct (cited on or before 21-JUL-2017)-Abnormal ECG-In automated comparison with ECG of 27-MAY-2018 10:39,-No significant change was found- Specimen Narrative Performed At Performing Organization Address City/State/Zipcode Phone Number [facility] [place] [address] [place] [address] * Nicotine and cotinine, serum (10/28/2018 8:05 AM CDT) Only the most recent of 3 results within the time period is included. Pathologist [facility] Nicotine <2.0 0.0 - 1.9 ng/mL [facility] Cotinine 8.4 (H) 0.0 - 1.9 ng/mL [place] Comment: [place] This test was developed and HOSPITAL its performance characteristics determined by the Department of Pathology and Genomic Medicine, [facility]. Serum nicotine and metabolite cotinine are tested by HPLC tandem mass spectrometry. It has not been cleared or approved by FDA. The laboratory is regulated under CLIA as qualified to perform high-complexity testing. This test is used for clinical purposes. It should not be regarded as investigational or for research. Specimen Blood Performing Organization Address City/State/Zipcode Phone Number [facility]PART[facility] OF [address] [place] [address] PATHOLOGY AND GENOMIC MEDICINE [address] * Estimated GFR (10/28/2018 8:05 AM CDT) Only the most recent of 22 results within the time period is included. [facility] Estimated GFR 22 (A) mL/min/1.73 m2 [place] Comment: [facility] rpretation G1 >=90 Normal or high G2 60-89Mildly decreased [id number] Mildly to moderately decreased [id number] Moderately to severely decreased G4 15-29Severely decreased G5 <15Kidney failure The eGFR was calculated using the Chronic Kidney Disease Epidemiology Collaboration (CKD-EPI) equation. Interpretation is based on recommendations of the National Kidney Foundation-Kidney Disease Outcomes Quality Initiative (NKF-KDOQI) published in 2014. Specimen Plasma specimen Performing Organization Address City/State/Zipcode Phone Number [facility] OF [address] [place] [address] PATHOLOGY AND [facility] MEDICINE [address] * Prothrombin time with INR (10/28/2018 8:05 AM CDT) Only the most recent of 20 results within the time period is included. [facility] Prothrombin 15.2 (H) 11.5 - 14.5 sec [facility] INR 1.2 [place] Comment: [facility] International Normalized HOSPITAL Ratio (INR) is a therapeutic monitoring tool for patients who are stable on oral anticoagulant therapy. An INR of 2.0-3.0 is suggested for deep vein thrombosis/pulmonary embolism. Specimen Blood Performing Organization Address City/State/[facility] Phone Number [facility] OF [address] [place] [address] PATHOLOGY AND [facility] MEDICINE [address] * CBC with platelet and differential (10/28/2018 8:05 AM CDT) Only the most recent of 23 results within the time period is included. [facility] WBC 6.00 4.50 - 11.00 k/uL [facility] RBC 2.43 (L) 4.20 - 5.50 m/uL [facility] HGB 7.7 (L) 12.0 - 16.0 g/dL [facility] HCT 25.0 (L) 37.0 - 47.0 % [facility] MCV 102.9 (H) 82.0 - 100.0 fL [facility] MCH 31.7 27.0 - 34.0 pg [facility] MCHC 30.8 (L) 31.0 - 37.0 g/dL [facility] RDW - SD 52.5 37.0 - 55.0 fL [facility] MPV 9.7 8.8 - 13.2 fL [facility] Platelet count 279 150 - 400 k/uL [facility] Nucleated RBC 0.00 /100 WBC [facility] Neutrophils 71.6 (H) 39.0 - 69.0 % [facility] Lymphocytes 13.7 (L) 25.0 - 45.0 % [facility] Monocytes 10.0 0.0 - 10.0 % [facility] Eosinophils 3.7 0.0 - 5.0 % [facility] Basophils 0.3 0.0 - 1.0 % [facility] Immature 0.7Comment: "Immature 0.0 - 1.0 % [place] granulocytes granulocytes" (promyelocytes, [place] myelocytes, metamyelocytes) HOSPITAL Specimen Blood Performing Organization Address City/[facility] Phone Number [place] [address] PATHOLOGY AND [facility] MEDICINE [address] * Uric acid level (10/28/2018 8:05 AM CDT) Only the most recent of 4 results within the time period is included. Uric acid 12.4 (H) 2.4 - 5.7 mg/dL [facility] Specimen Plasma specimen Performing Organization Address City/[facility] Phone Number [place] [address] PATHOLOGY AND GENOMIC MEDICINE [address] * B natriuretic peptide (10/28/2018 8:05 AM CDT) Only the most recent of 5 results within the time period is included. BNP 183 (H) 0 - 100 pg/mL [facility] Specimen Blood Performing Organization Address City/[facility] Phone Number [place] [address] PATHOLOGY AND GENOMIC MEDICINE [address] * Magnesium level (10/28/2018 8:05 AM CDT) Only the most recent of 18 results within the time period is included. Magnesium 2.8 (H) 1.6 - 2.4 mg/dL [facility] Specimen Plasma specimen Performing Organization Address City/State/Zipcode Phone Number [facility] OF [address] [place] [address] PATHOLOGY AND GENOMIC MEDICINE [address] * Bilirubin direct (10/28/2018 8:05 AM CDT) Bilirubin <0.2 0.0 - 0.3 mg/dL [facility] Specimen Plasma specimen Performing Organization Address City/[facility] Phone Number [place] [address] PATHOLOGY AND GENOMIC MEDICINE [address] * Comprehensive metabolic panel (10/28/2018 8:05 AM CDT) Only the most recent of 6 results within the time period is included. Pathologist [facility] Sodium 131 (L) 135 - 148 mEq/L [facility] Potassium 5.0 3.5 - 5.0 mEq/L [facility] Chloride 97 (L) 98 - 112 mEq/L [facility] CO2 19 (L) 24 - 31 mEq/L [facility] Anion gap 15@ANIO 7 - 15 mEq/L [facility] BUN 83 (H) 8 - 23 mg/dL [facility] Creatinine 2.29 (H) 0.50 - 0.90 mg/dL [facility] Glucose 107 (H) 65 - 99 mg/dL [facility] Calcium 8.3 (L) 8.8 - 10.2 mg/dL [facility] Protein 6.2 (L) 6.3 - 8.3 g/dL [place] Comment: [facility] 4.6-7.0 g/dL 1 week 4.4-7.6 g/dL 7 months-1year 5.1-7.3 g/dL 1-2 years5.6-7 .5 g/dL >3 years6.0-8 .0 g/dL 18-150 6.3-8.3 g/dL Albumin 3.4 (L) 3.5 - 5.0 g/dL [facility] A/G ratio 1.2 0.7 - 3.8 [facility] Alkaline 87 35 - 104 U/L [facility] AST 38 (H) 10 - 35 U/L [facility] ALT 12 5 - 50 U/L [facility] Total bilirubin 0.4 0.0 - 1.2 mg/dL [facility] Specimen Plasma specimen Performing Organization Address City/State/Zipcode Phone Number [facility] OF [address] [place] [address] PATHOLOGY AND GENOMIC MEDICINE [address] * Surgical pathology request (09/01/2018 3:41 PM CDT) Only the most recent of 2 results within the time period is included. [facility] OF PATHOLOGY AND GENOMIC MEDICINE Surgical See link below for PDF Lab [facility] pathology Report OF PATHOLOGY report AND GENOMIC MEDICINE Result status This is Supplemental Report [facility] for [id number] OF PATHOLOGY AND GENOMIC MEDICINE Specimen Performing Organization Address City/[facility] Cent[facility] Phone Number [facility] OF [address] [place] [address] PATHOLOGY AND GENOMIC MEDICINE * Cv stress test (08/10/2018 2:26 PM CDT) Resting HR 78 [facility] Resting BP 156 [facility] Peak MET 1.5 [facility] Achieved Protocol Name [id number] [facility] Time in 00:00:42 [facility] Exercise Phase Max Systolic BP 156 [facility] Max Diastolic 67 [facility] BP Max Heart Rate 93 [facility] Max Predicted 158 [facility] Heart Rate Target HR (220 - Age)*85% [facility] Formula Test Indication CAD [facility] Arrhy During Ex [facility] ECG Interp [facility] Before EX ECG Interp [facility] During Ex Ex Summary H MUSE Comment Overall HR [facility] Response to Exercise Overall BP [facility] Response To Exercise Reason for Desaturation to 84%/SOB [facility] Termination Stress Test Waveform interpreted in report [facility] Impression associated with image study. No interpretation is provided as part of this Stress ECG report.--Electronically Signed By Kelly ISIDRO, Douglas Tavera ([id number]), greeting card editor Chelly Leon ([id number]) on 08/12/2018 4:43:45 PM Specimen Narrative Performed At Performing Organization Address [facility] Phone Number [facility] [address] [place] [address] * [place] Upper GI and Small Bowel Series (07/22/2018 11:12 AM CDT) Specimen Narrative Performed At EXAMINATION:[place] UPPER GI AND SMALL BOWEL RADIANT CLINICAL HISTORY:D64.9 Anemiaunspecified, ANEMIA COMPARISON:None. TECHNIQUE:UPPER GI SERIES AND SMALL BOWEL FOLLOW-THROUGH was performed with barium RADIATION DOSE:262.643 mGy. 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 There is a tiny hiatal hernia. Esophageal peristalsis is within normal limits. 2.Gastroesophageal junction:No evidence of hiatal hernia. No reflux. 3.Stomach:Normally distensible and demonstrates normal contours and mucosal pattern. 4.Duodenum:There is a small diverticulum along the horizontal portion of the duodenum. The duodenal-jejunal junction is in the normal expected position. 5.Small bowel follow-through:Small bowel loops are normal in caliber and distribution. Spot compression views of the terminal ileum are normal. Transit time was normal. [id number] Procedure Note Interface, Radiology Results Incoming - 07/22/2018 2:31 PM CDT EXAMINATION: FL UPPER GI AND SMALL BOWEL CLINICAL HISTORY: D64.9 Anemia unspecified, ANEMIA COMPARISON: None. TECHNIQUE: UPPER GI SERIES AND SMALL BOWEL FOLLOW-THROUGH was performed with barium RADIATION DOSE: 262.643 mGy. IMPRESSION: 1. 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 There is a tiny hiatal hernia. Esophageal peristalsis is within normal limits. 2. Gastroesophageal junction: No evidence of hiatal hernia. No reflux. 3. Stomach: Normally distensible and demonstrates normal contours and mucosal pattern. 4. Duodenum: There is a small diverticulum along the horizontal portion of the duodenum. The duodenal-jejunal junction is in the normal expected position. 5. Small bowel follow-through: Small bowel loops are normal in caliber and distribution. Spot compression views of the terminal ileum are normal. Transit time was normal. [id number] Performing Organization Address [facility]/Zipcode Phone Number [facility]ANT [address] [place] [address] * XR Abdomen 1 Vw (07/17/2018 11:01 AM CDT) Specimen Narrative Performed At [facility] CLINICAL INDICATION:D64.9 Anemiaunspecified, ANEMIA COMPARISON:03/19/2018 IMPRESSION: Bowel gas pattern is nonspecific with gas scattered in large and small bowel loops. There is slightly prominent gas in the small bowel loops of upper quadrant question mild wall thickening not well evaluated by radiographs. There is no pneumatosis. Multiple cholecystectomy clips are present with scattered atherosclerotic calcifications. Bones are intact with very mild degenerative changes. *[id number] Procedure Note Interface, Radiology Results Incoming - 07/17/2018 1:09 PM CDT XR ABDOMEN 1 CLINICAL INDICATION: D64.9 Anemia unspecified, ANEMIA COMPARISON: 03/19/2018 IMPRESSION: Bowel gas pattern is nonspecific with gas scattered in large and small bowel loops. There is slightly prominent gas in the small bowel loops of upper quadrant question mild wall thickening not well evaluated by radiographs. There is no pneumatosis. Multiple cholecystectomy clips are present with scattered atherosclerotic calcifications. Bones are intact with very mild degenerative changes. *[id number] Performing Organization Address [facility] [address] * Total iron binding capacity (05/05/2018 4:20 PM STRATEGIC COMMUNICATIONS MANAGER) Only the most recent of 2 results within the time period is included. Iron level 42 37 - 145 ug/dL [facility] Iron binding 362 200 - 400 ug/dL [facility] % Saturation 11.6 (L) 15.0 - 38.0 % [facility] Specimen Plasma specimen Performing Organization Address City/[facility] Centercode Phone Number [facility] [address] PATHOLOGY AND GENOMIC MEDICINE [address] * Reticulocyte count (05/05/2018 4:20 PM STRATEGIC COMMUNICATIONS MANAGER) Only the most recent of 2 results within the time period is included. Retic %, auto 2.7 (H) 0.5 - 2.1 % [facility] Retic absolute, 0.0692 0.0210 - 0.1155 m/uL [facility] Specimen Blood Performing Organization Address City/[facility]/Zipcode Phone Number [facility] DEPARTMENT OF [address] [place] [address] PATHOLOGY AND GENOMIC MEDICINE [address] * Ferritin level (05/05/2018 4:20 PM STRATEGIC COMMUNICATIONS MANAGER) Only the most recent of 3 results within the time period is included. Ferritin level 25 13 - 150 ng/mL [facility] Specimen Plasma specimen Performing Organization Address City/[facility] Cent[facility]ode Phone Number [facility] DE[facility] OF [address] [place] [address] PATHOLOGY AND GENOMIC MEDICINE [address] * Manual differential (04/29/2018 10:32 AM STRATEGIC COMMUNICATIONS MANAGER) Only the most recent of 3 results within the time period is included. Manual PERFORMED LADONIA differential [facility] Neutrophils 77.0 (H) 39.0 - 69.0 % [facility] Lymphocytes 17.0 (L) 25.0 - 45.0 % [facility] Monocytes 4.0 0.0 - 10.0 % [facility] Eosinophils 2.0 0.0 - 5.0 % [facility] Basophils 0.0 0.0 - 1.0 % [facility] Metamyelocytes 0 % [facility] Promyelocytes 0 % [facility] Platelet slide Denice adequate [facility] Anisocytosis Moderate [facility] Ovalocytes Moderate [facility] Giant platelets Occasional [facility] Specimen Performing Organization Address City/[facility] Centercode Phone Number [facility] OF [address] [place] [address] PATHOLOGY AND GENOMIC MEDICINE [address] * Lipid panel (04/29/2018 10:32 AM STRATEGIC COMMUNICATIONS MANAGER) Only the most recent of 2 results within the time period is included. Cholesterol 92 <200 mg/dL [facility] Triglycerides 70 <150 mg/dL [facility] HDL cholesterol 24 (L) >40 mg/dL [facility] LDL cholesterol 44Comment: Result obtained by <100 mg/dL LADONIA direct LDL measurement [facility] Lipid panel SeeBelow LADONIA interpretation Comment: [facility] Total Cholesterol HOSPITAL (mg/dL) <200 Desirable 200-239Borderline -high >=240High Triglycerides [...] mg/dL) Specimen Plasma specimen Performing Organization Address City/[facility] Centercode Phone Number [facility] [address] PATHOLOGY AND GENOMIC MEDICINE LADONIA [facility] [address] [place] [address] * POC glucose (03/20/2018 8:48 AM STRATEGIC COMMUNICATIONS MANAGER) Only the most recent of 42 results within the time period is included. POC glucose 96 65 - 99 mg/dL [facility]IA Comment: [facility] Notified RN HOSPITAL Meter ID: [id number] General Superintendent: Maverick Hawthorne Specimen Performing Organization Address City/[facility] Centercode Phone Number [facility] [address] PATHOLOGY AND GENOMIC MEDICINE [place] [address] [place] [address] * XR Abdomen 1 Vw Portable (03/19/2018 3:42 PM STRATEGIC COMMUNICATIONS MANAGER) Only the most recent of 3 results within the time period is included. Specimen Narrative Performed At EXAMINATION:XR ABDOMEN 1 VW PORTABLE [facility] CLINICAL HISTORY:Nauseavomiting COMPARISON:03/11/2018 IMPRESSION: Status post cholecystectomy. Nonobstructive bowel gas pattern. No evidence of pneumoperitoneum. Punctate renal calculus projecting over the left renal shadow, lower pole. [id number] Procedure Note Hm Interface, Radiology Results Incoming - 03/19/2018 5:11 PM STRATEGIC COMMUNICATIONS MANAGER EXAMINATION: XR ABDOMEN 1 VW PORTABLE CLINICAL HISTORY: Nausea vomiting COMPARISON: 03/11/2018 IMPRESSION: Status post cholecystectomy. Nonobstructive bowel gas pattern. No evidence of pneumoperitoneum. Punctate renal calculus projecting over the left renal shadow, lower pole. [id number] Performing Organization Address [facility]/[place] [address] * Fibrinogen (03/18/2018 5:15 AM STRATEGIC COMMUNICATIONS MANAGER) Only the most recent of 6 results within the time period is included. Fibrinogen 242 200 - 450 mg/dL [facility] Specimen Blood Performing Organization Address City/[facility] Centercode Phone Number [place] [address] PATHOLOGY AND GENOMIC MEDICINE [address] * Phosphorus level (03/18/2018 5:15 AM STRATEGIC COMMUNICATIONS MANAGER) Only the most recent of 11 results within the time period is included. Phosphorus 1.8 (L) 2.4 - 4.5 mg/dL [facility] Specimen Plasma specimen Performing Organization Address [facility] Phone Number [place] [address] PATHOLOGY AND GENOMIC MEDICINE [address] * LDH (03/18/2018 5:15 AM STRATEGIC COMMUNICATIONS MANAGER) Only the most recent of 8 results within the time period is included. LDH 141 87 - 225 U/L [facility] Specimen Plasma specimen Performing Organization Address [facility] Phone Number [place] [address] PATHOLOGY AND GENOMIC MEDICINE [address] * Hepatic function panel (03/18/2018 5:15 AM STRATEGIC COMMUNICATIONS MANAGER) Only the most recent of 16 results within the time period is included. Albumin 4.3 3.5 - 5.0 g/dL [facility] Total bilirubin 0.6 0.0 - 1.2 mg/dL [facility] Bilirubin 0.3 0.0 - 0.3 mg/dL LADONIA direct [facility] Alkaline 61 35 - 104 U/L [place]IA phosphatase [facility] Protein 6.2 (L) 6.3 - 8.3 g/dL LADONIA Comment: [facility] 4.6-7.0 g/dL 1 week 4.4-7.6 g/dL 7 months-1year 5.1-7.3 g/dL 1-2 years5.6-7 .5 g/dL >3 years6.0-8 .0 g/dL 18-150 6.3-8.3 g/dL ALT 9 5 - 50 U/L [facility] AST 26 10 - 35 U/L [facility] Specimen Plasma specimen Performing Organization Address City/[facility] Centercode Phone Number [place] [address] PATHOLOGY AND [facility] MEDICINE [address] * Basic metabolic panel (03/18/2018 5:15 AM STRATEGIC COMMUNICATIONS MANAGER) Only the most recent of 16 results within the time period is included. Sodium 137 135 - 148 mEq/L [facility] Potassium 3.8 3.5 - 5.0 mEq/L [facility] Chloride 101 98 - 112 mEq/L [facility] CO2 20 (L) 24 - 31 mEq/L [facility] Anion gap 16@ANIO (H) 7 - 15 mEq/L [facility] BUN 44 (H) 8 - 23 mg/dL [facility] Creatinine 1.87 (H) 0.50 - 0.90 mg/dL [facility] Glucose 100 (H) 65 - 99 mg/dL [facility] Calcium 9.2 8.8 - 10.2 mg/dL [facility] Specimen Plasma specimen Performing Organization Address City/[facility] Centercode Phone Number [place] [address] PATHOLOGY AND [facility] MEDICINE [address] * Potassium level (03/17/2018 2:30 PM STRATEGIC COMMUNICATIONS MANAGER) Potassium 3.8 3.5 - 5.0 mEq/L [facility] Specimen Plasma specimen Performing Organization Address City/[facility] [place]erc[place] [address] PATHOLOGY AND [facility] MEDICINE [address] * Cv slab off mill tender procedure (03/17/2018 1:56 PM STRATEGIC COMMUNICATIONS MANAGER) Specimen Narrative Performed At [facility] Summary: Overall, hemodynamics are consistent with mildly elevated RAP/normal left-sided filling pressure and preserved cardiac index. Performing Organization Address [facility]erc[facility] Phone Number [facility] [address] [place] [address] * CT Chest Wo Contrast (03/17/2018 1:36 PM STRATEGIC COMMUNICATIONS MANAGER) Specimen Narrative Performed At EXAMINATION: RADIANT CT CHEST [...] Portal hypertension with splenomegaly and moderate ascites [id number] Procedure Note [facility], Radiology Results Incoming - 03/17/2018 2:22 PM STRATEGIC COMMUNICATIONS MANAGER EXAMINATION: CT CHEST WO CONTRAST CLINICAL HISTORY: [...] Portal hypertension with splenomegaly and moderate ascites [id number] Performing Organization Address City/[facility]/Zipcode Phone Number [facility] [address] [place] [address] * US Abdominal Paracentesis Imaging (03/16/2018 1:20 PM STRATEGIC COMMUNICATIONS MANAGER) Only the most recent of 4 results within the time period is included. Specimen Narrative Performed At PROCEDURE: [facility] Ultrasound-guided paracentesis Performing Radiologist: Chelle Chopra [...] into the peritoneal space. Access technique: 5 Dominican Yueh Needle Paracentesis: Fluid Color: Serosanguineous Volume Removed: 5000 mL Fluid Analysis: The fluid was sent for laboratory tests ordered by the primary team Closure: The One-step catheter was removed and hemostasis was achieved with manual compression. A sterile dressing was applied. Additional details: Estimated blood loss: Less than 10 cc [id number] Procedure Note Hm Interface, Radiology Results Incoming - 03/16/2018 2:54 PM STRATEGIC COMMUNICATIONS MANAGER PROCEDURE: Ultrasound-guided paracentesis Performing Radiologist: Chelle Chopra [...] into the peritoneal space. Access technique: 5 Dominican Yueh Needle Paracentesis: Fluid Color: Serosanguineous Volume Removed: 5000 mL Fluid Analysis: The fluid was sent for laboratory tests ordered by the primary team Closure: The One-step catheter was removed and hemostasis was achieved with manual compression. A sterile dressing was applied. Additional details: Estimated blood loss: Less than 10 cc [id number] Performing Organization Address City/[facility]/[place] [address] * Aerobic culture (03/16/2018 1:05 PM STRATEGIC COMMUNICATIONS MANAGER) Only the most recent of 4 results within the time period is included. [facility] Aerobic culture No growth after 3 days. PRASAD isolate Comment: [facility] Specimen Information [facility] Specimen Source: Peritoneal fluid Specimen Site: Abdomen, right Specimen Peritoneal fluid - Abdomen, right Performing Organization Address [facility] Phone Number [facility] OF [address] [place] [address] PATHOLOGY AND GENOMIC MEDICINE [address] * Gram stain (03/16/2018 1:05 PM STRATEGIC COMMUNICATIONS MANAGER) Only the most recent of 5 results within the time period is included. [facility] Gram stain No WBC's or organisms seen. LADONIA isolate Comment: [facility] Specimen [facility] Specimen Source: Peritoneal fluid Specimen Site: Abdomen, right Specimen Peritoneal fluid - Abdomen, right Performing Organization Address [facility] Phone Number [facility] OF [address] [place] [address] PATHOLOGY AND GENOMIC MEDICINE [address] * Anaerobic culture (03/16/2018 1:05 PM STRATEGIC COMMUNICATIONS MANAGER) Only the most recent of 4 results within the time period is included. [facility] Anaerobic No anaerobic organisms LADONIA culture isolate isolated. [facility] Comment: HOSPITAL Specimen Information Specimen Source: Peritoneal fluid Specimen Site: Abdomen, right Specimen Peritoneal fluid - Abdomen, right Performing Organization Address [facility] Phone Number [facility] OF [address] [place] [address] PATHOLOGY AND GENOMIC MEDICINE [address] * Cell count and differential, body fluid (03/16/2018 1:05 PM STRATEGIC COMMUNICATIONS MANAGER) Only the most recent of 4 results within the time period is included. Pathologist [facility] Misc fluid type Paracentesis [facility] Color, fluid Red [facility] Appearance, Hazy [facility] RBC, fluid 73,000 /CMM [facility] Nucleated 281 /CMM [facility] Fluid See Diff LADONIA mononuclear [facility] Neutrophils, 6 % [facility] Lymphocytes, 45 % [facility] Macrophages, 49 % [facility] Specimen Fluid Performing Organization Address City/State/Zipcode Phone Number [facility] DEPARTMENT OF [address] [place] [address] PATHOLOGY AND GENOMIC MEDICINE [facility] [address] [place] [address] * XR Chest 1 Vw Portable (03/16/2018 7:02 AM STRATEGIC COMMUNICATIONS MANAGER) Only the most recent of 6 results within the time period is included. Specimen Narrative Performed At EXAMINATION:XR CHEST 1 VW PORTABLE [facility] CLINICAL HISTORY:Ventilator Patient COMPARISON:Yesterday IMPRESSION: Central line unchanged. Better inspiratory depth with better aeration in the lungs, otherwise stable. [id number] Procedure Note Interface, Radiology Results Incoming - 03/16/2018 7:13 AM STRATEGIC COMMUNICATIONS MANAGER EXAMINATION: XR CHEST 1 VW PORTABLE CLINICAL HISTORY: Ventilator Patient COMPARISON: Yesterday IMPRESSION: Central line unchanged. Better inspiratory depth with better aeration in the lungs, otherwise stable. [id number] Performing Organization Address City/[facility] Centercode Phone Number [facility] [address] [place] [address] * Pv physiologic arterial lower extremity complete w neda (03/15/2018 3:15 PM STRATEGIC COMMUNICATIONS MANAGER) Specimen Narrative Performed At [facility] Physiologic Arterial Leg Report [address] [place] [address] Pat.Name:JOHNNY MASTERSON RPat.ID:[id number] .Date: 03/15/2018 Refer.MD:BROOKE VALDIVIA MD Exam Time: 2:05:00 PMStudy Type:Physiologic Leg Height:66inWeight:196lb BSA: 1.98 m2 DOBAge:1955,62Y Sex: FEMALESonogrphr: SHAYNA Perez RCS Pat. Stat.:Inpatient Room:[place] [address] TapeVol: SB, CPT - 4: 71508 Echo Event ID:[id number] Order ID:[id number] Reason for Study:orthotopic heart transplant evaluation. History [...] ThighUnable to obtain Unable to obtain Low Aavtb079 197 Calf [id number] Ankle DP 166 173 Ankle [id number] Great Toe 5582 ANKLE/BRACHIAL INDEX: RIGHTLEFT Dorsalis [...] Radiology Results In - 03/16/2018 6:28 AM [facility] Physiologic Arterial Leg Report [id number] [address] Pat.Name: JOHNNY MASTERSON Pat.ID: [id number] .Date: 03/15/2018 Refer.: BROOKE VALDIVIA MD Exam Time: 2:05:00 PM Study Type:Physiologic Leg Height: 66in Weight: 196lb BSA: 1.98 m2 Age: 8 1955,62Y Sex: FEMALE Sonogrphr: SHAYNA Perez, JAYDEN Pat. Stat.:Inpatient Room: [facility]301-21 Tape Vol: SB, CPT - 4: 09683 Echo Event ID:[id number] Order ID: [id number] Reason for Study:orthotopic heart transplant evaluation. History [...] Signed 03/16/2018 06:28 AM Tristian Mcdermott MD, [facility] Performing Organization Address City/State/Zipcode Phone Number [facility] [address] [place] [address] * Partial thromboplastin time, activated (03/15/2018 3:10 AM STRATEGIC COMMUNICATIONS MANAGER) Only the most recent of 8 results within the time period is included. PTT 43.0 (H) 23.0 - 36.0 sec LADONIA Comment: [facility] PTT therapeutic range for HOSPITAL unfractionated heparin is 61.0-112.0 seconds which corresponds to Anti-Xa 0.3-0.7 U/ml. Specimen Blood Performing Organization Address City/[facility] Centercode Phone Number [facility] OF [address] [place] [address] PATHOLOGY AND [facility] MEDICINE [address] * Ionized calcium (03/15/2018 3:10 AM STRATEGIC COMMUNICATIONS MANAGER) Only the most recent of 3 results within the time period is included. Pathologist [facility] pH 7.39 [facility] Ionized calcium 1.16 1.11 - 1.32 mmol/L [facility] Specimen Plasma specimen Performing Organization Address [facility] Phone Number [place] [address] PATHOLOGY [address] * Syphilis treponemal IgG (03/14/2018 3:42 AM STRATEGIC COMMUNICATIONS MANAGER) Pathologist [facility] Syphilis Non-reactiveComment: Non-reactive LADONIA treponemal IgG Non-reactive: No serological [facility] evidence of Syphilis infection HOSPITAL Specimen Serum Performing Organization Address [facility] Phone Number [facility]MENT OF [address] [place] [address] PATHOLOGY AND [facility] MEDICINE [address] * Maury-Roberts virus antibody test (03/14/2018 3:42 AM STRATEGIC COMMUNICATIONS MANAGER) [facility] EBV Ab to viral Negative Negative LADONIA capsid Ag, IgG [facility] EBV Ab to viral Negative Negative [facility] capsid Ag, IgM [facility] EBV Ab to Positive (A) Negative [facility] nuclear Ag, IgG [facility] EBV Ab to early Negative Negative L[facility] (D) Ag, IgG [facility] Maury-Roberts SEE COMMENT PRAS[facility] virus antibody Comment: [facility] interpretation Footnote--------- HOSPITAL EBV nuclear antibodies develop 6-8 weeks after primary infection.However EBV viral capsid IgG antibodies are tested negative in this case. Clinical correlation is recommended. Specimen Serum Performing Organization Address City/[facility] Centercode Phone Number [place] [address] PATHOLOGY AND [facility] MEDICINE [address] * Hepatitis acute panel (03/14/2018 3:42 AM STRATEGIC COMMUNICATIONS MANAGER) Hepatitis A IgM Non-reactive Non-reactive [facility] Hepatitis B Non-reactive Non-reactive L[facility]ONIA core IgM [facility] Hepatitis B Non-reactive Non-reactive [place] surface Ag [facility] Hepatitis C Ab Non-reactive Non-reactive [facility] Specimen Serum Performing Organization Address City/[facility] Centercode Phone Number [place] [address] PATHOLOGY AND [facility] MEDICINE [address] * Toxoplasma gondii antibody, IgG (03/14/2018 3:42 AM STRATEGIC COMMUNICATIONS MANAGER) Toxoplasma <3 0 - 9 IU/mL LADONIA gondii Ab, IgG Comment: [facility] Equal or less than 9 IU/mL HOSPITAL Negative; No previous T. gonii infection Specimen Serum Performing Organization Address [facility] [facility] Phone Number [place] [address] PATHOLOGY AND [facility] [address] * Prealbumin level (03/14/2018 3:42 AM STRATEGIC COMMUNICATIONS MANAGER) Prealbumin 7 (L) 16 - 32 mg/dL [facility] Specimen Serum Performing Organization Address [facility] Phone Number [facility] [address] PATHOLOGY AND [facility] [address] * T3 (03/14/2018 3:33 AM STRATEGIC COMMUNICATIONS MANAGER) T3 33 (L) 80 - 200 ng/dL [facility] Specimen Plasma specimen Performing Organization Address City/[facility] Phone Number [place] [address] PATHOLOGY AND [facility] [address] * Thyroid stimulating hormone (03/14/2018 3:33 AM STRATEGIC COMMUNICATIONS MANAGER) TSH 4.74 (H) 0.27 - 4.20 uIU/mL [facility] Specimen Plasma specimen Performing Organization Address City/[facility] Phone Number [place] [address] PATHOLOGY AND [facility] [place] [address] * T4, free (03/14/2018 3:33 AM STRATEGIC COMMUNICATIONS MANAGER) [facility] T4, free 1.1 0.9 - 1.7 ng/dL [facility] Specimen Plasma specimen Performing Organization Address City/State/Zipcode Phone Number [place] [address] PATHOLOGY AND [facility] [address] * T4 (03/14/2018 3:33 AM STRATEGIC COMMUNICATIONS MANAGER) [facility] T4 3.7 (L) 4.5 - 11.7 ug/dL [facility] Specimen Plasma specimen Performing Organization Address City/[facility] Cent[facility]ode Phone Number [place] [address] PATHOLOGY AND [facility] [address] * Single antigen beads (03/14/2018 3:20 AM STRATEGIC COMMUNICATIONS MANAGER) [facility] OF PATHOLOGY AND GENOMIC MEDICINE Single antigen See link below for PDF Lab [facility] beads Report OF PATHOLOGY AND [facility] Specimen Performing Organization Address City/[facility] Cent[facility]ode Phone Number [facility] [address] PATHOLOGY AND GENOMIC MEDICINE * Maury Roberts Virus (EBV) by PCR (03/14/2018 3:20 AM STRATEGIC COMMUNICATIONS MANAGER) [facility] Maury Roberts Not-Detected Not-Detected [place] virus, PCR copies/mL [facility] Maury Roberts See link below for PDF Lab L[place]ONIA virus, PCR ReportComment: Case Number: [facility] [id number] H[facility]PITAL Specimen Performing Organization Address City/[facility]/Zipcode Phone Number [place] [address] PATHOLOGY AND GENOMIC MEDICINE [address] * Toxoplasma IgM Ab (03/14/2018 3:20 AM STRATEGIC COMMUNICATIONS MANAGER) [facility] Toxoplasma IgM Negative Negative [facility] Specimen Blood Performing Organization Address City/[facility]/Zipcode Phone Number [place] [address] PATHOLOGY AND GENOMIC MEDICINE [address] * Hemoglobin A1c (03/14/2018 3:20 AM STRATEGIC COMMUNICATIONS MANAGER) Hemoglobin A1C 4.9 4.0 - 5.6 % [place] Comment: [facility] HbA1c cutoffs for diagnosing HOSPITAL diabetes: 4.0% - 5.6%=normal 5.7% - 6.4%=increased risk for diabetes (prediabetes) >=6.5%=diabetes Goals for glycemic control (ADA 2016) < 7.0%Target for non adults with diabetes. More or less stringent targets may be appropriate for individual patients. <7.5% Target for Children and adolescents with type 1 diabetes. Specimen Blood Performing Organization Address City/[facility] Cent[facility]ode Phone Number [place] [address] PATHOLOGY AND GENOMIC MEDICINE [address] * Urinalysis screen and microscopy, with reflex to culture (03/13/2018 5:30 PM STRATEGIC COMMUNICATIONS MANAGER) Specimen site Random void [facility] Color, UA Yellow [facility] Appearance, UA Clear [facility] Specific 1.016 1.001 - 1.035 [place]ONIA gravity, [facility] pH, UA 5.0 5.0 - 8.5 [facility] Protein, UA Negative Negative [facility] Glucose, UA Negative Negative [facility] Ketones, UA Negative Negative [facility] Bilirubin, UA Negative Negative [facility] Blood, UA Moderate (A) Negative [facility] Nitrite, UA Negative Negative [facility] Urobilinogen, <2.0 <2.0 [facility] Leukocyte Trace (A) Negative [facility] Epithelial 2 /HPF [place] cells, [facility] WBC, UA 3 0 - 4 /HPF [facility] RBC, UA 12 (H) 0 - 5 /HPF [facility] Bacteria, UA Few None seen [facility] Yeast, UA None seen [facility] Yeast with None seen [facility] Hyaline casts, 3 /LPF [facility] Specimen Urine Performing Organization Address City/[facility]/Zipcode Phone Number [facility] [address] [address] PATHOLOGY AND GENOMIC MEDICINE [address] * Protein, urine, random (03/13/2018 5:30 PM STRATEGIC COMMUNICATIONS MANAGER) Protein, urine 17 mg/dL [place] random [facility] Specimen Urine Performing Organization Address City/[facility]/Zipcode Phone Number [facility] OF [address] [place] [address] PATHOLOGY AND GENOMIC MEDICINE [address] * Creatinine level, urine, random (03/13/2018 5:30 PM STRATEGIC COMMUNICATIONS MANAGER) Creatinine, Footnote mg/dL [place] urine, random [facility] Specimen Urine Performing Organization Address City/[facility]/Zipcode Phone Number [facility] OF [address] [place] [address] PATHOLOGY AND GENOMIC MEDICINE [address] * Urine culture (03/13/2018 5:30 PM STRATEGIC COMMUNICATIONS MANAGER) Urine culture No growth after 24 hours [place] isolate Comment: [facility] Specimen Information HOSPITAL Specimen Source: Urine Specimen Site: Random void Specimen Urine - Random void Performing Organization Address City/[facility] Centercode Phone Number [facility] [address] [place] [address] PATHOLOGY AND GENOMIC MEDICINE [address] * US Renal (03/13/2018 5:10 PM STRATEGIC COMMUNICATIONS MANAGER) Specimen Narrative Performed At EXAMINATION:US RENAL [facility] CLINICAL HISTORY:OHT Eval COMPARISON:None. FINDINGS: The right kidney vsasrzxg46.6 x 5.4 x 4.5 cm, parenchymal thickness 1.3 cm The left kidney ldgzavjc45.4 x 4.3 x 4.1 cm, parenchymal thickness [...] echogenic unobstructed kidneys suggesting medical renal disease. [id number] Procedure Note Interface, Radiology Results Incoming - 03/13/2018 6:39 PM STRATEGIC COMMUNICATIONS MANAGER EXAMINATION: US RENAL CLINICAL HISTORY: OHT Eval [...] echogenic unobstructed kidneys suggesting medical renal disease. [id number] Performing Organization Address City/State/Zipcode Phone Number [facility] [address] [place] [address] * CT Head Wo Contrast (03/13/2018 4:22 PM STRATEGIC COMMUNICATIONS MANAGER) Specimen Narrative Performed At EXAMINATION: CT HEAD WO CONTRAST [facility] CLINICAL HISTORY: OHT Evaluation COMPARISON:None TECHNIQUE: [...] detailed above with no acute intracranial abnormality. [id number] Procedure Note Interface, Radiology Results Incoming - 03/13/2018 4:45 PM STRATEGIC COMMUNICATIONS MANAGER EXAMINATION: CT HEAD WO CONTRAST CLINICAL HISTORY: [...] detailed above with no acute intracranial abnormality. [facility]-[id number] Performing Organization Address [facility] Centerc[facility]i Phone Number [facility] [address] [place] [address] * Creatinine clearance, urine, 24 hour (03/13/2018 3:30 PM STRATEGIC COMMUNICATIONS MANAGER) [facility] Signature Collection SEE COMMENTComment: LADONIA start date, Footnote--------- [facility] urine HOSPITAL Collection SEE COMMENTComment: [place] start time, Footnote--------- [facility] urine [facility]OSPITAL Collection stop SEE COMMENTComment: [place]IA date, urine Footnote--------- [facility] Collection stop SEE COMMENTComment: [facility], urine Footnote--------- [facility] Hours of SEE COMMENTComment: LADONIA collection Footnote--------- [facility] Total volume, SEE COMMENTComment: mL [place]ONIA urine Footnote--------- [facility] Creatinine 2.07 (H) 0.50 - 0.90 mg/dL [facility] Urine Footnote mg/dL [place] creatinine Comment: [facility] clearance URINE CREAT CLEARANCE WAS HOSPITAL concentration CANCELLED, TEST WAS NOT NEEDED VIA WILL ODOM\\DSIC03/14/19 1905:12LSB Urine SEE COMMENTComment: mg/vol [place]IA creatinine Footnote--------- [facility] clearance HOSPITAL excretion Creat SEE COMMENT mL/min [facility] clearance, Comment: [facility] urine 24 hr [facility] calc RANGE: MALES 85 - 125 ML/MIN/1.73 SQ.METER FEMALES 75 - 115 ML/MIN/1.73 SQ.METER Footnote--------- Specimen Urine Performing Organization Address [facility] Cent[facility]ode Phone Number [facility] [address] [place] [address] PATHOLOGY AND [facility] [address] * Antibody identification (03/13/2018 5:00 AM STRATEGIC COMMUNICATIONS MANAGER) Only the most recent of 2 results within the time period is included. Antibody ID POS, Anti-Jadyn [facility] Specimen Performing Organization Address City/[facility]/Zipcode Phone Number [facility] [address] [place] [address] PATHOLOGY AND GENOMIC MEDICINE [address] * Prepare RBC, 1 Units (03/13/2018 5:00 AM STRATEGIC COMMUNICATIONS MANAGER) Only the most recent of 2 results within the time period is included. Product name Red Cells AS1 Leukored Irrad [facility] Unit number [id number] [facility] Product code [id number] [facility] Dispense status Transfused [facility] Blood [id number] [place] expiration date [facility] Blood type code 5100 [facility] Blood type O POSITIVE [facility] Specimen Performing Organization Address [facility] Phone Number [facility] [address] [place] [address] PATHOLOGY AND [facility] [address] * Type and screen (03/13/2018 5:00 AM STRATEGIC COMMUNICATIONS MANAGER) Only the most recent of 2 results within the time period is included. ABO grouping O [facility] Rh type POS [facility] Antibody screen POS LADONIA (gel) [facility] Specimen Blood Performing Organization Address City/[facility] Centercode Phone Number [facility] OF [address] [place] [address] PATHOLOGY [place] [address] HOSPITAL * Smear review (03/13/2018 2:30 AM STRATEGIC COMMUNICATIONS MANAGER) Only the most recent of 2 results within the time period is included. Platelet slide Denice adequate [facility] Enlarged Moderate (A) LADONIA platelets [facility] Specimen Performing Organization Address City/[facility]/Zipcode Phone Number [facility] [address] [place] [address] PATHOLOGY [place] [address] HOSPITAL * HEMODIALYSIS CATHETER PLACEMENT (03/12/2018 4:51 PM STRATEGIC COMMUNICATIONS MANAGER) Narrative Performed At Preet Bustos MD 03/12/20184:56 PM Hemodialysis catheter placement Date/Time: 03/12/2018 4:55 PM Performed by: Preet Bustos MD Authorized by: Allan Medrano MD Consent: Consent obtained:Written Consent given by:Patient Risks discussed:Arterial puncture, incorrect placement, infection, bleeding and pneumothorax Alternatives discussed:No treatment and delayed treatment Fifty Six protocol: Procedure explained and questions answered to [...] * Lactic acid level (03/12/2018 2:19 AM STRATEGIC COMMUNICATIONS MANAGER) Only the most recent of 2 results within the time period is included. Lactic acid 0.7 0.5 - 2.2 mmol/L [facility] Specimen Plasma specimen Performing Organization Address City/State/Zipcode Phone Number [facility] [address] [place] [address] PATHOLOGY AND GENOMIC MEDICINE [address] * Nicotine and metabolites, serum (03/10/2018 5:00 AM STRATEGIC COMMUNICATIONS MANAGER) Nicotine <2.0 0.0 - 2.0 ng/mL [facility] Cotinine <2.0 0.0 - 2.0 ng/mL [facility] 7-OA-wzmttwiw <5.0 0.0 - 5.0 ng/mL [place] Comment: [facility] This test was developed and HOSPITAL its performance characteristics determined by the Department of Pathology and Genomic Medicine, [facility]. Serum nicotine and its metabolites cotinine and 4-GN-cfgtexcu are tested by HPLC tandem mass spectrometry. It has not been cleared or approved by FDA. The laboratory is regulated under CLIA as qualified to perform high-complexity testing. This test is used for clinical purposes. It should not be regarded as investigational or for research. Specimen Blood Performing Organization Address City/[facility]/Zipcode Phone Number [place] [address] PATHOLOGY AND [facility] [address] * Protein, misc fluid (03/09/2018 10:48 AM STRATEGIC COMMUNICATIONS MANAGER) [facility] Fluid type [facility] Protein, fluid 2.8 g/dL [place] Comment: [facility] Analysis performed on [facility] 8000 analyzer. This is not an approved methodology for this specimen type;accuracy and clinical significance uncertain. Specimen Fluid Narrative Performed At [facility] DEPARTMENT OF ?Specimen to be drawn in Interventional Radiology area. PATHOLOGY AND GENOMIC MEDICINE Performing Organization Address City/[facility] Centercode Phone Number [place] [address] PATHOLOGY AND GENOMIC MEDICINE [address] * LDH, misc fluid (03/09/2018 10:48 AM STRATEGIC COMMUNICATIONS MANAGER) [facility] Fluid type [facility] LDH, fluid 97 U/L [place]IA Comment: [facility] Analysis performed on [facility] [employer] 8000 analyzer. This is not an approved methodology for this specimen type;accuracy and clinical significance uncertain. Specimen Fluid Narrative Performed At [facility] DEPARTMENT OF ?Specimen to be drawn in Interventional Radiology area. PATHOLOGY AND GENOMIC MEDICINE Performing Organization Address City/State/Zipcode Phone Number [place] [address] PATHOLOGY AND GENOMIC MEDICINE [address] * Hemoglobin & hematocrit (03/08/2018 8:55 PM STRATEGIC COMMUNICATIONS MANAGER) Only the most recent of 3 results within the time period is included. [facility] HGB 8.6 (L) 12.0 - 16.0 g/dL [facility] HCT 27.1 (L) 37.0 - 47.0 % [facility] Specimen Blood Performing Organization Address City/State/Zipcode Phone Number [facility] [address] [place] [address] PATHOLOGY AND GENOMIC MEDICINE [facility] [address] [place] [address] [facility] * CT Abdomen Pelvis Wo Contrast (03/06/2018 2:36 PM STRATEGIC COMMUNICATIONS MANAGER) Specimen Narrative Performed At EXAMINATION:CT ABDOMEN PELVIS WO CONTRAST [facility] CLINICAL HISTORY:abd distentioncirrhosisabd hemorrhage TECHNIQUE:Multiple axial [...] tense abdominal ascites Right renal hemorrhagic cyst [id number] Procedure Note Interface, Radiology Results Incoming - 03/06/2018 3:02 PM STRATEGIC COMMUNICATIONS MANAGER EXAMINATION: CT ABDOMEN PELVIS WO CONTRAST CLINICAL [...] tense abdominal ascites Right renal hemorrhagic cyst [id number] Performing Organization Address City/[facility]/[place] [address] * Transfuse RBC (03/06/2018 8:55 AM STRATEGIC COMMUNICATIONS MANAGER) Only the most recent of 2 results within the time period is included. * Folate level (03/05/2018 8:20 PM STRATEGIC COMMUNICATIONS MANAGER) [facility] Folate 10.3 4.8 - 24.2 ng/mL [facility] Specimen Serum Performing Organization Address [facility] Centercode Phone Number [place] [address] PATHOLOGY AND GENOMIC MEDICINE [address] * Vitamin B12 level (03/05/2018 8:20 PM STRATEGIC COMMUNICATIONS MANAGER) [facility] Vitamin B12 >1600 (H) 211 - 946 pg/mL [place] Comment: [facility] Significant overlap exists HOSPITAL between normal and deficiency states. However, most patients with deficiencies will have Serum B12 <200 pg/mL. Specimen Serum Performing Organization Address [facility] Centercode Phone Number [place] [address] PATHOLOGY AND GENOMIC MEDICINE [address] * Troponin (03/05/2018 4:55 PM STRATEGIC COMMUNICATIONS MANAGER) [facility] Troponin <0.30 0.00 - 0.30 ng/mL [place] Comment: [facility] 0.30 - 1.49 HOSPITAL ng/mlMay indicate increased risk of acute coronary syndrome. >=1.5 ng/ml Consistent with acute myocardial infarction. The diagnostic value of a single normal or non-diagnostic result is questionable.Serial samples at 2-6 hour intervals are required to rule out acute myocardial injury. Specimen Plasma specimen Performing Organization Address City/State/Zipcode Phone Number [facility] OF [address] [place] [address] PATHOLOGY AND GENOMIC MEDICINE [address] * Creatine kinase, total (CPK) (03/05/2018 4:55 PM STRATEGIC COMMUNICATIONS MANAGER) Creatine kinase 97 26 - 192 U/L [facility] Specimen Plasma specimen Performing Organization Address City/State/Zipcode Phone Number [facility] OF [address] [place] [address] PATHOLOGY AND GENOMIC MEDICINE [address] * CRITICAL CARE (03/05/2018 4:45 PM STRATEGIC COMMUNICATIONS MANAGER) Narrative Performed At Christin Steel MD 03/05/20187:24 [...] old charts and examination of patient * MRI Abdomen Wo Contrast (02/26/2018 6:15 PM STRATEGIC COMMUNICATIONS MANAGER) Specimen Narrative Performed At [facility] EXAMINATION:MRI ABDOMEN WO CONTRAST CLINICAL HISTORY:K74.3 [...] this exam. MRCP demonstrates nothing unusual postcholecystectomy. [id number] Procedure Note [facility], Radiology Results Incoming - 02/26/2018 7:02 PM STRATEGIC COMMUNICATIONS MANAGER EXAMINATION: MRI ABDOMEN WO CONTRAST CLINICAL HISTORY: [...] this exam. MRCP demonstrates nothing unusual postcholecystectomy. [id number] Performing Organization Address City/[facility]/Zipcode Phone Number [facility] [address] [place] [address] * Albumin, misc fluid (02/26/2018 3:13 PM STRATEGIC COMMUNICATIONS MANAGER) Fluid type Peritoneal [facility] Albumin, fluid 0.9 g/dL [place] Comment: [facility] Analysis performed on [employer] 8000 analyzer. This is not an approved methodology for this specimen type;accuracy and clinical significance uncertain. Specimen Fluid Performing Organization Address [facility] Phone Number [facility] [address] [place] [address] PATHOLOGY AND GENOMIC MEDICINE [address] * Echocardiogram complete w contrast and 3D if needed (02/26/2018 2:00 PM STRATEGIC COMMUNICATIONS MANAGER) Specimen Narrative Performed At [facility] Echocardiography Report [address] [place] [address], [address]Name:JOHNNY MASTERSON [facility].ID:[id number] .Date: 02/26/2018Refer.MD:JADEN KEMP MD Exam Time: 11:24:00 AM Study Type:Routine Echo Height:66inWeight:193lb BSA: 1.97 m2 DOBAge:1955,62Y Sex: FEMALEBP:141/75 HR:102 bpm Sonogrphr: Ingrid Cao RDCS, RVT Pat. Stat.:OutpatientRoom:[facility] 26 Study Status:Final Echo Event ID:[id number] Order ID:[id number] Reason for Study:PBC History / Clinical:Cirrhosis Procedures:2D [...] assess diastolic function. MEASUREMENTS: 2D Parasternal [place] LVOT 1.9 cmLA Ds3.7 cm LVIDd2.9 cmIndex1.5 [...] LVOT TVI19.5 cmLVOT CI3.1 l/m/m2 LVOT Tm319 gndqZX35 bpm LVOT SV 61.1 ml Signed 02/26/2018 03:21 PM John Madrigal MD Procedure Note Interface, Radiology Results In - 02/26/2018 3:22 PM [facility] Echocardiography Report [address] [place] [address] Pat.Name: JOHNNY MASTERSON Pat.ID: [id number] .Date: 02/26/2018 Refer.MD: JADEN KEMP MD Exam Time: 11:24:00 AM Study Type:Routine Echo Height: 66in Weight: 193lb BSA: 1.97 m2 Age: 8 1955,62Y Sex: FEMALE BP: 141/75 HR: 102 bpm Sonogrphr: Ingrid Cao RDCS, RVT Pat. Stat.:Outpatient Room: [facility] Study Status:Final Echo Event ID:[id number] Order ID: [id number] Reason for Study:PBC History / Clinical:Cirrhosis Procedures:2D [...] assess diastolic function. MEASUREMENTS: 2D Parasternal [place] LVOT 1.9 cm LA Ds 3.7 cm [...] PM John Madrigal MD Performing Organization Address City/State/Zipcode Phone Number [facility] [address] [place] [address] * Vitamin A level, plasma or serum (02/26/2018 11:48 AM STRATEGIC COMMUNICATIONS MANAGER) Vitamin A 0.31 0.30 - 1.20 mg/L [facility] (retinol) Retinyl <0.02 0.00 - 0.10 mg/L [facility] palmitate Vitamin A Normal [facility] interpretation Comment: Test developed and characteristics determined by [employer]. See Compliance Statement B: [employer]CS Performed by [employer], [address] [place] [address] www.[employer] ([employer]), Randy Hutchison MD - Lab. Director Specimen Plasma specimen Performing Organization Address City/[facility]/Zipcode Phone Number [facility] [[email or web address] LABORATORY [address] [place], [place] [address] [address] [place] [address] * Alpha fetoprotein (02/26/2018 11:48 AM STRATEGIC COMMUNICATIONS MANAGER) [facility] Alpha 3.7 0.0 - 8.3 ng/mL LADONIA fetoprotein Comment: [facility] [employer] 8000 AFP immunoassay HOSPITAL was used. Results obtained with different assay methods or kits should not be used interchangeably and may be different. Specimen Serum Performing Organization Address City/[facility]/Zipcode Phone Number [facility] DE[facility]MENT OF [address] [place] [address] PATHOLOGY AND GENOMIC MEDICINE [place] [facility] 80 [place] [address] * Vitamin K level, serum (02/26/2018 11:48 AM STRATEGIC COMMUNICATIONS MANAGER) Pathologist [facility] Vitamin K 1.01 0.22 - 4.88 nmol/L [facility] Comment: INTERPRETIVE INFORMATION: Vitamin K1, Serum Vitamin K concentration is reported as nanomoles per liter (nmol/L). To convert concentration to nanograms per milliliter (ng/mL), multiply the result by 0.45. See Compliance Statement B: [facility] [employer] [facility] [facility]CS Performed by [facility], [address] [place] [address] www.[facility] [facility] [facility]), Randy Hutchison MD - Lab. Director Specimen Serum Performing Organization Address City/[facility]/Zipcode Phone Number [facility] [address] [place] [address] [facility] [address] [place] [address] * Vitamin E level, plasma or serum (02/26/2018 11:48 AM STRATEGIC COMMUNICATIONS MANAGER) Alpha-tocophero 8.5 5.5 - 18.0 mg/L [facility] l mg/L Comment: Test developed and characteristics determined by [facility]. See Compliance Statement B: [employer]/ Gamma-tocophero 3.0 0.0 - 6.0 mg/L [facility] l mg/L Comment: Performed by [facility], [address] [place] [address] www.[employer] ([facility]), Randy Hutchison MD - Lab. Director Specimen Plasma specimen Performing Organization Address [facility]/Zipcode Phone Number [email or web address] [address] [place] [address] [facility] [address] [place] [address] * Cv stress test (12/19/2017 2:42 PM CDT) Resting HR 86 H MUSE Resting BP 133 H MUSE Peak MET 1.0 H MUSE Achieved Protocol Name Vijay [facility] Time in 00:01:00 H MUSE Exercise Phase Max Systolic BP 149 [facility] Max Diastolic 68 H MUSE BP Max Heart Rate 99 H MUSE Max Predicted 158 H MUSE Heart Rate Target HR (220 - Age)*85% H MUSE Formula Test Indication PRE-TRANSPLANT EVALUATION [facility] Arrhy During Ex [facility] ECG Interp [facility] Before EX ECG Interp [facility] During Ex Ex Summary H MUSE Comment Overall HR H MUSE Response to Exercise Overall BP H MUSE Response To Exercise Reason for TEST COMPLETED [facility] Termination Stress Test Waveform interpreted in report [facility] Impression associated with image study. No interpretation is provided as part of this Stress ECG report.--Electronically Signed By Yoselyn ISIDRO, Tamika ([id number]), greeting card editor Mary Kinney ([id number]) on 12/22/2017 10:04:30 AM Specimen Performing Organization Address City/[facility]/Zipcode Phone Number [facility] [address] [place] [address] * Nm myocardial perfusion (12/19/2017 2:42 PM CDT) Specimen Narrative Performed At [facility] [address] [facility] [address] [facility] [address], [address] [place] [address] Fax: Myocardial Perfusion Imaging Report Pat.Name:JOHNNY [facility]STERSON [facility].ID:[id number] .Date: 12/19/2017Refer.MD:ERMA THOMPSON MD Exam Time: 1:01:00 PM Study Type:Myocardial Perfusion Imaging Height:66inBSA: 1.97 m2 DOBAge:1955,62YSex: FEMALE Nuclear Tech:MEHRDAD SotoMT, [facility]) Nuclear Event ID:[id number] Order ID:[id number] Reason for Study:Chest pain, unspecified*, Shortness of breath Procedures:Single Day Stress / Rest Clinical Symptoms:Regadenoson SUMMARY: BASELINE ECGNormal Sinus Rhythm, anteroseptal Q waves STRESS TEST RESULTS Maximal Predicted HR158 beats/minute 85% Maximal Predicted HR 134 beats/minute Stress Test Duration1 minutes 00 seconds Resting Heart Rate86 beats/minute Maximal Heart Rate99 beats/minute Resting Blood Ffirujtr234/63 mmHg Maximal Blood Baglfggx061/68 mmHg % Maximal Heart Rate Achieved 62% Symptoms During TestFlushing, Dizziness, Lightheadedness Reason for Stopping TestAs per regadenoson protocol Maximal ST-segment shiftNone Stress-Induced Arrhythmias None Ischemic electrocardiographic changes (ST-segment depression) did not occur at peak regadenoson stress. STRESS TEST INTERPRETATION Normal maximal regadenoson stress test. SCINTIGRAPHIC RESULTS Perfusion Defect Size (% LV) 15% Total 0% Wkdyymwf29% Scar Left Ventricular Perfusion Results There is [...] 12/19/2017 4:06 PM CDT [facility] [address] [place] [address], [address] [place] [address] Myocardial Perfusion Imaging Report Pat.Name: JOHNNY MASTERSON Pat.ID: [id number] .Date: 12/19/2017 Refer.MD: ERMA THOMPSON MD Exam Time: 1:01:00 PM Study Type:Myocardial Perfusion Imaging Height: 66in BSA: 1.97 m2 Age: 8 1955,62Y Sex: FEMALE Nuclear Tech:NANO Soto, [facility](CT) Nuclear Event ID:[id number] Order ID: [id number] Reason for Study:Chest pain, unspecified*, Shortness of [...] PM Tamika Topete MD Performing Organization Address City/State/[facility] Phone Number [facility] [address] [place] [address] after 11/14/2017 Insurance Type Payer Benefit Subscriber ID Effective Phone Address Plan / Dates Group PPO BCBS BCBS xxxxxxxxxxxx 2017- CHOICE Present PPO/[employer] PPO Advance Directives For more information, please contact: [phone] Patient Him Manager Explanation Type Date Recorded Advance Directives, 08/19/2017 2:21 PM Living Will and Medical Power of Construction Site Manager 03-15-2018 Advance Directives, 03/23/2018 8:38 AM Living Will and Medical Power of Construction Site Manager Date Inactivated Comments Code Status Date Activated 05/07/2017 5:41 PM Full Code 05/01/2017 3:05 PM Code Status decision reached by: Patient
[2018-11-15] MEDS ORDERED: SODIUM CHLORIDE 0.9% 250ML 250 ML IV ONE (22:00)
[2018-11-15 23:12] LABS: BASOPHILS % 0.5 % (0.0-1.0); EOSINOPHILS # (AUTO) 0.2 (0.0-0.4); EOSINOPHILS % 4.2 % (0.0-6.0); HEMATOCRIT 23.1 % (34.2-44.1); HEMOGLOBIN 7.4 g/dL (12.0-16.0); LYMPHOCYTES % 17.9 % (18.0-39.1); MEAN CORPUSCULAR HEMOGLOBIN 33.5 pg (28-32); MEAN CORPUSCULAR VOLUME 104.5 fL (81-99); MONOCYTES # (AUTO) 0.4 (0.2-0.8); MONOCYTES % 8.1 % (4.4-11.3); NEUTROPHILS # (AUTO) 3.7 (2.1-6.9); NEUTROPHILS % 68.6 % (38.7-80.0); PLATELET COUNT 265 x10e3/uL (140-360); RED BLOOD COUNT 2.21 x10e6/uL (3.6-5.1)
[2018-11-15 23:18] LABS: INR 1.11; PROTHROMBIN TIME 14.8 seconds (11.9-14.5)
[2018-11-15 23:28] LABS: ALBUMIN 3.4 g/dL (3.5-5.0); ALBUMIN/GLOBULIN RATIO 1.3 (0.8-2.0); CALCIUM 8.3 mg/dL (8.4-10.2); CREATININE, SERUM 2.3 mg/dL (0.57-1.11)
[2018-11-15 23:35] LABS: CREATINE KINASE MB 2.6 ng/mL (0-5.0)
[2018-11-16 01:02] VITALS: BP 96/54
== END 2018-11-16 01:08 | disposition home or self-care (01) ==
LOC: ER 21:46
DX: R53.1 Weakness (principal); D63.1 Anemia in chronic kidney disease; N28.9 Disorder of kidney and ureter, unspecified
CPT/HCPCS: 36415; 80053; 82550; 82553; 84484; 85025; 85610; 86850; 86870; 86880; 86900; 86905; 99001; 99283

== ENCOUNTER 2018-11-16 14:50 | Emergency (ER) | payer BC ==
[~2018-11-16] VITALS: Ht 165.1 cm; Wt 87.1 kg
--- OUTSIDE RECORDS SUMMARY | 2018-11-16 14:53 | XMS REPORT | Clinical Summary ---
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 Name Role Phone Breezy Cabrera DO PCP [...] Overview: Added automatically from request for surgery [id number] Cardiomyopathy 10/28/2018 Overview: Added automatically from request for surgery [id number] CAD (coronary artery disease) 04/28/2018 Hyperglycemia 03/11/2018 SBP (spontaneous bacterial peritonitis) 03/11/2018 Nausea 03/11/2018 Generalized abdominal pain 03/11/2018 Cirrhosis of liver with ascites 03/05/2018 Awaiting transplantation of liver 12/05/2017 Overview: Added automatically from request for surgery [id number] Cirrhosis 08/19/2017 Volume overload 08/19/2017 Other ascites 07/21/2017 Overview: Added automatically from request for surgery [id number] 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/2017 Ascites 06/26/2017 Abdominal pain 05/01/2017 Resolved Problems Problem Noted Date Resolved Date Preop cardiovascular exam 07/21/2017 02/26/2018 Overview: Added automatically from request for surgery [id number] Encounters Care Team Description Date Type Specialty Breezy Andrews MD 11/15/2018 Prep for General Surgery Surgery Barak Diana RN Med Refill 11/10/2018 Refill Transplant Alejandro Pickard MD Kim, Ju Hyun, MD Coronary artery disease, angina presence unspecified, unspecified vessel or lesion type, unspecified whether [place] or transplanted heart (Primary Dx); Hepatic cirrhosis [...] Jaden Kemp MD EGD 09/01/2018 Surgery Gastroenterology [facility], Joseph Berkowitz MD 09/01/2018 Anesthesia Gastroenterology Event [...] Jason Flores MD Coronary artery disease involving [place] coronary artery of [place] heart without angina pectoris (Primary Dx) 06/05/2018 Orders Only Cardiology Alejandro Pickard MD Chronic combined systolic and diastolic congestive heart failure (HCC) 05/27/2018 Hospital Transplant Encounter Vandaan Kim MD Chronic combined systolic and diastolic [...] unspecified vessel or lesion type, unspecified whether [place] or transplanted heart (Primary Dx); Coronary artery disease involving [place] coronary artery of [place] heart without angina pectoris; Screening for ischemic heart disease; 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); Abdominal pain, unspecified abdominal location 04/29/2018 Hospital Transplant Encounter Alejandro Pickard MD Coronary artery disease involving [place] coronary artery of [place] heart without angina pectoris; Screening for ischemic heart disease 04/29/2018 Hospital Transplant Encounter Barak Diana RN Coronary artery disease involving [place] coronary artery of [place] heart without angina pectoris (Primary Dx); Screening [...] Vandana Kim MD Cv right heart cath [[id number] (CPT)] 03/17/2018 Surgery Procedural Cardiology Beth Jackson RN Referral - Heart Txp (inpatient) 03/13/2018 Telephone Transplant Dae Palomino RN MRB Outcome/Cardiac 03/12/2018 Documentation Transplant Dae Palomino RN MELD updated to 25, labs due 03/18/18 03/11/2018 Documentation Transplant Christin Steel MD Giveon, Ron, MD Neason, Chau L., MD Cirrhosis of liver with ascites, unspecified hepatic cirrhosis type (HCC) (Primary Dx); Severe anemia 03/05/2018 [facility] General Internal Medicine - Encounter 03/20/2018 [...] Cote MA 11/24/2017 Orders Only Cardiology after 11/15/2017 Immunizations Name Administration Dates Next Due [id number] [...] Date Type Specialty Andres Gonzalez MD [address] [facility] [address] [place] [id number] [phone] Heart failure, unspecified HF chronicity, unspecified heart failure type (HCC); Cardiomyopathy, unspecified type (HCC) 11/18/2018 Hospital Procedural Cardiology Encounter Vandana Kim MD [address] [facility] [address] [place] [id number] [phone] Right heart cath [[id number] (CPT)] 11/18/2018 Surgery Procedural Cardiology Erma Thompson MD [address] [facility] [address] [place] [id number] [phone] 12/24/2018 Lab Transplant 12/24/2018 Office Visit Transplant [...] Coronary artery disease 2:26 PM CDT involving [place] coronary artery of [place] heart without angina pectoris [place] UPPER GI [...] Routine 05/05/2018 Anemia, unspecified type 4:20 PM [employer] Hepatic cirrhosis, unspecified hepatic cirrhosis type, unspecified whether ascites present (HCC) Primary biliary cirrhosis (HCC) Chronic kidney disease, stage IV (severe) (HCC) FERRITIN LEVEL Routine 05/05/2018 Anemia, unspecified type 4:20 PM [employer] Hepatic cirrhosis, unspecified hepatic cirrhosis type, unspecified whether ascites present (HCC) Primary biliary cirrhosis (HCC) Chronic kidney disease, stage IV (severe) (HCC) TOTAL IRON BINDING Routine 05/05/2018 Anemia, unspecified type CAPACITY 4:20 PM [employer] Hepatic cirrhosis, unspecified hepatic cirrhosis type, unspecified whether ascites present (HCC) Primary biliary cirrhosis (HCC) Chronic kidney disease, stage IV (severe) (HCC) MANUAL DIFFERENTIAL Routine 04/29/2018 10:32 AM [employer] ESTIMATED GFR Routine 04/29/2018 10:32 AM [employer] NICOTINE AND COTININE, Routine 04/29/2018 Coronary artery disease SERUM 10:32 AM [employer] involving [place] coronary artery of [place] heart without angina pectoris Screening for ischemic heart disease PROTHROMBIN TIME WITH INR Routine 04/29/2018 Coronary artery disease 10:32 AM [employer] involving [place] coronary artery of [place] heart without angina pectoris Screening for ischemic heart disease LIPID PANEL Routine 04/29/2018 Coronary artery disease 10:32 AM [employer] involving [place] coronary artery of [place] heart without angina pectoris Screening for ischemic heart disease B NATRIURETIC PEPTIDE Routine 04/29/2018 Coronary artery disease 10:32 AM [employer] involving [place] coronary artery of [place] heart without angina pectoris Screening for ischemic heart disease COMPREHENSIVE METABOLIC Routine 04/29/2018 Coronary artery disease PANEL 10:32 AM [employer] involving [place] coronary artery of [place] heart without angina pectoris Screening for ischemic heart disease CBC WITH PLATELET AND Routine 04/29/2018 Coronary artery disease DIFFERENTIAL 10:32 AM [employer] involving [place] coronary artery of [place] heart without angina pectoris Screening for ischemic heart disease ECG 12-LEAD Routine 04/29/2018 Coronary artery disease 10:05 AM [employer] involving [place] coronary artery of [place] heart without angina pectoris Screening for ischemic heart disease POC GLUCOSE Routine 03/20/2018 8:48 AM [employer] MANUAL DIFFERENTIAL Routine 03/20/2018 4:02 AM [employer] ESTIMATED GFR Routine 03/20/2018 4:02 AM [employer] PROTHROMBIN TIME WITH INR Routine 03/20/2018 4:02 AM [employer] COMPREHENSIVE METABOLIC Routine 03/20/2018 PANEL 4:02 AM [employer] CBC WITH PLATELET AND Routine 03/20/2018 DIFFERENTIAL 4:02 AM [employer] POC GLUCOSE Routine 03/19/2018 6:37 PM [employer] XR ABDOMEN 1 VW PORTABLE Routine 03/19/2018 3:42 PM [employer] POC GLUCOSE Routine 03/19/2018 12:12 PM [employer] POC GLUCOSE Routine 03/19/2018 7:49 AM [employer] PROTHROMBIN TIME WITH INR Routine 03/19/2018 5:30 AM [employer] HC COMPLETE BLD COUNT Routine 03/19/2018 W/AUTO DIFF 5:30 AM [employer] ESTIMATED GFR Routine 03/19/2018 4:00 AM [employer] COMPREHENSIVE METABOLIC Routine 03/19/2018 PANEL 4:00 AM [employer] POC GLUCOSE Routine 03/18/2018 9:18 PM [employer] POC GLUCOSE Routine 03/18/2018 6:09 PM [employer] POC GLUCOSE Routine 03/18/2018 12:30 PM [employer] POC GLUCOSE Routine 03/18/2018 8:15 AM [employer] ESTIMATED GFR Routine 03/18/2018 5:15 AM [employer] PHOSPHORUS LEVEL Routine 03/18/2018 5:15 AM [employer] MAGNESIUM LEVEL Routine 03/18/2018 5:15 AM [employer] LDH Routine 03/18/2018 5:15 AM [employer] FIBRINOGEN Routine 03/18/2018 5:15 AM [employer] PROTHROMBIN TIME WITH INR Routine 03/18/2018 5:15 AM [employer] HEPATIC FUNCTION PANEL Routine 03/18/2018 5:15 AM [employer] CBC WITH PLATELET AND Routine 03/18/2018 DIFFERENTIAL 5:15 AM [employer] BASIC METABOLIC PANEL Routine 03/18/2018 5:15 AM [employer] POC GLUCOSE Routine 03/17/2018 9:57 PM [employer] POC GLUCOSE Routine 03/17/2018 4:11 PM [employer] POTASSIUM LEVEL STAT 03/17/2018 2:30 PM [employer] HC COMPLETE BLD COUNT STAT 03/17/2018 W/AUTO DIFF 2:30 PM [employer] CV RIGHT HEART CATH Routine 03/17/2018 1:[address] [employer] [address] CHEST WO CONTRAST Routine 03/17/2018 1:36 PM [employer] POC GLUCOSE Routine 03/17/2018 12:06 PM [employer] POC GLUCOSE Routine 03/17/2018 11:55 AM [employer] POC GLUCOSE Routine 03/17/2018 11:53 AM [employer] POC GLUCOSE Routine 03/17/2018 7:32 AM [employer] CBC WITH PLATELET AND Routine 03/17/2018 DIFFERENTIAL 12:29 AM [employer] PROTHROMBIN TIME WITH INR Routine 03/17/2018 12:28 AM [employer] ESTIMATED GFR Routine 03/17/2018 12:00 AM [employer] PHOSPHORUS LEVEL Routine 03/17/2018 12:00 AM [employer] MAGNESIUM LEVEL Routine 03/17/2018 12:00 AM [employer] LDH Routine 03/17/2018 12:00 AM [employer] HEPATIC FUNCTION PANEL Routine 03/17/2018 12:00 AM [employer] BASIC METABOLIC PANEL Routine 03/17/2018 12:00 AM [employer] POC GLUCOSE Routine 03/16/2018 8:51 PM [employer] POC GLUCOSE Routine 03/16/2018 5:20 PM [employer] US ABDOMINAL PARACENTESIS Routine 03/16/2018 IMAGING 1:20 PM [employer] CELL COUNT AND Routine 03/16/2018 DIFFERENTIAL, BODY FLUID 1:05 PM [employer] GRAM STAIN Routine 03/16/2018 1:05 PM [employer]ACH ANAEROBIC CULTURE Routine 03/16/2018 1:05 PM [employer] AEROBIC CULTURE Routine 03/16/2018 1:05 PM [employer] POC GLUCOSE Routine 03/16/2018 11:41 AM [employer] POC GLUCOSE Routine 03/16/2018 7:41 AM [employer] XR CHEST 1 VW PORTABLE Routine 03/16/2018 7:02 AM [employer] ESTIMATED GFR Routine 03/16/2018 3:57 AM [employer] LDH Routine 03/16/2018 3:57 AM [employer] PHOSPHORUS LEVEL Routine 03/16/2018 3:57 AM [employer] MAGNESIUM LEVEL Routine 03/16/2018 3:57 AM [employer] HEPATIC FUNCTION PANEL Routine 03/16/2018 3:57 AM [employer] BASIC METABOLIC PANEL Routine 03/16/2018 3:57 AM [employer] POC GLUCOSE Routine 03/16/2018 3:45 AM [employer] FIBRINOGEN Routine 03/16/2018 3:30 AM [employer] PROTHROMBIN TIME WITH INR Routine 03/16/2018 3:30 AM [employer] CBC WITH PLATELET AND Routine 03/16/2018 DIFFERENTIAL 3:30 AM [employer] POC GLUCOSE Routine 03/16/2018 1:14 AM [employer] POC GLUCOSE Routine 03/15/2018 8:44 PM [employer] POC GLUCOSE Routine 03/15/2018 4:19 PM [employer] PV PHYSIOLOGIC ARTERIAL Routine 03/15/2018 LOWER EXTREMITY COMPLETE 3:15 PM [employer] POC GLUCOSE Routine 03/15/2018 11:51 AM [employer] POC GLUCOSE Routine 03/15/2018 7:43 AM [employer] XR CHEST 1 VW PORTABLE Routine 03/15/2018 6:02 AM [employer] ESTIMATED GFR Routine 03/15/2018 3:10 AM [employer] HC COMPLETE BLD COUNT Routine 03/15/2018 W/AUTO DIFF 3:10 AM [employer] PHOSPHORUS LEVEL Routine 03/15/2018 3:10 AM [employer] MAGNESIUM LEVEL Routine 03/15/2018 3:10 AM [employer] LDH Routine 03/15/2018 3:10 AM [employer] IONIZED CALCIUM Routine 03/15/2018 3:10 AM [employer] FIBRINOGEN Routine 03/15/2018 3:10 AM [employer] PARTIAL THROMBOPLASTIN Routine 03/15/2018 TIME (PTT) 3:10 AM [employer] HEPATIC FUNCTION PANEL Routine 03/15/2018 3:10 AM [employer] PROTHROMBIN TIME WITH INR Routine 03/15/2018 3:10 AM [employer] BASIC METABOLIC PANEL Routine 03/15/2018 3:10 AM [employer] POC GLUCOSE Routine 03/14/2018 8:52 PM [employer] POC GLUCOSE Routine 03/14/2018 5:50 PM [employer] POC GLUCOSE Routine 03/14/2018 11:51 AM [employer] POC GLUCOSE Routine 03/14/2018 8:12 AM [employer] XR CHEST 1 VW PORTABLE Routine 03/14/2018 6:28 AM [employer] TOXOPLASMA GONDII Routine 03/14/2018 ANTIBODY, IGG 3:42 AM [employer] SYPHILIS TREPONEMAL IGG Routine 03/14/2018 3:42 AM [employer] HEPATITIS ACUTE PANEL Routine 03/14/2018 3:42 AM [employer] PREALBUMIN LEVEL Routine 03/14/2018 3:42 AM [employer] MAURY-ROBERTS VIRUS Routine 03/14/2018 ANTIBODY TEST 3:42 AM [employer] ESTIMATED GFR Routine 03/14/2018 3:33 AM [employer] PHOSPHORUS LEVEL Routine 03/14/2018 3:33 AM [employer] MAGNESIUM LEVEL Routine 03/14/2018 3:33 AM [employer] HEPATIC FUNCTION PANEL Routine 03/14/2018 3:33 AM [employer] BASIC METABOLIC PANEL Routine 03/14/2018 3:33 AM [employer] T4, FREE Routine 03/14/2018 3:33 AM [employer] T4 Routine 03/14/2018 3:33 AM [employer] T3 Routine 03/14/2018 3:33 AM [employer] THYROID STIMULATING Routine 03/14/2018 HORMONE 3:33 AM [employer] LIPID PANEL Routine 03/14/2018 3:33 AM [employer] LDH Routine 03/14/2018 3:33 AM [employer] URIC ACID LEVEL Routine 03/14/2018 3:33 AM [employer] SINGLE ANTIGEN BEADS Routine 03/14/2018 3:20 AM [employer] MANUAL DIFFERENTIAL Routine 03/14/2018 3:20 AM [employer] PARTIAL THROMBOPLASTIN Routine 03/14/2018 TIME (PTT) 3:20 AM [employer] PROTHROMBIN TIME WITH INR Routine 03/14/2018 3:20 AM [employer] FIBRINOGEN Routine 03/14/2018 3:20 AM [employer] CBC WITH PLATELET AND Routine 03/14/2018 DIFFERENTIAL 3:20 AM [employer] TOXOPLASMA IGM AB Routine 03/14/2018 3:20 AM [employer] HEMOGLOBIN A1C Routine 03/14/2018 3:20 AM [employer] MAURY ROBERTS VIRUS (EBV) Routine 03/14/2018 BY PCR 3:20 AM [employer] POC GLUCOSE Routine 03/14/2018 12:36 AM [employer] FERRITIN LEVEL Routine 03/14/2018 12:00 AM [employer] POC GLUCOSE Routine 03/13/2018 8:52 PM [employer] URINALYSIS SCREEN AND Routine 03/13/2018 MICROSCOPY, WITH REFLEX 5:30 PM [employer] TO CULTURE CREATININE LEVEL, URINE, Routine 03/13/2018 RANDOM 5:30 PM [employer] PROTEIN, URINE, RANDOM Routine 03/13/2018 5:30 PM [employer] GRAM STAIN Routine 03/13/2018 5:30 PM [employer] URINE CULTURE Routine 03/13/2018 5:30 PM [employer] US RENAL Routine 03/13/2018 5:[address] [employer] [address] HEAD WO CONTRAST Routine 03/13/2018 4:22 PM [employer] POC GLUCOSE Routine 03/13/2018 3:35 PM [employer] ESTIMATED GFR Routine 03/13/2018 3:30 PM [employer] CREATININE CLEARANCE, Routine 03/13/2018 URINE, 24 HOUR 3:30 PM [employer] POC GLUCOSE Routine 03/13/2018 11:06 AM [employer] TRANSFUSE RED BLOOD CELLS Routine 03/13/2018 9:57 AM [employer] POC GLUCOSE Routine 03/13/2018 7:30 AM [employer] PREPARE RBC Routine 03/13/2018 5:00 AM [employer] ANTIBODY IDENTIFICATION Routine 03/13/2018 5:00 AM [employer] TYPE AND SCREEN Routine 03/13/2018 5:00 AM [employer] ESTIMATED GFR Routine 03/13/2018 2:55 AM [employer] LDH Routine 03/13/2018 2:55 AM [employer] PHOSPHORUS LEVEL Routine 03/13/2018 2:55 AM [employer] MAGNESIUM LEVEL Routine 03/13/2018 2:55 AM [employer] HEPATIC FUNCTION PANEL Routine 03/13/2018 2:55 AM [employer] BASIC METABOLIC PANEL Routine 03/13/2018 2:55 AM [employer] SMEAR REVIEW Routine 03/13/2018 2:30 AM [employer] FIBRINOGEN Routine 03/13/2018 2:30 AM [employer] PARTIAL THROMBOPLASTIN Routine 03/13/2018 TIME (PTT) 2:30 AM [employer] PROTHROMBIN TIME WITH INR Routine 03/13/2018 2:30 AM [employer] HC COMPLETE BLD COUNT Routine 03/13/2018 W/AUTO DIFF 2:30 AM [employer] POC GLUCOSE Routine 03/12/2018 9:01 PM [employer] XR CHEST 1 VW PORTABLE STAT 03/12/2018 8:11 PM [employer] HEMODIALYSIS CATHETER Routine 03/12/2018 Cirrhosis of liver with PLACEMENT 4:51 PM [employer] ascites, unspecified hepatic cirrhosis type (HCC) POC GLUCOSE Routine 03/12/2018 11:45 AM [employer] POC GLUCOSE Routine 03/12/2018 9:57 AM [employer] POC GLUCOSE Routine 03/12/2018 8:09 AM [employer] XR CHEST 1 VW PORTABLE Routine 03/12/2018 7:07 AM [employer] POC GLUCOSE Routine 03/12/2018 4:46 AM [employer] ESTIMATED GFR Routine 03/12/2018 2:19 AM [employer] PHOSPHORUS LEVEL Routine 03/12/2018 2:19 AM [employer] MAGNESIUM LEVEL Routine 03/12/2018 2:19 AM [employer] LDH Routine 03/12/2018 2:19 AM [employer] LACTIC ACID LEVEL Routine 03/12/2018 2:19 AM [employer] IONIZED CALCIUM Routine 03/12/2018 2:19 AM [employer] HEPATIC FUNCTION PANEL Routine 03/12/2018 2:19 AM [employer] BASIC METABOLIC PANEL Routine 03/12/2018 2:19 AM [employer] FIBRINOGEN Routine 03/12/2018 2:15 AM [employer] PROTHROMBIN TIME WITH INR Routine 03/12/2018 2:15 AM [employer] HC COMPLETE BLD COUNT Routine 03/12/2018 W/AUTO DIFF 2:15 AM [employer] POC GLUCOSE Routine 03/12/2018 12:36 AM [employer] POC GLUCOSE Routine 03/11/2018 8:54 PM [employer] POC GLUCOSE Routine 03/11/2018 4:15 PM [employer] PROTHROMBIN TIME WITH INR STAT 03/11/2018 3:45 PM [employer] HC COMPLETE BLD COUNT STAT 03/11/2018 W/AUTO DIFF 3:45 PM [employer] XR ABDOMEN 1 VW PORTABLE Routine 03/11/2018 2:10 PM [employer] ESTIMATED GFR STAT 03/11/2018 1:48 PM [employer] IONIZED CALCIUM STAT 03/11/2018 1:48 PM [employer] LACTIC ACID LEVEL STAT 03/11/2018 1:48 PM [employer] PHOSPHORUS LEVEL STAT 03/11/2018 1:48 PM [employer] MAGNESIUM LEVEL STAT 03/11/2018 1:48 PM [employer] LDH STAT 03/11/2018 1:48 PM [employer] HEPATIC FUNCTION PANEL STAT 03/11/2018 1:48 PM [employer] BASIC METABOLIC PANEL STAT 03/11/2018 1:48 PM [employer] POC GLUCOSE Routine 03/11/2018 1:03 PM [employer] XR CHEST 1 VW PORTABLE STAT 03/11/2018 11:22 AM [employer] PROTHROMBIN TIME WITH INR Routine 03/11/2018 4:57 AM [employer] HC COMPLETE BLD COUNT Routine 03/11/2018 W/AUTO DIFF 4:57 AM [employer] ESTIMATED GFR Routine 03/11/2018 4:33 AM [employer] HEPATIC FUNCTION PANEL Routine 03/11/2018 4:33 AM [employer] MAGNESIUM LEVEL Routine 03/11/2018 4:33 AM [employer] BASIC METABOLIC PANEL Routine 03/11/2018 4:33 AM [employer] XR ABDOMEN 1 VW PORTABLE Routine 03/10/2018 8:00 PM [employer] ESTIMATED GFR Routine 03/10/2018 5:00 AM [employer] NICOTINE AND METABOLITES, Routine 03/10/2018 SERUM 5:00 AM [employer] HEPATIC FUNCTION PANEL Routine 03/10/2018 5:00 AM [employer] PROTHROMBIN TIME WITH INR Routine 03/10/2018 5:00 AM [employer] MAGNESIUM LEVEL Routine 03/10/2018 5:00 AM [employer] HC COMPLETE BLD COUNT Routine 03/10/2018 W/AUTO DIFF 5:00 AM [employer] BASIC METABOLIC PANEL Routine 03/10/2018 5:00 AM [employer] US ABDOMINAL PARACENTESIS Routine 03/09/2018 IMAGING 11:19 AM [employer] GRAM STAIN Routine 03/09/2018 10:49 AM [employer] ANAEROBIC CULTURE Routine 03/09/2018 10:49 AM [employer] AEROBIC CULTURE Routine 03/09/2018 10:49 AM [employer] LDH, MISC FLUID Routine 03/09/2018 10:48 AM [employer] PROTEIN, MISC FLUID Routine 03/09/2018 10:48 AM [employer] CELL COUNT AND Routine 03/09/2018 DIFFERENTIAL, BODY FLUID 10:48 AM [employer] ESTIMATED GFR Timed 03/09/2018 5:40 AM [employer] PROTHROMBIN TIME WITH INR Timed 03/09/2018 5:40 AM [employer] HEPATIC FUNCTION PANEL Timed 03/09/2018 5:40 AM [employer] HC COMPLETE BLD COUNT Timed 03/09/2018 W/AUTO DIFF 5:40 AM [employer] BASIC METABOLIC PANEL Timed 03/09/2018 5:40 AM [employer] HEMOGLOBIN & HEMATOCRIT Timed 03/08/2018 8:55 PM [employer] HEMOGLOBIN & HEMATOCRIT Timed 03/08/2018 1:21 PM [employer] PHOSPHORUS LEVEL Routine 03/08/2018 5:08 AM [employer] ESTIMATED GFR Routine 03/08/2018 5:08 AM [employer] PROTHROMBIN TIME WITH INR Routine 03/08/2018 5:08 AM [employer] HEPATIC FUNCTION PANEL Routine 03/08/2018 5:08 AM [employer] HC COMPLETE BLD COUNT Routine 03/08/2018 W/AUTO DIFF 5:08 AM [employer] BASIC METABOLIC PANEL Routine 03/08/2018 5:08 AM [employer] PARTIAL THROMBOPLASTIN Routine 03/08/2018 TIME (PTT) 5:08 AM [employer] MAGNESIUM LEVEL Routine 03/08/2018 5:08 AM [employer] HEMOGLOBIN & HEMATOCRIT Timed 03/07/2018 12:43 PM [employer] ESTIMATED GFR Routine 03/07/2018 5:40 AM [employer] PROTHROMBIN TIME WITH INR Routine 03/07/2018 5:40 AM [employer] HEPATIC FUNCTION PANEL Routine 03/07/2018 5:40 AM [employer] HC COMPLETE BLD COUNT Routine 03/07/2018 W/AUTO DIFF 5:40 AM [employer] BASIC METABOLIC PANEL Routine 03/07/2018 5:40 AM [employer] PARTIAL THROMBOPLASTIN Routine 03/07/2018 TIME (PTT) 5:40 AM [employer] MAGNESIUM LEVEL Routine 03/07/2018 5:40 AM [employer] US ABDOMINAL PARACENTESIS Routine 03/06/2018 IMAGING 4:14 PM [employer] CELL COUNT AND Routine 03/06/2018 DIFFERENTIAL, BODY FLUID 3:37 PM [employer] GRAM STAIN Routine 03/06/2018 3:37 PM [employer] ANAEROBIC CULTURE Routine 03/06/2018 3:37 PM [employer] AEROBIC CULTURE Routine 03/06/2018 3:[address] [address] ABDOMEN PELVIS WO STAT 03/06/2018 CONTRAST 2:36 PM [employer] ESTIMATED GFR Routine 03/06/2018 9:42 AM [employer] PARTIAL THROMBOPLASTIN Routine 03/06/2018 TIME (PTT) 9:42 AM [employer] PROTHROMBIN TIME WITH INR Routine 03/06/2018 9:42 AM [employer] MAGNESIUM LEVEL Routine 03/06/2018 9:42 AM [employer] HC COMPLETE BLD COUNT Routine 03/06/2018 W/AUTO DIFF 9:42 AM [employer] BASIC METABOLIC PANEL Routine 03/06/2018 9:42 AM [employer] HEPATIC FUNCTION PANEL Routine 03/06/2018 9:42 AM [employer] TRANSFUSE RED BLOOD CELLS STAT 03/06/2018 8:55 AM [employer] TRANSFUSE RED BLOOD CELLS STAT 03/06/2018 8:08 AM [employer] FOLATE LEVEL Routine 03/05/2018 8:20 PM [employer] VITAMIN B12 LEVEL Routine 03/05/2018 8:20 PM [employer] RETICULOCYTE COUNT Routine 03/05/2018 8:20 PM [employer] FERRITIN LEVEL Routine 03/05/2018 8:20 PM [employer] TOTAL IRON BINDING Routine 03/05/2018 CAPACITY 8:20 PM [employer] PREPARE RBC Timed 03/05/2018 4:55 PM [employer] ANTIBODY IDENTIFICATION Routine 03/05/2018 4:55 PM [employer] SMEAR REVIEW STAT 03/05/2018 4:55 PM [employer] ESTIMATED GFR STAT 03/05/2018 4:55 PM [employer] CREATINE KINASE, TOTAL STAT 03/05/2018 (CPK) 4:55 PM [employer] B NATRIURETIC PEPTIDE STAT 03/05/2018 4:55 PM [employer] TROPONIN STAT 03/05/2018 4:55 PM [employer] PHOSPHORUS LEVEL STAT 03/05/2018 4:55 PM [employer] MAGNESIUM LEVEL STAT 03/05/2018 4:55 PM [employer] HEPATIC FUNCTION PANEL STAT 03/05/2018 4:55 PM [employer] BASIC METABOLIC PANEL STAT 03/05/2018 4:55 PM [employer] TYPE AND SCREEN Routine 03/05/2018 4:55 PM [employer] PARTIAL THROMBOPLASTIN STAT 03/05/2018 TIME (PTT) 4:55 PM [employer] PROTHROMBIN TIME WITH INR STAT 03/05/2018 4:55 PM [employer] HC COMPLETE BLD COUNT STAT 03/05/2018 W/AUTO DIFF 4:55 PM [employer] ID CRITICAL CARE, E/M Routine 03/05/2018 30-74 MINUTES 4:45 PM [employer] ECG 12-LEAD STAT 03/05/2018 3:18 PM [employer] MRI ABDOMEN WO CONTRAST Routine 02/26/2018 Primary biliary cirrhosis 6:15 PM [employer] (HCC) US ABDOMINAL PARACENTESIS Routine 02/26/2018 Other ascites IMAGING 3:51 PM [employer] ALBUMIN, MISC FLUID Routine 02/26/2018 3:13 PM [employer] CELL COUNT AND Routine 02/26/2018 DIFFERENTIAL, BODY FLUID 3:13 PM [employer] AEROBIC CULTURE Routine 02/26/2018 3:13 PM [employer] GRAM STAIN Routine 02/26/2018 3:13 PM [employer] ANAEROBIC CULTURE Routine 02/26/2018 3:13 PM [employer] ECHOCARDIOGRAM 2D Routine 02/26/2018 COMPLETE W MMODE SPECTRAL 2:00 PM [employer] COLOR DOPPLER ([id number]) ESTIMATED GFR Routine 02/26/2018 11:48 AM [employer] VITAMIN K LEVEL, SERUM Routine 02/26/2018 Primary biliary 11:48 AM [employer] cholangitis (HCC) Awaiting liver transplant VITAMIN E LEVEL, PLASMA Routine 02/26/2018 Primary biliary OR SERUM 11:48 AM [employer] cholangitis (HCC) Awaiting liver transplant VITAMIN A LEVEL, PLASMA Routine 02/26/2018 Primary biliary OR SERUM 11:48 AM [employer] cholangitis (HCC) Awaiting liver transplant PHOSPHORUS LEVEL Routine 02/26/2018 Primary biliary 11:48 AM [employer] cholangitis (HCC) Awaiting liver transplant MAGNESIUM LEVEL Routine 02/26/2018 Primary biliary 11:48 AM [employer] cholangitis (HCC) Awaiting liver transplant ALPHA FETOPROTEIN Routine 02/26/2018 Primary biliary 11:48 AM [employer] cholangitis (HCC) Awaiting liver transplant HC COMPLETE BLD COUNT Routine 02/26/2018 Primary biliary W/AUTO DIFF 11:48 AM [employer] cholangitis (HCC) Awaiting liver transplant PARTIAL THROMBOPLASTIN Routine 02/26/2018 Primary biliary TIME (PTT) 11:48 AM [employer] cholangitis (HCC) Awaiting liver transplant PROTHROMBIN TIME WITH INR Routine 02/26/2018 Primary biliary 11:48 AM [employer] cholangitis (HCC) Awaiting liver transplant HEPATIC FUNCTION PANEL Routine 02/26/2018 Primary biliary 11:48 AM [employer] cholangitis (HCC) Awaiting liver transplant BASIC METABOLIC PANEL Routine 02/26/2018 Primary biliary 11:48 AM [employer] cholangitis (HCC) Awaiting liver transplant NM MYOCARDIAL [...] 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 Ventricular 54 [facility]USE rate Atrial rate 54 [facility] M[facility] ID interval 174 [facility] QRSD interval 88 [facility] M[facility] QT interval 436 [facility] QTC interval 413 [facility] P axis 1 10 [facility] QRS axis 1 16 [facility] T wave axis 27 [facility] EKG impression Sinus bradycardia-Cannot rule [facility] MUSE out Anterior infarct (cited on or before 21-JUL-2017)-Abnormal ECG-In automated comparison with ECG of 27-MAY-2018 10:39,-No significant change was found- Specimen Narrative Performed At Performing Organization Address City/[facility]/Zipcode Phone Number [facility] [address] [place] [address] * Nicotine and cotinine, serum (10/28/2018 8:05 AM CDT) Only the most recent of 3 results within the time period is included. Nicotine <2.0 0.0 - 1.9 ng/mL [facility] Cotinine 8.4 (H) 0.0 - 1.9 ng/mL [place] Comment: PROTESTANT This test was developed and HOSPITAL its performance characteristics determined by the Department of Pathology and Genomic Medicine, [facility]. Serum nicotine and metabolite cotinine are tested by HPLC tandem mass spectrometry. It has not been cleared or approved by FDA. The laboratory is regulated under CLIA as qualified to perform high-complexity testing. This test is used for clinical purposes. It should not be regarded as investigational or for research. Specimen Blood Performing Organization Address City/State/Zipcode Phone Number [facility] DEPARTMENT OF [address] [place] [address] PATHOLOGY AND GENOMIC MEDICINE [address] * Estimated GFR (10/28/2018 8:05 AM CDT) Only the most recent of 22 results within the time period is included. [facility] Estimated GFR 22 (A) mL/min/1.73 m2 [place] Comment: [facility] rpretation G1 >=90 Normal or high G2 60-89Mildly decreased [id number] Mildly to moderately decreased [id number] Moderately to severely decreased G4 15-29Severely decreased G5 <15Kidney failure The eGFR was calculated using the Chronic Kidney Disease Epidemiology Collaboration (CKD-EPI) equation. Interpretation is based on recommendations of the National Kidney Foundation-Kidney Disease Outcomes Quality Initiative (NKF-KDOQI) published in 2014. Specimen Plasma specimen Performing Organization Address City/State/Zipcode Phone Number [facility] [place] [address] PATHOLOGY AND [facility]IC[facility] [address] * Prothrombin time with INR (10/28/2018 8:05 AM CDT) Only the most recent of 20 results within the time period is included. [facility] Prothrombin 15.2 (H) 11.5 - 14.5 sec [facility] INR 1.2 [place] Comment: PROTESTANT The International Normalized HOSPITAL Ratio (INR) is a therapeutic monitoring tool for patients who are stable on oral anticoagulant therapy. An INR of 2.0-3.0 is suggested for deep vein thrombosis/pulmonary embolism. Specimen Blood Performing Organization Address City/[facility] Phone Number [facility] [place] [address] PATHOLOGY AND [facility]IC[facility] [address] * CBC with platelet and differential (10/28/2018 8:05 AM CDT) Only the most recent of 23 results within the time period is included. [facility] WBC 6.00 4.50 - 11.00 k/uL [facility] RBC 2.43 (L) 4.20 - 5.50 m/uL [facility] HGB 7.7 (L) 12.0 - 16.0 g/dL [facility] HCT 25.0 (L) 37.0 - 47.0 % [facility] MCV 102.9 (H) 82.0 - 100.0 fL [facility] MCH 31.7 27.0 - 34.0 pg [facility] MCHC 30.8 (L) 31.0 - 37.0 g/dL [facility] RDW - SD 52.5 37.0 - 55.0 fL [facility] MPV 9.7 8.8 - 13.2 fL [facility] Platelet count 279 150 - 400 k/uL [facility] Nucleated RBC 0.00 /100 WBC [facility] Neutrophils 71.6 (H) 39.0 - 69.0 % [facility] Lymphocytes 13.7 (L) 25.0 - 45.0 % [facility] Monocytes 10.0 0.0 - 10.0 % [facility] Eosinophils 3.7 0.0 - 5.0 % [facility] Basophils 0.3 0.0 - 1.0 % [facility] Immature 0.7Comment: "Immature 0.0 - 1.0 % [place] granulocytes granulocytes" (promyelocytes, [facility] myelocytes, metamyelocytes) HOSPITAL Specimen Blood Performing Organization Address City/[facility] Phone Number [facility] [place] [address] PATHOLOGY AND [facility] MEDICINE [address] * Uric acid level (10/28/2018 8:05 AM CDT) Only the most recent of 4 results within the time period is included. Uric acid 12.4 (H) 2.4 - 5.7 mg/dL [facility] Specimen Plasma specimen Performing Organization Address City/[facility] Cent[facility]ode Phone Number [facility] [place] [address] PATHOLOGY AND GENOMIC MEDICINE [address] * B natriuretic peptide (10/28/2018 8:05 AM CDT) Only the most recent of 5 results within the time period is included. BNP 183 (H) 0 - 100 pg/mL [facility] Specimen Blood Performing Organization Address City/[facility] Phone Number [facility] [place] [address] PATHOLOGY AND GENOMIC MEDICINE [address] * Magnesium level (10/28/2018 8:05 AM CDT) Only the most recent of 18 results within the time period is included. Magnesium 2.8 (H) 1.6 - 2.4 mg/dL [facility] Specimen Plasma specimen Performing Organization Address City/[facility] Centercode Phone Number [facility] [place] [address] PATHOLOGY AND GENOMIC MEDICINE [address] * Bilirubin direct (10/28/2018 8:05 AM CDT) Bilirubin <0.2 0.0 - 0.3 mg/dL [facility] Specimen Plasma specimen Performing Organization Address City/[facility] Phone Number [facility] [place] [address] PATHOLOGY AND [facility] [address] * Comprehensive metabolic panel (10/28/2018 8:05 AM CDT) Only the most recent of 6 results within the time period is included. Sodium 131 (L) 135 - 148 mEq/L [facility] Potassium 5.0 3.5 - 5.0 mEq/L [facility] Chloride 97 (L) 98 - 112 mEq/L [facility] CO2 19 (L) 24 - 31 mEq/L [facility] Anion gap 15@ANIO 7 - 15 mEq/L [facility] BUN 83 (H) 8 - 23 mg/dL [facility] Creatinine 2.29 (H) 0.50 - 0.90 mg/dL [facility] Glucose 107 (H) 65 - 99 mg/dL [facility] Calcium 8.3 (L) 8.8 - 10.2 mg/dL [facility] Protein 6.2 (L) 6.3 - 8.3 g/dL [place] Comment: [facility] 4.6-7.0 g/dL 1 week 4.4-7.6 g/dL 7 months-1year 5.1-7.3 g/dL 1-2 years5.6-7 .5 g/dL >3 years6.0-8 .0 g/dL 18-150 6.3-8.3 g/dL Albumin 3.4 (L) 3.5 - 5.0 g/dL [facility] A/G ratio 1.2 0.7 - 3.8 [facility] Alkaline 87 35 - 104 U/L [place] phosphatase [facility] AST 38 (H) 10 - 35 U/L [facility] ALT 12 5 - 50 U/L [facility] Total bilirubin 0.4 0.0 - 1.2 mg/dL [facility] Specimen Plasma specimen Performing Organization Address City/State/Zipcode Phone Number [facility] DEPARTMENT OF [address] [place] [address] PATHOLOGY AND GENOMIC MEDICINE [address] * Surgical pathology request (09/01/2018 3:41 PM CDT) Only the most recent of 2 results within the time period is included. [facility] DEPARTMENT OF PATHOLOGY AND GENOMIC MEDICINE Surgical See link below for PDF Lab [facility] DEPARTMENT pathology Report OF PATHOLOGY report AND GENOMIC MEDICINE Result status This is Supplemental Report [facility] DEPARTMENT for [id number] OF PATHOLOGY AND GENOMIC MEDICINE Specimen Performing Organization Address City/[facility] Phone Number [facility] DEPARTMENT OF [address] [place] [address] PATHOLOGY AND GENOMIC MEDICINE * Cv stress [...] Termination Stress Test Waveform interpreted in report [facility] MUSE Impression associated with image study. No interpretation is provided as part of this Stress ECG report.--Electronically Signed By Kelly ISIDRO, Douglas Tavera ([id number]), newspaper photo editor Chelly Leon ([id number]) on 08/12/2018 4:43:45 PM Specimen Narrative Performed At Performing Organization Address City/State/Zipcode Phone Number [facility] [address] [place] [address] * [place] Upper GI and Small Bowel [...] ileum are normal. Transit time was normal. [id number] Procedure Note Interface, Radiology Results Incoming - [...] ileum are normal. Transit time was normal. [id number] Performing Organization Address City/State/Zipcode Phone Number [facility] [address] [place] [address] * XR Abdomen 1 Vw (07/17/2018 11:01 AM CDT) Specimen Narrative Performed At XR [facility]BDOMEN 1 [facility] CL[facility]ICAL INDICATION:D64.9 Anemiaunspecified, ANEMIA COMPARISON:03/19/2018 IMPRESSION: Bowel gas pattern is nonspecific with gas scattered in large and small bowel loops. There is slightly prominent gas in the small bowel loops of upper quadrant question mild wall thickening not well evaluated by radiographs. There is no pneumatosis. Multiple cholecystectomy clips are present with scattered atherosclerotic calcifications. Bones are intact with very mild degenerative changes. *[id number] Procedure Note Interface, Radiology Results Incoming - [...] are intact with very mild degenerative changes. *[id number] Performing Organization Address [facility] Centercode Phone Number [facility] [address] [place] [address] * Total iron binding capacity (05/05/2018 4:20 PM [employer]) Only the most recent of 2 results within the time period is included. Iron level 42 37 - 145 ug/dL [facility] Iron binding 362 200 - 400 ug/dL [facility] % Saturation 11.6 (L) 15.0 - 38.0 % [facility] Specimen Plasma specimen Performing Organization Address City/[facility]/Zipcode Phone Number [facility] DEPARTMENT OF [address] [place] [address] PATHOLOGY AND GENOMIC MEDICINE [address] * Reticulocyte count (05/05/2018 4:20 PM [employer]) Only the most recent of 2 results within the time period is included. Retic %, auto 2.7 (H) 0.5 - 2.1 % [facility] Retic absolute, 0.0692 0.0210 - 0.1155 m/uL [facility] Specimen Blood Performing Organization Address City/[facility]/Zipcode Phone Number [facility] DEPARTMENT OF [address] [place] [address] PATHOLOGY AND GENOMIC MEDICINE [address] * Ferritin level (05/05/2018 4:20 PM [employer]) Only the most recent of 3 results within the time period is included. Ferritin level 25 13 - 150 ng/mL [facility] Specimen Plasma specimen Performing Organization Address City/[facility] Centercode Phone Number [facility] DEPARTMENT OF [address] [place] [address] PATHOLOGY AND GENOMIC MEDICINE [address] * Manual differential (04/29/2018 10:32 AM [employer]) Only the most recent of 3 results within the time period is included. Manual PERFORMED [place] differential [facility] Neutrophils 77.0 (H) 39.0 - 69.0 % [facility] Lymphocytes 17.0 (L) 25.0 - 45.0 % [facility] Monocytes 4.0 0.0 - 10.0 % [facility] Eosinophils 2.0 0.0 - 5.0 % [facility] Basophils 0.0 0.0 - 1.0 % [facility] Metamyelocytes 0 % [facility] Promyelocytes 0 % [facility] Platelet slide Denice adequate [place] review [facility] Anisocytosis Moderate [facility] Ovalocytes Moderate [facility] Giant platelets Occasional [facility] Specimen Performing Organization Address City/[facility]/Zipcode Phone Number [facility] DEPARTMENT OF [address] [place] [address] PATHOLOGY AND GENOMIC MEDICINE [address] * Lipid panel (04/29/2018 10:32 AM [employer]) Only the most recent of 2 results within the time period is included. Cholesterol 92 <200 mg/dL [facility] Triglycerides 70 <150 mg/dL [facility] HDL cholesterol 24 (L) >40 mg/dL [facility] LDL cholesterol 44Comment: Result obtained by <100 mg/dL [place] direct LDL measurement [facility] Lipid panel [facility] interpretation Comment: PROTESTANT Total Cholesterol [facility] (mg/dL) <200 Desirable 200-239Borderline -high >=240High [...] mg/dL) Specimen Plasma specimen Performing Organization Address City/[facility] Centercode Phone Number [facility] [place] [address] PATHOLOGY AND GENOMIC MEDICINE [place] [facility] [address] [place] [address] * POC glucose (03/20/2018 8:48 AM [employer]) Only the most recent of 42 results within the time period is included. POC glucose 96 65 - 99 mg/dL [place] Comment: [facility] Notified RN HOSPITAL Meter ID: [id number] Director Credit Risk: Maverick Hawthorne Specimen Performing Organization Address [facility] Centerconc Phone Number [facility] [place] [address] PATHOLOGY AND GENOMIC MEDICINE [place] [facility] [address] [place] [address] * XR Abdomen 1 Vw Portable (03/19/2018 3:42 PM [employer]) Only the most recent of 3 results within the time period is included. Specimen Narrative Performed At EXAMINATION:XR ABDOMEN 1 VW PORTABLE [facility] CLINICAL HISTORY:Nauseavomiting COMPARISON:03/11/2018 IMPRESSION: Status post cholecystectomy. Nonobstructive bowel gas pattern. No evidence of pneumoperitoneum. Punctate renal calculus projecting over the left renal shadow, lower pole. [facility]-[id number] Procedure Note Hm Interface, Radiology Results Incoming - 03/19/2018 5:11 PM [employer] EXAMINATION: XR ABDOMEN 1 VW PORTABLE CLINICAL HISTORY: Nausea vomiting COMPARISON: 03/11/2018 IMPRESSION: Status post cholecystectomy. Nonobstructive bowel gas pattern. No evidence of pneumoperitoneum. Punctate renal calculus projecting over the left renal shadow, lower pole. [facility]-[id number] Performing Organization Address City/[facility]/[place] [address] * Fibrinogen (03/18/2018 5:15 AM [employer]) Only the most recent of 6 results within the time period is included. Fibrinogen 242 200 - 450 mg/dL [facility] Specimen Blood Performing Organization Address [facility] Centercode Phone Number [facility] [place] [address] PATHOLOGY AND [facility] [address] * Phosphorus level (03/18/2018 5:15 AM [employer]) Only the most recent of 11 results within the time period is included. Phosphorus 1.8 (L) 2.4 - 4.5 mg/dL [facility] Specimen Plasma specimen Performing Organization Address [facility] Phone Number [facility] [place] [address] PATHOLOGY AND GENOMIC MEDICINE [address] * LDH (03/18/2018 5:15 AM [employer]) Only the most recent of 8 results within the time period is included. LDH 141 87 - 225 U/L [facility] Specimen Plasma specimen Performing Organization Address [facility] Phone Number [facility] DEPARTMENT OF [address] [place] [address] PATHOLOGY AND GENOMIC MEDICINE [address] * Hepatic function panel (03/18/2018 5:15 AM [employer]) Only the most recent of 16 results within the time period is included. Albumin 4.3 3.5 - 5.0 g/dL [facility] Total bilirubin 0.6 0.0 - 1.2 mg/dL [facility] Bilirubin 0.3 0.0 - 0.3 mg/dL [place] direct [facility] Alkaline 61 35 - 104 U/L [facility] Protein 6.2 (L) 6.3 - 8.3 g/dL [place] Comment: [facility] 4.6-7.0 g/dL 1 week 4.4-7.6 g/dL 7 months-1year 5.1-7.3 g/dL 1-2 years5.6-7 .5 g/dL >3 years6.0-8 .0 g/dL 18-150 6.3-8.3 g/dL ALT 9 5 - 50 U/L [facility] AST 26 10 - 35 U/L [facility] Specimen Plasma specimen Performing Organization Address City/[facility] Phone Number [facility] [place] [address] PATHOLOGY AND [facility] MEDIC[facility] [address] * Basic metabolic panel (03/18/2018 5:15 AM [employer]) Only the most recent of 16 results within the time period is included. Sodium 137 135 - 148 mEq/L [facility] Potassium 3.8 3.5 - 5.0 mEq/L [facility] Chloride 101 98 - 112 mEq/L [facility] CO2 20 (L) 24 - 31 mEq/L [facility] Anion gap 16@ANIO (H) 7 - 15 mEq/L [facility] BUN 44 (H) 8 - 23 mg/dL [facility] Creatinine 1.87 (H) 0.50 - 0.90 mg/dL [facility] Glucose 100 (H) 65 - 99 mg/dL [facility] Calcium 9.2 8.8 - 10.2 mg/dL [facility] Specimen Plasma specimen Performing Organization Address [facility] Phone Number [facility] [place] [address] PATHOLOGY AND [facility] MEDIC[facility] [address] * Potassium level (03/17/2018 2:30 PM [employer]) Potassium 3.8 3.5 - 5.0 mEq/L [facility] Specimen Plasma specimen Performing Organization Address City/[facility] Centercode Phone Number [facility] [place] [address] PATHOLOGY AND GENOMIC MEDICINE [address] * Cv computer lab para professional procedure (03/17/2018 1:56 PM [employer]) Specimen Narrative Performed At [employer] [facility] Summary: Overall, hemodynamics are consistent with mildly elevated RAP/normal left-sided filling pressure and preserved cardiac index. Performing Organization Address [facility] Centerconc Phone Number [employer] [address] [place] [address] * CT Chest Wo Contrast (03/17/2018 1:36 PM COLLEGE FOOTBALL COACH) Specimen Narrative Performed At [facility] CLINICAL HISTORY: OHT [...] Portal hypertension with splenomegaly and moderate ascites [id number] Procedure Note Interface, Radiology Results Incoming - 03/17/2018 2:22 PM COLLEGE FOOTBALL COACH EXAMINATION: CT CHEST WO CONTRAST CLINICAL HISTORY: [...] Portal hypertension with splenomegaly and moderate ascites [id number] Performing Organization Address City/[facility]/Zipcode Phone Number [employer] [address] [place] [address] * US Abdominal Paracentesis Imaging (03/16/2018 1:20 PM COLLEGE FOOTBALL COACH) Only the most recent of 4 results within the time period is included. Specimen Narrative Performed At PROCEDURE: [facility] Ultrasound-guided paracentesis Performing Radiologist: Chelle Chopra [...] into the peritoneal space. Access technique: 5 Chilean Yueh Needle Paracentesis: Fluid Color: Serosanguineous Volume Removed: 5000 mL Fluid Analysis: The fluid was sent for laboratory tests ordered by the primary team Closure: The One-step catheter was removed and hemostasis was achieved with manual compression. A sterile dressing was applied. Additional details: Estimated blood loss: Less than 10 cc [facility]-[id number] Procedure Note [facility], Radiology Results Incoming - 03/16/2018 2:54 PM COLLEGE FOOTBALL COACH PROCEDURE: Ultrasound-guided paracentesis Performing Radiologist: Chelle Chopra [...] into the peritoneal space. Access technique: 5 Chilean Yueh Needle Paracentesis: Fluid Color: Serosanguineous Volume Removed: 5000 mL Fluid Analysis: The fluid was sent for laboratory tests ordered by the primary team Closure: The One-step catheter was removed and hemostasis was achieved with manual compression. A sterile dressing was applied. Additional details: Estimated blood loss: Less than 10 cc [facility]-[id number] Performing Organization Address City/[facility]/[place] [address] * Aerobic culture (03/16/2018 1:05 PM COLLEGE FOOTBALL COACH) Only the most recent of 4 results within the time period is included. Pathologist [facility] Aerobic culture No growth after 3 days. [facility] isolate Comment: PROTESTANT Specimen Information [facility] Specimen Source: Peritoneal fluid Specimen Site: Abdomen, right Specimen Peritoneal fluid - Abdomen, right Performing Organization Address City/[facility] Cent[facility]ode Phone Number [facility] DEPARTMENT OF [address] [place] [address] PATHOLOGY AND GENOMIC MEDICINE [address] * Gram stain (03/16/2018 1:05 PM COLLEGE FOOTBALL COACH) Only the most recent of 5 results within the time period is included. [facility] Gram stain No WBC's or organisms seen. [place] isolate Comment: PROTESTANT Specimen Information [facility] Specimen Source: Peritoneal fluid Specimen Site: Abdomen, right Specimen Peritoneal fluid - Abdomen, right Performing Organization Address [facility] Phone Number [facility] DEPARTMENT OF [address] [place] [address] PATHOLOGY AND GENOMIC MEDICINE [address] * Anaerobic culture (03/16/2018 1:05 PM COLLEGE FOOTBALL COACH) Only the most recent of 4 results within the time period is included. Pathologist [facility] Anaerobic No anaerobic organisms [place] culture isolate isolated. [facility] Comment: HOSPITAL Specimen Information Specimen Source: Peritoneal fluid Specimen Site: Abdomen, right Specimen Peritoneal fluid - Abdomen, right Performing Organization Address [facility] Centerconc Phone Number [facility] DEPARTMENT OF [address] [place] [address] PATHOLOGY AND GENOMIC MEDICINE [address] * Cell count and differential, body fluid (03/16/2018 1:05 PM COLLEGE FOOTBALL COACH) Only the most recent of 4 results within the time period is included. Pathologist [facility] Misc fluid type Paracentesis [facility] Color, fluid Red [facility] Appearance, Hazy [facility] RBC, fluid 73,000 /CMM [facility] Nucleated 281 /CMM [place] [facility] Fluid See Diff [facility] Neutrophils, 6 % [facility] Lymphocytes, 45 % [facility] Macrophages, 49 % [facility] Specimen Fluid Performing Organization Address City/[facility]/Zipcode Phone Number [facility] DEPARTMENT OF [address] [place] [address] PATHOLOGY [place] [address] HOSPITAL * XR Chest 1 Vw Portable (03/16/2018 7:02 AM COLLEGE FOOTBALL COACH) Only the most recent of 6 results within the time period is included. Specimen Narrative Performed At EXAMINATION:XR CHEST 1 VW PORTABLE [facility] CLINICAL HISTORY:Ventilator Patient COMPARISON:Yesterday IMPRESSION: Central line unchanged. Better inspiratory depth with better aeration in the lungs, otherwise stable. [facility]-[id number] Procedure Note Interface, Radiology Results Incoming - 03/16/2018 7:13 AM COLLEGE FOOTBALL COACH EXAMINATION: XR CHEST 1 VW PORTABLE CLINICAL HISTORY: Ventilator Patient COMPARISON: Yesterday IMPRESSION: Central line unchanged. Better inspiratory depth with better aeration in the lungs, otherwise stable. [facility]-[id number] Performing Organization Address [facility] Centerconc Phone Number [facility] [address] [place] [address] * Pv physiologic arterial lower extremity complete w neda (03/15/2018 3:15 PM COLLEGE FOOTBALL COACH) Specimen Narrative Performed At [facility] Vascular Diagnostic Laboratory Physiologic Arterial Leg Report [id number] [facility] [address], [place] [address] Pat.Name:AMBROSEJOHNNY RPat.ID:[id number] .Date: 03/15/2018 Refer.MD:BROOKE VALDIVIA MD Exam Time: 2:05:00 PMStudy Type:Physiologic Leg Height:66inWeight:196lb BSA: 1.98 m2 DOBAge:1955,62Y Sex: FEMALESonogrphr: SHAYNA Preez, JAYDEN Pat. Stat.:Inpatient Room:[place] [address] TapeVol: SB, CPT - 4: 20587 Echo Event ID:[id number] Order ID:[id number] Reason for Study:orthotopic heart transplant evaluation. History [...] ThighUnable to obtain Unable to obtain Low [id number] 197 Calf [id number] Ankle DP 166 173 Ankle [id number] Great Toe 5582 ANKLE/BRACHIAL INDEX: RIGHTLEFT Dorsalis [...] Radiology Results In - 03/16/2018 6:28 AM [facility] Vascular Diagnostic Laboratory Physiologic Arterial Leg Report [address] [address], [place] [address] [facility].Name: JOHNNY MASTERSON Isha.ID: [id number] .Date: 03/15/2018 Refer.MD: BROOKE VALDIVIA MD Exam Time: 2:05:00 PM Study Type:Physiologic Leg Height: 66in Weight: 196lb BSA: 1.98 m2 Age: 8 1955,62Y Sex: FEMALE Sonogrphr: Dallas Montez, RVLorena, JAYDEN Pat. Stat.:Inpatient Room: [place] [address] Tape Vol: SB, [facility] - 4: 87605 Echo Event ID:[id number] Order ID: [id number] Reason for Study:orthotopic heart transplant evaluation. History [...] Signed 03/16/2018 06:28 AM Tristian Mcdermott MD, VI Performing Organization Address City/State/Zipcode Phone Number [facility] [address] [place] [address] * Partial thromboplastin time, activated (03/15/2018 3:10 AM COLLEGE FOOTBALL COACH) Only the most recent of 8 results within the time period is included. PTT 43.0 (H) 23.0 - 36.0 sec [place] Comment: [facility] PTT therapeutic range for HOSPITAL unfractionated heparin is 61.0-112.0 seconds which corresponds to Anti-Xa 0.3-0.7 U/ml. Specimen Blood Performing Organization Address City/[facility] Centercode Phone Number [facility] DEPARTMENT OF [address] [place] [address] PATHOLOGY AND [facility] MEDICINE [address] * Ionized calcium (03/15/2018 3:10 AM COLLEGE FOOTBALL COACH) Only the most recent of 3 results within the time period is included. [facility] pH 7.39 [facility] Ionized calcium 1.16 1.11 - 1.32 mmol/L [facility] Specimen Plasma specimen Performing Organization Address [facility] Phone Number [facility] [place] [address] PATHOLOGY AND [facility] MEDICINE [address] * Syphilis treponemal IgG (03/14/2018 3:42 AM COLLEGE FOOTBALL COACH) [facility] Syphilis Non-reactiveComment: Non-reactive [place] treponemal IgG Non-reactive: No serological [facility] evidence of Syphilis infection HOSPITAL Specimen Serum Performing Organization Address [facility] Phone Number [facility] [place] [address] PATHOLOGY AND [facility] MEDICINE [address] * Maury-Roberts virus antibody test (03/14/2018 3:42 AM COLLEGE FOOTBALL COACH) [facility] EBV Ab to viral Negative Negative [place] capsid Ag, IgG [facility] EBV Ab to viral Negative Negative [place] capsid Ag, IgM [facility] EBV Ab to Positive (A) Negative [place] nuclear Ag, IgG [facility] EBV Ab to early Negative Negative [place] (D) Ag, IgG [facility] Maury-Roberts SEE COMMENT [facility] virus antibody Comment: [facility] interpretation Footnote--------- HOSPITAL EBV nuclear antibodies develop 6-8 weeks after primary infection.However EBV viral capsid IgG antibodies are tested negative in this case. Clinical correlation is recommended. Specimen Serum Performing Organization Address City/[facility] Centercode Phone Number [facility] [place] [address] PATHOLOGY AND GENOMIC MEDICINE [address] * Hepatitis acute panel (03/14/2018 3:42 AM COLLEGE FOOTBALL COACH) Hepatitis A IgM Non-reactive Non-reactive [facility] Hepatitis B Non-reactive Non-reactive [facility] IgM [facility] Hepatitis B Non-reactive Non-reactive [place] surface Ag [facility] Hepatitis C Ab Non-reactive Non-reactive [facility] Specimen Serum Performing Organization Address City/[facility] Phone Number [facility] [place] [address] PATHOLOGY [address] * Toxoplasma gondii antibody, IgG (03/14/2018 3:42 AM COLLEGE FOOTBALL COACH) Toxoplasma <3 0 - 9 IU/mL [place] gondii Ab, IgG Comment: [facility]OTESTANT Equal or less than 9 IU/mL HOSPITAL Negative; No previous T. gonii infection Specimen Serum Performing Organization Address [facility] Phone Number [facility] [place] [address] PATHOLOGY [address] * Prealbumin level (03/14/2018 3:42 AM COLLEGE FOOTBALL COACH) Prealbumin 7 (L) 16 - 32 mg/dL [facility] Specimen Serum Performing Organization Address [facility] Phone Number [facility] [place] [address] PATHOLOGY [address] * T3 (03/14/2018 3:33 AM COLLEGE FOOTBALL COACH) T3 33 (L) 80 - 200 ng/dL [facility] Specimen Plasma specimen Performing Organization Address City/[facility] Phone Number [facility] [place] [address] PATHOLOGY AND [address] * Thyroid stimulating hormone (03/14/2018 3:33 AM COLLEGE FOOTBALL COACH) TSH 4.74 (H) 0.27 - 4.20 uIU/mL [facility] Specimen Plasma specimen Performing Organization Address City/[facility] Phone Number [facility] DEPARTMENT OF [address] [place] [address] PATHOLOGY AND GENOMIC MEDICINE [address] * T4, free (03/14/2018 3:33 AM COLLEGE FOOTBALL COACH) [facility] T4, free 1.1 0.9 - 1.7 ng/dL [facility] Specimen Plasma specimen Performing Organization Address City/[facility]/Zipcode Phone Number [facility] [place] [address] PATHOLOGY AND GENOMIC MEDICINE [address] * T4 (03/14/2018 3:33 AM COLLEGE FOOTBALL COACH) [facility] T4 3.7 (L) 4.5 - 11.7 ug/dL [facility] Specimen Plasma specimen Performing Organization Address City/[facility] Centercode Phone Number [facility] [place] [address] PATHOLOGY AND [facility] MEDICINE [address] * Single antigen beads (03/14/2018 3:20 AM COLLEGE FOOTBALL COACH) [facility] DEPARTMENT OF PATHOLOGY AND GENOMIC MEDICINE Single antigen See link below for PDF Lab [facility] DEPARTMENT beads Report OF PATHOLOGY AND GENOMIC MEDICINE Specimen Performing Organization Address City/[facility] Centercode Phone Number [facility] [place] [address] PATHOLOGY AND GENOMIC MEDICINE * Maury Roberts Virus (EBV) by PCR (03/14/2018 3:20 AM COLLEGE FOOTBALL COACH) [facility] Maury Roberts Not-Detected Not-Detected [place] virus, PCR copies/mL [facility] Maury Roberts See link below for PDF Lab [place] virus, PCR ReportComment: Case Number: [facility] [id number] HOSPITAL Specimen Performing Organization Address City/[facility]/Zipcode Phone Number [facility] DEPARTMENT OF [address] [place] [address] PATHOLOGY AND GENOMIC MEDICINE [address] * Toxoplasma IgM Ab (03/14/2018 3:20 AM COLLEGE FOOTBALL COACH) [facility] Toxoplasma IgM Negative Negative [facility] Specimen Blood Performing Organization Address City/[facility]/Zipcode Phone Number [facility] DEPARTMENT OF [address] [place] [address] PATHOLOGY AND GENOMIC MEDICINE [address] * Hemoglobin A1c (03/14/2018 3:20 AM COLLEGE FOOTBALL COACH) Hemoglobin A1C 4.9 4.0 - 5.6 % [place] Comment: [facility] HbA1c cutoffs for diagnosing HOSPITAL diabetes: 4.0% - 5.6%=normal 5.7% - 6.4%=increased risk for diabetes (prediabetes) >=6.5%=diabetes Goals for glycemic control (ADA 2016) < 7.0%Target for non adults with diabetes. More or less stringent targets may be appropriate for individual patients. <7.5% Target for Children and adolescents with type 1 diabetes. Specimen Blood Performing Organization Address City/[facility]/Zipcode Phone Number [facility] [place] [address] PATHOLOGY AND GENOMIC MEDICINE [address] * Urinalysis screen and microscopy, with reflex to culture (03/13/2018 5:30 PM COLLEGE FOOTBALL COACH) Specimen site Random void [facility] Color, UA Yellow [facility] Appearance, UA Clear [facility] Specific 1.016 1.001 - 1.035 [place] gravity, [facility] pH, UA 5.0 5.0 - 8.5 [facility] Protein, UA Negative Negative [facility] Glucose, UA Negative Negative [facility] Ketones, UA Negative Negative [facility] Bilirubin, UA Negative Negative [facility] Blood, UA Moderate (A) Negative [facility] Nitrite, UA Negative Negative [facility] Urobilinogen, <2.0 <2.0 [facility] [place] Leukocyte Trace (A) Negative [place] [facility]aseSHANNON [facility] Epithelial 2 /HPF [place] cells, [facility] WBC, UA 3 0 - 4 /HPF [facility] RBC, UA 12 (H) 0 - 5 /HPF [facility] Bacteria, UA Few None seen [facility] Yeast, UA None seen [facility] Yeast with None seen [place] pseudohyphaeSOU[facility] Hyaline casts, 3 /LPF [facility] [place] Specimen Urine Performing Organization Address City/[facility]/Zipcode Phone Number [facility] [place] [address] PATHOLOGY AND GENOMIC MEDICINE [address] * Protein, urine, random (03/13/2018 5:30 PM COLLEGE FOOTBALL COACH) Protein, urine 17 mg/dL [place] random [facility] Specimen Urine Performing Organization Address City/[facility] Centercode Phone Number [facility] [place] [address] PATHOLOGY AND GENOMIC MEDICINE [address] * Creatinine level, urine, random (03/13/2018 5:30 PM COLLEGE FOOTBALL COACH) Creatinine, Footnote mg/dL [place] urine, random [facility] Specimen Urine Performing Organization Address City/[facility] Centercode Phone Number [facility] [place] [address] PATHOLOGY AND GENOMIC MEDICINE [address] * Urine culture (03/13/2018 5:30 PM COLLEGE FOOTBALL COACH) Urine culture No growth after 24 hours [place] isolate Comment: [facility] Specimen Information HOSPITAL Specimen Source: Urine Specimen Site: Random void Specimen Urine - Random void Performing Organization Address City/[facility] Centercode Phone Number [facility] [place] [address] PATHOLOGY AND GENOMIC MEDICINE [address] * US Renal (03/13/2018 5:10 PM COLLEGE FOOTBALL COACH) Specimen Narrative Performed At EXAMINATION:US RENAL [facility] CLINICAL HISTORY:OHT Eval COMPARISON:None. FINDINGS: The right kidney qhkldyrx33.6 x 5.4 x 4.5 cm, parenchymal thickness 1.3 cm The left kidney zgifutqk26.4 x 4.3 x 4.1 cm, parenchymal thickness [...] echogenic unobstructed kidneys suggesting medical renal disease. [id number] Procedure Note Hm Interface, Radiology Results Incoming - 03/13/2018 6:39 PM COLLEGE FOOTBALL COACH EXAMINATION: US RENAL CLINICAL HISTORY: OHT Eval [...] echogenic unobstructed kidneys suggesting medical renal disease. [id number] Performing Organization Address City/State/Zipcode Phone Number [facility] [address] [place] [address] * CT Head Wo Contrast (03/13/2018 4:22 PM COLLEGE FOOTBALL COACH) Specimen Narrative Performed At EXAMINATION: [facility] CLINICAL H[facility]: OHT Evaluation COMPARISON:None TECHNIQUE: [...] detailed above with no acute intracranial abnormality. [id number] Procedure Note Interface, Radiology Results Incoming - 03/13/2018 4:45 PM COLLEGE FOOTBALL COACH EXAMINATION: CT HEAD WO CONTRAST CLINICAL HISTORY: [...] detailed above with no acute intracranial abnormality. [id number] Performing Organization Address City/State/Zipcode Phone Number [facility] [address] [place] [address] * Creatinine clearance, urine, 24 hour (03/13/2018 3:30 PM COLLEGE FOOTBALL COACH) [facility] Signature Collection SEE COMMENTComment: [place] start date, Footnote--------- [facility] urine HOSPITAL Collection SEE COMMENTComment: [place] start time, Footnote--------- [facility] urine HOSPITAL Collection stop SEE COMMENTComment: [place] date, urine Footnote--------- [facility]OSP[facility] Collection stop SEE COMMENTComment: [facility], urine Footnote--------- [facility] Hours of SEE COMMENTComment: [place] collection Footnote--------- [facility] Total volume, SEE COMMENTComment: mL [place] urine Footnote--------- [facility] Creatinine 2.07 (H) 0.50 - 0.90 mg/dL [facility] Urine Footnote mg/dL [place] creatinine Comment: [facility] clearance URINE CREAT CLEARANCE WAS HOSPITAL concentration CANCELLED, TEST WAS NOT NEEDED VIA WILL ODOM\\DSIC03/14/19 1905:12LSB Urine SEE COMMENTComment: mg/vol [place] creatinine Footnote--------- [facility] clearance HOSPITAL excretion Creat SEE COMMENT mL/min [facility] clearance, Comment: [facility] urine 24 hr [facility] calc RANGE: MALES 85 - 125 ML/MIN/1.73 SQ.METER FEMALES 75 - 115 ML/MIN/1.73 SQ.METER Footnote--------- Specimen Urine Performing Organization Address City/[facility] Centercode Phone Number [facility] DEPARTMENT OF [address] [place] [address] PATHOLOGY AND [facility] MEDICINE [address] * Antibody identification (03/13/2018 5:00 AM COLLEGE FOOTBALL COACH) Only the most recent of 2 results within the time period is included. Antibody ID POS, Anti-[place] [facility] Specimen Performing Organization Address City/[facility] Centercode Phone Number [facility] [place] [address] PATHOLOGY AND GENOMIC MEDICINE [address] * Prepare RBC, 1 Units (03/13/2018 5:00 AM COLLEGE FOOTBALL COACH) Only the most recent of 2 results within the time period is included. Product name Red Cells AS1 Leukored Irrad [facility] Unit number [id number] [facility] Product code [id number] [facility] Dispense status Transfused [facility] Blood [id number] [place] expiration date [facility] Blood type code 5100 [facility] Blood type O POSITIVE [facility] Specimen Performing Organization Address [facility] Phone Number [facility] DEPARTMENT [address] * Type and screen (03/13/2018 5:00 AM COLLEGE FOOTBALL COACH) Only the most recent of 2 results within the time period is included. ABO grouping O [facility] Rh type POS [facility] Antibody screen POS [place] (gel) [facility] Specimen Blood Performing Organization Address [facility] Centercode Phone Number [facility] DEPARTMENT OF [address] [place] [address] PATHOLOGY AND GENOMIC MEDICINE [address] * Smear review (03/13/2018 2:30 AM COLLEGE FOOTBALL COACH) Only the most recent of 2 results within the time period is included. Platelet slide Denice adequate [facility] Center Enlarged Moderate (A) [place] platelets [facility] Specimen Performing Organization Address City/[facility]/Zipcode Phone Number [facility] [place] [address] PATHOLOGY AND GENOMIC MEDICINE [address] * HEMODIALYSIS CATHETER PLACEMENT (03/12/2018 4:51 PM COLLEGE FOOTBALL COACH) Narrative Performed At Preet Bustos MD 03/12/20184:56 PM Hemodialysis catheter placement Date/Time: 03/12/2018 4:55 PM Performed by: Preet Bustos MD Authorized by: Allan Medrano MD Consent: Consent obtained:Written Consent given by:Patient Risks discussed:Arterial puncture, incorrect placement, infection, bleeding and pneumothorax Alternatives discussed:No treatment and delayed treatment Kulm protocol: Procedure explained and questions answered to [...] * Lactic acid level (03/12/2018 2:19 AM COLLEGE FOOTBALL COACH) Only the most recent of 2 results within the time period is included. Lactic acid 0.7 0.5 - 2.2 mmol/L [facility] Specimen Plasma specimen Performing Organization Address City/State/Zipcode Phone Number [facility] DEPARTMENT OF [address] [place] [address] PATHOLOGY AND GENOMIC MEDICINE [address] * Nicotine and metabolites, serum (03/10/2018 5:00 AM COLLEGE FOOTBALL COACH) Nicotine <2.0 0.0 - 2.0 ng/mL [facility] Cotinine <2.0 0.0 - 2.0 ng/mL [facility] 0-DX-nrlmmgnd <5.0 0.0 - 5.0 ng/mL [place] Comment: PROTESTANT This test was developed and HOSPITAL its performance characteristics determined by the Department of Pathology and Genomic Medicine, [facility]. Serum nicotine and its metabolites cotinine and 4-HY-olvshdrx are tested by HPLC tandem mass spectrometry. It has not been cleared or approved by FDA. The laboratory is regulated under CLIA as qualified to perform high-complexity testing. This test is used for clinical purposes. It should not be regarded as investigational or for research. Specimen Blood Performing Organization Address City/State/Zipcode Phone Number [facility] [place] [address] PATHOLOGY AND [facility] MEDICINE [address] * Protein, misc fluid (03/09/2018 10:48 AM COLLEGE FOOTBALL COACH) [facility] Fluid type Ascitic [facility] Protein, fluid 2.8 g/dL [place] Comment: PROTESTANT Analysis performed on [facility] TouchTen 8000 analyzer. This is not an approved methodology for this specimen type;accuracy and clinical significance uncertain. Specimen Fluid Narrative Performed At ascites fluid [facility] DEPARTMENT OF ?Specimen to be drawn in Interventional Radiology area. PATHOLOGY AND GENOMIC MEDICINE Performing Organization Address City/[facility] Cent[facility]ode Phone Number [facility] [place] [address] PATHOLOGY AND GENOMIC MEDICINE [address] * LDH, misc fluid (03/09/2018 10:48 AM COLLEGE FOOTBALL COACH) [facility] Fluid type [facility] LDH, fluid 97 U/L [place] Comment: PROTESTANT Analysis performed on [facility] TouchTen 8000 analyzer. This is not an approved methodology for this specimen type;accuracy and clinical significance uncertain. Specimen Fluid Narrative Performed At ascites [facility] DEPARTMENT OF ?Specimen to be drawn in Interventional Radiology area. PATHOLOGY AND GENOMIC MEDICINE Performing Organization Address City/State/Zipcode Phone Number [facility] [place] [address] PATHOLOGY AND GENOMIC MEDICINE [address] * Hemoglobin & hematocrit (03/08/2018 8:55 PM COLLEGE FOOTBALL COACH) Only the most recent of 3 results within the time period is included. [facility] HGB 8.6 (L) 12.0 - 16.0 g/dL [facility] HCT 27.1 (L) 37.0 - 47.0 % [facility] Specimen Blood Performing Organization Address City/State/Zipcode Phone Number [facility] DEPARTMENT OF [address] [place] [address] PATHOLOGY AND GENOMIC MEDICINE [facility] [address] * CT Abdomen Pelvis Wo Contrast (03/06/2018 2:36 PM COLLEGE FOOTBALL COACH) Specimen Narrative Performed At EXAMINATION:CT ABDOMEN PELVIS [...] tense abdominal ascites Right renal hemorrhagic cyst [facility]-[id number] Procedure Note Interface, Radiology Results Incoming - 03/06/2018 3:02 PM COLLEGE FOOTBALL COACH EXAMINATION: CT ABDOMEN PELVIS WO CONTRAST CLINICAL [...] tense abdominal ascites Right renal hemorrhagic cyst [facility]-[id number] Performing Organization Address City/[facility]/[place] [address] * Transfuse RBC (03/06/2018 8:55 AM COLLEGE FOOTBALL COACH) Only the most recent of 2 results within the time period is included. * Folate level (03/05/2018 8:20 PM COLLEGE FOOTBALL COACH) [facility] Folate 10.3 4.8 - 24.2 ng/mL [facility] Specimen Serum Performing Organization Address City/[facility]/Zipcode Phone Number [facility] [place] [address] PATHOLOGY AND [facility] MEDICINE [address] * Vitamin B12 level (03/05/2018 8:20 PM COLLEGE FOOTBALL COACH) [facility] Vitamin B12 >1600 (H) 211 - 946 pg/mL [place] Comment: PROTESTANT Significant overlap exists HOSPITAL between normal and deficiency states. However, most patients with deficiencies will have Serum B12 <200 pg/mL. Specimen Serum Performing Organization Address [facility] Centercode Phone Number [facility] [place] [address] PATHOLOGY AND GENOMIC MEDICINE [address] * Troponin (03/05/2018 4:55 PM COLLEGE FOOTBALL COACH) [facility] Troponin <0.30 0.00 - 0.30 ng/mL [place] Comment: PROTESTANT 0.30 - 1.49 HOSPITAL ng/mlMay indicate increased risk of acute coronary syndrome. >=1.5 ng/ml Consistent with acute myocardial infarction. The diagnostic value of a single normal or non-diagnostic result is questionable.Serial samples at 2-6 hour intervals are required to rule out acute myocardial injury. Specimen Plasma specimen Performing Organization Address City/State/Zipcode Phone Number [facility] DEPARTMENT OF [address] [place] [address] PATHOLOGY AND GENOMIC MEDICINE [address] * Creatine kinase, total (CPK) (03/05/2018 4:55 PM COLLEGE FOOTBALL COACH) Creatine kinase 97 26 - 192 U/L [facility] Specimen Plasma specimen Performing Organization Address City/State/Zipcode Phone Number [facility] DEPARTMENT OF [address] [place] [address] PATHOLOGY AND GENOMIC MEDICINE [address] * CRITICAL CARE (03/05/2018 4:45 PM COLLEGE FOOTBALL COACH) Narrative Performed At Christin Steel MD 03/05/20187:24 [...] MRI Abdomen Wo Contrast (02/26/2018 6:15 PM COLLEGE FOOTBALL COACH) Specimen Narrative Performed At [facility] EXAMINATION:MRI ABDOMEN [...] this exam. MRCP demonstrates nothing unusual postcholecystectomy. [facility]-[id number] Procedure Note [facility], Radiology Results Incoming - 02/26/2018 7:02 PM COLLEGE FOOTBALL COACH EXAMINATION: MRI ABDOMEN WO CONTRAST CLINICAL HISTORY: [...] this exam. MRCP demonstrates nothing unusual postcholecystectomy. [facility]-[id number] Performing Organization Address [facility]/Zipcode Phone Number [facility] [address] [place] [address] * Albumin, misc fluid (02/26/2018 3:13 PM COLLEGE FOOTBALL COACH) Fluid type Peritoneal [facility] Albumin, fluid 0.9 g/dL [place] Comment: PROTESTANT Analysis performed on [employer] Extreme 8000 analyzer. This is not an approved methodology for this specimen type;accuracy and clinical significance uncertain. Specimen Fluid Performing Organization Address [facility] Centerconc Phone Number [facility] DEPARTMENT OF [address] [place] [address] PATHOLOGY AND GENOMIC MEDICINE [address] * Echocardiogram complete w contrast and 3D if needed (02/26/2018 2:00 PM COLLEGE FOOTBALL COACH) Specimen Narrative Performed At [facility] Echocardiography Report [address] [place] [address], [place] [address] Pat.Name:JOHNNY MASTERSON [facility]t.ID:[id number] .Date: 02/26/2018Refer.MD:JADEN KEMP MD Exam Time: 11:24:00 AM Study Type:Routine Echo Height:66inWeight:193lb BSA: 1.97 m2 DOBAge:1955,62Y Sex: FEMALEBP:141/75 HR:102 bpm Sonogrphr: Ingrid Cao RDCS, RVT Pat. Stat.:OutpatientRoom:[facility] 26 Study Status:Final Echo Event ID:[id number] Order ID:[id number] Reason for Study:PBC History / Clinical:Cirrhosis Procedures:2D [...] assess diastolic function. MEASUREMENTS: 2D Parasternal Long [place] LVOT 1.9 cmLA Ds3.7 cm LVIDd2.9 cmIndex1.5 [...] LVOT TVI19.5 cmLVOT CI3.1 l/m/m2 LVOT Tm319 rexnJE78 bpm LVOT SV 61.1 ml Signed 02/26/2018 03:21 PM John Madrigal MD Procedure Note Interface, Radiology Results In - 02/26/2018 3:22 PM COLLEGE FOOTBALL COACH Echocardiography Report [address] [place] [address] Pat.Name: JOHNNY MASTERSON Pat.ID: [id number] .Date: 02/26/2018 Refer.MD: JADEN KEMP MD Exam Time: 11:24:00 AM Study Type:Routine Echo Height: 66in Weight: 193lb BSA: 1.97 m2 Age: 8 1955,62Y Sex: FEMALE BP: 141/75 HR: 102 bpm Sonogrphr: Ingrid Cao RDCS, RVT Pat. Stat.:Outpatient Room: [facility] 26 Study Status:Final Echo Event ID:[id number] Order ID: [id number] Reason for Study:PBC History / Clinical:Cirrhosis Procedures:2D [...] assess diastolic function. MEASUREMENTS: 2D Parasternal Long [place] LVOT 1.9 cm LA Ds 3.7 cm [...] Performing Organization Address City/State/Zipcode Phone Number [facility] [address] [place] [address] * Vitamin A level, plasma or serum (02/26/2018 11:48 AM COLLEGE FOOTBALL COACH) Vitamin A 0.31 0.30 - 1.20 mg/L [facility] (retinol) Retinyl <0.02 0.00 - 0.10 mg/L [facility] palmitate Vitamin A Normal [facility] interpretation Comment: Test developed and characteristics determined by [facility]. See Compliance Statement B: [employer]/CS Performed by [facility], [address] [place] [address] www.[employer], Randy Hutchison MD - Lab. Director Specimen Plasma specimen Performing Organization Address City/[facility]/Zipcode Phone Number [employer] [facility] [address] [place] [address] [facility] [address] [place] [address] * Alpha fetoprotein (02/26/2018 11:48 AM COLLEGE FOOTBALL COACH) Pathologist [facility] Alpha 3.7 0.0 - 8.3 ng/mL [place] fetoprotein Comment: PROTESTANT [employer] Bear 8000 AFP immunoassay [facility] was used. Results obtained with different assay methods or kits should not be used interchangeably and may be different. Specimen Serum Performing Organization Address City/[facility]/Zipcode Phone Number [facility] DEPARTMENT OF [address] [place] [address] PATHOLOGY AND GENOMIC MEDICINE [place] PROTESTANT [address] [place] [address] * Vitamin K level, serum (02/26/2018 11:48 AM COLLEGE FOOTBALL COACH) Pathologist [facility] Vitamin K 1.01 0.22 - 4.88 nmol/L [facility] Comment: INTERPRETIVE INFORMATION: Vitamin K1, Serum Vitamin K concentration is reported as nanomoles per liter (nmol/L). To convert concentration to nanograms per milliliter (ng/mL), multiply the result by 0.45. See Compliance Statement B: [employer]/CS Performed by [facility], [address] [place], [place] [id number] www.[employer], Randy Hutchisno MD - Lab. Director Specimen Serum Performing Organization Address City/[facility]/Zipcode Phone Number [facility] [address] [place] [address] [facility] [address] [place] [address] * Vitamin E level, plasma or serum (02/26/2018 11:48 AM COLLEGE FOOTBALL COACH) Alpha-tocophero 8.5 5.5 - 18.0 mg/L [facility] l mg/L Comment: Test developed and characteristics determined by [facility]. See Compliance Statement B: [employer]/ Gamma-tocophero 3.0 0.0 - 6.0 mg/L [facility] l mg/L Comment: Performed by [facility], [address] [place] [address] www.[employer], Randy Hutchison MD - Lab. Director Specimen Plasma specimen Performing Organization Address [facility]/Zipcode Phone Number [facility] [address] [place] [address] [facility] [address] [place] [address] * Cv stress test (12/19/2017 2:42 PM CDT) Resting HR 86 H MUSE Resting BP 133 H MUSE Peak MET 1.0 H MUSE Achieved Protocol Name Vijay [facility] MUSE Time in 00:01:00 H MUSE Exercise Phase Max Systolic BP 149 H MUSE Max Diastolic 68 H MUSE BP Max Heart Rate 99 H MUSE Max Predicted 158 H MUSE Heart Rate Target HR (220 - Age)*85% H MUSE Formula Test Indication PRE-TRANSPLANT EVALUATION [facility] MUSE Arrhy During Ex [facility] MUSE ECG Interp [facility] MUSE Before EX ECG Interp H MUSE During Ex Ex Summary [facility] MUSE Comment Overall HR H MUSE Response to Exercise Overall BP [facility] MUSE Response To Exercise Reason for TEST COMPLETED [facility] MUSE Termination Stress Test Waveform interpreted in report [facility] MUSE Impression associated with image study. No interpretation is provided as part of this Stress ECG report.--Electronically Signed By Yoselyn ISIDRO, Tamika ([id number]), newspaper photo editor Mary Kinney ([id number]) on 12/22/2017 10:04:30 AM Specimen Performing Organization Address City/[facility]/Zipcode Phone Number [facility] MUSE [address] [place] [address] * Nm myocardial perfusion (12/19/2017 2:42 PM CDT) Specimen Narrative Performed At [facility] Nuclear Cardiology Laboratory [address] [facility], [address] [place] [address] Eek: [phone] Myocardial Perfusion Imaging Report Pat.Name:JOHNNY MASTERSON [facility].ID:[id number] .Date: 12/19/2017Refer.MD:ERMA THOMPSON MD Exam Time: 1:01:00 PM Study Type:Myocardial Perfusion Imaging Height:66inBSA: 1.97 m2 DOBAge:1955,62YSex: FEMALE Nuclear Tech:Deborah Hagen [facility] Nuclear Event ID:[id number] Order ID:[id number] Reason for Study:Chest pain, unspecified*, Shortness of breath Procedures:Single Day Stress / Rest Clinical Symptoms:[facility] SUMMARY: BASELINE ECGNormal Sinus Rhythm, anteroseptal Q waves STRESS TEST RESULTS Maximal Predicted HR158 beats/minute 85% Maximal Predicted HR 134 beats/minute Stress Test Duration1 minutes 00 seconds Resting Heart Rate86 beats/minute Maximal Heart Rate99 beats/minute Resting Blood Siqcdsuc111/63 mmHg Maximal Blood Yfbkyzje979/68 mmHg % Maximal Heart Rate Achieved 62% Symptoms During TestFlushing, Dizziness, Lightheadedness Reason for Stopping TestAs per regadenoson protocol Maximal ST-segment shiftNone Stress-Induced Arrhythmias None Ischemic electrocardiographic changes (ST-segment depression) did not occur at peak regadenoson stress. STRESS TEST INTERPRETATION Normal maximal regadenoson stress test. SCINTIGRAPHIC RESULTS Perfusion Defect Size (% LV) 15% Total 0% Riorzruw46% Scar Left Ventricular Perfusion Results There is [...] 12/19/2017 4:06 PM CDT Nuclear Cardiology Laboratory [address] [facility], [address] [place] [address] Myocardial Perfusion Imaging Report Pat.Name: JOHNNY MASTERSON Pat.ID: [id number] .Date: 12/19/2017 Refer.MD: ERMA THOMPSON MD Exam Time: 1:01:00 PM Study Type:Myocardial Perfusion Imaging Height: 66in BSA: 1.97 m2 Age: 8 1955,62Y Sex: FEMALE Nuclear Tech:MEHRDAD SotoMT, [facility](CT) Nuclear Event ID:[id number] Order ID: [id number] Reason for Study:Chest pain, unspecified*, Shortness of [...] PM Tamika Topete MD Performing Organization Address City/State/Zipconc Phone Number [facility] [address] [place] [address] after 11/15/2017 Insurance Type Payer Benefit Subscriber ID Effective Phone Address Plan / Dates Group PPO BCBS BCBS xxxxxxxxxxxx 2017- CHOICE Present PPO/[employer] PPO Advance Directives For more information, please contact: [phone] 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
== END 2018-11-16 15:39 | disposition short-term general hospital (02) ==
LOC: ER 14:50
DX: R53.1 Weakness (principal)

== ENCOUNTER → 2018-11-17 | Outpatient (CLI) | payer BC ==
[~2018-11-17] MED LIST changes: +ALBUMIN 25% 12.5GM 50ML 200 ML IV ONE; +SODIUM BICARBONATE 8.4% SYRING 50 ML ONE
--- NOTE | 2018-11-17 11:57 | Diagnostic Imaging Report ---
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 Pre-operative diagnosis: Ascites Post-operative diagnosis: Ascites Conscious Sedation: None. The patient's heart rate and pulse oximetry were continuously monitored by the IR nurse. Additional Medications: Lidocaine 1% for local anesthesia Estimated blood loss: Less than 1 cc. Specimen: 3750 cc of cloudy yellow fluid Implants: None TECHNIQUE/FINDINGS: Informed consent was obtained from the patient and documented in the medical record. The patient was placed in the supine position. Initial ultrasound demonstrated ascites. The right upper abdomen was prepped and draped in standard sterile fashion. 1% lidocaine was infiltrated into the skin and subcutaneous tissues for local anesthesia. Then under continuous sonographic guidance, a 5 Fr catheter was advanced into the peritoneal space. The catheter was connected to vacuum bottle with subsequent evacuation of 3750 cc of serous fluid. The catheter was removed and sterile dressing was applied. Sample was sent to the lab. The patient tolerated the procedure well. IMPRESSION: Successful ultrasound-guided paracentesis. Signed by: Paulo Perez on 11/17/2018 11:54 AM
[2018-11-17 21:43] LABS: LYMPHOCYTES,BODY FLUID 58 %; MONO/MACROPHG,BODY FLUID 8 %; NEUTROPHILS,BODY FLUID 15 %; OTHER CELLS,BODY FLUID 19 %
[2018-11-17 21:44] LABS: BODY FLUID APPEARANCE SL.CLOUDY; BODY FLUID COLOR YELLOW; BODY FLUID TYPE PERITONEAL
[2018-11-17 21:45] LABS: RBC,BODY FLUID 677 cells/uL; WBC,BODY FLUID 82 cells/uL
== END ==
LOC: US 09:49
PROVIDERS: ATTEND Legal Medicine
DX: R18.8 Other ascites (principal)
CPT/HCPCS: 36415; 49083; 89051; C1729

== ENCOUNTER → 2018-11-24 | Outpatient (CLI) | payer BC ==
[~2018-11-24] MED LIST changes: -SODIUM BICARBONATE 8.4% SYRING 50 ML ONE
--- NOTE | 2018-11-24 11:32 | Diagnostic Imaging Report ---
PROCEDURE: Ultrasound-guided diagnostic and therapeutic paracentesis Procedural Personnel Attending physician(s): Dayanara Fontana MD Pre-procedure diagnosis: Cirrhosis, ascites Post-procedure diagnosis: Same Indication: Ascites with pain or pressure symptoms Additional clinical history: None Complications: No immediate complications. IMPRESSION: Ultrasound-guided paracentesis with drainage of 3400 mL of serous fluid. Plan: Resume care by clinical team. PROCEDURE SUMMARY: - Limited abdominal ultrasound - Ultrasound-guided paracentesis - Additional procedure(s): None PROCEDURE DETAILS: Pre-procedure Consent: Informed consent for the procedure including risks, benefits and alternatives was obtained and time-out was performed prior to the procedure. Preparation: The site was prepared and draped using maximal sterile barrier technique including cutaneous antisepsis. Anesthesia/sedation Level of anesthesia/sedation: No sedation Anesthesia/sedation administered by: Not applicable Initial abdominal ultrasound Initial abdominal ultrasound was performed. Findings: Large ascites. A safe window for paracentesis was identified. Paracentesis Local anesthesia was administered. The peritoneal cavity was accessed and fluid return confirmed position. Ascites was drained. The catheter was then removed, and a sterile bandage was applied. Paracentesis access technique: Real-time ultrasound guidance Catheter placed: 5F Yueh Post-drainage ultrasound: Moderate ascites Additional Details Additional description of procedure: None Equipment details: None Specimens removed: Abdominal fluid Estimated blood loss (mL): Less than 10 Standardized report: [email or web address] Attestation Signer name: Dayanara Fontana MD I attest that I was present for the entire procedure. I reviewed the stored images and agree with the report as written. Signed by: Dayanara Fontana MD on 11/24/2018 11:29 AM
[2018-11-24 13:59] LABS: BODY FLUID COLOR YELLOW; BODY FLUID TYPE PERITONEAL
[2018-11-24 14:00] LABS: BODY FLUID APPEARANCE SL.CLOUDY
[2018-11-24 14:39] LABS: RBC,BODY FLUID 651 cells/uL; WBC,BODY FLUID 16 cells/uL
[2018-11-24 16:49] LABS: LYMPHOCYTES,BODY FLUID 52 %; MONO/MACROPHG,BODY FLUID 9 %; NEUTROPHILS,BODY FLUID 14 %; OTHER CELLS,BODY FLUID 25 %
== END ==
LOC: US 09:41
PROVIDERS: ATTEND Legal Medicine
DX: R18.8 Other ascites (principal)
CPT/HCPCS: 36415; 49083; 89051; C1729

== ENCOUNTER → 2018-11-27 | Outpatient (CLI) | payer BC ==
[~2018-11-27] MED LIST changes: -ALBUMIN 25% 12.5GM 50ML 200 ML IV ONE
--- NOTE | 2018-11-27 11:17 | Diagnostic Imaging Report ---
Procedure: Ultrasound-guided paracentesis stamping machine operator: Paulo Perez M.D. Pre-operative diagnosis: Ascites Post-operative diagnosis: Ascites Conscious Sedation: None. The patient's heart rate and pulse oximetry were continuously monitored by the IR nurse. Additional Medications: Lidocaine 1% for local anesthesia Estimated blood loss: Less than 1 cc. Specimen: 4550 cc of cloudy yellow fluid Implants: None TECHNIQUE/FINDINGS: Informed consent was obtained from the patient and documented in the medical record. The patient was placed in the supine position. Initial ultrasound demonstrated ascites. The right lower abdomen was prepped and draped in standard sterile fashion. 1% lidocaine was infiltrated into the skin and subcutaneous tissues for local anesthesia. Then under continuous sonographic guidance, a 5 Fr catheter was advanced into the peritoneal space. The catheter was connected to vacuum bottle with subsequent evacuation of 4550 cc of serous fluid. The catheter was removed and sterile dressing was applied. Sample was sent to the lab. The patient tolerated the procedure well. IMPRESSION: Successful ultrasound-guided paracentesis. Signed by: Paulo Perez on 11/27/2018 11:13 AM
[2018-11-27 12:56] LABS: BODY FLUID COLOR STRAW
[2018-11-27 12:57] LABS: BODY FLUID APPEARANCE CLOUDY
[2018-11-27 12:59] LABS: RBC,BODY FLUID 16390 cells/uL; WBC,BODY FLUID 33 cells/uL
[2018-11-27 13:55] LABS: LYMPHOCYTES,BODY FLUID 54 %; MONO/MACROPHG,BODY FLUID 13 %; NEUTROPHILS,BODY FLUID 13 %; OTHER CELLS,BODY FLUID 20 %
== END ==
LOC: US 09:25
PROVIDERS: ATTEND Legal Medicine
DX: R18.8 Other ascites (principal)
CPT/HCPCS: 36415; 49083; 89051

== ENCOUNTER → 2018-12-01 | Outpatient (CLI) | payer BC ==
--- NOTE | 2018-12-01 13:01 | Diagnostic Imaging Report ---
PROCEDURE: Ultrasound-guided diagnostic and therapeutic paracentesis Procedural Personnel Attending physician(s): Dayanara Fontana MD Pre-procedure diagnosis: Cirrhosis, ascites Post-procedure diagnosis: Same Indication: Ascites with pain or pressure symptoms Additional clinical history: None Complications: No immediate complications. IMPRESSION: Ultrasound-guided paracentesis with drainage of 4800 mL of serous fluid. Plan: Resume care by clinical team. PROCEDURE SUMMARY: - Limited abdominal ultrasound - Ultrasound-guided paracentesis - Additional procedure(s): None PROCEDURE DETAILS: Pre-procedure Consent: Informed consent for the procedure including risks, benefits and alternatives was obtained and time-out was performed prior to the procedure. Preparation: The site was prepared and draped using maximal sterile barrier technique including cutaneous antisepsis. Anesthesia/sedation Level of anesthesia/sedation: No sedation Anesthesia/sedation administered by: Not applicable Initial abdominal ultrasound Initial abdominal ultrasound was performed. Findings: Large ascites. A safe window for paracentesis was identified. Paracentesis Local anesthesia was administered. The peritoneal cavity was accessed and fluid return confirmed position. Ascites was drained. The catheter was then removed, and a sterile bandage was applied. Paracentesis access technique: Real-time ultrasound guidance Catheter placed: 5F Yueh Post-drainage ultrasound: Moderate ascites Additional Details Additional description of procedure: None Equipment details: None Specimens removed: Abdominal fluid Estimated blood loss (mL): Less than 10 Standardized report: [email or web address] Attestation Signer name: Dayanara Fontana MD I attest that I was present for the entire procedure. I reviewed the stored images and agree with the report as written. Signed by: Dayanara Fontana MD on 12/01/2018 12:58 PM
[2018-12-01 13:14] LABS: BODY FLUID APPEARANCE CLOUDY; BODY FLUID COLOR STRAW
[2018-12-01 13:15] LABS: RBC,BODY FLUID 1012 cells/uL; WBC,BODY FLUID 102 cells/uL
[2018-12-01 13:43] LABS: LYMPHOCYTES,BODY FLUID 39 %; MONO/MACROPHG,BODY FLUID 13 %; NEUTROPHILS,BODY FLUID 27 %; OTHER CELLS,BODY FLUID 21 %
== END ==
LOC: US 09:51
PROVIDERS: ATTEND Legal Medicine
DX: R18.8 Other ascites (principal); K74.60 Unspecified cirrhosis of liver
CPT/HCPCS: 36415; 49083; 89051; C1729

== ENCOUNTER → 2018-12-04 | Outpatient (CLI) | payer BC ==
[~2018-12-04] MED LIST changes: +ALBUMIN 25% 12.5GM 50ML 200 ML IV ONE
--- NOTE | 2018-12-04 14:41 | Diagnostic Imaging Report ---
PROCEDURE: Ultrasound-guided diagnostic and therapeutic paracentesis Procedural Personnel Attending physician(s): Dayanara Fontana MD Pre-procedure diagnosis: Cirrhosis, ascites Post-procedure diagnosis: Same Indication: Ascites with pain or pressure symptoms Additional clinical history: None Complications: No immediate complications. IMPRESSION: Ultrasound-guided paracentesis with drainage of 4800 mL of serous fluid. Plan: Resume care by clinical team. PROCEDURE SUMMARY: - Limited abdominal ultrasound - Ultrasound-guided paracentesis - Additional procedure(s): None PROCEDURE DETAILS: Pre-procedure Consent: Informed consent for the procedure including risks, benefits and alternatives was obtained and time-out was performed prior to the procedure. Preparation: The site was prepared and draped using maximal sterile barrier technique including cutaneous antisepsis. Anesthesia/sedation Level of anesthesia/sedation: No sedation Anesthesia/sedation administered by: Not applicable Initial abdominal ultrasound Initial abdominal ultrasound was performed. Findings: Large ascites. A safe window for paracentesis was identified. Paracentesis Local anesthesia was administered. The peritoneal cavity was accessed and fluid return confirmed position. Ascites was drained. The catheter was then removed, and a sterile bandage was applied. Paracentesis access technique: Real-time ultrasound guidance Catheter placed: 5F Yueh Post-drainage ultrasound: Moderate ascites Additional Details Additional description of procedure: None Equipment details: None Specimens removed: Abdominal fluid Estimated blood loss (mL): Less than 10 Standardized report: [email or web address] Attestation Signer name: Dayanara Fontana MD I attest that I was present for the entire procedure. I reviewed the stored images and agree with the report as written. Signed by: Dayanara Fontana MD on 12/04/2018 2:38 PM
[2018-12-04 16:38] LABS: BODY FLUID APPEARANCE CLOUDY; BODY FLUID COLOR STRAW
[2018-12-04 16:50] LABS: RBC,BODY FLUID 347 cells/uL; WBC,BODY FLUID 88 cells/uL
[2018-12-04 18:22] LABS: LYMPHOCYTES,BODY FLUID 41 %; MONO/MACROPHG,BODY FLUID 21 %; NEUTROPHILS,BODY FLUID 31 %; OTHER CELLS,BODY FLUID 7 %
[2018-12-04 19:23] LABS: BODY FLUID TYPE PERITONEAL
== END ==
LOC: US 12:49
PROVIDERS: ATTEND Legal Medicine
DX: R18.8 Other ascites (principal); K74.60 Unspecified cirrhosis of liver
CPT/HCPCS: 36415; 49083; 88112; 88305; 89051

== ENCOUNTER → 2018-12-08 | Outpatient (CLI) | payer BC ==
[~2018-12-08] MED LIST changes: -ALBUMIN 25% 12.5GM 50ML 200 ML IV ONE
--- NOTE | 2018-12-08 10:40 | Diagnostic Imaging Report ---
Exam: Ultrasound guided paracentesis Clinical History: Ascites Consent: Benefits and risks were explained to the patient who gave consent to the procedure. Complication: None immediate Procedure: The right lower quadrant was prepped and draped in usual sterile fashion. 1% lidocaine was used as the anesthetic. Under ultrasound guidance, a paracentesis catheter was inserted into the peritoneal cavity. Approximately 5.8 mm of cloudy yellow ascitic fluid was aspirated. The catheter was removed. Hemostasis was achieved. The patient tolerated the procedure well without any adverse reactions and left the ultrasound department in stable condition. Impression: Ultrasound guided paracentesis as described. Signed by: Dr. Rosendo Vazquez MD on 12/08/2018 10:37 AM
[2018-12-08 10:54] LABS: BODY FLUID COLOR YELLOW; BODY FLUID TYPE PERITONEAL; RBC,BODY FLUID 2860 cells/uL; WBC,BODY FLUID 110 cells/uL
[2018-12-08 10:55] LABS: BODY FLUID APPEARANCE CLOUDY
[2018-12-08 11:01] LABS: LYMPHOCYTES,BODY FLUID 33 %; MONO/MACROPHG,BODY FLUID 48 %; NEUTROPHILS,BODY FLUID 19 %
== END ==
LOC: US 07:14
PROVIDERS: ATTEND Legal Medicine
DX: R18.8 Other ascites (principal)
CPT/HCPCS: 36415; 49083; 89051

== ENCOUNTER → 2018-12-11 | Outpatient (CLI) | payer BC ==
[~2018-12-11] MED LIST changes: +ALBUMIN 25% 12.5GM 50ML 200 ML IV ONE
--- NOTE | 2018-12-11 11:30 | Diagnostic Imaging Report ---
PROCEDURE: Ultrasound-guided diagnostic and therapeutic paracentesis Procedural Personnel Attending physician(s): Dayanara Fontana MD Pre-procedure diagnosis: Cirrhosis, ascites Post-procedure diagnosis: Same Indication: Ascites with pain or pressure symptoms Additional clinical history: None Complications: No immediate complications. IMPRESSION: Ultrasound-guided paracentesis with drainage of 4300 mL of serous fluid. Plan: Resume care by clinical team. PROCEDURE SUMMARY: - Limited abdominal ultrasound - Ultrasound-guided paracentesis - Additional procedure(s): None PROCEDURE DETAILS: Pre-procedure Consent: Informed consent for the procedure including risks, benefits and alternatives was obtained and time-out was performed prior to the procedure. Preparation: The site was prepared and draped using maximal sterile barrier technique including cutaneous antisepsis. Anesthesia/sedation Level of anesthesia/sedation: No sedation Anesthesia/sedation administered by: Not applicable Initial abdominal ultrasound Initial abdominal ultrasound was performed. Findings: Large ascites. A safe window for paracentesis was identified. Paracentesis Local anesthesia was administered. The peritoneal cavity was accessed and fluid return confirmed position. Ascites was drained. The catheter was then removed, and a sterile bandage was applied. Paracentesis access technique: Real-time ultrasound guidance Catheter placed: 5F Yueh Post-drainage ultrasound: Moderate ascites Additional Details Additional description of procedure: None Equipment details: None Specimens removed: Abdominal fluid Estimated blood loss (mL): Less than 10 Standardized report: [email or web address] Attestation Signer name: Dayanara Fontana MD I attest that I was present for the entire procedure. I reviewed the stored images and agree with the report as written. Signed by: Dayanara Fotnana MD on 12/11/2018 11:27 AM
[2018-12-11 13:20] LABS: BODY FLUID COLOR STRAW
[2018-12-11 13:21] LABS: BODY FLUID APPEARANCE SL.CLOUDY
[2018-12-11 13:29] LABS: LYMPHOCYTES,BODY FLUID 45 %; NEUTROPHILS,BODY FLUID 35 %
[2018-12-11 13:30] LABS: EOSINOPHILS,BODY FLUID 0 %
[2018-12-11 13:31] LABS: MONO/MACROPHG,BODY FLUID 20 %
[2018-12-11 13:33] LABS: WBC,BODY FLUID 90 cells/uL
[2018-12-11 13:34] LABS: RBC,BODY FLUID 368 cells/uL
== END ==
LOC: US 09:46
PROVIDERS: ATTEND Legal Medicine
DX: Z12.31 Encounter for screening mammogram for malignant neoplasm of breast (principal); R18.8 Other ascites; K74.60 Unspecified cirrhosis of liver
CPT/HCPCS: 36415; 49083; 77067; 89051; C1729

== ENCOUNTER → 2018-12-15 | Outpatient (CLI) | payer BC ==
[2018-12-15 10:48] LABS: BASOPHILS % 0.5 % (0.0-1.0); EOSINOPHILS # (AUTO) 0.2 (0.0-0.4); EOSINOPHILS % 2.6 % (0.0-6.0); HEMATOCRIT 25.9 % (34.2-44.1); HEMOGLOBIN 8.5 g/dL (12.0-16.0); LYMPHOCYTES # (AUTO) 0.9 (1.0-3.2); LYMPHOCYTES % 14.6 % (18.0-39.1); MEAN CORPUSCULAR HEMOGLOBIN 33.1 pg (28-32); MEAN CORPUSCULAR HGB CONC 32.8 g/dL (31-35); MEAN CORPUSCULAR VOLUME 100.8 fL (81-99); MONOCYTES # (AUTO) 0.5 (0.2-0.8); MONOCYTES % 8.4 % (4.4-11.3); NEUTROPHILS # (AUTO) 4.4 (2.1-6.9); NEUTROPHILS % 72.4 % (38.7-80.0); PLATELET COUNT 263 x10e3/uL (140-360); RED BLOOD COUNT 2.57 x10e6/uL (3.6-5.1); RED CELL DISTRIBUTION WIDTH 15.5 % (11.7-14.4)
[2018-12-15 10:59] LABS: INR 1.04; PROTHROMBIN TIME 14.1 seconds (11.9-14.5)
[2018-12-15 11:00] LABS: PARTIAL THROMBOPLASTIN TIME 30.9 seconds (23.8-35.5)
--- NOTE | 2018-12-15 12:13 | Diagnostic Imaging Report ---
PROCEDURE: Ultrasound-guided diagnostic and therapeutic paracentesis Procedural Personnel Attending physician(s): Dayanara Fontana MD Pre-procedure diagnosis: Cirrhosis, ascites Post-procedure diagnosis: Same Indication: Ascites with pain or pressure symptoms Additional clinical history: None Complications: No immediate complications. IMPRESSION: Ultrasound-guided paracentesis with drainage of 5000 mL of serous fluid. Plan: Resume care by clinical team. PROCEDURE SUMMARY: - Limited abdominal ultrasound - Ultrasound-guided paracentesis - Additional procedure(s): None PROCEDURE DETAILS: Pre-procedure Consent: Informed consent for the procedure including risks, benefits and alternatives was obtained and time-out was performed prior to the procedure. Preparation: The site was prepared and draped using maximal sterile barrier technique including cutaneous antisepsis. Anesthesia/sedation Level of anesthesia/sedation: No sedation Anesthesia/sedation administered by: Not applicable Initial abdominal ultrasound Initial abdominal ultrasound was performed. Findings: Large ascites. A safe window for paracentesis was identified. Paracentesis Local anesthesia was administered. The peritoneal cavity was accessed and fluid return confirmed position. Ascites was drained. The catheter was then removed, and a sterile bandage was applied. Paracentesis access technique: Real-time ultrasound guidance Catheter placed: 5F Yueh Post-drainage ultrasound: Moderate ascites Additional Details Additional description of procedure: None Equipment details: None Specimens removed: Abdominal fluid Estimated blood loss (mL): Less than 10 Standardized report: [email or web address] Attestation Signer name: Dayanara Fontana MD I attest that I was present for the entire procedure. I reviewed the stored images and agree with the report as written. Signed by: Dayanara Fontana MD on 12/15/2018 12:10 PM
[2018-12-15 12:29] LABS: BODY FLUID TYPE ABDOMINAL FLUID
[2018-12-15 12:30] LABS: BODY FLUID APPEARANCE CLOUDY; BODY FLUID COLOR RED
[2018-12-15 12:31] LABS: RBC,BODY FLUID 8812 cells/uL; WBC,BODY FLUID 123 cells/uL
[2018-12-15 17:50] LABS: BASOPHILS,BODY FLUID 1 %; LYMPHOCYTES,BODY FLUID 47 %; MONO/MACROPHG,BODY FLUID 19 %; NEUTROPHILS,BODY FLUID 9 %; OTHER CELLS,BODY FLUID 24 %
== END ==
LOC: US 09:36
PROVIDERS: ATTEND Legal Medicine
DX: R18.8 Other ascites (principal); K74.60 Unspecified cirrhosis of liver
CPT/HCPCS: 36415; 49083; 85025; 85610; 85730; 89051

== ENCOUNTER 2018-12-25 15:17 | Inpatient (IN) | payer BC ==
[~2018-12-25] VITALS: Ht 165.1 cm; Wt 87.1 kg
[~2018-12-25 15:17] MED LIST changes: -ALBUMIN 25% 12.5GM 50ML 200 ML IV ONE
[2018-12-25] MEDS ORDERED: PANTOPRAZOLE 40 MG 10ML VIAL IV ONE (15:19)
[2018-12-25] MEDS ORDERED: SODIUM CHLORIDE 0.9% 250ML 250 ML IV ONE (15:30)
[2018-12-25] MEDS ORDERED: OCTREOTIDE ACETATE 600 MCG in SODIUM CHLORIDE 0.9% 250ML 300 ML IV SCH (16:03)
[2018-12-25] MEDS ORDERED: OCTREOTIDE ACETATE 0.05 MG/ML AMP IV STA (16:03)
[2018-12-25 16:15] LABS: BASOPHILS % 0.6 % (0.0-1.0); EOSINOPHILS # (AUTO) 0.1 (0.0-0.4); EOSINOPHILS % 1.6 % (0.0-6.0); LYMPHOCYTES # (AUTO) 0.8 (1.0-3.2); LYMPHOCYTES % 15.9 % (18.0-39.1); MEAN CORPUSCULAR HEMOGLOBIN 33.5 pg (28-32); MEAN CORPUSCULAR HGB CONC 32.1 g/dL (31-35); MEAN CORPUSCULAR VOLUME 104.4 fL (81-99); MONOCYTES # (AUTO) 0.4 (0.2-0.8); MONOCYTES % 8.5 % (4.4-11.3); NEUTROPHILS # (AUTO) 3.6 (2.1-6.9); NEUTROPHILS % 72.6 % (38.7-80.0); PLATELET COUNT 225 x10e3/uL (140-360); RED BLOOD COUNT 2.06 x10e6/uL (3.6-5.1); RED CELL DISTRIBUTION WIDTH 15.9 % (11.7-14.4)
[2018-12-25 16:18] LABS: HEMATOCRIT 21.5 % (34.2-44.1); HEMOGLOBIN 6.9 g/dL (12.0-16.0)
[2018-12-25 16:19] LABS: INR 1.13; PROTHROMBIN TIME 15.1 seconds (11.9-14.5)
[2018-12-25 16:20] LABS: PARTIAL THROMBOPLASTIN TIME 33.7 seconds (23.8-35.5)
[2018-12-25 16:30] LABS: ALBUMIN 3.9 g/dL (3.5-5.0); ALBUMIN/GLOBULIN RATIO 1.7 (0.8-2.0); ANION GAP 17.2 mmol/L (8-16); CALCIUM 8.3 mg/dL (8.4-10.2); CREATININE, SERUM 1.94 mg/dL (0.57-1.11); POTASSIUM 4.2 mmol/L (3.5-5.1)
[2018-12-25 16:36] LABS: CREATINE KINASE MB 1.8 ng/mL (0-5.0)
[2018-12-25 17:41] LABS: BILIRUBIN,URINE NEGATIVE (NEGATIVE); CLARITY,URINE SL CLOUDY (CLEAR); COLOR,URINE YELLOW (YELLOW); KETONES,URINE NEGATIVE (NEGATIVE); LEUKOCYTE ESTERASE ,URINE TRACE (NEGATIVE); NITRITE,URINE POSITIVE (NEGATIVE); PROTEIN,URINE DIPSTICK NEGATIVE (NEGATIVE); URINE UROBILINOGEN 0.2 mg/dL (0.2 - 1)
[2018-12-25 17:58] LABS: BACTERIA,URINE MANY /HPF; EPITHELIAL CELLS,URINE FEW /LPF
[2018-12-25] MEDS: OCTREOTIDE ACETATE 500 MCG in SODIUM CHLORIDE 0.9% 250ML 249 ML IV SCH (18:26)
--- NOTE | 2018-12-25 18:55 | NUR ---
ARRIVED VIA STRETCHER FROM ER, AA&OX3,VS WNL, CALL LIGHT WITHIN REACH, REPORT GIVEN TO NIGHT NURSE TAKING OVER CARE OF PT
[2018-12-25 20:04] VITALS: BP 111/69
[2018-12-25 20:41] VITALS: BP 111/69
[2018-12-25] MEDS: PANTOPRAZOLE 40 MG 10ML VIAL IV SCH (21:00)
[2018-12-25 21:04] LABS: BASOPHILS % 0.5 % (0.0-1.0); EOSINOPHILS # (AUTO) 0.1 (0.0-0.4); EOSINOPHILS % 2.1 % (0.0-6.0); LYMPHOCYTES # (AUTO) 0.8 (1.0-3.2); LYMPHOCYTES % 19.1 % (18.0-39.1); MEAN CORPUSCULAR HEMOGLOBIN 33.5 pg (28-32); MEAN CORPUSCULAR HGB CONC 31.6 g/dL (31-35); MEAN CORPUSCULAR VOLUME 106.1 fL (81-99); MONOCYTES # (AUTO) 0.4 (0.2-0.8); MONOCYTES % 10.1 % (4.4-11.3); NEUTROPHILS # (AUTO) 2.9 (2.1-6.9); NEUTROPHILS % 67.5 % (38.7-80.0); PLATELET COUNT 211 x10e3/uL (140-360); RED BLOOD COUNT 1.97 x10e6/uL (3.6-5.1); RED CELL DISTRIBUTION WIDTH 15.9 % (11.7-14.4)
[2018-12-25 21:08] LABS: HEMATOCRIT 20.9 % (34.2-44.1); HEMOGLOBIN 6.6 g/dL (12.0-16.0)
[2018-12-26] VITALS (7 sets, daily range): BP systolic 90–134; BP diastolic 52–64
--- NOTE | 2018-12-26 00:24 | NUR ---
DR. Manjit TIWARI DOING ROUNDS. NEW ORDER RECEIVE FOR NPO DIET AFTER BREAKFAST
--- NOTE | 2018-12-26 00:36 | NUR ---
CALLED LAB AT THIS TIME. LAB SAID THAT BLOOD FOR TRANSFUSION IS NOT YET AVAILABLE.
[2018-12-26 00:47] LABS: BASOPHILS % 0.5 % (0.0-1.0); EOSINOPHILS # (AUTO) 0.1 (0.0-0.4); EOSINOPHILS % 2.5 % (0.0-6.0); LYMPHOCYTES # (AUTO) 0.9 (1.0-3.2); LYMPHOCYTES % 22.1 % (18.0-39.1); MEAN CORPUSCULAR HEMOGLOBIN 33.2 pg (28-32); MEAN CORPUSCULAR HGB CONC 32.2 g/dL (31-35); MEAN CORPUSCULAR VOLUME 102.9 fL (81-99); MONOCYTES # (AUTO) 0.4 (0.2-0.8); MONOCYTES % 9.3 % (4.4-11.3); NEUTROPHILS # (AUTO) 2.6 (2.1-6.9); NEUTROPHILS % 64.9 % (38.7-80.0); PLATELET COUNT 204 x10e3/uL (140-360); RED BLOOD COUNT 2.05 x10e6/uL (3.6-5.1); RED CELL DISTRIBUTION WIDTH 15.9 % (11.7-14.4)
[2018-12-26 00:52] LABS: HEMATOCRIT 21.1 % (34.2-44.1); HEMOGLOBIN 6.8 g/dL (12.0-16.0)
--- NOTE | 2018-12-26 02:54 | NUR ---
SPOKE TO WOOD CARVING MACHINE OPERATOR AT THIS TIME AND WAS TOLD THAT BLOOD FOR TRANSFUSION IS STILL NOT AVAILABLE.
[2018-12-26] MEDS ORDERED: LEVOTHYROXINE175 MCG PO (03:02)
[2018-12-26 03:26] LABS: FERRITIN 56.8 ng/mL (4.63-204.00)
[2018-12-26] MEDS: OCTREOTIDE ACETATE 500 MCG in SODIUM CHLORIDE 0.9% 250ML 249 ML IV SCH ×2 (04:20→13:40)
--- NOTE | 2018-12-26 05:05 | NUR ---
SPOKE TO Datam AGAIN AT THIS TIME. Datam SAID THAT BLOOD IS STILL NOT AVAILABLE.
--- NOTE | 2018-12-26 06:11 | NUR ---
CALLED LAB AGAIN AT THIS TIME. BOAT CREW DECK HAND SAID BLOOD IS STILL NOT AVAILABLE.
[2018-12-26 06:16] LABS: BASOPHILS % 0.4 % (0.0-1.0); EOSINOPHILS # (AUTO) 0.1 (0.0-0.4); EOSINOPHILS % 1.3 % (0.0-6.0); HEMOGLOBIN 7.1 g/dL (12.0-16.0); LYMPHOCYTES # (AUTO) 0.8 (1.0-3.2); LYMPHOCYTES % 16.8 % (18.0-39.1); MEAN CORPUSCULAR HEMOGLOBIN 33.8 pg (28-32); MEAN CORPUSCULAR HGB CONC 31.4 g/dL (31-35); MEAN CORPUSCULAR VOLUME 107.6 fL (81-99); MONOCYTES # (AUTO) 0.5 (0.2-0.8); MONOCYTES % 10.3 % (4.4-11.3); NEUTROPHILS # (AUTO) 3.4 (2.1-6.9); NEUTROPHILS % 70.8 % (38.7-80.0); PLATELET COUNT 189 x10e3/uL (140-360); RED CELL DISTRIBUTION WIDTH 15.9 % (11.7-14.4)
[2018-12-26 06:44] LABS: HEMATOCRIT 22.6 % (34.2-44.1)
[2018-12-26 06:45] LABS: ALBUMIN 3.1 g/dL (3.5-5.0); ALBUMIN/GLOBULIN RATIO 1.5 (0.8-2.0); ANION GAP 14.1 mmol/L (8-16); CALCIUM 7.6 mg/dL (8.4-10.2); CREATININE, SERUM 2.1 mg/dL (0.57-1.11); POTASSIUM 4.1 mmol/L (3.5-5.1)
[2018-12-26] MEDS ORDERED: POLYETHYLENE GLYCOL 3350 17 GM PACK PO PRN (08:45)
[2018-12-26] MEDS ORDERED: ASCORBIC ACID500 M2 PO (08:47)
[2018-12-26] MEDS ORDERED: CEFDINIR300 MG PO (08:47)
[2018-12-26] MEDS ORDERED: FERROUS SULFAT325 MG PO (08:47)
[2018-12-26] MEDS ORDERED: AMLODIPINE BESYLATE 5 MG TAB PO SCH ×2 (09:00→21:00)
[2018-12-26] MEDS ORDERED: METOPROLOL TARTRATE 50 MG TAB PO SCH ×2 (09:00→21:00)
[2018-12-26] MEDS ORDERED: LIOTHYRONINE SODIUM 5 MCG TAB PO SCH (09:00)
[2018-12-26] MEDS ORDERED: CEFTRIAXONE SOD 1 GM/NS 50 ML 50 ML IV SCH ×2 (09:00→18:00)
[2018-12-26] MEDS ORDERED: FENOFIBRATE 160 MG TABLET PO SCH (09:00)
[2018-12-26] MEDS ORDERED: SPIRONOLACTONE 25 MG TAB PO SCH (09:00)
[2018-12-26] MEDS ORDERED: CYANOCOBALAMIN INJ 1,000 MCG/ML VIAL IM SCH (09:00)
[2018-12-26] MEDS ORDERED: RIFAXIMIN 550 MG TABLET PO SCH ×2 (09:00→21:00)
[2018-12-26] MEDS ORDERED: FUROSEMIDE 40 MG TAB PO SCH (09:00)
[2018-12-26] MEDS ORDERED: SODIUM CHLORIDE 0.9% 250ML 250 ML ONE ×3 (09:56→17:23)
[2018-12-26] MEDS ORDERED: IRON SUCROSE 100 MG in SODIUM CHLORIDE 0.9% 100 ML 100 ML IV SCH ×2 (10:00→20:00)
[2018-12-26] MEDS: PANTOPRAZOLE 40 MG 10ML VIAL IV SCH (10:00)
[2018-12-26] MEDS: DOCUSATE SODIUM 100 MG CAP PO SCH ×2 (10:00→17:00)
--- NOTE | 2018-12-26 11:12 | NUR ---
1ST UNIT PRBC'S INFUSING, MARCELA NOTED AT THIS TIME, VOICES NO NEEDS, CALL LIGHT WITHIN REACH
--- NOTE | 2018-12-26 11:45 | NUR ---
LEATH[employer] FINISHER FAXED RELEASE OF INFORMATION PAPER TO [facility] FOR EGD/COLONOSCOPY PER MD Manjit TIWARI REQUEST
--- NOTE | 2018-12-26 12:09 | NUR ---
Nutrition Screen Note RD Recommendation for Physician: Continue diet as ordered Plan of Care: RD following, monitoring for tolerance and adequacy Nutrition reason for involvement: Nutrition Risk Trigger Primary Diagnose(s):Cirrhosis, GIB PMH: Cirrhosis, anemia, heart failure Ht:65 in Wt:192lb BMI:32 kg/m2 IBW:125lb +/-10% RD Assessment: (12/26/2018) Chart reviewed. Labs and meds reviewed. Initial encounter with patient. Pt with C/O decreased appetite on a clear liquid diet, but diet was advanced to a 2g Na diet. Pt denies any nausea, vomiting or diarrhea nor has any difficulty chewing or swallowing. C/O early satiety when Pt has ascites. Current Diet:2g Na diet Malnutrition Evaluation (12/26/2018) The patient does not meet criteria for a specified degree of malnutrition at this time. Will re-evaluate at follow-up as appropriate. Diet Education Needs Assessment: Diet education indicated, but Pt declined due to prior education. Nutrition Care Level: Low Signed: Gus Motley RD, LD, CNSC
[2018-12-26] MEDS: FUROSEMIDE INJ 10 MG/ML 2 ML VIAL IV PRN ×2 (13:31→17:00)
--- NOTE | 2018-12-26 14:47 | NUR ---
PT HAD LARGE BM, SENT STOOL SAMPLE PER MD ORDER, 2ND UNIT PRBC'S INFUSING AT THIS TIME, MARCELA NOTED AT THIS TIME, CALL LIGHT WITHIN REACH
[2018-12-26] MEDS ORDERED: PANTOPRAZOLE SO40 MG PO (17:04)
[2018-12-26 17:44] LABS: HEMATOCRIT 32.3 % (34.2-44.1); HEMOGLOBIN 10.3 g/dL (12.0-16.0)
[2018-12-26 18:36] LABS: BASOPHILS % 0.6 % (0.0-1.0); EOSINOPHILS # (AUTO) 0.1 (0.0-0.4); EOSINOPHILS % 1.5 % (0.0-6.0); HEMATOCRIT 31.7 % (34.2-44.1); HEMOGLOBIN 10.2 g/dL (12.0-16.0); LYMPHOCYTES # (AUTO) 0.7 (1.0-3.2); LYMPHOCYTES % 10.4 % (18.0-39.1); MEAN CORPUSCULAR HEMOGLOBIN 32.7 pg (28-32); MEAN CORPUSCULAR HGB CONC 32.2 g/dL (31-35); MEAN CORPUSCULAR VOLUME 101.6 fL (81-99); MONOCYTES # (AUTO) 0.5 (0.2-0.8); MONOCYTES % 7.8 % (4.4-11.3); NEUTROPHILS # (AUTO) 5.3 (2.1-6.9); NEUTROPHILS % 79.3 % (38.7-80.0); PLATELET COUNT 193 x10e3/uL (140-360); RED BLOOD COUNT 3.12 x10e6/uL (3.6-5.1)
--- NOTE | 2018-12-26 19:51 | NUR ---
PATIENT DISCHARGED TO HOME. NO S/S OF DISTRESS NOTED. IV REMOVED WITH TIP INTACT. PRESSURE DRESSING APPLIED. PRESCRIPTIONS AND INSTRUCTIONS GIVEN. VITAL SIGNS STABLE. BELONGINGS GATHERED BY .
[2018-12-27] MEDS ORDERED: LEVOTHYROXINE SODIUM 100 MCG TAB PO SCH (06:30)
[2018-12-27] MEDS ORDERED: LEVOTHYROXINE SODIUM 75 MCG TAB PO SCH (06:30)
--- NOTE | 2018-12-27 16:35 | Discharge Summary ---
ADMISSION DIAGNOSES: Anemia, liver cirrhosis with ascites, hypertension, hyperlipidemia, hypothyroidism, and urinary tract infection, present on admission. DISCHARGE DIAGNOSES: Anemia, liver cirrhosis with ascites, hypertension, hyperlipidemia, hypothyroidism, urinary tract infection present on admission, gastrointestinal bleed, and anemia secondary to gastrointestinal bleed. HISTORY: Hypertension, hyperlipidemia, cirrhosis, and hypothyroidism. SURGICAL HISTORY: Hysterectomy, cholecystectomy, appendectomy, and abdominal surgery for tumors. FAMILY HISTORY: Dad had cancer. Mom had a stroke. SOCIAL HISTORY: Noncontributory. HOSPITAL COURSE: A 63-year-old female with past medical history of cirrhosis, was admitted from Interventional Radiology due to anemia. They were able to pull 4 L off during her paracentesis and found her hemoglobin was 6.9, so they admitted her. She denies bright red blood per rectum and black stools. She follows up with Dr. Samuels at [facility] and she had a recent EGD and colonoscopy with him, but is unsure of the results. On admission, hemoglobin was 6.9 and 2 PRBCs were ordered. Her UA came back positive for nitrites and she was started on Rocephin. Her stool for blood came back positive, but there was no reason to repeat the EGD and colonoscopy. She was given a prescription for iron, vitamin C, Omnicef, and Protonix. Repeat hemoglobin after transfusion was over 10. She will follow up with primary care in 1 to 2 weeks and GI in 1 to 2 weeks. The patient understands discharge instructions and agrees to plan. Vital signs stable. The patient is afebrile. Dictated by Mabel Bah NP MD INDU [place]/MODL /[id number]
== END 2018-12-26 19:51 | disposition home or self-care (01) | DRG 812 ==
LOC: ER 15:17 → ERHOLD 17:05 → MED/SURG 18:54
PROVIDERS: ADMIT Internal Medicine; ATTEND Internal Medicine
PROC: 30233N1 Transfusion of Nonautologous Red Blood Cells into Peripheral Vein, Percutaneous Approach (ICD-10-PCS; principal; 2018-12-26)
DX: D50.0 Iron deficiency anemia secondary to blood loss (chronic) (principal); R18.8 Other ascites; N39.0 Urinary tract infection, site not specified; K57.92 Diverticulitis of intestine, part unspecified, without perforation or abscess without bleeding; K92.2 Gastrointestinal hemorrhage, unspecified; K74.60 Unspecified cirrhosis of liver; I10 Essential (primary) hypertension; E78.5 Hyperlipidemia, unspecified; E03.9 Hypothyroidism, unspecified; I11.0 Hypertensive heart disease with heart failure; I50.9 Heart failure, unspecified; I25.10 Atherosclerotic heart disease of native coronary artery without angina pectoris; Z90.710 Acquired absence of both cervix and uterus; Z90.49 Acquired absence of other specified parts of digestive tract; K74.3 Primary biliary cirrhosis
CPT/HCPCS: 36415; 80053; 81001; 82270; 82550; 82553; 82607; 82728; 82746; 83540; 84466; 84484; 85014; 85018; 85025; 85045; 85610; 85730; 86850; 86870; 86880; 86900; 86905; 86920; 86922; 87086; 87186; 99001; 99284; J0696; J1756; J1940; J2353; J2354; J3420; J7050; P9016

== ENCOUNTER → 2019-01-01 | Outpatient (CLI) | payer BC ==
[~2019-01-01] MED LIST changes: +ASCORBIC ACID500 M2 PO; +CEFDINIR300 MG PO; +LEVOTHYROXINE175 MCG PO; +PANTOPRAZOLE SO40 MG PO
--- NOTE | 2019-01-01 10:42 | Diagnostic Imaging Report ---
PROCEDURE: Ultrasound-guided diagnostic and therapeutic paracentesis Procedural Personnel Attending physician(s): Dayanara Fontana MD Pre-procedure diagnosis: Cirrhosis, ascites Post-procedure diagnosis: Same Indication: Ascites with pain or pressure symptoms Additional clinical history: None Complications: No immediate complications. IMPRESSION: Ultrasound-guided paracentesis with drainage of 3150 mL of serous fluid. Plan: Resume care by clinical team. PROCEDURE SUMMARY: - Limited abdominal ultrasound - Ultrasound-guided paracentesis - Additional procedure(s): None PROCEDURE DETAILS: Pre-procedure Consent: Informed consent for the procedure including risks, benefits and alternatives was obtained and time-out was performed prior to the procedure. Preparation: The site was prepared and draped using maximal sterile barrier technique including cutaneous antisepsis. Anesthesia/sedation Level of anesthesia/sedation: No sedation Anesthesia/sedation administered by: Not applicable Initial abdominal ultrasound Initial abdominal ultrasound was performed. Findings: Large ascites. A safe window for paracentesis was identified. Paracentesis Local anesthesia was administered. The peritoneal cavity was accessed and fluid return confirmed position. Ascites was drained. The catheter was then removed, and a sterile bandage was applied. Paracentesis access technique: Real-time ultrasound guidance Catheter placed: 5F Yueh Post-drainage ultrasound: Moderate ascites Additional Details Additional description of procedure: None Equipment details: None Specimens removed: Abdominal fluid Estimated blood loss (mL): Less than 10 Standardized report: [email or web address] Attestation Signer name: Dayanara Fontana MD I attest that I was present for the entire procedure. I reviewed the stored images and agree with the report as written. Signed by: Dayanara Fontana MD on 01/01/2019 10:39 AM
[2019-01-01 13:55] LABS: BODY FLUID APPEARANCE CLOUDY; BODY FLUID COLOR RED; BODY FLUID TYPE Ascites
[2019-01-01 14:01] LABS: RBC,BODY FLUID 1666 cells/uL; WBC,BODY FLUID 15 cells/uL
[2019-01-01 14:16] LABS: LYMPHOCYTES,BODY FLUID 34 %; MONO/MACROPHG,BODY FLUID 35 %; NEUTROPHILS,BODY FLUID 21 %; OTHER CELLS,BODY FLUID 10 %
== END ==
LOC: US 08:35
PROVIDERS: ATTEND Legal Medicine
DX: R18.8 Other ascites (principal); K74.60 Unspecified cirrhosis of liver
CPT/HCPCS: 36415; 49083; 88112; 88305; 89051

== ENCOUNTER → 2019-01-05 | Outpatient (CLI) | payer BC ==
[~2019-01-05] MED LIST changes: +ALBUMIN 25% 12.5GM 50ML 200 ML IV ONE
--- NOTE | 2019-01-05 12:04 | Diagnostic Imaging Report ---
PROCEDURE: Ultrasound-guided diagnostic and therapeutic paracentesis Procedural Personnel Attending physician(s): Dayanara Fontana MD Pre-procedure diagnosis: Cirrhosis, ascites Post-procedure diagnosis: Same Indication: Ascites with pain or pressure symptoms Additional clinical history: None Complications: No immediate complications. IMPRESSION: Ultrasound-guided paracentesis with drainage of 5400 mL of serous fluid. Plan: Resume care by clinical team. PROCEDURE SUMMARY: - Limited abdominal ultrasound - Ultrasound-guided paracentesis - Additional procedure(s): None PROCEDURE DETAILS: Pre-procedure Consent: Informed consent for the procedure including risks, benefits and alternatives was obtained and time-out was performed prior to the procedure. Preparation: The site was prepared and draped using maximal sterile barrier technique including cutaneous antisepsis. Anesthesia/sedation Level of anesthesia/sedation: No sedation Anesthesia/sedation administered by: Not applicable Initial abdominal ultrasound Initial abdominal ultrasound was performed. Findings: Large ascites. A safe window for paracentesis was identified. Paracentesis Local anesthesia was administered. The peritoneal cavity was accessed and fluid return confirmed position. Ascites was drained. The catheter was then removed, and a sterile bandage was applied. Paracentesis access technique: Real-time ultrasound guidance Catheter placed: 5F Yueh Post-drainage ultrasound: Moderate ascites Additional Details Additional description of procedure: None Equipment details: None Specimens removed: Abdominal fluid Estimated blood loss (mL): Less than 10 Standardized report: [email or web address] Attestation Signer name: Dayanara Fontana MD I attest that I was present for the entire procedure. I reviewed the stored images and agree with the report as written. Signed by: Dayanara Fontana MD on 01/05/2019 12:01 PM
[2019-01-05 12:57] LABS: BODY FLUID TYPE ABDOMINAL FLUID
[2019-01-05 12:58] LABS: BODY FLUID APPEARANCE CLOUDY; BODY FLUID COLOR RED
[2019-01-05 13:02] LABS: RBC,BODY FLUID 7854 cells/uL
[2019-01-05 13:05] LABS: WBC,BODY FLUID 66 cells/uL
[2019-01-05 17:00] LABS: EOSINOPHILS,BODY FLUID 1 %; LYMPHOCYTES,BODY FLUID 43 %; MONO/MACROPHG,BODY FLUID 13 %; NEUTROPHILS,BODY FLUID 12 %
[2019-01-05 17:01] LABS: OTHER CELLS,BODY FLUID 31 %
== END ==
LOC: US 08:43
PROVIDERS: ATTEND Legal Medicine
DX: R18.8 Other ascites (principal); K74.60 Unspecified cirrhosis of liver
CPT/HCPCS: 36415; 49083; 89051; C1729

== ENCOUNTER → 2019-01-08 | Outpatient (CLI) | payer BC ==
--- NOTE | 2019-01-08 11:14 | Diagnostic Imaging Report ---
PROCEDURE: Ultrasound-guided diagnostic and therapeutic paracentesis Procedural Personnel Attending physician(s): Dayanara Fontana MD Pre-procedure diagnosis: Cirrhosis, ascites Post-procedure diagnosis: Same Indication: Ascites with pain or pressure symptoms Additional clinical history: None Complications: No immediate complications. IMPRESSION: Ultrasound-guided paracentesis with drainage of 4800 mL of serous fluid. Plan: Resume care by clinical team. PROCEDURE SUMMARY: - Limited abdominal ultrasound - Ultrasound-guided paracentesis - Additional procedure(s): None PROCEDURE DETAILS: Pre-procedure Consent: Informed consent for the procedure including risks, benefits and alternatives was obtained and time-out was performed prior to the procedure. Preparation: The site was prepared and draped using maximal sterile barrier technique including cutaneous antisepsis. Anesthesia/sedation Level of anesthesia/sedation: No sedation Anesthesia/sedation administered by: Not applicable Initial abdominal ultrasound Initial abdominal ultrasound was performed. Findings: Large ascites. A safe window for paracentesis was identified. Paracentesis Local anesthesia was administered. The peritoneal cavity was accessed and fluid return confirmed position. Ascites was drained. The catheter was then removed, and a sterile bandage was applied. Paracentesis access technique: Real-time ultrasound guidance Catheter placed: 5F Yueh Post-drainage ultrasound: Small ascites Additional Details Additional description of procedure: None Equipment details: None Specimens removed: Abdominal fluid Estimated blood loss (mL): Less than 10 Standardized report: [email or web address] Attestation Signer name: Dayanara Fontana MD I attest that I was present for the entire procedure. I reviewed the stored images and agree with the report as written. Signed by: Dayanara Fontana MD on 01/08/2019 11:11 AM
[2019-01-08 12:17] LABS: BODY FLUID COLOR STRAW; BODY FLUID TYPE ABDOMINAL
[2019-01-08 12:18] LABS: BODY FLUID APPEARANCE SL.CLOUDY
[2019-01-08 13:13] LABS: RBC,BODY FLUID 7205 cells/uL; WBC,BODY FLUID 50 cells/uL
[2019-01-08 17:01] LABS: LYMPHOCYTES,BODY FLUID 33 %; MONO/MACROPHG,BODY FLUID 12 %; NEUTROPHILS,BODY FLUID 31 %; OTHER CELLS,BODY FLUID 24 %
== END ==
LOC: US 08:33
PROVIDERS: ATTEND Legal Medicine
DX: R18.8 Other ascites (principal); K74.60 Unspecified cirrhosis of liver
CPT/HCPCS: 36415; 49083; 89051; C1729

== ENCOUNTER → 2019-01-12 | Outpatient (CLI) | payer BC ==
--- NOTE | 2019-01-12 10:36 | Diagnostic Imaging Report ---
PROCEDURE: Ultrasound-guided diagnostic and therapeutic paracentesis Procedural Personnel Attending physician(s): Dayanara Fontana MD Pre-procedure diagnosis: Cirrhosis, ascites Post-procedure diagnosis: Same Indication: Ascites with pain or pressure symptoms Additional clinical history: None Complications: No immediate complications. IMPRESSION: Ultrasound-guided paracentesis with drainage of 4100 mL of serous fluid. Plan: Resume care by clinical team. PROCEDURE SUMMARY: - Limited abdominal ultrasound - Ultrasound-guided paracentesis - Additional procedure(s): None PROCEDURE DETAILS: Pre-procedure Consent: Informed consent for the procedure including risks, benefits and alternatives was obtained and time-out was performed prior to the procedure. Preparation: The site was prepared and draped using maximal sterile barrier technique including cutaneous antisepsis. Anesthesia/sedation Level of anesthesia/sedation: No sedation Anesthesia/sedation administered by: Not applicable Initial abdominal ultrasound Initial abdominal ultrasound was performed. Findings: Large ascites. A safe window for paracentesis was identified. Paracentesis Local anesthesia was administered. The peritoneal cavity was accessed and fluid return confirmed position. Ascites was drained. The catheter was then removed, and a sterile bandage was applied. Paracentesis access technique: Real-time ultrasound guidance Catheter placed: 5F Yueh Post-drainage ultrasound: Small ascites Additional Details Additional description of procedure: None Equipment details: None Specimens removed: Abdominal fluid Estimated blood loss (mL): Less than 10 Standardized report: [email or web address] Attestation Signer name: Dayanara Fontana MD I attest that I was present for the entire procedure. I reviewed the stored images and agree with the report as written. Signed by: Dayanara Fontana MD on 01/12/2019 10:33 AM
[2019-01-12 13:00] LABS: BODY FLUID APPEARANCE SL.CLOUDY; BODY FLUID COLOR STRAW; BODY FLUID TYPE ABDOMINAL FLUID; RBC,BODY FLUID 2910 cells/uL; WBC,BODY FLUID 54 cells/uL
[2019-01-12 13:20] LABS: LYMPHOCYTES,BODY FLUID 35 %; MONO/MACROPHG,BODY FLUID 28 %; NEUTROPHILS,BODY FLUID 34 %; OTHER CELLS,BODY FLUID 3 %
== END ==
LOC: US 08:31
PROVIDERS: ATTEND Legal Medicine
DX: R18.8 Other ascites (principal); K74.60 Unspecified cirrhosis of liver
CPT/HCPCS: 36415; 49083; 89051

== ENCOUNTER → 2019-01-15 | Outpatient (CLI) | payer BC ==
--- NOTE | 2019-01-15 10:43 | Diagnostic Imaging Report ---
PROCEDURE: Ultrasound-guided diagnostic and therapeutic paracentesis Procedural Personnel Attending physician(s): Dayanara Fontana MD Pre-procedure diagnosis: Cirrhosis, ascites Post-procedure diagnosis: Same Indication: Ascites with pain or pressure symptoms Additional clinical history: None Complications: No immediate complications. IMPRESSION: Ultrasound-guided paracentesis with drainage of 3700 mL of serous fluid. Plan: Resume care by clinical team. PROCEDURE SUMMARY: - Limited abdominal ultrasound - Ultrasound-guided paracentesis - Additional procedure(s): None PROCEDURE DETAILS: Pre-procedure Consent: Informed consent for the procedure including risks, benefits and alternatives was obtained and time-out was performed prior to the procedure. Preparation: The site was prepared and draped using maximal sterile barrier technique including cutaneous antisepsis. Anesthesia/sedation Level of anesthesia/sedation: No sedation Anesthesia/sedation administered by: Not applicable Initial abdominal ultrasound Initial abdominal ultrasound was performed. Findings: Large ascites. A safe window for paracentesis was identified. Paracentesis Local anesthesia was administered. The peritoneal cavity was accessed and fluid return confirmed position. Ascites was drained. The catheter was then removed, and a sterile bandage was applied. Paracentesis access technique: Real-time ultrasound guidance Catheter placed: 5F Yueh Post-drainage ultrasound: Small ascites Additional Details Additional description of procedure: None Equipment details: None Specimens removed: Abdominal fluid Estimated blood loss (mL): Less than 10 Standardized report: [email or web address] Attestation Signer name: Dayanara Fontana MD I attest that I was present for the entire procedure. I reviewed the stored images and agree with the report as written. Signed by: Dayanara Fontana MD on 01/15/2019 10:40 AM
[2019-01-15 13:17] LABS: BODY FLUID APPEARANCE CLOUDY; BODY FLUID COLOR RED; BODY FLUID TYPE ABDOMINAL
[2019-01-15 13:19] LABS: RBC,BODY FLUID 649 cells/uL; WBC,BODY FLUID 42 cells/uL
[2019-01-15 13:53] LABS: LYMPHOCYTES,BODY FLUID 26 %; MONO/MACROPHG,BODY FLUID 68 %; NEUTROPHILS,BODY FLUID 3 %; OTHER CELLS,BODY FLUID 3 %
== END ==
LOC: US 08:37
PROVIDERS: ATTEND Legal Medicine
DX: R18.8 Other ascites (principal); K74.60 Unspecified cirrhosis of liver
CPT/HCPCS: 36415; 49083; 89051

== ENCOUNTER → 2019-01-19 | Outpatient (CLI) | payer BC ==
--- NOTE | 2019-01-19 12:43 | Diagnostic Imaging Report ---
Ultrasound guided paracentesis, 01/19/2019. Clinical History: Ascites. Sedation: None. Radiologist: Seferino Logan MD [employer] Chair: None. Estimated Blood Loss: < 1 cc. Specimen: 6000 cc of cloudy pink fluid, samples sent to laboratory. Technique: Informed consent was obtained. The risks of pain, bleeding, infection, bowel perforation, injury to adjacent structures, and adverse medication reactions were discussed with the patient. After informed consent was obtained, the patient's abdomen was scanned. The right lower quadrant of the abdomen was selected for paracentesis. After the largest fluid pocket area was marked, and the anterior abdominal wall was evaluated with color Doppler to exclude presence of blood vessels traversing the area, the skin was prepped and draped in the usual sterile manner. After local anesthesia was achieved with 1% lidocaine, a 5 Prydeinig centesis catheter was advanced into the peritoneal cavity under ultrasound guidance. After completion of drainage, the catheter was removed. There was no evidence of complication. Impression: Successful ultrasound guided paracentesis. Signed by: Seferino Logan MD on 01/19/2019 12:40 PM
[2019-01-19 12:51] LABS: BODY FLUID APPEARANCE CLOUDY; BODY FLUID COLOR STRAW; BODY FLUID TYPE ABDOMINAL FLUID
[2019-01-19 12:52] LABS: RBC,BODY FLUID 6179 cells/uL; WBC,BODY FLUID 112 cells/uL
[2019-01-19 14:44] LABS: LYMPHOCYTES,BODY FLUID 64 %; MONO/MACROPHG,BODY FLUID 11 %; OTHER CELLS,BODY FLUID 21 %
[2019-01-19 14:47] LABS: NEUTROPHILS,BODY FLUID 4 %
== END ==
LOC: US 08:36
PROVIDERS: ATTEND Legal Medicine
DX: R18.8 Other ascites (principal)
CPT/HCPCS: 36415; 49083; 89051

== ENCOUNTER → 2019-01-22 | Outpatient (CLI) | payer BC ==
[2019-01-22 11:54] LABS: BODY FLUID COLOR STRAW; BODY FLUID TYPE ASCITES RT ABDOMEN
--- NOTE | 2019-01-22 11:59 | Diagnostic Imaging Report ---
PROCEDURE: Ultrasound-guided diagnostic and therapeutic paracentesis Procedural Personnel Attending physician(s): Dayanara Fontana MD Pre-procedure diagnosis: Cirrhosis, ascites Post-procedure diagnosis: Same Indication: Ascites with pain or pressure symptoms Additional clinical history: None Complications: No immediate complications. IMPRESSION: Ultrasound-guided paracentesis with drainage of 4400 mL of serous fluid. Plan: Resume care by clinical team. PROCEDURE SUMMARY: - Limited abdominal ultrasound - Ultrasound-guided paracentesis - Additional procedure(s): None PROCEDURE DETAILS: Pre-procedure Consent: Informed consent for the procedure including risks, benefits and alternatives was obtained and time-out was performed prior to the procedure. Preparation: The site was prepared and draped using maximal sterile barrier technique including cutaneous antisepsis. Anesthesia/sedation Level of anesthesia/sedation: No sedation Anesthesia/sedation administered by: Not applicable Initial abdominal ultrasound Initial abdominal ultrasound was performed. Findings: Large ascites. A safe window for paracentesis was identified. Paracentesis Local anesthesia was administered. The peritoneal cavity was accessed and fluid return confirmed position. Ascites was drained. The catheter was then removed, and a sterile bandage was applied. Paracentesis access technique: Real-time ultrasound guidance Catheter placed: 5F Yueh Post-drainage ultrasound: Small ascites Additional Details Additional description of procedure: None Equipment details: None Specimens removed: Abdominal fluid Estimated blood loss (mL): Less than 10 Standardized report: [email or web address] Attestation Signer name: Dayanara Fontana MD I attest that I was present for the entire procedure. I reviewed the stored images and agree with the report as written. Signed by: Dayanara Fontana MD on 01/22/2019 11:56 AM
[2019-01-22 12:27] LABS: RBC,BODY FLUID 352 cells/uL; WBC,BODY FLUID 30 cells/uL
[2019-01-22 12:29] LABS: BODY FLUID APPEARANCE CLOUDY
[2019-01-22 13:10] LABS: LYMPHOCYTES,BODY FLUID 43 %; MONO/MACROPHG,BODY FLUID 22 %; NEUTROPHILS,BODY FLUID 28 %; OTHER CELLS,BODY FLUID 7 %
== END ==
LOC: US 08:46
PROVIDERS: ATTEND Legal Medicine
DX: R18.8 Other ascites (principal); K74.60 Unspecified cirrhosis of liver
CPT/HCPCS: 36415; 49083; 89051; C1729

== ENCOUNTER → 2019-01-26 | Outpatient (CLI) | payer BC ==
[2019-01-26 09:51] LABS: BASOPHILS # (AUTO) 0.1 (0.0-0.1); BASOPHILS % 0.8 % (0.0-1.0); EOSINOPHILS # (AUTO) 0.2 (0.0-0.4); EOSINOPHILS % 3.2 % (0.0-6.0); HEMATOCRIT 23.6 % (34.2-44.1); HEMOGLOBIN 7.5 g/dL (12.0-16.0); LYMPHOCYTES # (AUTO) 0.9 (1.0-3.2); LYMPHOCYTES % 14.2 % (18.0-39.1); MEAN CORPUSCULAR HEMOGLOBIN 33.6 pg (28-32); MEAN CORPUSCULAR HGB CONC 31.8 g/dL (31-35); MEAN CORPUSCULAR VOLUME 105.8 fL (81-99); MONOCYTES # (AUTO) 0.4 (0.2-0.8); NEUTROPHILS # (AUTO) 4.6 (2.1-6.9); NEUTROPHILS % 74.2 % (38.7-80.0); PLATELET COUNT 301 x10e3/uL (140-360); RED BLOOD COUNT 2.23 x10e6/uL (3.6-5.1); RED CELL DISTRIBUTION WIDTH 15.2 % (11.7-14.4)
[2019-01-26 10:16] LABS: INR 1.05; PARTIAL THROMBOPLASTIN TIME 30.2 seconds (23.8-35.5); PROTHROMBIN TIME 14.2 seconds (11.9-14.5)
--- NOTE | 2019-01-26 12:53 | Diagnostic Imaging Report ---
PROCEDURE: Ultrasound-guided diagnostic and therapeutic paracentesis Procedural Personnel Attending physician(s): Dayanara Fontana MD Pre-procedure diagnosis: Cirrhosis, ascites Post-procedure diagnosis: Same Indication: Ascites with pain or pressure symptoms Additional clinical history: None Complications: No immediate complications. IMPRESSION: Ultrasound-guided paracentesis with drainage of 6000 mL of serous fluid. Plan: Resume care by clinical team. PROCEDURE SUMMARY: - Limited abdominal ultrasound - Ultrasound-guided paracentesis - Additional procedure(s): None PROCEDURE DETAILS: Pre-procedure Consent: Informed consent for the procedure including risks, benefits and alternatives was obtained and time-out was performed prior to the procedure. Preparation: The site was prepared and draped using maximal sterile barrier technique including cutaneous antisepsis. Anesthesia/sedation Level of anesthesia/sedation: No sedation Anesthesia/sedation administered by: Not applicable Initial abdominal ultrasound Initial abdominal ultrasound was performed. Findings: Large ascites. A safe window for paracentesis was identified. Paracentesis Local anesthesia was administered. The peritoneal cavity was accessed and fluid return confirmed position. Ascites was drained. The catheter was then removed, and a sterile bandage was applied. Paracentesis access technique: Real-time ultrasound guidance Catheter placed: 5F Yueh Post-drainage ultrasound: Small ascites Additional Details Additional description of procedure: None Equipment details: None Specimens removed: Abdominal fluid Estimated blood loss (mL): Less than 10 Standardized report: [email or web address] Attestation Signer name: Dayanara Fontana MD I attest that I was present for the entire procedure. I reviewed the stored images and agree with the report as written. Signed by: Dayanara Fontana MD on 01/26/2019 12:49 PM
[2019-01-26 13:19] LABS: BODY FLUID APPEARANCE CLOUDY; BODY FLUID COLOR STRAW; BODY FLUID TYPE ASCITES RT ABDOMEN
[2019-01-26 13:20] LABS: RBC,BODY FLUID 3017 cells/uL; WBC,BODY FLUID 9 cells/uL
[2019-01-26 15:09] LABS: LYMPHOCYTES,BODY FLUID 33 %; MONO/MACROPHG,BODY FLUID 66 %; NEUTROPHILS,BODY FLUID 1 %
== END ==
LOC: US 08:59
PROVIDERS: ATTEND Legal Medicine
DX: R18.8 Other ascites (principal)
CPT/HCPCS: 36415; 49083; 85025; 85610; 85730; 89051

== ENCOUNTER 2019-01-29 08:50 | Inpatient (IN) | payer BC ==
[~2019-01-29] VITALS: Ht 167.6 cm; Wt 84.4 kg
[~2019-01-29 08:50] MED LIST changes: -ALBUMIN 25% 12.5GM 50ML 200 ML IV ONE
--- NOTE | 2019-01-29 09:29 | Diagnostic Imaging Report ---
EXAMINATION: CHEST SINGLE (PORTABLE) INDICATION: Shortness of breath COMPARISON: None FINDINGS: LINES/TUBES:None LUNGS:The lungs are moderately inflated. No focal consolidation or pulmonary edema. PLEURA:No pleural effusion or pneumothorax. MEDIASTINUM:The cardiomediastinal silhouette appears normal in size and shape. BONES/SOFT TISSUES:No acute osseous injury. ABDOMEN:No free air under the diaphragm. IMPRESSION: No focal pneumonia or pulmonary edema. Signed by: Dayanara Fontana MD on 01/29/2019 9:25 AM
[2019-01-29] MEDS ORDERED: PANTOPRAZOLE 40 MG 10ML VIAL IV ONE (09:30)
[2019-01-29 09:32] LABS: BASOPHILS % 0.4 % (0.0-1.0); EOSINOPHILS # (AUTO) 0.2 (0.0-0.4); EOSINOPHILS % 2.2 % (0.0-6.0); LYMPHOCYTES # (AUTO) 0.6 (1.0-3.2); LYMPHOCYTES % 8.8 % (18.0-39.1); MEAN CORPUSCULAR HEMOGLOBIN 33.2 pg (28-32); MEAN CORPUSCULAR HGB CONC 31.2 g/dL (31-35); MEAN CORPUSCULAR VOLUME 106.3 fL (81-99); MONOCYTES # (AUTO) 0.5 (0.2-0.8); MONOCYTES % 7.2 % (4.4-11.3); NEUTROPHILS # (AUTO) 5.4 (2.1-6.9); NEUTROPHILS % 80.4 % (38.7-80.0); PLATELET COUNT 296 x10e3/uL (140-360); RED BLOOD COUNT 2.05 x10e6/uL (3.6-5.1); RED CELL DISTRIBUTION WIDTH 14.9 % (11.7-14.4)
[2019-01-29 09:33] LABS: HEMATOCRIT 21.8 % (34.2-44.1)
[2019-01-29 09:36] LABS: HEMOGLOBIN 6.8 g/dL (12.0-16.0)
[2019-01-29 09:58] LABS: ALBUMIN 3.1 g/dL (3.5-5.0); ALBUMIN/GLOBULIN RATIO 1.2 (0.8-2.0); ANION GAP 17.3 mmol/L (8-16); CALCIUM 8.2 mg/dL (8.4-10.2); CREATININE, SERUM 2.66 mg/dL (0.57-1.11); MAGNESIUM 2.5 MG/DL (1.3-2.1); POTASSIUM 4.3 mmol/L (3.5-5.1)
[2019-01-29 10:04] LABS: CREATINE KINASE MB 1.7 ng/mL (0-5.0)
[2019-01-29 10:08] LABS: INR 1.11; PARTIAL THROMBOPLASTIN TIME 31.5 seconds (23.8-35.5); PROTHROMBIN TIME 14.8 seconds (11.9-14.5)
[2019-01-29] MEDS ORDERED: SODIUM CHLORIDE 0.9% 250ML 250 ML IV ONE (10:30)
[2019-01-29] MEDS ORDERED: FUROSEMIDE INJ 10 MG/ML 2 ML VIAL IV PRN (10:30)
--- NOTE | 2019-01-29 11:11 | NUR ---
Dr. Calderon at bedside updating pt on plan of care and disposition, made aware of current hemoglobin levels and admission status, pt is to have paracenetesis after blood transfusion; informed of risks, benefits and alternative treatments for current diagnosis and pt condition, pt verbalized understanding, informed consent obtained and witnessed for transfusion of blood and or blood products and placed on pt chart. Currently awaiting blood units and inpatient bed, pt made aware.
--- NOTE | 2019-01-29 11:58 | NUR ---
Lab called requesting re-type pink tubes to send out for blood blank due to antibodies, informed pt and collected specimens.
[2019-01-29 12:00] VITALS: BP 121/63
--- NOTE | 2019-01-29 12:00 | NUR ---
pt alert resp even and unlabored at this time no distress noted, pt able to make needs known, pt oriented to room and call light, bed in lowest position bed rails up x2x, call light in reach.
[2019-01-29 12:10] LABS: BASOPHILS % 0.5 % (0.0-1.0); EOSINOPHILS # (AUTO) 0.1 (0.0-0.4); EOSINOPHILS % 1.9 % (0.0-6.0); LYMPHOCYTES # (AUTO) 0.7 (1.0-3.2); MEAN CORPUSCULAR HEMOGLOBIN 32.8 pg (28-32); MEAN CORPUSCULAR HGB CONC 30.9 g/dL (31-35); MEAN CORPUSCULAR VOLUME 106.2 fL (81-99); MONOCYTES # (AUTO) 0.5 (0.2-0.8); MONOCYTES % 8.4 % (4.4-11.3); NEUTROPHILS # (AUTO) 4.9 (2.1-6.9); NEUTROPHILS % 77.4 % (38.7-80.0); PLATELET COUNT 254 x10e3/uL (140-360); RED BLOOD COUNT 1.95 x10e6/uL (3.6-5.1)
[2019-01-29 12:18] LABS: HEMATOCRIT 20.7 % (34.2-44.1); HEMOGLOBIN 6.4 g/dL (12.0-16.0)
[2019-01-29] MEDS ORDERED: ALBUMIN 25% 12.5GM 50ML 200 ML IV ONE (13:17)
[2019-01-29 13:44] VITALS: BP 117/56
[2019-01-29 13:47] VITALS: BP 117/56
--- NOTE | 2019-01-29 14:10 | NUR ---
pt having paracentesis done at bedside.
--- NOTE | 2019-01-29 14:47 | NUR ---
pt alert resp even and unlabored no distress noted, pt tolerated bedside procedure well. all light in reach.
[2019-01-29] MEDS ORDERED: HYDRALAZINE HCL 20 MG/ML VIAL IV PRN (15:15)
[2019-01-29] MEDS ORDERED: ONDANSETRON HCL INJ 2MG/ML 2ML 2 MG/ML VIAL IV PRN (15:15)
[2019-01-29] MEDS ORDERED: ACETAMINOPHEN 325 MG TAB PO PRN (15:15)
[2019-01-29] MEDS ORDERED: TRAMADOL HCL 50 MG TAB PO PRN (15:15)
[2019-01-29 15:27] VITALS: BP 132/74
--- NOTE | 2019-01-29 15:33 | Diagnostic Imaging Report ---
PROCEDURE: Ultrasound-guided diagnostic and therapeutic paracentesis Procedural Personnel Attending physician(s): Dayanara Fontana MD Pre-procedure diagnosis: Cirrhosis, ascites Post-procedure diagnosis: Same Indication: Ascites with pain or pressure symptoms Additional clinical history: None Complications: No immediate complications. IMPRESSION: Ultrasound-guided paracentesis with drainage of 5200 mL of serous fluid. Plan: Resume care by clinical team. PROCEDURE SUMMARY: - Limited abdominal ultrasound - Ultrasound-guided paracentesis - Additional procedure(s): None PROCEDURE DETAILS: Pre-procedure Consent: Informed consent for the procedure including risks, benefits and alternatives was obtained and time-out was performed prior to the procedure. Preparation: The site was prepared and draped using maximal sterile barrier technique including cutaneous antisepsis. Anesthesia/sedation Level of anesthesia/sedation: No sedation Anesthesia/sedation administered by: Not applicable Initial abdominal ultrasound Initial abdominal ultrasound was performed. Findings: Large ascites. A safe window for paracentesis was identified. Paracentesis Local anesthesia was administered. The peritoneal cavity was accessed and fluid return confirmed position. Ascites was drained. The catheter was then removed, and a sterile bandage was applied. Paracentesis access technique: Real-time ultrasound guidance Catheter placed: 5F Yueh Post-drainage ultrasound: Small ascites Additional Details Additional description of procedure: None Equipment details: None Specimens removed: Abdominal fluid Estimated blood loss (mL): Less than 10 Standardized report: [email or web address] Attestation Signer name: Dayanara Fontana MD I attest that I was present for the entire procedure. I reviewed the stored images and agree with the report as written. Signed by: Dayanara Fontana MD on 01/29/2019 3:30 PM
[2019-01-29] MEDS: AMLODIPINE BESYLATE 5 MG TAB PO SCH (17:37)
[2019-01-29] MEDS: RIFAXIMIN 550 MG TABLET PO SCH (17:37)
[2019-01-29] MEDS: METOPROLOL TARTRATE 50 MG TAB PO SCH (17:37)
[2019-01-29 18:33] LABS: BASOPHILS % 0.5 % (0.0-1.0); EOSINOPHILS # (AUTO) 0.1 (0.0-0.4); EOSINOPHILS % 2.6 % (0.0-6.0); LYMPHOCYTES # (AUTO) 0.6 (1.0-3.2); LYMPHOCYTES % 15.2 % (18.0-39.1); MEAN CORPUSCULAR HEMOGLOBIN 33.3 pg (28-32); MEAN CORPUSCULAR HGB CONC 31.6 g/dL (31-35); MEAN CORPUSCULAR VOLUME 105.6 fL (81-99); MONOCYTES # (AUTO) 0.4 (0.2-0.8); MONOCYTES % 9.7 % (4.4-11.3); NEUTROPHILS % 71.3 % (38.7-80.0); PLATELET COUNT 208 x10e3/uL (140-360); RED BLOOD COUNT 1.77 x10e6/uL (3.6-5.1)
[2019-01-29 18:35] LABS: HEMOGLOBIN 5.9 g/dL (12.0-16.0)
[2019-01-29 18:36] LABS: HEMATOCRIT 18.7 % (34.2-44.1)
[2019-01-29] MEDS ORDERED: SODIUM CHLORIDE 0.9% 250ML 250 ML ONE (18:45)
[2019-01-29 18:54] LABS: BODY FLUID APPEARANCE SL.CLOUDY; BODY FLUID COLOR YELLOW
[2019-01-29 19:02] LABS: RBC,BODY FLUID 1035 cells/uL; WBC,BODY FLUID 40 cells/uL
[2019-01-29 19:33] LABS: LYMPHOCYTES,BODY FLUID 30 %; MONO/MACROPHG,BODY FLUID 69 %; NEUTROPHILS,BODY FLUID 1 %
[2019-01-29 20:04] VITALS: BP 111/55
[2019-01-29 20:05] VITALS: BP 111/55
--- NOTE | 2019-01-29 20:05 | NUR ---
PATIENT IS IN STABLE CONDITION, NO SIGNS OF DISTRESS NOTED. PATIENT VOICES NO PAIN AT THIS TIME AND IS CURRENTLY RECEIVING ONE UNIT OF BLOOD AND SHOWS NO SIGNS OF DISTRESS. BED IS IN LOWEST POSITION POSSIBLE, SIDE RAILS ARE UP, CALL LIGHT WITHIN EASY REACH, WILL CONTINUE TO MONITOR.
[2019-01-29] MEDS: PANTOPRAZOLE 40 MG 10ML VIAL IV SCH (22:00)
--- NOTE | 2019-01-29 22:15 | NUR ---
PATIENT HAS FINISHED RECEIVING ONE UNIT OF BLOOD. VITALS ARE STABLE AND NO DISTRESS NOTED.
--- NOTE | 2019-01-30 00:30 | NUR ---
PATIENT STARTED ON SECOND UNIT OF BLOOD. VITALS ARE STABLE AND NO DISTRESS NOTED.
[2019-01-30 00:48] VITALS: BP 155/66
--- NOTE | 2019-01-30 03:30 | NUR ---
PATIENT IS DONE WITH SECOND UNIT OF BLOOD. PATIENT SHOWS NO SIGNS OF DISTRESS, VITALS ARE STABLE.
[2019-01-30 05:54] VITALS: BP 170/72
[2019-01-30] MEDS ORDERED: LEVOTHYROXINE SODIUM 100 MCG TAB PO SCH (06:00)
[2019-01-30] MEDS ORDERED: LEVOTHYROXINE SODIUM 75 MCG TAB PO SCH (06:00)
[2019-01-30] MEDS ORDERED: SODIUM CHLORIDE 0.9% 1000ML 1,000 ML IV SCH (06:00)
[2019-01-30 06:03] LABS: BASOPHILS % 0.4 % (0.0-1.0); EOSINOPHILS # (AUTO) 0.1 (0.0-0.4); EOSINOPHILS % 2.7 % (0.0-6.0); HEMATOCRIT 27.1 % (34.2-44.1); HEMOGLOBIN 8.6 g/dL (12.0-16.0); LYMPHOCYTES # (AUTO) 0.5 (1.0-3.2); LYMPHOCYTES % 9.7 % (18.0-39.1); MEAN CORPUSCULAR HEMOGLOBIN 31.3 pg (28-32); MEAN CORPUSCULAR HGB CONC 31.7 g/dL (31-35); MEAN CORPUSCULAR VOLUME 98.5 fL (81-99); MONOCYTES # (AUTO) 0.6 (0.2-0.8); NEUTROPHILS # (AUTO) 3.8 (2.1-6.9); PLATELET COUNT 186 x10e3/uL (140-360); RED BLOOD COUNT 2.75 x10e6/uL (3.6-5.1); RED CELL DISTRIBUTION WIDTH 18.6 % (11.7-14.4)
[2019-01-30 06:21] LABS: ALBUMIN 3.3 g/dL (3.5-5.0); ALBUMIN/GLOBULIN RATIO 1.6 (0.8-2.0); ANION GAP 13.3 mmol/L (8-16); CALCIUM 8.3 mg/dL (8.4-10.2); CREATININE, SERUM 2.36 mg/dL (0.57-1.11); POTASSIUM 4.3 mmol/L (3.5-5.1)
[2019-01-30 06:52] LABS: FERRITIN 63.38 ng/mL (4.63-204.00)
--- NOTE | 2019-01-30 07:00 | NUR ---
RCD PT AT BED PT IS ALERT AND ORIENTED RESTING ON BED IV PATENT BY SALINE FLUSH BED LOW AND LOCKED CALL LIGHT IN REACH
[2019-01-30 07:36] VITALS: BP 122/58
--- NOTE | 2019-01-30 07:56 | NUR ---
CHRISTIANO TO [facility] PT CAN GO HOME IF OK WITH Manjit TIWARI PAGED AND TALKED DR Manjit TIWARI HE IS OK TO DISCHARGE
--- NOTE | 2019-01-30 08:00 | NUR ---
PAGED AND NOTIFIED [facility] TIWARI OK TO DISCHARGE PT GOT THE DISCHARGE ORDER
[2019-01-30 08:07] LABS: ANISOCYTOSIS SLIGHT; LYMPHOCYTES % (MANUAL) 4 % (19-48); MONOCYTES % (MANUAL) 5 % (3.4-9.0); NEUTROPHILS % (MANUAL) 90 % (40-74); PLATELET ESTIMATE ADEQUATE; PLATELET MORPHOLOGY COMMENT NORMAL; RBC MORPHOLOGY COMMENT ABNORMAL
[2019-01-30] MEDS: PANTOPRAZOLE 40 MG 10ML VIAL IV SCH (08:52)
[2019-01-30] MEDS: AMLODIPINE BESYLATE 5 MG TAB PO SCH (08:53)
[2019-01-30] MEDS: RIFAXIMIN 550 MG TABLET PO SCH (08:53)
[2019-01-30] MEDS: METOPROLOL TARTRATE 50 MG TAB PO SCH (08:53)
[2019-01-30 08:55] VITALS: BP 122/58
[2019-01-30] MEDS ORDERED: FUROSEMIDE 40 MG TAB PO SCH (09:00)
[2019-01-30] MEDS ORDERED: LIOTHYRONINE SODIUM 5 MCG TAB PO SCH (09:00)
[2019-01-30] MEDS ORDERED: SPIRONOLACTONE 25 MG TAB PO SCH (09:00)
[2019-01-30] MEDS ORDERED: FENOFIBRATE 145 MG TAB PO SCH (09:00)
[2019-01-30] MEDS ORDERED: NON-FORMULARY MEDICATION (Levothyroxine Sodium 175 MCG) PO SCH (09:00)
[2019-01-30] MEDS ORDERED: ASCORBIC ACID 500 MG TAB PO SCH (09:00)
--- NOTE | 2019-01-30 11:30 | NUR ---
PT DISCHARGED TO HOME IN SAFE CONDITION WITH
--- NOTE | 2019-02-01 01:02 | Discharge Summary ---
ADMISSION DIAGNOSES: Anemia of chronic disease secondary to cirrhosis, cirrhosis, chronic kidney disease 3, hyperlipidemia, hypertension with chronic kidney disease 3, hypothyroidism, obesity with a BMI of 30. DISCHARGE DIAGNOSES: Anemia of chronic disease secondary to cirrhosis, cirrhosis, chronic kidney disease 3, hyperlipidemia, hypertension with chronic kidney disease 3, hypothyroidism, obesity with a BMI of 30. HISTORY: Hypertension, hyperlipidemia, cirrhosis, hypothyroidism. SURGICAL HISTORY: Hysterectomy, cholecystectomy, appendectomy, abdominal surgery for tumors. FAMILY HISTORY: The patient's father had cancer. The patient's mother had a stroke. SOCIAL HISTORY: Noncontributory. HOSPITAL COURSE: A 63-year-old female admitted from [facility] after having a paracentesis due to anemia. Her hemoglobin was 6.8 and dropped to 5.9. She was here last month for the same thing. She follows with Dr. Samuels at [facility] and had a recent EGD and colonoscopy, but is unsure of the results. She says she has chronic dark stools due to iron tab. On admission, 2 PRBCs were ordered. The patient's paracentesis pulled off 5.2 L. GI was consulted, who cleared the patient for discharge. She will discharge home and follow up with Dr. Samuels in 1 to 2 weeks and primary care in 1 to 2 weeks. The patient understands discharge instructions and agrees to plan. Dictated by Mabel Bah NP MD INDU [place]/ORTIZL /[id number]
[2019-02-02 09:35] LABS: HEMOGLOBIN 10.1 g/dL (12.0-16.0); MEAN CORPUSCULAR HEMOGLOBIN 31.6 pg (28-32); MEAN CORPUSCULAR HGB CONC 31.6 g/dL (31-35); PLATELET COUNT 237 x10e3/uL (140-360); RED CELL DISTRIBUTION WIDTH 18.6 % (11.7-14.4)
== END 2019-01-30 10:35 | disposition home or self-care (01) | DRG 433 ==
LOC: ER 08:58 → ERHOLD 10:29 → MED/SURG2 13:26
PROVIDERS: ADMIT Internal Medicine; ATTEND Internal Medicine
PROC: 0W9G3ZX Drainage of Peritoneal Cavity, Percutaneous Approach, Diagnostic (ICD-10-PCS; principal; 2019-01-29)
PROC: 30233N1 Transfusion of Nonautologous Red Blood Cells into Peripheral Vein, Percutaneous Approach (ICD-10-PCS; 2019-01-29)
DX: K74.60 Unspecified cirrhosis of liver (principal); I13.0 Hypertensive heart and chronic kidney disease with heart failure and stage 1 through stage 4 chronic kidney disease, or unspecified chronic kidney disease; D62 Acute posthemorrhagic anemia; D63.8 Anemia in other chronic diseases classified elsewhere; N18.3 Chronic kidney disease, stage 3 (moderate); E78.5 Hyperlipidemia, unspecified; E03.9 Hypothyroidism, unspecified; E66.9 Obesity, unspecified; Z68.30 Body mass index [BMI] 30.0-30.9, adult; I50.9 Heart failure, unspecified; B19.20 Unspecified viral hepatitis C without hepatic coma; Z90.49 Acquired absence of other specified parts of digestive tract; Z82.49 Family history of ischemic heart disease and other diseases of the circulatory system
CPT/HCPCS: 36415; 49083; 71045; 74470; 80053; 82550; 82553; 82607; 82728; 83540; 83735; 83880; 84466; 84484; 85007; 85025; 85027; 85045; 85610; 85730; 86850; 86870; 86880; 86900; 86905; 86920; 86922; 89051; 93005; 99001; 99284; J7030; J7050; P9016

== ENCOUNTER → 2019-02-02 | Outpatient (CLI) | payer BC ==
[~2019-02-02] MED LIST changes: +ALBUMIN 25% 12.5GM 50ML 200 ML IV ONE
--- NOTE | 2019-02-02 11:01 | Diagnostic Imaging Report ---
Procedure: Ultrasound-guided paracentesis rotary dryer operator: David Cesar MD Pre-operative diagnosis: Ascites Post-operative diagnosis: Ascites Conscious Sedation: None. The patient's heart rate and pulse oximetry were continuously monitored by the IR nurse. Additional Medications: Lidocaine 1% for local anesthesia Estimated blood loss: Less than 1 cc. Specimen: 5000 cc of lucas-colored yellow fluid Implants: None TECHNIQUE/FINDINGS: Informed consent was obtained from the patient and documented in the medical record. The patient was placed in the supine position. Initial ultrasound demonstrated ascites. The right abdomen was prepped and draped in standard sterile fashion. 1% lidocaine was infiltrated into the skin and subcutaneous tissues for local anesthesia. Then under continuous sonographic guidance, a 5 Fr catheter was advanced into the peritoneal space. The catheter was connected to vacuum bottle with subsequent evacuation of 5000 cc of serous fluid. The catheter was removed and sterile dressing was applied. The patient tolerated the procedure well. IMPRESSION: Successful ultrasound-guided paracentesis. Signed by: Dr. David Cesar MD on 02/02/2019 10:58 AM
[2019-02-02 12:21] LABS: BODY FLUID TYPE ABDOMINAL
[2019-02-02 12:22] LABS: BODY FLUID APPEARANCE SL.CLOUDY; BODY FLUID COLOR STRAW
[2019-02-02 12:25] LABS: RBC,BODY FLUID 928 cells/uL; WBC,BODY FLUID 47 cells/uL
[2019-02-02 12:39] LABS: LYMPHOCYTES,BODY FLUID 73 %; MONO/MACROPHG,BODY FLUID 25 %
[2019-02-02 13:03] LABS: NEUTROPHILS,BODY FLUID 2 %
== END ==
LOC: US 08:56
PROVIDERS: ATTEND Legal Medicine
DX: R18.8 Other ascites (principal)
CPT/HCPCS: 36415; 49083; 89051; C1729

== ENCOUNTER → 2019-02-05 | Outpatient (CLI) | payer BC ==
[~2019-02-05] MED LIST changes: +ALBUMIN 25% 12.5GM 0.25 GM/ML BTL IV ONE; -ALBUMIN 25% 12.5GM 50ML 200 ML IV ONE
[2019-02-05 10:14] LABS: ALBUMIN 3.6 g/dL (3.5-5.0); ALBUMIN/GLOBULIN RATIO 1.4 (0.8-2.0); ANION GAP 16.2 mmol/L (8-16); CALCIUM 8.7 mg/dL (8.4-10.2); CREATININE, SERUM 2.28 mg/dL (0.57-1.11); POTASSIUM 5.2 mmol/L (3.5-5.1)
--- NOTE | 2019-02-05 11:06 | Diagnostic Imaging Report ---
Ultrasound guided paracentesis, 02/05/2019. Clinical History: Ascites. Sedation: None. Radiologist: Seferino Logan MD Land Leveler: None. Estimated Blood Loss: < 1 cc. Specimen: 5200 cc of upper fluid, samples sent to laboratory. Technique: Informed consent was obtained. The risks of pain, bleeding, infection, bowel perforation, injury to adjacent structures, and adverse medication reactions were discussed with the patient. After informed consent was obtained, the patient's abdomen was scanned. The lower quadrant of the abdomen was selected for paracentesis. After the largest fluid pocket area was marked, and the anterior abdominal wall was evaluated with color Doppler to exclude presence of blood vessels traversing the area, the skin was prepped and draped in the usual sterile manner. After local anesthesia was achieved with 1% lidocaine, a 5 American centesis catheter was advanced into the peritoneal cavity under ultrasound guidance. After completion of drainage, the catheter was removed. There was no evidence of complication. Impression: Successful ultrasound guided paracentesis. Signed by: Seferino Logan MD on 02/05/2019 11:03 AM
[2019-02-05 12:30] LABS: BODY FLUID TYPE ABDOMINAL FLUID
[2019-02-05 12:31] LABS: BODY FLUID APPEARANCE SL.CLOUDY; BODY FLUID COLOR STRAW
[2019-02-05 13:18] LABS: WBC,BODY FLUID 105 cells/uL
[2019-02-05 13:22] LABS: RBC,BODY FLUID 2970 cells/uL
[2019-02-05 13:31] LABS: LYMPHOCYTES,BODY FLUID 22 %; MONO/MACROPHG,BODY FLUID 64 %; NEUTROPHILS,BODY FLUID 6 %; OTHER CELLS,BODY FLUID 8 %
== END ==
LOC: US 08:44
PROVIDERS: ATTEND Legal Medicine
DX: R18.8 Other ascites (principal)
CPT/HCPCS: 36415; 49083; 80053; 89051; C1729

== ENCOUNTER → 2019-02-09 | Outpatient (CLI) | payer BC ==
[~2019-02-09] MED LIST changes: -ALBUMIN 25% 12.5GM 0.25 GM/ML BTL IV ONE; +ALBUMIN 25% 12.5GM 50ML 50 ML IV ONE
--- NOTE | 2019-02-09 12:04 | Diagnostic Imaging Report ---
Procedure: Ultrasound-guided paracentesis feller seam operator: David Cesar MD Pre-operative diagnosis: Ascites Post-operative diagnosis: Ascites Conscious Sedation: None. Additional Medications: Lidocaine 1% for local anesthesia Estimated blood loss: Less than 1 cc. Specimen: 6000 cc of cloudy fluid Implants: None TECHNIQUE/FINDINGS: Informed consent was obtained from the patient and documented in the medical record. The patient was placed in the supine position. Initial ultrasound demonstrated ascites. The right lower abdomen was prepped and draped in standard sterile fashion. 1% lidocaine was infiltrated into the skin and subcutaneous tissues for local anesthesia. Then under continuous sonographic guidance, a 5 Fr catheter was advanced into the peritoneal space. The catheter was connected to vacuum bottle with subsequent evacuation of 6000 cc of fluid. The catheter was removed and sterile dressing was applied. The patient tolerated the procedure well. IMPRESSION: Successful ultrasound-guided paracentesis. Signed by: Dr. David Cesar MD on 02/09/2019 12:01 PM
[2019-02-09 16:06] LABS: BODY FLUID APPEARANCE SL.CLOUDY; BODY FLUID COLOR YELLOW
[2019-02-09 16:08] LABS: RBC,BODY FLUID 2500 cells/uL; WBC,BODY FLUID 334 cells/uL
[2019-02-09 16:15] LABS: LYMPHOCYTES,BODY FLUID 60 %; MONO/MACROPHG,BODY FLUID 12 %; NEUTROPHILS,BODY FLUID 5 %; OTHER CELLS,BODY FLUID 23 %
== END ==
LOC: US 08:48
PROVIDERS: ATTEND Legal Medicine
DX: R18.8 Other ascites (principal)
CPT/HCPCS: 36415; 49083; 89051; C1729

== ENCOUNTER → 2019-02-12 | Outpatient (CLI) | payer BC ==
[~2019-02-12] MED LIST changes: +ALBUMIN 25% 12.5GM 50ML 200 ML IV ONE; -ALBUMIN 25% 12.5GM 50ML 50 ML IV ONE
--- NOTE | 2019-02-12 11:01 | Diagnostic Imaging Report ---
Ultrasound guided paracentesis, 02/12/2019. Clinical History: Ascites. Sedation: None. Radiologist: Seferino Logan MD Director Loss Prevention: None. Estimated Blood Loss: < 1 cc. Specimen: 4450 cc of cloudy fluid, samples sent to laboratory. Technique: Informed consent was obtained. The risks of pain, bleeding, infection, bowel perforation, injury to adjacent structures, and adverse medication reactions were discussed with the patient. After informed consent was obtained, the patient's abdomen was scanned. The right lower quadrant of the abdomen was selected for paracentesis. After the largest fluid pocket area was marked, and the anterior abdominal wall was evaluated with color Doppler to exclude presence of blood vessels traversing the area, the skin was prepped and draped in the usual sterile manner. After local anesthesia was achieved with 1% lidocaine, a 5 Luxembourgish centesis catheter was advanced into the peritoneal cavity under ultrasound guidance. After completion of drainage, the catheter was removed. There was no evidence of complication. Impression: Successful ultrasound guided paracentesis. Signed by: Seferino Logan MD on 02/12/2019 10:58 AM
[2019-02-12 12:59] LABS: BODY FLUID APPEARANCE CLOUDY; BODY FLUID COLOR YELLOW; BODY FLUID TYPE PERITONEAL
[2019-02-12 13:00] LABS: RBC,BODY FLUID 1870 cells/uL; WBC,BODY FLUID 71 cells/uL
[2019-02-12 13:07] LABS: LYMPHOCYTES,BODY FLUID 30 %; MONO/MACROPHG,BODY FLUID 68 %; NEUTROPHILS,BODY FLUID 2 %
== END ==
LOC: US 08:32
PROVIDERS: ATTEND Legal Medicine
DX: R18.8 Other ascites (principal)
CPT/HCPCS: 36415; 49083; 89051

== ENCOUNTER → 2019-02-16 | Outpatient (CLI) | payer BC ==
[~2019-02-16] MED LIST changes: -LIOTHYRONINE SO5 MCG; +LIOTHYRONINE SO5 MCG PO
[2019-02-16 12:09] LABS: BODY FLUID APPEARANCE CLOUDY; BODY FLUID COLOR STRAW; BODY FLUID TYPE ABDOMINAL FL
[2019-02-16 12:10] LABS: RBC,BODY FLUID 3105 cells/uL; WBC,BODY FLUID 196 cells/uL
--- NOTE | 2019-02-16 12:30 | Diagnostic Imaging Report ---
Procedure: Ultrasound-guided paracentesis greaser operator: David Cesar MD Pre-operative diagnosis: Ascites Post-operative diagnosis: Ascites Conscious Sedation: None. The patient's heart rate and pulse oximetry were continuously monitored by the IR nurse. Additional Medications: Lidocaine 1% for local anesthesia Estimated blood loss: Less than 1 cc. Specimen: 5000 cc of cloudy yellow fluid Implants: None TECHNIQUE/FINDINGS: Informed consent was obtained from the patient and documented in the medical record. The patient was placed in the supine position. Initial ultrasound demonstrated ascites. The right lower abdomen was prepped and draped in standard sterile fashion. 1% lidocaine was infiltrated into the skin and subcutaneous tissues for local anesthesia. Then under continuous sonographic guidance, a 5 Fr catheter was advanced into the peritoneal space. The catheter was connected to vacuum bottle with subsequent evacuation of 5000 cc of serous fluid. The catheter was removed and sterile dressing was applied. Sample was sent to the lab. The patient tolerated the procedure well. IMPRESSION: Successful ultrasound-guided paracentesis. Signed by: Dr. David Cesar MD on 02/16/2019 12:27 PM
[2019-02-16 13:12] LABS: LYMPHOCYTES,BODY FLUID 59 %; MONO/MACROPHG,BODY FLUID 17 %; NEUTROPHILS,BODY FLUID 24 %
== END ==
LOC: US 08:39
PROVIDERS: ATTEND Legal Medicine
DX: R18.8 Other ascites (principal)
CPT/HCPCS: 36415; 49083; 89051; C1729

== ENCOUNTER → 2019-02-19 | Outpatient (CLI) | payer BC ==
--- NOTE | 2019-02-19 10:34 | Diagnostic Imaging Report ---
PROCEDURE: Ultrasound-guided diagnostic and therapeutic paracentesis Procedural Personnel Attending physician(s): Dayanara Fontana MD Pre-procedure diagnosis: Cirrhosis, ascites Post-procedure diagnosis: Same Indication: Ascites with pain or pressure symptoms Additional clinical history: None Complications: No immediate complications. IMPRESSION: Ultrasound-guided paracentesis with drainage of 5700 mL of serous fluid. Plan: Resume care by clinical team. PROCEDURE SUMMARY: - Limited abdominal ultrasound - Ultrasound-guided paracentesis - Additional procedure(s): None PROCEDURE DETAILS: Pre-procedure Consent: Informed consent for the procedure including risks, benefits and alternatives was obtained and time-out was performed prior to the procedure. Preparation: The site was prepared and draped using maximal sterile barrier technique including cutaneous antisepsis. Anesthesia/sedation Level of anesthesia/sedation: No sedation Anesthesia/sedation administered by: Not applicable Initial abdominal ultrasound Initial abdominal ultrasound was performed. Findings: Large ascites. A safe window for paracentesis was identified. Paracentesis Local anesthesia was administered. The peritoneal cavity was accessed and fluid return confirmed position. Ascites was drained. The catheter was then removed, and a sterile bandage was applied. Paracentesis access technique: Real-time ultrasound guidance Catheter placed: 5F Yueh Post-drainage ultrasound: Small ascites Additional Details Additional description of procedure: None Equipment details: None Specimens removed: Abdominal fluid Estimated blood loss (mL): Less than 10 Standardized report: [email or web address] Attestation Signer name: Dayanara Fontana MD I attest that I was present for the entire procedure. I reviewed the stored images and agree with the report as written. Signed by: Dayanara Fontana MD on 02/19/2019 10:31 AM
[2019-02-19 12:59] LABS: BODY FLUID APPEARANCE CLOUDY; BODY FLUID COLOR STRAW; BODY FLUID TYPE ABDOMNAL
[2019-02-19 13:03] LABS: RBC,BODY FLUID 3723 cells/uL; WBC,BODY FLUID 129 cells/uL
[2019-02-19 13:31] LABS: LYMPHOCYTES,BODY FLUID 48 %; MONO/MACROPHG,BODY FLUID 1 %; NEUTROPHILS,BODY FLUID 7 %; OTHER CELLS,BODY FLUID 44 %
== END ==
LOC: US 08:38
PROVIDERS: ATTEND Legal Medicine
DX: R18.8 Other ascites (principal)
CPT/HCPCS: 36415; 49083; 89051; C1729

== ENCOUNTER → 2019-02-23 | Outpatient (CLI) | payer BC ==
[2019-02-23 10:49] LABS: BODY FLUID APPEARANCE CLOUDY; BODY FLUID COLOR STRAW; BODY FLUID TYPE ABDOMINAL
[2019-02-23 10:51] LABS: RBC,BODY FLUID 3713 cells/uL; WBC,BODY FLUID 135 cells/uL
[2019-02-23 11:05] LABS: LYMPHOCYTES,BODY FLUID 45 %; NEUTROPHILS,BODY FLUID 8 %; OTHER CELLS,BODY FLUID 47 %
[2019-02-23 11:14] LABS: MONO/MACROPHG,BODY FLUID 0 %
--- NOTE | 2019-02-23 11:19 | Diagnostic Imaging Report ---
PROCEDURE: Ultrasound-guided diagnostic and therapeutic paracentesis Procedural Personnel Attending physician(s): Dayanara Fontana MD Pre-procedure diagnosis: Cirrhosis, ascites Post-procedure diagnosis: Same Indication: Ascites with pain or pressure symptoms Additional clinical history: None Complications: No immediate complications. IMPRESSION: Ultrasound-guided paracentesis with drainage of 3600 mL of serous fluid. Plan: Resume care by clinical team. PROCEDURE SUMMARY: - Limited abdominal ultrasound - Ultrasound-guided paracentesis - Additional procedure(s): None PROCEDURE DETAILS: Pre-procedure Consent: Informed consent for the procedure including risks, benefits and alternatives was obtained and time-out was performed prior to the procedure. Preparation: The site was prepared and draped using maximal sterile barrier technique including cutaneous antisepsis. Anesthesia/sedation Level of anesthesia/sedation: No sedation Anesthesia/sedation administered by: Not applicable Initial abdominal ultrasound Initial abdominal ultrasound was performed. Findings: Large ascites. A safe window for paracentesis was identified. Paracentesis Local anesthesia was administered. The peritoneal cavity was accessed and fluid return confirmed position. Ascites was drained. The catheter was then removed, and a sterile bandage was applied. Paracentesis access technique: Real-time ultrasound guidance Catheter placed: 5F Yueh Post-drainage ultrasound: Small ascites Additional Details Additional description of procedure: None Equipment details: None Specimens removed: Abdominal fluid Estimated blood loss (mL): Less than 10 Standardized report: [email or web address] Attestation Signer name: Dayanara Fontana MD I attest that I was present for the entire procedure. I reviewed the stored images and agree with the report as written. Signed by: Dayanara Fontana MD on 02/23/2019 11:16 AM
== END ==
LOC: US 08:40
PROVIDERS: ATTEND Legal Medicine
DX: R18.8 Other ascites (principal); K74.60 Unspecified cirrhosis of liver
CPT/HCPCS: 36415; 49083; 89051; C1729

== ENCOUNTER → 2019-02-26 | Outpatient (CLI) | payer BC ==
--- NOTE | 2019-02-26 09:41 | Diagnostic Imaging Report ---
Ultrasound guided paracentesis, 02/26/2019. Clinical History: Ascites. Sedation: None. Radiologist: Seferino Logan MD Union Contract Representative: None. Estimated Blood Loss: < 1 cc. Specimen: 3350 cc of cloudy pink fluid, samples sent to laboratory. Technique: Informed consent was obtained. The risks of pain, bleeding, infection, bowel perforation, injury to adjacent structures, and adverse medication reactions were discussed with the patient. After informed consent was obtained, the patient's abdomen was scanned. The right lower quadrant of the abdomen was selected for paracentesis. After the largest fluid pocket area was marked, and the anterior abdominal wall was evaluated with color Doppler to exclude presence of blood vessels traversing the area, the skin was prepped and draped in the usual sterile manner. After local anesthesia was achieved with 1% lidocaine, a 5 Brazilian one-step catheter was advanced into the peritoneal cavity under ultrasound guidance. After completion of drainage, the catheter was removed. There was no evidence of complication. Impression: Successful ultrasound guided paracentesis. Signed by: Seferino Logan MD on 02/26/2019 9:38 AM
[2019-02-26 12:21] LABS: BODY FLUID APPEARANCE CLOUDY; BODY FLUID COLOR STRAW; BODY FLUID TYPE ACITES
[2019-02-26 12:22] LABS: RBC,BODY FLUID 3214 cells/uL; WBC,BODY FLUID 111 cells/uL
[2019-02-26 14:51] LABS: EOSINOPHILS,BODY FLUID 1 %; LYMPHOCYTES,BODY FLUID 56 %; MONO/MACROPHG,BODY FLUID 11 %; NEUTROPHILS,BODY FLUID 15 %; OTHER CELLS,BODY FLUID 17 %
== END ==
LOC: US 08:36
PROVIDERS: ATTEND Legal Medicine
DX: R18.8 Other ascites (principal)
CPT/HCPCS: 36415; 49083; 88112; 88305; 89051